=== PATIENT | male | born 1950 | race Caucasian/White ===

== ENCOUNTER 2016-12-07 06:14 | Day surgery (SDC) | payer MEDICARE, BC ==
[2016-12-02 14:52] VITALS: BMI 36.9
[~2016-12-07 06:14] MED LIST: SODIUM CHLORIDE 0.9% 1,000 ML IV SCH; ceFAZolin 1,000 MG in SODIUM CHLORIDE 0.9% IRRIGATIO 250 ML IRRIGATION ONE; ceFAZolin 2 GM in SODIUM CHLORIDE 0.9% 100 ML IVPB ONE
[2016-12-07] MEDS ORDERED: SODIUM CHLORIDE 0.9% 1,000 ML IV ONE (06:39)
[2016-12-07 06:42] VITALS: RESP 16; TEMP 97.9
[2016-12-07 06:53] LABS: Glucose,Whole Blood 132 mg/dL (75-99)
[2016-12-07 06:57] LABS: Anion Gap 11 mmol/L; Blood Urea Nitrogen 22 mg/dL (9-20); Calcium 9.5 mg/dL (8.4-10.2); Carbon Dioxide 25 mmol/L (22-30); Chloride 104 mmol/L (98-107); Glucose 138 mg/dL (74-99); Non-African American GFR(MDRD) >60 (>60 ml/min/1.73 sqM); Potassium 4.6 mmol/L (3.5-5.1); Sodium 140 mmol/L (137-145)
[2016-12-07] MEDS ORDERED: MIDAZOLAM 2 MG/2 ML VIAL ONE (07:46)
[2016-12-07] MEDS ORDERED: fentaNYL (PF) 50 MCG/ML 2 ML AMP ONE (07:46)
[2016-12-07] MEDS ORDERED: MIDAZOLAM 2 MG/2 ML VIAL IV ONE (07:49)
[2016-12-07] MEDS ORDERED: fentaNYL (PF) 50 MCG/ML 2 ML AMP IV ONE (07:49)
[2016-12-07] MEDS ORDERED: LIDOCAINE 1% INJ 10MG/ML (20 ML MDV) SQ ONE (07:56)
[2016-12-07] MEDS ORDERED: HYDROcodone/APAP 5-325MG 1 EACH TAB PO PRN (08:25)
[2016-12-07] MEDS ORDERED: ACETAMINOPHEN TAB 325 MG TAB PO PRN (08:25)
--- NOTE | 2016-12-07 08:36 | P.PCN ---
Date of Procedure: 12/07/16 Preoperative Diagnosis: History of dual-chamber pacemaker implantation. Battery depletion Postoperative Diagnosis: The same Procedure(s) Performed: Generator replacement Description of Procedure: HISTORY: This is a 66-year-old gentleman with history of permanent pacemaker implantation who was found to have evidence of battery depletion on recent evaluation. Patient is brought in for elective generator change. CONSENT: I have discussed the risks and benefits as related to the above mentioned procedure and both sedation/analgesia as well as necessary blood product administration. The patient has indicated understanding and acceptance of the risks of the procedure discussed. CONSCIOUS SEDATION. Patient was given IV Versed 1 mg and 50 g of fentanyl for conscious sedation that lasted for a half hour. PROCEDURE: Patient was brought to the lab in a fasting state. The skin over the existing pulse generator was infiltrated with lidocaine. An incision was made in the skin and was deepened until the pectoral fascia was exposed. Hemostasis was obtained. The existing pulse generator was pulled out of the pocket. The leads were disconnected and were checked for thresholds. THRESHOLDS: ATRIAL: Minimal pacing threshold was 0.4 V at a pulse width of 0.5 ms. Impedance is 437 ohms. The intrinsic P-wave is 3.8 mV VENTRICULAR: The minimal patient threshold was 0.6 V at a pulse width of 0.5 ms. Impedance is 434. The intrinsic R-wave is 9.4 mV . THE DEVICE: This is manufactured by [employer]. Model number is [id number] and the serial number is [id number] THE LEADS: ATRIAL: This is manufactured by [employer]. Model number is [id number]. The serial number is [id number] VENTRICULAR: This is manufactured by [employer]. Model number is 5592. Serial number is [id number] THE EXPLANTED DEVICE. This is manufactured by [employer]. Model number is [id number] and the serial number is [id number] . The leads were then connected to a new pulse generator . Pacemaker seems to function normally. The pocket was irrigated with antibiotics. The pocket was closed in the usual fashion. Pectoral fascia was closed with 2-0 Prolene, the subcutaneous tissue was closed with 3-0 Prolene and the skin was closed with 4-0 Prolene. Patient tolerated the procedure well . Patient will be monitored on the telemetry unit for 2-3 hours. If stable patient be discharged home later today. PLAN: Continue to monitoring for next 3 to 4 hours. If stable patient will be discharged home. Patient will keep the incision dry until seen in the office. He'll continue prophylactic antibiotics. FALLOW UP: With the Dr. Ramirez in one week
[2016-12-07] MEDS ORDERED: CEPHALEXIN 500 MG CAP PO STA (11:01)
[2016-12-07 11:05] VITALS: BP 120/81; PULSE 62
== END 2016-12-07 11:27 | disposition home or self-care (01) ==
LOC: CATHEP 06:14
PROVIDERS: ATTEND Internal Medicine Cardiovascular Disease
DX: Z45.010 Encounter for checking and testing of cardiac pacemaker pulse generator [battery] (principal); I25.10 Atherosclerotic heart disease of native coronary artery without angina pectoris; I10 Essential (primary) hypertension; E78.2 Mixed hyperlipidemia; Z95.5 Presence of coronary angioplasty implant and graft; G47.30 Sleep apnea, unspecified; Z82.49 Family history of ischemic heart disease and other diseases of the circulatory system; Z79.84 Long term (current) use of oral hypoglycemic drugs; Z79.82 Long term (current) use of aspirin; Z79.899 Other long term (current) drug therapy; Z87.891 Personal history of nicotine dependence
CPT/HCPCS: 33228; 80048; 99152; 99153; C1785; J2250; J0690; J2001; J3010

== ENCOUNTER → 2017-05-12 | Outpatient (CLI) | payer MEDICARE, BC ==
--- NOTE | 2017-05-12 10:32 | US ---
EXAMINATION TYPE: US duplex aorta DATE OF EXAM: 05/12/2017 COMPARISON: NONE CLINICAL HISTORY: 67-year-old male Z13.9 Abdominal Aortic Aneurysm screening. TECHNIQUE: Multiple sonographic images of the abdominal aorta are obtained. FINDINGS: COIN BOX COLLECTOR NOTES: Morbidly obese patient, study severely limited. EXAM MEASUREMENTS: Abdominal Aorta: Proximal: 2.1cm Mid: 1.8cm Distal: 1.7cm Bifurcation: not visualized due to obesity and overlying bowel IMPRESSION: Exam limitations due to large patient body habitus. No visualized probably.
== END | disposition home or self-care (01) ==
LOC: RADUSWWP 08:47
PROVIDERS: ATTEND Family Medicine
DX: Z13.9 Encounter for screening, unspecified (principal)
CPT/HCPCS: 93979

== ENCOUNTER 2018-09-01 06:49 | Day surgery (SDC) | payer MEDICARE ==
[2018-08-29 16:44] VITALS: BMI 39.0
[~2018-09-01 06:49] MED LIST changes: +DEXAMETHASONE SOD PHOSPHATE 10 MG/ML 1 ML VIAL IV ONE; +HYDROmorphone 1 MG/ML 1 ML SYRINGE IVP PRN; +LACTATED RINGERS 1,000 ML IV SCH; +LIDOCAINE 1% 20 ML VIAL (10MG/ML) FOR IV START INTRADERMA PRN; +ONDANSETRON 4 MG/2 ML VIAL IVP ONE; +SCOPOLAMINE 1.5MG/72HR PATCH TRANSDERM ONE; -SODIUM CHLORIDE 0.9% 1,000 ML IV SCH; -ceFAZolin 1,000 MG in SODIUM CHLORIDE 0.9% IRRIGATIO 250 ML IRRIGATION ONE; -ceFAZolin 2 GM in SODIUM CHLORIDE 0.9% 100 ML IVPB ONE
[2018-09-01] MEDS ORDERED: LACTATED RINGERS 1,000 ML IV ONE ×2 (07:18)
[2018-09-01 07:33] LABS: Glucose,Whole Blood 225 mg/dL (75-99)
[2018-09-01 07:34] VITALS: TEMP 97.7
[2018-09-01] MEDS ORDERED: PROPOFOL 10 MG/ML 20 ML VIAL IV ONE (08:11)
[2018-09-01] MEDS ORDERED: LIDOCAINE 1% INJ 10MG/ML (20 ML MDV) ONE (08:11)
[2018-09-01 08:41] VITALS: RESP 16
--- NOTE | 2018-09-01 08:48 | P.PCN ---
Date of Procedure: 09/01/18 Procedure(s) Performed: Procedure: Total colonoscopy. Preoperative diagnosis: Screening for neoplasia. Postoperative diagnosis: Exam within normal limits. Preparation: HalfLytely prep. Sedation: Was provided by anesthesia. Brief clinical history: The patient is a 68-year-old male who is scheduled for this evaluation for screening for neoplasia. He had to prior exams, the last was around 2009 years ago. The patient has no abdominal complaints, bleeding or anemia. Procedure: With the patient on his left lateral decubitus position and after informed consent and adequate sedation, the perianal area was inspected and it did not show any fissures or fistulas. There were no masses felt on digital rectal examination. The Olympus CFQ 160L video colonoscope was then inserted in the rectum in the usual fashion and advanced to the cecum. The mucosa appeared healthy. No polyps or tumors were seen or any obvious diverticular disease or other pathology. I retroflexed the endoscope in the rectum before the endoscope was withdrawn. The patient tolerated the procedure well. Plan: The patient was reassured. Will follow up with you as planned and I recommended repeat exam in 10 years.
[2018-09-01 08:59] VITALS: BP 155/84; PULSE 60
== END 2018-09-01 09:26 | disposition home or self-care (01) ==
LOC: ORWHC2ENDO 06:49
DX: Z12.11 Encounter for screening for malignant neoplasm of colon (principal); J44.9 Chronic obstructive pulmonary disease, unspecified; E11.9 Type 2 diabetes mellitus without complications; I10 Essential (primary) hypertension; E78.5 Hyperlipidemia, unspecified; G47.33 Obstructive sleep apnea (adult) (pediatric); Z79.891 Long term (current) use of opiate analgesic; Z95.0 Presence of cardiac pacemaker; Z79.899 Other long term (current) drug therapy; Z79.84 Long term (current) use of oral hypoglycemic drugs
CPT/HCPCS: J2001; J2704; G0121

== ENCOUNTER 2018-09-22 09:04 | Emergency (ER) | payer MEDICARE ==
[2018-09-22 09:15] VITALS: RESP 18
[2018-09-22] MEDS ORDERED: SODIUM CHLORIDE 0.9% 1,000 ML IV STA (09:37)
[2018-09-22] MEDS ORDERED: KETOROLAC 30 MG/ML 1 ML VIAL IVP STA (09:38)
--- NOTE | 2018-09-22 10:36 | ED ---
Abdominal Pain HPI - General Chief Complaint: Extremity Problem,Nontraumatic Stated Complaint: poss ruptured hernia Time Seen by Provider: 09/22/18 09:15 Source: patient, RN notes reviewed, old records reviewed Mode of arrival: ambulatory Limitations: no limitations - History of Present Illness Initial Comments: This is a 68-year-old male the ER for evaluation of severe groin pain. Patient has a couple week long history of groin pain he said for multiple evaluations for this including having orthopedic evaluations of his hip and his knee. Groin pain has persisted, his right lower quadrant worse when he moves worse when he tries to stand up. Bowel movements and urination is normal no nausea vomiting. No modifying factors for pain, no improving factors for pain. Patient has recent diagnosis of COPD. Patient is also with diabetes high blood pressure high cholesterol, surgical history includes appendicectomy MD Complaint: abdominal pain -: week(s) Location: RLQ Radiation: RLQ Migration to: suprapubic Severity: moderate Severity scale (1-10): 6 Quality: stabbing, aching Consistency: constant Improves With: nothing Worsens With: bowel movement, movement Associated Symptoms: denies other symptoms - Related Data Home Medications Medication Instructions Recorded Confirmed Aspirin 325 mg PO DAILY 12/02/16 09/22/18 Atorvastatin [Lipitor] 20 mg PO HS 12/02/16 09/22/18 Metoprolol Tartrate [Lopressor] 25 mg PO BID 12/02/16 09/22/18 Venlafaxine HCl [Effexor XR] 150 mg PO DAILY 12/02/16 09/22/18 metFORMIN HCL [Glucophage] 500 mg PO BID 12/02/16 09/22/18 Budesonide-Formot 160-4.5 Mcg 2 puff INHALATION BID 08/29/18 09/22/18 [Symbicort 160-4.5 Mcg Inhaler] L.acidoph,Paracasei, B.lactis 1 each PO DAILY 08/29/18 09/22/18 [Probiotic] Varenicline [Chantix Continuing 1 mg PO BID 08/29/18 09/22/18 Pack] amLODIPine BESYLATE 5 mg PO DAILY 08/29/18 09/22/18 Albuterol Sulfate [Proair Hfa] 2 puff INHALATION RT-Q4H 09/22/18 09/22/18 Lisinopril [Zestril] 10 mg PO DAILY 09/22/18 09/22/18 Umeclidinium Bradford [Incruse 1 puff INHALATION RT-DAILY 09/22/18 09/22/18 Ellipta] Allergies Allergy/AdvReac Type Severity Reaction Status Date / Time No Known Allergies Allergy Verified 09/22/18 11:22 Review of Systems ROS Statement: Those systems with pertinent positive or pertinent negative responses have been documented in the HPI. ROS Other: All systems not noted in ROS Statement are negative. Past Medical History Past Medical History: COPD, Diabetes Mellitus, Hyperlipidemia, Hypertension, Sleep Apnea/CPAP/BIPAP Additional Past Medical History / Comment(s): PACEMAKER. Uses VPAP. History of Any Multi-Drug Resistant Organisms: None Reported Past Surgical History: Appendectomy, Back Surgery, Pacemaker Additional Past Surgical History / Comment(s): Oral surg. COLONOSCOPY. GENERATOR CHANGE 2016. Past Anesthesia/Blood Transfusion Reactions: No Reported Reaction Type of Cardiac Device: Permanent Pacemaker Device Placement Date:: 2008 Past Psychological History: Depression Smoking Status: Current some day smoker Past Alcohol Use History: Occasional Past Drug Use History: None Reported - Past Family History Mother Family Medical History: Cancer Brother(s) Family Medical History: Cancer General Exam Limitations: no limitations General appearance: alert, in no apparent distress Head exam: Present: atraumatic, normocephalic, normal inspection Eye exam: Present: normal appearance, PERRL, EOMI. Absent: scleral icterus, conjunctival injection, periorbital swelling ENT exam: Present: normal exam, mucous membranes moist Neck exam: Present: normal inspection. Absent: tenderness, meningismus, lymphadenopathy Respiratory exam: Present: normal lung sounds bilaterally. Absent: respiratory distress, wheezes, rales, rhonchi, stridor Cardiovascular Exam: Present: regular rate, normal rhythm, normal heart sounds. Absent: systolic murmur, diastolic murmur, rubs, gallop, clicks GI/Abdominal exam: Present: soft, tenderness (Right lower quadrant), normal bowel sounds. Absent: distended, guarding, rebound, rigid Extremities exam: Present: normal inspection, full ROM, normal capillary refill. Absent: tenderness, pedal edema, joint swelling, calf tenderness Back exam: Present: normal inspection Neurological exam: Present: alert, oriented X3, CN II-XII intact Psychiatric exam: Present: normal affect, normal mood Skin exam: Present: warm, dry, intact, normal color. Absent: rash Course Vital Signs 09/22/18 09:09 Temperature 97.6 F Pulse Rate 60 Respiratory 18 Rate Blood Pressure 123/73 O2 Sat by Pulse 100 Oximetry - Reevaluation(s) Reevaluation #1: 09/22/18 10:36 Medical record is reviewed Reevaluation #2: 09/22/18 10:36 Pain is improved Reevaluation #3: 09/22/18 12:26 pain is controlled Medical Decision Making - Medical Decision Making 68 male to the ED co abdominal pain, worse with movement, CT chest abd pelvis is negative for acute disease, atient to be discharged home. - Lab Data Result diagrams: 09/22/18 10:27 09/22/18 10:27 Lab Results 09/22/18 09/22/18 09/22/18 Range/Units 10:27 10:27 10:27 WBC 10.1 (3.8-10.6) k/uL RBC 3.82 L (4.30-5.90) m/uL Hgb 11.8 L (13.0-17.5) gm/dL Hct 36.8 L (39.0-53.0) % MCV 96.3 (80.0-100.0) fL MCH 30.9 (25.0-35.0) pg MCHC 32.0 (31.0-37.0) g/dL RDW 13.3 (11.5-15.5) % Plt Count 226 (150-450) k/uL Neutrophils % 75 % Lymphocytes % 16 % Monocytes % 4 % Eosinophils % 2 % Basophils % 0 % Neutrophils # 7.5 (1.3-7.7) k/uL Lymphocytes # 1.6 (1.0-4.8) k/uL Monocytes # 0.4 (0-1.0) k/uL Eosinophils # 0.2 (0-0.7) k/uL Basophils # 0.0 (0-0.2) k/uL PT (9.0-12.0) sec INR (<1.2) APTT (22.0-30.0) sec Sodium 137 (137-145) mmol/L Potassium 5.2 H (3.5-5.1) mmol/L Chloride 103 (98-107) mmol/L Carbon Dioxide 24 (22-30) mmol/L Anion Gap 10 mmol/L BUN 24 H (9-20) mg/dL Creatinine 0.97 (0.66-1.25) mg/dL Est GFR (CKD-EPI)AfAm >90 (>60 ml/min/1.73 sqM) Est GFR (CKD-EPI)NonAf 80 (>60 ml/min/1.73 sqM) Glucose 211 H (74-99) mg/dL Calcium 9.6 (8.4-10.2) mg/dL Phosphorus 3.7 (2.5-4.5) mg/dL Magnesium 1.8 (1.6-2.3) mg/dL Total Bilirubin 0.5 (0.2-1.3) mg/dL AST 28 (17-59) U/L ALT 47 (21-72) U/L Alkaline Phosphatase 73 (38-126) U/L Total Creatine Kinase 148 (55-170) U/L CK-MB (CK-2) 1.6 (0.0-2.4) ng/mL CK-MB (CK-2) Rel Index 1.1 Troponin I <0.012 (0.000-0.034) ng/mL NT-Pro-B Natriuret Pep pg/mL Total Protein 7.1 (6.3-8.2) g/dL Albumin 4.0 (3.5-5.0) g/dL 09/22/18 09/22/18 Range/Units 10:27 10:27 WBC (3.8-10.6) k/uL RBC (4.30-5.90) m/uL Hgb (13.0-17.5) gm/dL Hct (39.0-53.0) % MCV (80.0-100.0) fL MCH (25.0-35.0) pg MCHC (31.0-37.0) g/dL RDW (11.5-15.5) % Plt Count (150-450) k/uL Neutrophils % % Lymphocytes % % Monocytes % % Eosinophils % % Basophils % % Neutrophils # (1.3-7.7) k/uL Lymphocytes # (1.0-4.8) k/uL Monocytes # (0-1.0) k/uL Eosinophils # (0-0.7) k/uL Basophils # (0-0.2) k/uL PT 9.7 (9.0-12.0) sec INR 0.9 (<1.2) APTT 22.4 (22.0-30.0) sec Sodium (137-145) mmol/L Potassium (3.5-5.1) mmol/L Chloride (98-107) mmol/L Carbon Dioxide (22-30) mmol/L Anion Gap mmol/L BUN (9-20) mg/dL Creatinine (0.66-1.25) mg/dL Est GFR (CKD-EPI)AfAm (>60 ml/min/1.73 sqM) Est GFR (CKD-EPI)NonAf (>60 ml/min/1.73 sqM) Glucose (74-99) mg/dL Calcium (8.4-10.2) mg/dL Phosphorus (2.5-4.5) mg/dL Magnesium (1.6-2.3) mg/dL Total Bilirubin (0.2-1.3) mg/dL AST (17-59) U/L ALT (21-72) U/L Alkaline Phosphatase (38-126) U/L Total Creatine Kinase (55-170) U/L CK-MB (CK-2) (0.0-2.4) ng/mL CK-MB (CK-2) Rel Index Troponin I (0.000-0.034) ng/mL NT-Pro-B Natriuret Pep 82 pg/mL Total Protein (6.3-8.2) g/dL Albumin (3.5-5.0) g/dL - Radiology Data Radiology results: report reviewed (CT abd pelvis is negate for acute disease), image reviewed Disposition Clinical Impression: Abdominal pain Disposition: HOME SELF-CARE Condition: Good Instructions: Abdominal Pain (ED) Is patient prescribed a controlled substance at d/c from ED?: No Referrals: Nba Nguyen MD [Primary Care Provider] - 1-2 days
[2018-09-22 11:03] LABS: Basophils % (A) 0 %; Eosinophils # (A) 0.2 k/uL (0-0.7); Eosinophils % (A) 2 %; HCT 36.8 % (39.0-53.0); HGB 11.8 gm/dL (13.0-17.5); Lymphocytes # (A) 1.6 k/uL (1.0-4.8); Lymphocytes % (A) 16 %; MCH 30.9 pg (25.0-35.0); MCV 96.3 fL (80.0-100.0); Mean Platelet Volume 6.9; Monocytes # (A) 0.4 k/uL (0-1.0); Monocytes % (A) 4 %; Neutrophils # (A) 7.5 k/uL (1.3-7.7); Neutrophils % (A) 75 %; Platelet Count 226 k/uL (150-450); RBC 3.82 m/uL (4.30-5.90); RDW 13.3 % (11.5-15.5); WBC 10.1 k/uL (3.8-10.6)
[2018-09-22 11:14] LABS: ALT 47 U/L (21-72); AST 28 U/L (17-59); Alkaline Phosphatase 73 U/L (38-126); Anion Gap 10 mmol/L; Blood Urea Nitrogen 24 mg/dL (9-20); Calcium 9.6 mg/dL (8.4-10.2); Carbon Dioxide 24 mmol/L (22-30); Chloride 103 mmol/L (98-107); Glucose 211 mg/dL (74-99); Magnesium 1.8 mg/dL (1.6-2.3); Phosphorus 3.7 mg/dL (2.5-4.5); Potassium 5.2 mmol/L (3.5-5.1); Sodium 137 mmol/L (137-145); Total Bilirubin 0.5 mg/dL (0.2-1.3); Total Protein 7.1 g/dL (6.3-8.2)
[2018-09-22 11:21] LABS: INR 0.9 (<1.2); Partial Thromboplastin Time 22.4 sec (22.0-30.0); Prothrombin Time 9.7 sec (9.0-12.0)
[2018-09-22 11:25] LABS: Creatine Kinase 148 U/L (55-170)
[2018-09-22 11:39] LABS: Creatine Kinase MB 1.6 ng/mL (0.0-2.4); Troponin I <0.012 ng/mL (0.000-0.034)
--- NOTE | 2018-09-22 11:54 | CT ---
EXAMINATION TYPE: CT ChestAbdPelvis w con DATE OF EXAM: 09/22/2018 COMPARISON: None. HISTORY: Rt groin pain. Chest pain presumed per order. CT DLP: 2207.4 mGycm. Automated Exposure Control for Dose Reduction was Utilized. CONTRAST: CT scan of the thorax, abdomen and pelvis is performed without oral but with IV Contrast, patient inj ected with 100 mL of Isovue 300. FINDINGS: LUNGS: Dependent atelectasis is seen in bilateral lower lobes. No suspicious focal consolidation or g roundglass opacity is seen. No pleural effusion or pneumothorax is noted bilaterally. Mild central pe ribronchial wall thickening is seen most prominent in the right middle lobe on coronal images MEDIASTINUM: There are no greater than 1 cm hilar or mediastinal lymph nodes. No pericardial effusi on is seen. Cardiomegaly is identified. There is dual lead pacemaker present. Three-vessel Coronary artery calcification and/or stents is identified, correlate clinically OTHER: Bilateral subareolar flame-shaped gynecomastia is seen. LIVER/GB: Liver is diffusely low dense consistent with fatty infiltration. PANCREAS: No significant abnormality is seen. SPLEEN: No significant abnormality is seen. ADRENALS: No significant abnormality is seen. KIDNEYS: There are circumaortic left renal vein which is normal variant. BOWEL: Evaluation bowel is suboptimal secondary to lack of enteric contrast. There is no suspicious s mall or large bowel dilatation. Appendix is not visualized and presumed surgically absent. There is o ccasional diverticula scattered throughout the colon without convincing CT evidence for acute diverti culitis. GENITAL ORGANS: Prostate gland is upper limits of normal in size. LYMPH NODES: No greater than 1cm abdominal or pelvic lymph nodes are appreciated. There are prominent but subcentimeter bilateral groin lymph nodes OSSEOUS STRUCTURES: There is transitional-type vertebra at lumbosacral junction. There is facet arthr opathy in the lower lumbar spine. There is moderate to advanced disc space narrowing and vacuum disc phenomenon at L5 L6 level. OTHER: There is moderate to severe calcified plaque of the infrarenal abdominal aorta extending into pelvic branch vessels. There are symmetric small to moderate sized fat-containing inguinal hernias. T here is small fat-containing umbilical hernia. IMPRESSION: No suspicious acute findings seen to account for patient's symptoms.
[2018-09-22 12:59] VITALS: BP 140/69; PULSE 89; TEMP 97.9
== END 2018-09-22 12:59 | disposition home or self-care (01) ==
LOC: EC 09:04
DX: R10.31 Right lower quadrant pain (principal); J44.9 Chronic obstructive pulmonary disease, unspecified; E11.9 Type 2 diabetes mellitus without complications; E78.5 Hyperlipidemia, unspecified; I10 Essential (primary) hypertension; G47.30 Sleep apnea, unspecified; Z99.89 Dependence on other enabling machines and devices; F32.9 Major depressive disorder, single episode, unspecified; F17.200 Nicotine dependence, unspecified, uncomplicated; Z79.82 Long term (current) use of aspirin; Z79.84 Long term (current) use of oral hypoglycemic drugs; Z79.51 Long term (current) use of inhaled steroids; Z79.899 Other long term (current) drug therapy; Z95.0 Presence of cardiac pacemaker
CPT/HCPCS: 36415; 83880; 80053; 82550; 82553; 83735; 84100; 84484; 85025; 85610; 85730; 71260; 74177; 99284; 96374; 96361; J1885; Q9967

== ENCOUNTER 2019-06-27 07:01 | Day surgery (SDC) | payer MEDICARE ==
[~2019-06-27 07:01] MED LIST changes: -DEXAMETHASONE SOD PHOSPHATE 10 MG/ML 1 ML VIAL IV ONE; -HYDROmorphone 1 MG/ML 1 ML SYRINGE IVP PRN; -ONDANSETRON 4 MG/2 ML VIAL IVP ONE; -SCOPOLAMINE 1.5MG/72HR PATCH TRANSDERM ONE
[2019-06-27 07:22] VITALS: RESP 18; TEMP 97.5
[2019-06-27 07:27] LABS: Glucose,Whole Blood 170 mg/dL (75-99)
[2019-06-27] MEDS ORDERED: PROPOFOL 10 MG/ML 20 ML VIAL IV ONE (07:34)
[2019-06-27] MEDS ORDERED: LIDOCAINE 1% INJ 10MG/ML (20 ML MDV) ONE (07:34)
[2019-06-27] MEDS ORDERED: IV FLUID CONTINUATION 1,000 ML IV ONE (07:58)
--- NOTE | 2019-06-27 08:07 | P.PCN ---
Date of Procedure: 06/27/19 Description of Procedure: BRIEF HISTORY: 69-year-old male who presents for outpatient EGD. Patient has had symptoms of diarrhea for 6 years with 2-3 bowel movements with extreme redundancy as well as occasional fecal incontinence. Stool studies were negative including parasites, and fecal lactoferrin. He did have lab testing which was positive for celiac disease. He also reports other symptoms of GI upset with regurgitation and distention resulting in associated abdominal pain. PROCEDURE PERFORMED: Esophagogastroduodenoscopy with biopsy. PREOPERATIVE DIAGNOSIS: Diarrhea, positive blood work for celiac disease, GERD, abdominal pain. ESTIMATED BLOOD LOSS: Minimal. IV sedation per anesthesia. PROCEDURE: After informed consent was obtained, the patient was brought into the endoscopy unit. IV sedation was administered by Anesthesia under continuous monitoring. Initially the Olympus GIF-190 video endoscope was inserted into the mouth. Esophagus intubated without any difficulty. It was gradually advanced into the stomach and duodenum and carefully examined. The bulb and the second part of the duodenum were significant for signs of villous blunting suggestive of celiac disease with biopsies taken. The scope at this time was withdrawn to the stomach, adequately insufflated with air, and upon careful examination, mucosa of the antrum, body, cardia and the fundus grossly normal. There were however findings of mild erythema in the antrum and body suggestive of mild gastritis with biopsies taken. A large amount of food debris was also seen throughout the stomach suggestive of gastroparesis. The scope was then withdrawn into the esophagus. The GE junction was located at 40 cm from the incisors. The esophagus appeared normal. There were no erosions or ulcerations seen and the patient tolerated the procedure well. IMPRESSION: 1. Abnormal duodenal mucosa with villous blunting noted suggestive of celiac disease with biopsies taken. 2. Mild gastritis antrum body, biopsied. 3. Retained food debris throughout the stomach suggestive of gastroparesis. RECOMMENDATIONS: The findings of this examination were discussed with the patient and his . Okay to resume medications. Await pathology from biopsies. Follow up with Jimena Woodward in the GI clinic as previously scheduled.
[2019-06-27 08:18] VITALS: BP 128/72; PULSE 60
== END 2019-06-27 09:06 | disposition home or self-care (01) ==
LOC: ORWHC2ENDO 07:01
PROVIDERS: ATTEND Internal Medicine
DX: K29.50 Unspecified chronic gastritis without bleeding (principal); K90.0 Celiac disease; K21.9 Gastro-esophageal reflux disease without esophagitis; I10 Essential (primary) hypertension; E78.5 Hyperlipidemia, unspecified; G47.33 Obstructive sleep apnea (adult) (pediatric); F17.200 Nicotine dependence, unspecified, uncomplicated; Z97.2 Presence of dental prosthetic device (complete) (partial); Z79.51 Long term (current) use of inhaled steroids; Z79.84 Long term (current) use of oral hypoglycemic drugs; Z79.82 Long term (current) use of aspirin; Z79.899 Other long term (current) drug therapy
CPT/HCPCS: 88305; 43239; J2001; J2704

== ENCOUNTER 2019-09-28 14:57 | Emergency (ER) | payer MEDICARE ==
[2019-09-28 16:02] VITALS: TEMP 98.8
[2019-09-28 16:03] LABS: Glucose,Whole Blood 144 mg/dL (75-99)
[2019-09-28] MEDS ORDERED: SODIUM CHLORIDE 0.9% 500 ML 500 ML IV STA (16:23)
[2019-09-28] MEDS ORDERED: ONDANSETRON 4 MG/2 ML VIAL IVP STA (16:23)
--- NOTE | 2019-09-28 16:28 | ED ---
General Adult HPI - General Chief complaint: Dizziness Stated complaint: Cough, Dizziness, shakiness Time Seen by Provider: 09/28/19 16:13 Source: patient Mode of arrival: ambulatory - History of Present Illness Initial comments: Patient is a 69-year-old male, with multiple comorbidities including COPD, diabetes, hypertension, pacemaker, presenting to emergency Department with complaints of cough, lightheadedness 3 days. Patient is having mild shortness of breath along with the cough. He states the shortness of breath is worse when he lays down. He is producing brown colored phlegm. Patient denies chest pain, abdominal pain, diarrhea. He does admit to nausea, with dry heaves. Patient does have history of COPD though he does not require oxygen at this time. Patie nt denies any sick contacts. Patient feels lightheaded for the past 2 days, worse when he stands up and walks. Denies LOC. Patient has no other complaints at this time. Patient's initial vital signs are 85% on room air, rest of vitals normal. Upon recheck during initial exam, patient is stating at 93% on room air. - Related Data Home Medications Medication Instructions Recorded Confirmed Aspirin 325 mg PO DAILY 12/02/16 06/23/19 Atorvastatin [Lipitor] 20 mg PO HS 12/02/16 06/27/19 Metoprolol Tartrate [Lopressor] 25 mg PO BID 12/02/16 06/27/19 Venlafaxine HCl [Effexor XR] 150 mg PO QAM 12/02/16 06/27/19 metFORMIN HCL [Glucophage] 500 mg PO BID 12/02/16 06/27/19 Budesonide-Formot 160-4.5 Mcg 2 puff INHALATION BID 08/29/18 06/27/19 [Symbicort 160-4.5 Mcg Inhaler] Varenicline [Chantix Continuing 1 mg PO BID 08/29/18 06/27/19 Pack] amLODIPine BESYLATE 5 mg PO QAM 08/29/18 06/27/19 Albuterol Sulfate [Proair Hfa] 2 puff INHALATION RT-Q4H 09/22/18 06/27/19 Lisinopril [Zestril] 10 mg PO QAM 09/22/18 06/27/19 Umeclidinium [place] [Incruse 1 puff INHALATION RT-DAILY 09/22/18 06/27/19 Ellipta] Previous Rx's Medication Instructions Recorded Amoxicillin/Potassium Clav 2 tab PO Q12H 5 Days #20 tab 09/28/19 [Amox-Clav ER 1,000-62.5 mg Tab] Azithromycin [Zithromax Z-pack] 0 mg PO DIRECTED #1 pack 09/28/19 Allergies Allergy/AdvReac Type Severity Reaction Status Date / Time No Known Allergies Allergy Verified 09/28/19 16:02 Review of Systems ROS Statement: Those systems with pertinent positive or pertinent negative responses have been documented in the HPI. ROS Other: All systems not noted in ROS Statement are negative. Past Medical History Past Medical History: COPD, Diabetes Mellitus, Hyperlipidemia, Hypertension, Osteoarthritis (OA), Sleep Apnea/CPAP/BIPAP Additional Past Medical History / Comment(s): PACEMAKER. Uses VPAP. History of Any Multi-Drug Resistant Organisms: None Reported Past Surgical History: Appendectomy, Back Surgery, Pacemaker Additional Past Surgical History / Comment(s): Oral surg. COLONOSCOPY. GE NERATOR CHANGE 2017. Past Anesthesia/Blood Transfusion Reactions: No Reported Reaction Type of Cardiac Device: Permanent Pacemaker Device Placement Date:: 2008 Past Psychological History: Depression Smoking Status: Current every day smoker Past Alcohol Use History: Occasional Past Drug Use History: None Reported - Past Family History Mother Family Medical History: Cancer Brother(s) Family Medical History: Cancer General Exam - General Exam Comments Initial Comments: GENERAL: Well-appearing, well-nourished and in no acute distress. HEAD: Atraumatic, normocephalic. EYES: Pupils equal round and reactive to light, extraocular movements intact, sclera anicteric, conjunctiva are normal. ENT: Nares patent, oropharynx clear without exudates. Moist mucous membranes. NECK: Normal range of motion, supple without lymphadenopathy or JVD. LUNGS: Breath sounds clear to auscultation bilaterally and equal. No wheezes rales or rhonchi. HEART: Regular rate and rhythm without murmurs, rubs or gallops. ABDOMEN: Soft, nontender, normoactive bowel sounds. No guarding, no rebound. No masses appreciated. : Deferred EXTREMITIES: Normal range of motion, no pitting or edema. No clubbing or cyanosis. NEUROLOGICAL: Cranial nerves II through XII grossly intact. Normal speech, normal gait. PSYCH: Normal mood, normal affect. SKIN: Warm, Dry, normal turgor, no rashes or lesions noted. Course Vital Signs 09/28/19 09/28/19 09/28/19 15:54 19:05 19:07 Temperature 98.8 F Pulse Rate 83 79 Respiratory 20 18 16 Rate Blood Pressure 125/55 151/79 O2 Sat by Pulse 85 L 99 Oximetry EKG Findings - EKG Comments: EKG Findings:: Ventricular rate 62, OK interval 218, QTC 436. Atrial paced rh ythm with prolonged AV conduction. Right bundle shahnaz block. No acute ST segment changes. Medical Decision Making - Medical Decision Making Patient is a 69-year-old male presenting with coughing, lightheadedness 3 days. Vital signs are stable upon arrival, satting 93% on room air. Lab work shows a leukocytosis 16.0. Troponin is normal. No other acute findings. Chest x-ray shows a new right upper lobe pneumonia. No heart failure seen. Patient is unable to give a urine sample during ER stay. She was given Zofran and fluids and he reports improvement in symptoms. Vital signs have remained stable. I discussed these findings with the patient. Patient is wanting to go out of town is not wanting to stay in hospital. Patient will be started on Augmentin as well as azithromycin for his pneumonia. Patient does see a die welder Dr. Garcia, and he will follow-up with them tomorrow before he leaves for [place]. Patient is in agreement with this plan of care. She is stable for discharge at this time. Return parameters were discussed with the patient he verbalizes understanding. Case discussed with Dr. Collazo. - Lab Data Result diagrams: 09/28/19 16:25 09/28/19 16:25 Lab Results 09/28/19 09/28/19 09/28/19 Range/Units 16:01 16:25 16:25 WBC 16.0 H (3.8-10.6) k/uL RBC 3.97 L (4.30-5.90) m/uL Hgb 12.2 L (13.0-17.5) gm/dL Hct 38.0 L (39.0-53.0) % MCV 95.8 (80.0-100.0) fL MCH 30.6 (25.0-35.0) pg MCHC 32.0 (31.0-37.0) g/dL RDW 12.9 (11.5-15.5) % Plt Count 224 (150-450) k/uL Neutrophils % 84 % Lymphocytes % 8 % Monocytes % 5 % Eosinophils % 1 % Basophils % 0 % Neutrophils # 13.4 H (1.3-7.7) k/uL Lymphocytes # 1.3 (1.0-4.8) k/uL Monocytes # 0.8 (0-1.0) k/uL Eosinophils # 0.2 (0-0.7) k/uL Basophils # 0.1 (0-0.2) k/uL PT (9.0-12.0) sec INR (<1.2) APTT (22.0-30.0) sec Sodium 138 (137-145) mmol/L Potassium 4.7 (3.5-5.1) mmol/L Chloride 102 (98-107) mmol/L Carbon Dioxide 27 (22-30) mmol/L Anion Gap 9 mmol/L BUN 21 H (9-20) mg/dL Creatinine 1.25 (0.66-1.25) mg/dL Est GFR (CKD-EPI)AfAm 68 (>60 ml/min/1.73 sqM) Est GFR (CKD-EPI)NonAf 58 (>60 ml/min/1.73 sqM) Glucose 142 H (74-99) mg/dL POC Glucose (mg/dL) 144 H (75-99) mg/dL POC Glu Production Control Coordinator ID Nikunj Choudhary Calcium 9.5 (8.4-10.2) mg/dL Total Bilirubin 0.6 (0.2-1.3) mg/dL AST 24 (17-59) U/L ALT 20 (4-49) U/L Alkaline Phosphatase 91 (38-126) U/L Troponin I (0.000-0.034) ng/mL Total Protein 7.5 (6.3-8.2) g/dL Albumin 4.1 (3.5-5.0) g/dL 09/28/19 09/28/19 Range/Units 16:25 16:25 WBC (3.8-10.6) k/uL RBC (4.30-5.90) m/uL Hgb (13.0-17.5) gm/dL Hct (39.0-53.0) % MCV (80.0-100.0) fL MCH (25.0-35.0) pg MCHC (31.0-37.0) g/dL RDW (11.5-15.5) % Plt Count (150-450) k/uL Neutrophils % % Lymphocytes % % Monocytes % % Eosinophils % % Basophils % % Neutrophils # (1.3-7.7) k/uL Lymphocytes # (1.0-4.8) k/uL Monocytes # (0-1.0) k/uL Eosinophils # (0-0.7) k/uL Basophils # (0-0.2) k/uL PT 9.9 (9.0-12.0) sec INR 0.9 (<1.2) APTT 22.7 (22.0-30.0) sec Sodium (137-145) mmol/L Potassium (3.5-5.1) mmol/L Chloride (98-107) mmol/L Carbon Dioxide (22-30) mmol/L Anion Gap mmol/L BUN (9-20) mg/dL Creatinine (0.66-1.25) mg/dL Est GFR (CKD-EPI)AfAm (>60 ml/min/1.73 sqM) Est GFR (CKD-EPI)NonAf (>60 ml/min/1.73 sqM) Glucose (74-99) mg/dL POC Glucose (mg/dL) (75-99) mg/dL POC Glu Production Control Coordinator ID Calcium (8.4-10.2) mg/dL Total Bilirubin (0.2-1.3) mg/dL AST (17-59) U/L ALT (4-49) U/L Alkaline Phosphatase (38-126) U/L Troponin I <0.012 (0.000-0.034) ng/mL Total Protein (6.3-8.2) g/dL Albumin (3.5-5.0) g/dL Disposition Clinical Impression: Pneumonia, Shortness of breath Disposition: HOME SELF-CARE Condition: Stable Instructions (If sedation given, give patient instructions): Pneumonia (ED) Additional Instructions: Please return to the Emergency Department if symptoms worsen or any other concerns. Take antibiotic as prescribed. Follow-up with die welder as discussed. Prescriptions: Amoxicillin/Potassium Clav [Amox-Clav ER 1,000-62.5 mg Tab] 2 tab PO Q12H 5 Days #20 tab Azithromycin [Zithromax Z-pack] 0 mg PO DIRECTED #1 pack Is patient prescribed a controlled substance at d/c from ED?: No Referrals: Nba Nguyen MD [Primary Care Provider] - 1-2 days Ratna Valle MD [STAFF PHYSICIAN] - 1-2 days
[2019-09-28 16:39] LABS: Basophils # (A) 0.1 k/uL (0-0.2); Basophils % (A) 0 %; Eosinophils # (A) 0.2 k/uL (0-0.7); Eosinophils % (A) 1 %; HGB 12.2 gm/dL (13.0-17.5); Lymphocytes # (A) 1.3 k/uL (1.0-4.8); Lymphocytes % (A) 8 %; MCH 30.6 pg (25.0-35.0); MCV 95.8 fL (80.0-100.0); Mean Platelet Volume 7.8; Monocytes # (A) 0.8 k/uL (0-1.0); Monocytes % (A) 5 %; Neutrophils # (A) 13.4 k/uL (1.3-7.7); Neutrophils % (A) 84 %; Platelet Count 224 k/uL (150-450); RBC 3.97 m/uL (4.30-5.90); RDW 12.9 % (11.5-15.5)
[2019-09-28 16:50] LABS: INR 0.9 (<1.2); Partial Thromboplastin Time 22.7 sec (22.0-30.0); Prothrombin Time 9.9 sec (9.0-12.0)
[2019-09-28 16:52] LABS: Albumin 4.1 g/dL (3.5-5.0); Calcium 9.5 mg/dL (8.4-10.2); Potassium 4.7 mmol/L (3.5-5.1); Total Bilirubin 0.6 mg/dL (0.2-1.3); Total Protein 7.5 g/dL (6.3-8.2)
--- NOTE | 2019-09-28 18:28 | XR ---
EXAMINATION TYPE: XR chest 2V DATE OF EXAM: 09/28/2019 COMPARISON: 09/14/2018 HISTORY: Short of breath TECHNIQUE: 2 views FINDINGS: There is 6 cm patch of airspace infiltrate in the right upper lobe along the right lateral chest wall. The other lung levine are clear. There is no heart failure. There is a left axillary pace maker. There is no pleural effusion. Heart is enlarged. IMPRESSION: There is a new right upper lobe pneumonia compared to old exam. No heart failure seen.
[2019-09-28 19:08] VITALS: BP 151/79; PULSE 79; RESP 16
== END 2019-09-28 19:07 | disposition home or self-care (01) ==
LOC: EC 14:57
DX: J18.9 Pneumonia, unspecified organism (principal); D72.829 Elevated white blood cell count, unspecified; R42 Dizziness and giddiness; J44.0 Chronic obstructive pulmonary disease with (acute) lower respiratory infection; E11.9 Type 2 diabetes mellitus without complications; E78.5 Hyperlipidemia, unspecified; I10 Essential (primary) hypertension; M19.90 Unspecified osteoarthritis, unspecified site; G47.30 Sleep apnea, unspecified; F32.9 Major depressive disorder, single episode, unspecified; F17.200 Nicotine dependence, unspecified, uncomplicated; Z79.51 Long term (current) use of inhaled steroids; Z79.82 Long term (current) use of aspirin; Z79.84 Long term (current) use of oral hypoglycemic drugs; Z79.899 Other long term (current) drug therapy; Z95.0 Presence of cardiac pacemaker; Z99.89 Dependence on other enabling machines and devices
CPT/HCPCS: 36415; 93005; 80053; 84484; 85025; 85610; 85730; 71046; 99284; 96374; 96361; J2405

== ENCOUNTER → 2020-02-12 | Outpatient (CLI) | payer MEDICARE ==
--- NOTE | 2020-02-12 15:40 | XR ---
EXAMINATION TYPE: XR chest 2V DATE OF EXAM: 02/12/2020 COMPARISON: Prior chest x-ray 09/28/2019 HISTORY: Recurrent pneumonia TECHNIQUE: Frontal and lateral views of the chest are obtained. FINDINGS: There is improvement in the airspace disease in the right upper lobe. Pacemaker is stable. Heart size is unchanged. There is no pneumothorax or pleural effusion. IMPRESSION: Stellate density in the right upper lobe is noted which may reflect atelectasis or scar, additional follow-up is recommended. There is improved aeration as compared to prior exam.
== END | disposition home or self-care (01) ==
LOC: RADXRMAIN 14:50
PROVIDERS: ATTEND Family Medicine
DX: Z87.01 Personal history of pneumonia (recurrent) (principal); R91.8 Other nonspecific abnormal finding of lung field
CPT/HCPCS: 71046

== ENCOUNTER → 2020-02-13 | Outpatient (CLI) | payer MEDICARE ==
[2020-02-13 11:51] LABS: Basophils % (A) 0 %; Eosinophils # (A) 0.3 k/uL (0-0.7); Eosinophils % (A) 3 %; HCT 41.7 % (39.0-53.0); HGB 13.4 gm/dL (13.0-17.5); Lymphocytes # (A) 2.7 k/uL (1.0-4.8); Lymphocytes % (A) 23 %; MCH 31.2 pg (25.0-35.0); MCHC 32.1 g/dL (31.0-37.0); MCV 97.4 fL (80.0-100.0); Mean Platelet Volume 7.9; Monocytes # (A) 0.5 k/uL (0-1.0); Monocytes % (A) 4 %; Neutrophils # (A) 8.1 k/uL (1.3-7.7); Neutrophils % (A) 68 %; Platelet Count 261 k/uL (150-450); RBC 4.28 m/uL (4.30-5.90); RDW 13.1 % (11.5-15.5); WBC 11.8 k/uL (3.8-10.6)
== END | disposition home or self-care (01) ==
LOC: LABWHC1 10:51
PROVIDERS: ATTEND Family Medicine
DX: Z87.01 Personal history of pneumonia (recurrent) (principal)
CPT/HCPCS: 36415; 85025

== ENCOUNTER → 2020-03-15 | Outpatient (CLI) | payer MEDICARE ==
[2020-03-15 12:07] LABS: Basophils % (A) 0 %; Eosinophils # (A) 0.3 k/uL (0-0.7); Eosinophils % (A) 3 %; HCT 39.4 % (39.0-53.0); HGB 12.6 gm/dL (13.0-17.5); Lymphocytes # (A) 2.3 k/uL (1.0-4.8); Lymphocytes % (A) 22 %; MCH 30.8 pg (25.0-35.0); MCHC 31.9 g/dL (31.0-37.0); MCV 96.4 fL (80.0-100.0); Mean Platelet Volume 7.8; Monocytes # (A) 0.6 k/uL (0-1.0); Monocytes % (A) 6 %; Neutrophils # (A) 7.3 k/uL (1.3-7.7); Neutrophils % (A) 67 %; Platelet Count 200 k/uL (150-450); RBC 4.09 m/uL (4.30-5.90); RDW 12.8 % (11.5-15.5); WBC 10.8 k/uL (3.8-10.6)
[2020-03-15 12:19] LABS: Appearance,Urine Clear (Clear); Bilirubin,Urine Negative (Negative); Blood,Urine Negative (Negative); Color,Urine Yellow; Glucose,Urine (UA) Negative (Negative); Ketones,Urine Negative (Negative); Leukocyte Esterase,Urine Negative (Negative); Nitrite,Urine Negative (Negative); Protein,Urine Negative (Negative); Specific Gravity,Urine 1.017 (1.001-1.035); Urobilinogen,Urine <2.0 mg/dL (<2.0)
--- NOTE | 2020-03-15 12:29 | CT ---
EXAMINATION TYPE: CT chest w con DATE OF EXAM: 03/15/2020 COMPARISON: 09/30/2018, x-ray 02/12/2020 HISTORY: abnormal chest xray CT DLP: 701.7 mGycm Automated exposure control for dose reduction was used. CONTRAST: CT scan of the chest is performed with IV Contrast, patient injected with 100 mL of Isovue 300. FINDINGS: LUNGS: There is a 3.3 x 1.6 cm area of consolidation corresponding to the chest x-ray abnormality in the right upper lobe. Additional areas of subsegmental consolidation are seen bilaterally. No pneumothorax. No pleural effu deanne. MEDIASTINUM: There are no greater than 1 cm hilar or mediastinal lymph nodes. Coronary artery calcifi cation is seen and there is cardiac leads. Heart prominent in size. Atherosclerotic change aorta. OTHER: There is prominent in size and low in attenuation correlate for hepatic steatosis. Hypertroph ic and degenerative changes of the spine. Retroaortic left renal vein incidentally noted. IMPRESSION: 1. 3.3 cm area of consolidation the right upper lobe is new from the prior CT scan and corresponds th e recent chest x-ray abnormality. Differential diagnosis includes early pneumonia or neoplasm. Consid er follow-up PET scan. 2. Cardiomegaly with dense coronary artery calcification.
[2020-03-15 12:53] LABS: ALT 32 U/L (4-49); AST 33 U/L (17-59); African American GFR (CKD) 82 (>60 ml/min/1.73 sqM); Albumin 4.3 g/dL (3.5-5.0); Alkaline Phosphatase 88 U/L (38-126); Anion Gap 7 mmol/L; Blood Urea Nitrogen 21 mg/dL (9-20); Calcium 9.7 mg/dL (8.4-10.2); Carbon Dioxide 28 mmol/L (22-30); Chloride 101 mmol/L (98-107); Creatine Kinase 98 U/L (55-170); Glucose 127 mg/dL (74-99); LDH 413 U/L (313-618); Non-African American GFR(CKD) 71 (>60 ml/min/1.73 sqM); Phosphorus 3.5 mg/dL (2.5-4.5); Potassium 5.2 mmol/L (3.5-5.1); Sodium 136 mmol/L (137-145); Total Bilirubin 0.4 mg/dL (0.2-1.3); Total Protein 7.6 g/dL (6.3-8.2); Uric Acid 8.1 mg/dL (3.5-8.5)
[2020-03-15 13:08] LABS: T4, Free (Free Thyroxine) 1.11 ng/dL (0.78-2.19)
[2020-03-15 13:39] LABS: C Reactive Protein 13.2 mg/L (<10.0)
[2020-03-15 13:47] LABS: Erythrocyte Sedimentation Rate 35 mm/hr (0-15)
[2020-03-15 18:44] LABS: Streptolysin O Ab(ASO) 102 IU/mL (0-200)
[2020-03-15 19:00] LABS: Rheumatoid Factor, Qnt <4 IU/mL (0-15)
[2020-03-15 19:26] LABS: Hepatitis C IgG Antibody Non-Reactive (Non-Reactive)
[2020-03-15 19:53] LABS: Hemoglobin A1C 7.3 % (4.0-6.0)
[2020-03-15 20:16] LABS: Cyclic Citrull Pep IgG Unit <0.5 U/mL; Cyclic Citrullinated Pep IgG NEGATIVE (NEGATIVE)
[2020-03-16 15:53] LABS: HLA B27 NEGATIVE
[2020-03-18 11:41] LABS: Angiotensin-1 Converting Enz. 9 U/L (8-52)
[2020-03-18 14:07] LABS: Vitamin D, 1, 25-Dihydroxy 60 pg/mL (20 - 79)
[2020-03-20 08:15] LABS: Vit B1(Thiamine) 107 ug/L (38-122)
[2020-03-21 08:52] LABS: Albumin 3.96 g/dL (3.80-4.90); Gamma Globulin 1.34 g/dL (0.70-1.50)
== END | disposition home or self-care (01) ==
LOC: RADCTMAIN 10:47
PROVIDERS: ATTEND Internal Medicine Critical Care Medicine
DX: R91.8 Other nonspecific abnormal finding of lung field (principal); I25.10 Atherosclerotic heart disease of native coronary artery without angina pectoris; I51.7 Cardiomegaly; J18.9 Pneumonia, unspecified organism; M54.5 Low back pain; R20.2 Paresthesia of skin; Z95.0 Presence of cardiac pacemaker; M47.817 Spondylosis without myelopathy or radiculopathy, lumbosacral region; M51.36 Other intervertebral disc degeneration, lumbar region; E11.42 Type 2 diabetes mellitus with diabetic polyneuropathy; R26.89 Other abnormalities of gait and mobility; E55.9 Vitamin D deficiency, unspecified
CPT/HCPCS: 84207; 86803; 86812; 84439; 82652; 82310; 84425; 87522; 80053; 85652; 82607; 82565; 82550; 82553; 82164; 83615; 84100; 84443; 84520; 84550; 85025; 86140; 86431; 81003; 86618; 84165; 82306; 86060; 86038; 83516; 83970; 86235; 86200; 83036; 71260; Q9967; 36415; 83520

== ENCOUNTER 2020-06-20 08:02 | Day surgery (SDC) | payer MEDICARE ==
[~2020-06-20 08:02] MED LIST changes: -LACTATED RINGERS 1,000 ML IV SCH; -LIDOCAINE 1% 20 ML VIAL (10MG/ML) FOR IV START INTRADERMA PRN; +PREMYELOGRAM MEDICATION REVIEW 1 EACH MISC PO ONE
[2020-06-20 08:30] VITALS: TEMP 98.4
[2020-06-20] MEDS ORDERED: diazePAM 5 MG TAB PO STA (08:57)
[2020-06-20 09:05] LABS: Glucose,Whole Blood 171 mg/dL (75-99)
[2020-06-20] MEDS ORDERED: HYDROcodone/APAP 5-325MG 1 EACH TAB PO PRN (10:24)
[2020-06-20 16:11] VITALS: PULSE 60; RESP 16
[2020-06-20 16:26] VITALS: BP 125/68
--- NOTE | 2020-06-21 08:04 | FL ---
Lumbar puncture and Myelogram. INDICATION: Pain FINDINGS: Fluoroscopy time: 0.49 minutes Images obtained: 6. The procedure was explained to the patient. Risks complications and benefits were discussed. Alternat lakshmi were discussed. All questions were answered. Informed consent was obtained. A timeout was performed. The L3-L4 level was chosen for access. Maximum barrier sterile technique was utilized. The skin was c leansed with Betadine and the patient sterilely prepped and draped in the usual manner. The skin and deeper tissue was anesthetized with 1% Lidocaine. Utilizing a 20-gauge spinal needle the spinal canal was accessed. There was initially some blood return. The stylette was replaced and the needle was ad justed. Good CSF return was then evident. Isovue-M 200 was utilized, 10 milliliters was administered under fluoroscopic observation. The stylette was replaced and the needle withdrawn. Fluoroscopic spot images were obtained. The patient tolerated the procedure very well. Discharge instructions were discussed with the henry leyva. The patient was transferred to CT for additional evaluation. Findings: Limited views of the lumbar spinal canal with contrast were obtained. No spinal canal narr owing with anterior thecal sac compression is present L2-3 L3-4. Additional evaluation will be perfor med with postcontrast CT lumbar spine. IMPRESSIONS: 1. Successful Lumbar Puncture. 2. Spinal canal narrowing from anterior thecal sac compression L2-3 L3-4. Please see CT lumbar spine report same date.
--- NOTE | 2020-06-21 18:17 | CT ---
EXAMINATION TYPE: CT lumbar spine w con DATE OF EXAM: 06/20/2020 COMPARISON: Myelogram same date HISTORY: Low back pain CT DLP: 1025 mGycm CONTRAST: CT scan of the lumbar is performed without IV contrast, patient injected with 10 mL of Isov ue M200 intrathecal. TECHNIQUE: CT of the lumbar spine is performed on a spiral scan at 3 mm thick sections. Reconstructed images are performed in the coronal and sagittal planes. FINDINGS: T12-L1: No focal disc herniation or significant disc bulge is evident. No spinal canal stenosis or neural foraminal stenosis is present. L1-L2: Mild disc bulging is anterior thecal sac contact. Mild facet hypertrophy and ligamentum flavum laxity is present. No spinal canal stenosis present. Neural foramen appear patent. L2-L3: Broad-based disc bulge has moderate anterior thecal sac compression. Facet hypertrophy and lig amentum flavum laxity of posterior lateral thecal sac impression. These are contributing to spinal ca nal stenosis through this level. AP diameter of the spinal thecal sac and 0.5 cm. Moderate bilateral foraminal stenosis is present. L3-L4: Broad-based disc bulge has moderate anterior thecal sac compression. Facet hypertrophy with li gamentum flavum laxity is present contributing to severe AP spinal canal stenosis. Some lateral reces s narrowing may be present. Foraminal stenosis present bilaterally slightly greater on the left. L4-L5: There is loss of disc height through this level. Broad-based residual disc bulge has anterior thecal sac contact. No AP spinal canal stenosis is present. Neural foramen are patent. L5-S1: There appears to be a suggestion of spondylolysis of L5. No significant disc bulge is evident. No spinal canal stenosis present. Facet degenerative changes are present. Vertebral alignment appears normal. IMPRESSION: 1. Spinal canal stenosis due to ligamentum flavum laxity and broad-based disc bulging greatest at L3- 4 and L2-3. 2. Multilevel facet hypertrophy with ligamentum flavum laxity has posterior lateral thecal sac compre ssion at multiple levels greatest L2-3 and L3-4. 3. Disc bulging contributing to foraminal narrowing bilaterally at L2-3 and L3-4 slightly greater on the left.
== END 2020-06-20 14:47 | disposition home or self-care (01) ==
LOC: RADPROMAIN 08:02
PROVIDERS: ATTEND Physical Medicine & Rehabilitation
DX: M47.817 Spondylosis without myelopathy or radiculopathy, lumbosacral region (principal); M51.36 Other intervertebral disc degeneration, lumbar region; M48.061 Spinal stenosis, lumbar region without neurogenic claudication; E11.42 Type 2 diabetes mellitus with diabetic polyneuropathy; I11.9 Hypertensive heart disease without heart failure; J98.4 Other disorders of lung; E78.5 Hyperlipidemia, unspecified; F17.210 Nicotine dependence, cigarettes, uncomplicated; Z95.0 Presence of cardiac pacemaker
CPT/HCPCS: 62284; 62304; 72132; Q9966

== ENCOUNTER → 2020-07-08 | Outpatient (CLI) | payer MEDICARE ==
--- NOTE | 2020-07-08 09:18 | CT ---
EXAMINATION TYPE: CT cervical spine wo con DATE OF EXAM: 07/08/2020 COMPARISON: None HISTORY: Neck pain CT DLP: [address] of the cervical spine was performed with bone and soft tissue window settings submitted . Coronal and sagittal reconstruction is obtained. There is normal alignment and prevertebral soft tissues. I do not see evidence for fracture or sublu xation. C2-3: Moderate degenerative disc space narrowing with posterior disc bulge. Effacement of the ventral thecal sac without evidence for central stenosis. Degenerative change of the bilateral cervical apop hyseal joints resulting in left greater than right foraminal encroachment. C3-4:Moderate degenerative disc space narrowing with posterior disc bulge. Effacement of the ventral thecal sac without evidence for central stenosis. Degenerative change of the bilateral cervical apoph yseal joints resulting in left greater than right foraminal encroachment. C4-5:Moderate degenerative disc space narrowing with posterior disc bulge. Effacement of the ventral thecal sac without evidence for central stenosis. Degenerative change of the bilateral cervical apoph yseal joints resulting in left greater than right foraminal encroachment. C5-6: Severe degenerative disc space narrowing with the posterior hard disc noted resulting in mild c entral stenosis. Bilateral encroachment identified. C6-7: Within normal limits C7-T1: Within normal limits IMPRESSION: 1. Multilevel degenerative disc disease as noted above. 2. Central stenosis identified at C5-6.
== END | disposition home or self-care (01) ==
LOC: RADCTMAIN 08:20
PROVIDERS: ATTEND Orthopaedic Surgery Orthopaedic Surgery of the Spine
DX: M48.02 Spinal stenosis, cervical region (principal); M50.322 Other cervical disc degeneration at C5-C6 level; M54.5 Low back pain; R20.2 Paresthesia of skin; E11.42 Type 2 diabetes mellitus with diabetic polyneuropathy; I10 Essential (primary) hypertension; Z95.0 Presence of cardiac pacemaker; M47.817 Spondylosis without myelopathy or radiculopathy, lumbosacral region; M51.36 Other intervertebral disc degeneration, lumbar region; I51.9 Heart disease, unspecified; J98.4 Other disorders of lung; E78.5 Hyperlipidemia, unspecified; F17.210 Nicotine dependence, cigarettes, uncomplicated
CPT/HCPCS: 72125

== ENCOUNTER 2020-08-19 07:55 | Day surgery (SDC) | payer MEDICARE ==
[2020-08-19] MEDS ORDERED: PREMYELOGRAM MEDICATION REVIEW 1 EACH MISC PO ONE (08:59)
[2020-08-19 09:02] VITALS: TEMP 98.5
[2020-08-19 09:25] LABS: Glucose,Whole Blood 222 mg/dL (75-99)
[2020-08-19] MEDS ORDERED: HYDROcodone/APAP 5-325MG 1 EACH TAB PO PRN (11:01)
--- NOTE | 2020-08-19 11:45 | FL ---
EXAMINATION TYPE: FL myelogram cervical DATE OF EXAM: 08/19/2020 11:16 AM HISTORY: Myeloma Informed consent was obtained and all the patient's questions were answered. The L3-L4 level was loc alized under fluoroscopy. Standard sterile technique was utilized as well as appropriate local anest hesia 1% Lidocaine and sodium bicarbonate. Spinal needle was introduced into the thecal sac under fl uoroscopic guidance and 12 mls of Isovue M 300 was injected. The patient's head was tilted to the fluoroscopy contrast was moving towards the cervic al spine region. The patient tolerated the procedure well and left the department in stable condition . CT myelography is to follow. IMPRESSION: Successful myelography
--- NOTE | 2020-08-19 11:55 | CT ---
EXAMINATION TYPE: CT cervical spine w con DATE OF EXAM: 08/19/2020 COMPARISON: 07/08/2020 HISTORY: Post myelogram CT of the cervical spine. Other spondylosis with myelopathy, cervical CT DLP: 848.90 mGycm CONTRAST: Performed , patient injected with 12 mL of Isovue 300. Post myelogram CT of the cervical spine. Post myelography CT of the cervical spine was performed from C1 through C7-T1. Axial coronal and sag ittal images are submitted. C2-C3: Moderate degenerative disc space narrowing with posterior disc bulge. Effacement of the ventra l thecal sac without evidence for central stenosis. There is left neural foraminal encroachment ident ified secondary to degenerative spur formation. C3-C4: Moderate degenerative disc space narrowing. Posterior disc bulge with encapsulating spur effa rajwinder the ventral thecal sac. There is evidence of mild central stenosis. Left greater than right neura l foraminal encroachment. C4-C5: Moderate to severe degenerative disc space narrowing. Posterior disc bulge with effacement of the ventral thecal sac. Partially encapsulating spur noted. Mild central stenosis identified. Bilater al neural foraminal encroachment mild in degree. C5-C6: Moderate disc desiccation posterior disc bulge with partially encapsulating spur. Effacement of the ventral thecal sac with [id number] central stenosis identified. Bilateral foraminal encr oachment. C6-C7: Within normal limits C7-T1: Within normal limits There is no evidence for fracture. Normal alignment is present. Minimal ventral spondylosis. IMPRESSION: 1. Multilevel degenerative disc disease. 2. Central stenosis as outlined above extending from C3-4 through C5-6.
[2020-08-19 14:24] VITALS: BP 110/62; PULSE 59; RESP 13
== END 2020-08-19 15:03 | disposition home or self-care (01) ==
LOC: RADPROMAIN 07:55
PROVIDERS: ATTEND Orthopaedic Surgery Orthopaedic Surgery of the Spine
DX: M47.12 Other spondylosis with myelopathy, cervical region (principal); M50.021 Cervical disc disorder at C4-C5 level with myelopathy; M48.02 Spinal stenosis, cervical region; M48.061 Spinal stenosis, lumbar region without neurogenic claudication; M47.27 Other spondylosis with radiculopathy, lumbosacral region; M51.16 Intervertebral disc disorders with radiculopathy, lumbar region; E11.42 Type 2 diabetes mellitus with diabetic polyneuropathy; J98.4 Other disorders of lung; C90.00 Multiple myeloma not having achieved remission; I25.10 Atherosclerotic heart disease of native coronary artery without angina pectoris; I10 Essential (primary) hypertension; E78.5 Hyperlipidemia, unspecified; J44.9 Chronic obstructive pulmonary disease, unspecified; K58.9 Irritable bowel syndrome, unspecified; Z95.0 Presence of cardiac pacemaker; Z79.84 Long term (current) use of oral hypoglycemic drugs; Z79.51 Long term (current) use of inhaled steroids; Z79.52 Long term (current) use of systemic steroids; Z79.899 Other long term (current) drug therapy; Z95.5 Presence of coronary angioplasty implant and graft; Z83.3 Family history of diabetes mellitus; Z82.49 Family history of ischemic heart disease and other diseases of the circulatory system; F17.210 Nicotine dependence, cigarettes, uncomplicated
CPT/HCPCS: 62302; 72126; J2001; Q9967

== ENCOUNTER → 2020-09-09 | Outpatient (CLI) | payer MEDICARE ==
--- NOTE | 2020-09-09 11:04 | XR ---
EXAMINATION TYPE: XR chest 2V DATE OF EXAM: 09/09/2020 COMPARISON: 02/12/[address] 03/15/2020 HISTORY: 70-year-old male preop exam for cervical stenosis TECHNIQUE: PA and lateral views FINDINGS: Left anterior chest wall pacemaker generator with right atrial and right ventricular leads. Heart upp er limits of normal in size. Mild interstitial prominence is unchanged. Focal nodule or opacity right midlung unchanged from 02/12/2020 IMPRESSION: Chronic changes but also including a focal nodule at the right midlung. Stability from 02/12/2020 sugg ests a benign etiology but appropriate CT surveillance in the future is recommended to document long- term stability and exclude an indolent neoplasm. Left-sided pacemaker generator. No acute process see n.
[2020-09-09 11:36] LABS: Calcium 9.9 mg/dL (8.4-10.2); Potassium 5.1 mmol/L (3.5-5.1)
[2020-09-09 11:50] LABS: Basophils % (A) 0 %; Eosinophils # (A) 0.5 k/uL (0-0.7); Eosinophils % (A) 5 %; HCT 39.7 % (39.0-53.0); HGB 12.8 gm/dL (13.0-17.5); Lymphocytes # (A) 1.9 k/uL (1.0-4.8); Lymphocytes % (A) 18 %; MCH 31.3 pg (25.0-35.0); MCHC 32.3 g/dL (31.0-37.0); MCV 96.9 fL (80.0-100.0); Mean Platelet Volume 7.6; Monocytes # (A) 0.5 k/uL (0-1.0); Monocytes % (A) 4 %; Neutrophils # (A) 7.8 k/uL (1.3-7.7); Neutrophils % (A) 72 %; Platelet Count 220 k/uL (150-450); RDW 13.3 % (11.5-15.5); WBC 10.9 k/uL (3.8-10.6)
[2020-09-09 12:02] LABS: Appearance,Urine Clear (Clear); Bilirubin,Urine Negative (Negative); Blood,Urine Negative (Negative); Color,Urine Yellow; Glucose,Urine (UA) 4+ (Negative); INR 0.9 (<1.2); Ketones,Urine Negative (Negative); Leukocyte Esterase,Urine Negative (Negative); Nitrite,Urine Negative (Negative); Partial Thromboplastin Time 22.9 sec (22.0-30.0); Protein,Urine Negative (Negative); Prothrombin Time 9.9 sec (9.0-12.0); Specific Gravity,Urine 1.024 (1.001-1.035); Urobilinogen,Urine <2.0 mg/dL (<2.0)
== END | disposition home or self-care (01) ==
LOC: LABPAT 09:54
PROVIDERS: ATTEND Orthopaedic Surgery Orthopaedic Surgery of the Spine
DX: Z01.818 Encounter for other preprocedural examination (principal); R91.1 Solitary pulmonary nodule; M48.02 Spinal stenosis, cervical region; Z95.0 Presence of cardiac pacemaker
CPT/HCPCS: 36415; 71046; 80048; 81003; 85025; 85610; 85730; 86850; 86900; 86901

== ENCOUNTER 2020-09-18 07:32 | Day surgery (SDC) | payer MEDICARE ==
[2020-09-16 14:28] VITALS: BMI 37.3
[~2020-09-18 07:32] MED LIST changes: +DEXAMETHASONE SOD PHOSPHATE 4 MG/ML 1 ML VIAL IV ONE; +HYDROmorphone 0.5 MG/0.5 ML SYRINGE IVP PRN; +ONDANSETRON 4 MG/2 ML VIAL IVP ONE; -PREMYELOGRAM MEDICATION REVIEW 1 EACH MISC PO ONE; +ceFAZolin 1,000 MG in SODIUM CHLORIDE 0.9% IRRIGATIO 1,000 ML IRRIGATION PRN
[2020-09-18] MEDS ORDERED: LIDOCAINE 1% (10MG/ML) FOR IV START INTRADERMA ONE (08:10)
[2020-09-18] MEDS: LACTATED RINGERS 1,000 ML IV SCH (08:10)
[2020-09-18 08:12] LABS: Glucose,Whole Blood 139 mg/dL (75-99)
[2020-09-18] MEDS ORDERED: SCOPOLAMINE 1.5MG/72HR PATCH TRANSDERM ONE (08:18)
[2020-09-18] MEDS ORDERED: ENALAPRILAT 1.25 MG/ML 1 ML VIAL ONE (08:25)
[2020-09-18] MEDS ORDERED: LIDOCAINE 1% INJ 10MG/ML (20 ML MDV) ONE (08:25)
[2020-09-18] MEDS ORDERED: fentaNYL (PF) 50 MCG/ML 2 ML AMP ONE (08:25)
[2020-09-18] MEDS ORDERED: WATER FOR INJECTION, STERILE 10 ML VIAL IV ONE (08:25)
[2020-09-18] MEDS ORDERED: SUCCINYLCHOLINE CHLORIDE 100 MG/5 ML SYR IV ONE (08:25)
[2020-09-18] MEDS ORDERED: ROCURONIUM 10 MG/ML (10 ML VIAL) IV ONE (08:25)
[2020-09-18] MEDS ORDERED: GLYCOPYRROLATE 0.2 MG/ML 2 ML VIAL ONE (08:25)
[2020-09-18] MEDS ORDERED: HYDROmorphone (PF) 1 MG/ML ONE (08:25)
[2020-09-18] MEDS ORDERED: DEXAMETHASONE SOD PHOSPHATE 10 MG/ML 1 ML VIAL ONE (08:25)
[2020-09-18] MEDS ORDERED: PROPOFOL 10 MG/ML 20 ML VIAL IV ONE (08:25)
[2020-09-18] MEDS ORDERED: PHENYLEPHRINE 10 MG/ML VIAL ONE (08:25)
[2020-09-18] MEDS ORDERED: MIDAZOLAM 2 MG/2 ML VIAL ONE (08:25)
[2020-09-18] MEDS ORDERED: NEOSTIGMINE 1 MG/ML 10 ML VIAL ONE (08:25)
[2020-09-18] MEDS ORDERED: ePHEDrine SULFATE/0.9% NACL/PF 50 MG/5 ML SYRINGE IV ONE (08:25)
[2020-09-18] MEDS ORDERED: BUPIVACAINE-EPI 0.5%-1:200,000 10 ML VIAL SQ ONE ×2 (09:04→09:26)
[2020-09-18] MEDS ORDERED: GELATIN SPONGE,ABSORB (LARGE) 1 EACH SPONGE MISCELLANE ONE (09:26)
[2020-09-18] MEDS ORDERED: THROMBIN (BOVINE) 5,000 UNIT VIAL TOPICAL ONE (09:26)
[2020-09-18] MEDS ORDERED: LACTATED RINGERS 1,000 ML IV ONE (09:50)
--- NOTE | 2020-09-18 09:53 | XR ---
EXAMINATION TYPE: XR cervical spine 1V DATE OF EXAM: 09/18/2020 COMPARISON: CT cervical spine August 19, 2020 HISTORY: Neck pain. TECHNIQUE: Portable crosstable lateral cervical spine performed intraoperatively. FINDINGS: Exam is for surgical planning and not for diagnostic purposes. Metallic pointer is noted an teriorly localized to the C5-C6 disc space level. IMPRESSION: As above.
[2020-09-18] MEDS ORDERED: BENZOCAINE/MENTHOL LOZENG 1 EACH LOZENGE MUCOUS MEM PRN (11:04)
[2020-09-18] MEDS ORDERED: HYDROcodone/APAP 5-325MG 1 EACH TAB PO PRN (11:04)
[2020-09-18] MEDS ORDERED: HYDROmorphone 1 MG/ML 1 ML SYRINGE IVP PRN (11:04)
[2020-09-18] MEDS ORDERED: ONDANSETRON 4 MG/2 ML VIAL IVP PRN (11:04)
[2020-09-18] MEDS ORDERED: HYDROmorphone 0.5 MG/0.5 ML SYRINGE IVP PRN (11:04)
[2020-09-18] MEDS ORDERED: ACETAMINOPHEN TAB 325 MG TAB PO PRN (11:04)
--- NOTE | 2020-09-18 11:10 | P.OP ---
Date of Procedure: 09/18/20 Preoperative Diagnosis: Severe cervical stenosis C3 4 C4 5 C5 6, cervical myelopathy, degenerative disc disease C3 4 C4 5 C5 6, upper extremity radiculopathy, upper extremity weakness, degenerative disc disease Postoperative Diagnosis: Severe cervical stenosis C3 4 C4 5 C5 6, cervical myelopathy, degenerative disc disease C3 4 C4 5 C5 6, upper extremity radiculopathy, upper extremity weakness, degenerative disc disease Anesthesia: GETA Pathology: none sent Condition: stable Disposition: PACU Description of Procedure: BRIEF OPERATIVE NOTE Preoperative Diagnosis:Severe cervical stenosis C3 4 C4 5 C5 6, cervical myelopathy, degenerative disc disease C3 4 C4 5 C5 6, upper extremity radiculopathy, upper extremity weakness, degenerative disc disease Postoperative Diagnosis:Severe cervical stenosis C3 4 C4 5 C5 6, cervical myelopathy, degenerative disc disease C3 4 C4 5 C5 6, upper extremity radiculopathy, upper extremity weakness, degenerative disc disease Procedure: Anterior cervical decompression and fusion C3 4 C4 5 C5 6 Placement of interbody graft C3 4 C4 5 C5 6 Application of anterior cervical plate C3 4 5 6 Surgeon: Dr. Esparza Gate Guard: Markus CORTEZ who is present throughout the entire the case persistence during positioning, dissection, exposure, visualization, and all crucial elements of the case as well as closure. Anesthesia: General anesthesia per Dr. Haley Estimated blood loss: Approximate a 75 mL Complications: None apparent Components implanted: K2M Clare anterior cervical plate system with screws and vikos interbody allograft bone graft and 1 mL of DBX bone putty Disposition: To recovery room in good stable condition. OPERATIVE INDICATIONS The patient has had long-standing issues in their neck and upper extremities. He has been having worsening of his symptoms at his neck and his upper extremities as well as been having troubles with his balance and coordination his hands and fingers. He is unable to have an MRI but is CT myelogram showed evidence of severe stenosis C3 4 C4 5 C5 6. This felt the patient was having symptoms consistent with cervical myelopathy due to cervical stenosis. The patient has been through conservative treatment. He is having worsening of his symptoms despite in-service management and we evaluated him and felt that he couldn't have improvement with surgery. We discussed the surgery for decompression and fusion at C3 4 C4 5 and C5 6 with him. We discussed various treatment options including surgery, and the patient wishes to proceed with surgery We discussed the risk, patient's alternatives and benefits of surgery including but not limited to, risk of bleeding risk of infection, risk of need for further surgery, risk of decreased, loss of motion, muscle function, malunion nonunion, hardware failure, nerve damage, paralysis, heart attack, and , as well as the fact that surgery may not alleviate his symptoms was explained. OPERATIVE SUMMARY After discussing all the risks, patient alternatives and benefits at length, the patient elected to proceed with surgical intervention, signed informed consent, and presented for their procedure. The patient was seen and examined in the preoperative holding area and the surgical site was marked. The patient was given antibiotics and brought to the operating room. The patient was positioned on the operating room table in a supine position being careful to pad any bony prominences and pressure points. The patient was sedated and intubated by anesthesia in standard fashion. Once the airway and C- spine were stabilized the patient's arms were padded and tucked at her side, with her shoulders gently taped. The head was placed in a donut pad with the neck in good neutral alignment and position. We were careful to maintain the patient's cervical spine and good neutral alignment and position throughout. The patient was prepped and draped in a normal standard fashion. An appropriate timeout and keystone protocol performed. We were able to proceed with the surgery. The local wound area was infiltrated with local anesthetic. An incision was made transversely approximately 2-1/2 cm over the appropriate levels at C4 5. Dissection was taken down subcutaneously to the level of the platysma which was split in line with its fibers. Dissection was taken with a carotid approach, with the trachea and esophagus medial and the carotid sheath laterally. We dissected down to the anterior surface of the vertebral bodies. Intraoperative x-ray was taken which showed a marker at the appropriate level of C4 5. With the appropriate level positively confirmed, we were able to proceed with discectomy at the appropriate levels from C3 to C6. There were large os teophytes at each level and these were taken down. I started at C56 and then moved up to C4 5 and then to C3 4 All of the operative levels were exposed appropriately. The patient had all their twitches back, and there was no evidence of recurrent laryngeal issue. The wound was copiously irrigated and suctioned dry as had been done periodically throughout the case. At the appropriate level/levels, I established an annulotomy with an 11 blade scalpel. A discectomy was performed with a combination of pituitary rongeurs, curettes, a high-speed bur, and Kerrison rongeurs. The posterior longitudinal ligament was taken down as were any posterior osteophytes. No was made of significant a large posterior osteophytes and disc protrusion which is taken down meticulously. This gave good central and bilateral foraminal decompression. There is no evidence of any dural tear or leak. The endplates were prepared with a high-speed bur. With the endplates in good parallel position, I was able to size for the appropriate size interbody graft. The wound was irrigated and suctioned dry the graft was prepared and malleted into position. It had good alignment and position with the anterior surface flush with the anterior surface of the vertebral bodies. This was done similarly the appropriate levels at C 56 C4 5 and C3 4. With the grafts intact, I was able to measure and contour and appropriate sized plate. The plate was positioned at the midline over the appropriate levels from C3 to C6. Screw holes were established with a hand drill and drill guide. Screws were placed in good alignment and position with excellent bony purchase. They were seated under the locking device. The construct was checked and found to be stable. Intraoperative x-ray was taken which showed good alignment and position of the implants at the appropriate levels. There was no evidence of any dural tear or leak. Good hemostasis was maintained. The wound was copiously irrigated and suctioned dry as had been done periodically throughout the case. The platysma was closed with absorbable suture. The subcutaneous tissue was closed. The subcuticular tissue was closed with absorbable suture. The wound was cleaned and dried and dressed appropriately. A soft cervical collar was placed appropriately. The patient was woken up by anesthesia, extubated, transferred back gently to their hospital bed and brought to the recovery room in good stable condition. The patient will be admitted to the hospital for appropriate postoperative care, medical management and monitoring. We will continue to follow them closely about the postoperative course.
--- NOTE | 2020-09-18 11:19 | XR ---
EXAMINATION TYPE: XR cervical spine limited DATE OF EXAM: 09/18/2020 COMPARISON: Cervical spine x-ray earlier today. HISTORY: Neck pain. TECHNIQUE: Crosstable lateral view cervical spine obtained intraoperatively. FINDINGS: Partial visualization anterior fusion plate beginning at C4 level extending through at leas t C7 level. Satisfactory alignment seen on image obtained. IMPRESSION: As above.
[2020-09-18 11:57] LABS: Glucose,Whole Blood 176 mg/dL (75-99)
[2020-09-18] MEDS: SODIUM CHLORIDE 0.9% 1,000 ML IV SCH (16:12)
[2020-09-18] MEDS ORDERED: ALBUTEROL NEBULIZED 2.5 MG/3 ML INHALATION PRN (17:10)
[2020-09-18] MEDS ORDERED: ALBUTEROL HFA INHALER INHALATION PRN (17:10)
[2020-09-18 17:37] LABS: Glucose,Whole Blood 178 mg/dL (75-99)
[2020-09-18] MEDS: ATORVASTATIN 20 MG TAB PO SCH (18:18)
[2020-09-18] MEDS: metFORMIN 500 MG TAB PO SCH (18:18)
[2020-09-18] MEDS: DICYCLOMINE 20 MG TAB PO SCH ×2 (18:19→21:34)
[2020-09-18] MEDS: amLODIPine 2.5 MG TAB PO SCH (18:19)
[2020-09-18] MEDS: ASPIRIN 81 MG PO SCH (18:19)
[2020-09-18] MEDS: VENLAFAXINE HCL ER 150 MG CAP PO SCH (18:20)
[2020-09-18] MEDS: NON FORMULARY DRUG (Empagliflozin [Jardiance] 10 MG Tablet) PO SCH (18:20)
[2020-09-18] MEDS: lisinopriL 10 MG TAB PO SCH (18:20)
[2020-09-18 19:57] LABS: Glucose,Whole Blood 201 mg/dL (75-99)
[2020-09-18] MEDS: METOPROLOL TARTRATE 25 MG TAB PO SCH (20:01)
[2020-09-18] MEDS: LOPERAMIDE 2 MG CAP PO SCH (20:02)
[2020-09-18] MEDS: SYMBICORT 80-4.5 MCG INHALER INHALATION SCH (20:42)
[2020-09-19] MEDS: SODIUM CHLORIDE 0.9% 1,000 ML IV SCH (00:31)
[2020-09-19] MEDS: LACTATED RINGERS 1,000 ML IV SCH (00:34)
[2020-09-19 07:28] LABS: Glucose,Whole Blood 128 mg/dL (75-99)
[2020-09-19] MEDS ORDERED: PANTOPRAZOLE 40 MG TABLET PO SCH (07:30)
[2020-09-19 07:47] VITALS: BP 119/62; PULSE 68; RESP 20; TEMP 98.6
[2020-09-19] MEDS: ATORVASTATIN 20 MG TAB PO SCH (07:52)
[2020-09-19] MEDS: METOPROLOL TARTRATE 25 MG TAB PO SCH (07:52)
[2020-09-19] MEDS: metFORMIN 500 MG TAB PO SCH (07:53)
[2020-09-19] MEDS: lisinopriL 10 MG TAB PO SCH (07:53)
[2020-09-19] MEDS: DICYCLOMINE 20 MG TAB PO SCH (07:53)
[2020-09-19] MEDS: ASPIRIN 81 MG PO SCH (07:54)
[2020-09-19] MEDS: LOPERAMIDE 2 MG CAP PO SCH (07:54)
[2020-09-19] MEDS: amLODIPine 2.5 MG TAB PO SCH (08:01)
[2020-09-19] MEDS: VENLAFAXINE HCL ER 150 MG CAP PO SCH (08:06)
--- NOTE | 2020-09-19 08:56 | P.DS ---
Providers Date of admission: 09/18/20 Attending physician: Florencio Esparza Primary care physician: [facility] Course: The patient presented on the day of admission as per their operative note. He feels his neck and arms are doing well. He has some soreness and spasm over his left shoulder. He has been ambulatory. He is voiding freely and tolerating soft diet. Physical Exam The incision site is clean dry and intact. There is no erythema no drainage. There is no purulence no evidence of infection. His neck has some subtle diffuse swelling but it appears stable. His neck is still soft and supple. There is no drainage. Abdomen soft and nontender. Chest has good excursion with deep inspiration and expiration. The patient has active and passive range of motion intact at the upper and lower extremities. There is no acute change in neurologic status. He has good motion in his bilateral upper extremities Hospital Course Postoperative day #1 status post anterior cervical decompression with discectomy and fusion and cervical spine for his cervical stenosis with upper extremity radiculopathy. The patient is progressing appropriately. The patient has been making good progress postoperatively. They have completed the prophylactic antibiotics without any signs or symptoms of infection. The patient has been able to advance their diet, and is tolerating diet adequately. He has some spasm over his left shoulder which is not unusual. He is not having any new neurologic deficits or issues. The pain was initially controlled with IV medications and is now controlled appropriately with oral medications. The patient has been able to increase their mobilization. The patient has progressed appropriately. I think they are in good stable condition for discharge today. They will be sent home with appropriate prescriptions. I answered their questions to the best of my ability in a language that they can understand and they are agreeable with the plan. They will follow up as directed in approximately 2 weeks or sooner if he is having problems Patient Condition at Discharge: Good Plan - Discharge Summary Discharge Rx Participant: Yes New Discharge Prescriptions: New HYDROcodone/APAP 5-325MG [Barnhart 5] 1 each PO Q6HR PRN #28 tab PRN Reason: Pain No Action metFORMIN HCL [Glucophage] 1,000 mg PO DAILY Metoprolol Tartrate [Lopressor] 25 mg PO BID Atorvastatin [Lipitor] 20 mg PO DAILY Venlafaxine HCl [Effexor XR] 150 mg PO QAM amLODIPine BESYLATE 2.5 mg PO QAM lisinopriL [Zestril] 10 mg PO QAM Umeclidinium [place] [Incruse Ellipta] 1 puff INHALATION RT-DAILY Fluticasone/Salmeterol [Advair Hfa 45-21 Mcg Inhaler] 2 puff INHALATION BID Albuterol Sulfate [Proair Hfa] 1 - 2 puff INHALATION Q6HR PRN PRN Reason: Shortness Of Breath Or Wheezing Omeprazole 20 mg PO DAILY Loperamide [Imodium] 2 mg PO BID Dicyclomine [Bentyl] 20 mg PO TID Aspirin [Adult Low Dose Aspirin EC] 81 mg PO DAILY Empagliflozin [Jardiance] 10 mg PO DAILY Albuterol Nebulized [Ventolin Nebulized] 2.5 mg INHALATION TID PRN PRN Reason: Shortness Of Breath Discharge Medication List Atorvastatin [Lipitor] 20 mg PO DAILY 12/02/16 [History] Metoprolol Tartrate [Lopressor] 25 mg PO BID 12/02/16 [History] Venlafaxine HCl [Effexor XR] 150 mg PO QAM 12/02/16 [History] metFORMIN HCL [Glucophage] 1,000 mg PO DAILY 12/02/16 [History] amLODIPine BESYLATE 2.5 mg PO QAM 08/29/18 [History] Umeclidinium [place] [Incruse Ellipta] 1 puff INHALATION RT-DAILY 09/22/18 [History] lisinopriL [Zestril] 10 mg PO QAM 09/22/18 [History] Albuterol Sulfate [Proair Hfa] 1 - 2 puff INHALATION Q6HR PRN 06/07/20 [History] Aspirin [Adult Low Dose Aspirin EC] 81 mg PO DAILY 06/07/20 [History] Dicyclomine [Bentyl] 20 mg PO TID 06/07/20 [History] Fluticasone/Salmeterol [Advair Hfa 45-21 Mcg Inhaler] 2 puff INHALATION BID 06/07/20 [History] Loperamide [Imodium] 2 mg PO BID 06/07/20 [History] Omeprazole 20 mg PO DAILY 06/07/20 [History] Empagliflozin [Jardiance] 10 mg PO DAILY 08/13/20 [History] Albuterol Nebulized [Ventolin Nebulized] 2.5 mg INHALATION TID PRN 09/16/20 [History] HYDROcodone/APAP 5-325MG [Barnhart 5] 1 each PO Q6HR PRN #28 tab 09/19/20 [Rx] Follow up Appointment(s)/Referral(s): Florencio Esparza DO [Doctor of Osteopathic Medicine] - 2 Weeks Activity/Diet/Wound Care/Special Instructions: Keep site clean. May shower with waterproof Tegaderm intact. Do not soak in a tub. After 72 hours postoperatively, patient May remove dressing and then may shower with area uncovered. Leave Steri-Strips intact and allow them to fray off on their own. May ambulate as tolerated. Avoid heavy or rigorous activity. No repetitive bending twisting or lifting. No overhead work. Discharge Disposition: HOME SELF-CARE
[2020-09-19] MEDS ORDERED: SENNOSIDES-DOCUSATE SODIUM 1 EACH TAB PO SCH (09:00)
[2020-09-19] MEDS: SYMBICORT 80-4.5 MCG INHALER INHALATION SCH (09:10)
[2020-09-19] MEDS: IPRATROPIUM 0.5 MG/2.5 ML NEBU INHALATION SCH ×2 (09:10→12:16)
[2020-09-19] MEDS: NON FORMULARY DRUG (Empagliflozin [Jardiance] 10 MG Tablet) PO SCH (10:31)
== END 2020-09-19 12:15 | disposition home or self-care (01) ==
LOC: OR 07:32 → 5NMEDONC 11:06 → OR 09-19 12:15
PROVIDERS: ATTEND Orthopaedic Surgery Orthopaedic Surgery of the Spine
DX: M50.01 Cervical disc disorder with myelopathy, high cervical region (principal); M50.11 Cervical disc disorder with radiculopathy, high cervical region; M48.02 Spinal stenosis, cervical region; I10 Essential (primary) hypertension; G47.33 Obstructive sleep apnea (adult) (pediatric); J44.9 Chronic obstructive pulmonary disease, unspecified; F32.9 Major depressive disorder, single episode, unspecified; E11.40 Type 2 diabetes mellitus with diabetic neuropathy, unspecified; K58.9 Irritable bowel syndrome, unspecified; K21.9 Gastro-esophageal reflux disease without esophagitis; I73.9 Peripheral vascular disease, unspecified; E66.9 Obesity, unspecified; Z95.0 Presence of cardiac pacemaker; Z87.891 Personal history of nicotine dependence; Z79.82 Long term (current) use of aspirin; Z79.51 Long term (current) use of inhaled steroids; Z79.84 Long term (current) use of oral hypoglycemic drugs; Z79.899 Other long term (current) drug therapy; Z82.49 Family history of ischemic heart disease and other diseases of the circulatory system; Z68.37 Body mass index [BMI] 37.0-37.9, adult; G25.81 Restless legs syndrome; F41.9 Anxiety disorder, unspecified; I25.10 Atherosclerotic heart disease of native coronary artery without angina pectoris; E29.1 Testicular hypofunction; Z98.890 Other specified postprocedural states; Z83.3 Family history of diabetes mellitus
CPT/HCPCS: 94640 ×2; 72020; 72040; 22551; 22552 ×2; 22853 ×3; 22846; C1713 ×2; C1762 ×2; J2250; J1100; J2370; J2710; J0690 ×3; J2405; J2001; J3010; J1170; J0330; J2704; 86850; 86900; 86901

== ENCOUNTER 2020-10-12 17:51 | Observation (INO) | payer MEDICARE ==
--- NOTE | 2020-10-12 18:25 | ED ---
General Adult HPI - General Chief complaint: Neck Pain/Injury Stated complaint: neck pain Time Seen by Provider: 10/12/20 18:23 Source: patient, family Mode of arrival: ambulatory Limitations: no limitations - History of Present Illness Initial comments: Patient presents to the ED with his for evaluation. Patient states that he had cervical spinal fusion surgery performed by Dr. Esparza (ortho surg) about 3- 1/2 weeks ago, and he states that he has been having worsening neck pain radiating down his left arm for the past few days. Patient states that the pain began radiating to his left upper chest about 3 days ago, so he was advised to see his learning support services director. Patient states that he saw his learning support services director a coupleof days ago, and he was told that his pain is not cardiac in etiology. Patient's states that the patient is taking narcotic pain medication, as well as muscle relaxants, without much relief of his pain. Patient denies trauma or injury, fever or chills, headache, focal numbness or weakness, dysphagia, dyspnea, cough or cold symptoms, palpitations, dizziness, nausea/vomiting/diaphoresis, abdominal pain, urinary symptoms, leg or calf swelling or pain, or any other symptoms or complaints. Patient states that his neck pain is mild currently, and he declines any pain medication at this time. Patient denies having any chest pain at all today. - Related Data Home Medications Medication Instructions Recorded Confirmed Atorvastatin [Lipitor] 20 mg PO DAILY 12/02/16 09/18/20 Metoprolol Tartrate [Lopressor] 25 mg PO BID 12/02/16 09/18/20 Venlafaxine HCl [Effexor XR] 150 mg PO QAM 12/02/16 09/18/20 metFORMIN HCL [Glucophage] 1,000 mg PO DAILY 12/02/16 09/18/20 amLODIPine BESYLATE 2.5 mg PO QAM 08/29/18 09/18/20 Umeclidinium [place] [Incruse 1 puff INHALATION RT-DAILY 09/22/18 09/18/20 Ellipta] lisinopriL [Zestril] 10 mg PO QAM 09/22/18 09/18/20 Albuterol Sulfate [Proair Hfa] 1 - 2 puff INHALATION Q6HR PRN 06/07/20 09/18/20 Aspirin [Adult Low Dose Aspirin EC] 81 mg PO DAILY 06/07/20 09/18/20 Dicyclomine [Bentyl] 20 mg PO TID 06/07/20 09/18/20 Fluticasone/Salmeterol [Advair Hfa 2 puff INHALATION BID 06/07/20 09/18/20 45-21 Mcg Inhaler] Loperamide [Imodium] 2 mg PO BID 06/07/20 09/18/20 Omeprazole 20 mg PO DAILY 06/07/20 09/18/20 Empagliflozin [Jardiance] 10 mg PO DAILY 08/13/20 09/18/20 Albuterol Nebulized [Ventolin 2.5 mg INHALATION TID PRN 09/16/20 09/18/20 Nebulized] Previous Rx's Medication Instructions Recorded HYDROcodone/APAP 5-325MG [[place] 5] 1 each PO Q6HR PRN #28 tab 09/19/20 Allergies Allergy/AdvReac Type Severity Reaction Status Date / Time No Known Allergies Allergy Verified 10/12/20 17:59 Review of Systems ROS Statement: Those systems with pertinent positive or pertinent negative responses have been documented in the HPI. ROS Other: All systems not noted in ROS Statement are negative. Past Medical History Past Medical History: COPD, Diabetes Mellitus, Hyperlipidemia, Hypertension, Osteoarthritis (OA), Sleep Apnea/CPAP/BIPAP Additional Past Medical History / Comment(s): PACEMAKER. Uses VPAP. 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 History of Any Multi-Drug Resistant Organisms: None Reported Past Surgical History: Appendectomy, Back Surgery, Pacemaker Additional Past Surgical History / Comment(s): Oral surg. COLONOSCOPY. GENERATOR CHANGE 2016, lumbar myelogram, neck fusion Past Anesthesia/Blood Transfusion Reactions: No Reported Reaction Type of Cardiac Device: Permanent Pacemaker Device Placement Date:: 2008 Past Psychological History: Depression Smoking Status: Former smoker Past Alcohol Use History: Occasional Past Drug Use History: None Reported - Past Family History Mother Family Medical History: Cancer Brother(s) Family Medical History: Cancer General Exam Limitations: no limitations General appearance: alert, in no apparent distress Head exam: Present: atraumatic, normocephalic Eye exam: Present: normal appearance, EOMI ENT exam: Present: normal oropharynx, mucous membranes moist Neck exam: Present: other (Anterior neck surgical wound is healing well without any evidence of infection). Absent: tenderness Respiratory exam: Present: normal lung sounds bilaterally. Absent: respiratory distress, wheezes, rales, rhonchi, stridor, chest wall tenderness Cardiovascular Exam: Present: regular rate, normal rhythm, normal heart sounds, other (Normal radial pulses bilaterally) GI/Abdominal exam: Present: soft. Absent: distended, tenderness, guarding Extremities exam: Present: other (Negative Homans sign bilaterally). Absent: tenderness, pedal edema, calf tenderness Neurological exam: Present: alert, oriented X3. Absent: motor sensory deficit Psychiatric exam: Present: normal affect, normal mood Skin exam: Present: warm, dry, normal color Course Vital Signs 10/12/20 10/12/20 10/12/20 17:52 19:01 19:36 Temperature 97.7 F Pulse Rate 60 63 Respiratory 18 18 Rate Blood Pressure 159/89 102/74 O2 Sat by Pulse 92 L 88 L 95 Oximetry - Reevaluation(s) Reevaluation #1: 10/12/20 20:15 Case, H&P, test results and ED management thus far were discussed with Dr. Esparza. He recommends giving the patient a dose of Solu-Medrol 80 mg IV at this time. He states that if the patient's pain improves with ED management, he would be fine with the patient being discharged home with a prescription for a course of tapering steroids. He states that if the patient wishes to be admitted to the hospital for pain management, he would accept hospital admission himself. He has no further recommendations at this time. 10/12/20 20:21 Patient and are aware of the patient's test results and my discussion with Dr. Esparza as above, and they both wished for the patient to be admitted to the hospital at this time. Patient denies development of any new pain or symptoms while in the ED. Patient continues to deny having any chest pain while in the ED. Dr. Esparza was apprised of the patient's decision, and he has accepted hospital admission. EKG Findings - EKG Comments: EKG Findings:: Atrial paced rhythm, ventricular rate of 60 bpm, normal QT interval, right bundle branch block, no significant change when compared to 09/28/2019 EKG Medical Decision Making - Medical Decision Making Patient's EKG is unchanged and his troponin is negative. Patient's labs and imaging studies are fairly unremarkable. I suspect that the patient's pain is likely postoperative and radicular in etiology, and I do not that it is likely cardiac in etiology. Will admit the patient to the hospital for orthopedic surgery evaluation and further pain management. - Lab Data Result diagrams: 10/12/20 18:54 10/12/20 18:54 Lab Results 10/12/20 10/12/20 10/12/20 Range/Units 18:54 18:54 18:54 WBC 9.6 (3.8-10.6) k/uL RBC 4.32 (4.30-5.90) m/uL Hgb 13.4 (13.0-17.5) gm/dL Hct 41.7 (39.0-53.0) % MCV 96.6 (80.0-100.0) fL MCH 31.0 (25.0-35.0) pg MCHC 32.0 (31.0-37.0) g/dL RDW 12.8 (11.5-15.5) % Plt Count 261 (150-450) k/uL MPV 7.3 Neutrophils % 65 % Lymphocytes % 23 % Monocytes % 6 % Eosinophils % 3 % Basophils % 0 % Neutrophils # 6.2 (1.3-7.7) k/uL Lymphocytes # 2.2 (1.0-4.8) k/uL Monocytes # 0.6 (0-1.0) k/uL Eosinophils # 0.3 (0-0.7) k/uL Basophils # 0.0 (0-0.2) k/uL PT 10.2 (9.0-12.0) sec INR 0.9 (<1.2) APTT 23.0 (22.0-30.0) sec Sodium 138 (137-145) mmol/L Potassium 5.1 (3.5-5.1) mmol/L Chloride 103 (98-107) mmol/L Carbon Dioxide 27 (22-30) mmol/L Anion Gap 8 mmol/L BUN 19 (9-20) mg/dL Creatinine 0.97 (0.66-1.25) mg/dL Est GFR (CKD-EPI)AfAm >90 (>60 ml/min/1.73 sqM) Est GFR (CKD-EPI)NonAf 79 (>60 ml/min/1.73 sqM) Glucose 137 H (74-99) mg/dL Calcium 9.6 (8.4-10.2) mg/dL Total Bilirubin 0.4 (0.2-1.3) mg/dL AST 25 (17-59) U/L ALT 23 (4-49) U/L Alkaline Phosphatase 106 (38-126) U/L Troponin I (0.000-0.034) ng/mL Total Protein 7.5 (6.3-8.2) g/dL Albumin 4.2 (3.5-5.0) g/dL 10/12/20 Range/Units 18:54 WBC (3.8-10.6) k/uL RBC (4.30-5.90) m/uL Hgb (13.0-17.5) gm/dL Hct (39.0-53.0) % MCV (80.0-100.0) fL MCH (25.0-35.0) pg MCHC (31.0-37.0) g/dL RDW (11.5-15.5) % Plt Count (150-450) k/uL MPV Neutrophils % % Lymphocytes % % Monocytes % % Eosinophils % % Basophils % % Neutrophils # (1.3-7.7) k/uL Lymphocytes # (1.0-4.8) k/uL Monocytes # (0-1.0) k/uL Eosinophils # (0-0.7) k/uL Basophils # (0-0.2) k/uL PT (9.0-12.0) sec INR (<1.2) APTT (22.0-30.0) sec Sodium (137-145) mmol/L Potassium (3.5-5.1) mmol/L Chloride (98-107) mmol/L Carbon Dioxide (22-30) mmol/L Anion Gap mmol/L BUN (9-20) mg/dL Creatinine (0.66-1.25) mg/dL Est GFR (CKD-EPI)AfAm (>60 ml/min/1.73 sqM) Est GFR (CKD-EPI)NonAf (>60 ml/min/1.73 sqM) Glucose (74-99) mg/dL Calcium (8.4-10.2) mg/dL Total Bilirubin (0.2-1.3) mg/dL AST (17-59) U/L ALT (4-49) U/L Alkaline Phosphatase (38-126) U/L Troponin I <0.012 (0.000-0.034) ng/mL Total Protein (6.3-8.2) g/dL Albumin (3.5-5.0) g/dL - Radiology Data Radiology results: report reviewed (Chest x-ray: A small area of subsegmental atelectasis right mid lung, normal heart; cervical spine x-rays: anterior fusion surgery, no change compared to old exam, no fracture) Disposition Clinical Impression: Neck pain, Postoperative pain Narrative: Suspected cervical radicular pain Disposition: ADMITTED IP TO THIS [facility] Condition: Stable Is patient prescribed a controlled substance at d/c from ED?: No Referrals: Nba Nguyen MD [Primary Care Provider] - 1-2 days Time of Disposition: 20:24
[2020-10-12 19:12] LABS: Basophils % (A) 0 %; Eosinophils # (A) 0.3 k/uL (0-0.7); Eosinophils % (A) 3 %; HCT 41.7 % (39.0-53.0); HGB 13.4 gm/dL (13.0-17.5); Lymphocytes # (A) 2.2 k/uL (1.0-4.8); Lymphocytes % (A) 23 %; MCV 96.6 fL (80.0-100.0); Mean Platelet Volume 7.3; Monocytes # (A) 0.6 k/uL (0-1.0); Monocytes % (A) 6 %; Neutrophils # (A) 6.2 k/uL (1.3-7.7); Neutrophils % (A) 65 %; Platelet Count 261 k/uL (150-450); RBC 4.32 m/uL (4.30-5.90); RDW 12.8 % (11.5-15.5); WBC 9.6 k/uL (3.8-10.6)
[2020-10-12 19:20] LABS: ALT 23 U/L (4-49); AST 25 U/L (17-59); African American GFR (CKD) >90 (>60 ml/min/1.73 sqM); Albumin 4.2 g/dL (3.5-5.0); Alkaline Phosphatase 106 U/L (38-126); Anion Gap 8 mmol/L; Blood Urea Nitrogen 19 mg/dL (9-20); Calcium 9.6 mg/dL (8.4-10.2); Carbon Dioxide 27 mmol/L (22-30); Chloride 103 mmol/L (98-107); Glucose 137 mg/dL (74-99); Non-African American GFR(CKD) 79 (>60 ml/min/1.73 sqM); Potassium 5.1 mmol/L (3.5-5.1); Sodium 138 mmol/L (137-145); Total Bilirubin 0.4 mg/dL (0.2-1.3); Total Protein 7.5 g/dL (6.3-8.2)
--- NOTE | 2020-10-12 19:34 | XR ---
EXAMINATION TYPE: XR cervical spine comp DATE OF EXAM: 10/12/2020 COMPARISON: 09/18/2020 HISTORY: Neck pain TECHNIQUE: 6 views FINDINGS: There is plate with screws fusing anteriorly the cervical spine from C3 to C6 vertebra. Exa m is limited by the shoulders. There are no cervical ribs. Atlantoaxial facet joint is normal. IMPRESSION: Anterior fusion surgery. No change compared to old exam. No fracture.
[2020-10-12 19:35] LABS: INR 0.9 (<1.2); Prothrombin Time 10.2 sec (9.0-12.0)
--- NOTE | 2020-10-12 19:37 | XR ---
EXAMINATION TYPE: XR chest 2V DATE OF EXAM: 10/12/2020 COMPARISON: 08/09/2020 HISTORY: Fusion surgery TECHNIQUE: 3 views FINDINGS: There is no heart failure nor confluent pneumonic infiltrate. There is small linear density right midlung. There is left axillary pacemaker. There is no pleural effusion. IMPRESSION: There is small area of subsegmental atelectasis right midlung that appears new compared t o old exam. Normal heart.
[2020-10-12] MEDS ORDERED: HYDROmorphone 0.5 MG/0.5 ML SYRINGE IVP STA (20:00)
[2020-10-12] MEDS ORDERED: SODIUM CHLORIDE 0.9% 1,000 ML IV ONE (20:00)
[2020-10-12] MEDS ORDERED: METHYLPREDNISOLONE SOD SUCC IVPB STA (20:16)
[2020-10-12] MEDS ORDERED: SODIUM CHLORIDE 0.9% IVPB STA (20:16)
[2020-10-12] MEDS ORDERED: methylPREDNISolone SOD SUCCI 125 MG/2 ML VIAL IVP STA (20:22)
[2020-10-12] MEDS ORDERED: HYDROmorphone 0.5 MG/0.5 ML SYRINGE IVP PRN (20:27)
[2020-10-12] MEDS ORDERED: NALOXONE 0.4 MG/ML 1 ML VIAL IV PRN (20:27)
[2020-10-13] MEDS ORDERED: CYCLOBENZAPRINE 10 MG TAB PO PRN (01:08)
[2020-10-13] MEDS ORDERED: diazePAM 5 MG TAB PO PRN (01:08)
[2020-10-13] MEDS ORDERED: HYDROcodone/APAP 7.5-325MG 1 EACH TAB PO PRN (01:08)
[2020-10-13 08:29] VITALS: BP 151/73; PULSE 65; RESP 20; TEMP 98
[2020-10-13] MEDS ORDERED: SYMBICORT 80-4.5 MCG INHALER INHALATION SCH (11:23)
[2020-10-13] MEDS ORDERED: ALBUTEROL NEBULIZED 2.5 MG/3 ML INHALATION PRN (11:23)
--- NOTE | 2020-10-13 11:23 | P.HPOR ---
History of Present Illness H&P Date: 10/13/20 Chief Complaint: Left shoulder pain Patient is seen and examined today at bedside. He is well known to our service as he recently underwent anterior cervical spine surgery on 09/18/2020. He had a history of neck pain with left upper extremity radiculopathy and underwent ant erior cervical decompression and fusion at C3 4 C4 5 and C5 6 for his stenosis with cervical myelopathy and radicular symptoms. His initial postoperative course was essentially uneventful and he was able to be discharged home the day after surgery. He had been making progress and we have been able to follow them up as an outpatient. He was having some complaints of neck pain and upper extremity symptoms nor still bothering him postoperatively. He was able to manage at home appropriately. Over the past couple of days he says that he has been having pain in his left shoulder and into his chest. He denied shortness of breath. He denies any chest tightness. The pain was radiating over to his left side of his chest. He became somewhat worried about this and with his discomfort we discussed the possibility of monitoring versus going to the emergency room. With his chest pain he decided to present to the emergency room yesterday. He had workup in terms of his cardiac possibilities and his chest pain. His troponins were negative. He had evaluation and screening in the emergency room which proved to be negative for any cardiac etiology. He continued significant pain around his left shoulder and was given dose of steroid as well as IV pain medication. He was not comfortable with returning home last night and felt that it would be worthwhile to have him for observation overnight. He says that the treatment last night did help some and gave him some relief he is still having pain for his left shoulder. He denies any chest pain at all. Denies any shortness of breath. Denies any chest tightness. Denies any leg pain. He says the pain is mainly around his left shoulder and left deltoid. It is essentially constant for him and is not positional. He denies any weakness in his upper extremities. Review of Systems As stated in HPI. Denies any shortness of breath or difficulty breathing. Denies any chest pain today. Denies any abdominal pain denies any leg pain. Denies any wheezing denies any new weakness in his upper extremity. His shoulder gives him pain in all positions. Past Medical History Past Medical History: COPD, Diabetes Mellitus, Hyperlipidemia, Hypertension, Osteoarthritis (OA), Sleep Apnea/CPAP/BIPAP Additional Past Medical History / Comment(s): PACEMAKER. Uses VPAP. 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 History of Any Multi-Drug Resistant Organisms: None Reported Past Surgical History: Appendectomy, Back Surgery, Pacemaker Additional Past Surgical History / Comment(s): Oral surg. COLONOSCOPY. GENERATOR CHANGE 2016, lumbar myelogram, neck fusion Past Anesthesia/Blood Transfusion Reactions: No Reported Reaction Type of Cardiac Device: Permanent Pacemaker Device Placement Date:: 2008 Past Psychological History: Depression Smoking Status: Former smoker Past Alcohol Use History: Occasional Additional Past Alcohol Use History / Comment(s): Smoked since teens, 1 / PPD, NOW DOWN TO 2-3 CIGARETTES PER DAY. Past Drug Use History: None Reported - Past Family History Mother Family Medical History: Cancer Brother(s) Family Medical History: Cancer Medications and Allergies Home Medications Medication Instructions Recorded Confirmed Type Metoprolol Tartrate [Lopressor] 25 mg PO BID 12/02/16 10/12/20 History Venlafaxine HCl [Effexor XR] 150 mg PO QAM 12/02/16 10/12/20 History amLODIPine BESYLATE 2.5 mg PO QAM 08/29/18 10/12/20 History Umeclidinium [place] [Incruse 1 puff INHALATION RT-DAILY 09/22/18 10/12/20 History Ellipta] lisinopriL [Zestril] 10 mg PO HS 09/22/18 10/12/20 History Albuterol Sulfate [Proair Hfa] 1 - 2 puff INHALATION RT-Q6H PRN 06/07/20 10/12/20 History Aspirin [Adult Low Dose Aspirin EC] 81 mg PO HS 06/07/20 10/12/20 History Dicyclomine [Bentyl] 20 mg PO TID 06/07/20 10/12/20 History Fluticasone/Salmeterol [Advair Hfa 2 puff INHALATION RT-BID 06/07/20 10/12/20 History 45-21 Mcg Inhaler] Loperamide [Imodium] 2 mg PO BID 06/07/20 10/12/20 History Omeprazole 20 mg PO DAILY 06/07/20 10/12/20 History Empagliflozin [Jardiance] 10 mg PO DAILY 08/13/20 10/12/20 History Albuterol Nebulized [Ventolin 2.5 mg INHALATION RT-TID PRN 09/16/20 10/12/20 History Nebulized] Atorvastatin Calcium [Lipitor] 20 mg PO HS 10/12/20 10/12/20 History HYDROcodone/APAP 5-325MG [[place] 5] 1 tab PO BID PRN 10/12/20 10/12/20 History Varenicline [Chantix Continuing 1 mg PO BID 10/12/20 10/12/20 History Pack] metFORMIN HCL ER [Glucophage Xr] 1,000 mg PO HS 10/12/20 10/12/20 History Famotidine [Pepcid] 20 mg PO DAILY #12 tablet 10/13/20 Rx Gabapentin [Neurontin] 200 mg PO BID #60 cap 10/13/20 Rx HYDROcodone/APAP 10-325MG [[place] 1 tab PO Q4HR PRN 7 Days #42 tab 10/13/20 Rx 10-325] predniSONE [Deltasone] 20 mg PO DIRECTED #24 tab 10/13/20 Rx Allergies Allergy/AdvReac Type Severity Reaction Status Date / Time No Known Allergies Allergy Verified 10/12/20 20:49 Physical Examination Osteopathic Statement: *. No significant issues noted on an osteopathic structural exam other than those noted in the History and Physical/Consult. - C Spine: dermatomal strength & reflexes left Shoulder strength: flexion: 5/5 (His neck incision site is healing very well. There is no significant swelling there is no erythema his neck is soft and supple. Upper extremities have maintain strength. He has some global weakness at LUE which was present prior to his surgery but he is not having acute n neurologic decline) Shoulder strength: adduction: 5/5 (Negative impingement signs. Negative Rashaad's. No hyperreflexia.) Results His lab reports show no elevated troponins her cardiac enzymes. White count is normal. He is not having any significant the lateral ligament balance - Labs Labs: Abnormal Lab Results - Last 24 Hours (Table) 10/12/20 Range/Units 18:54 Glucose 137 H (74-99) mg/dL H & H 10/12/20 Range/Units 18:54 Hgb 13.4 (13.0-17.5) gm/dL Hct 41.7 (39.0-53.0) % Coagulation 10/12/20 Range/Units 18:54 INR 0.9 (<1.2) Result Diagrams: 10/12/20 18:54 10/12/20 18:54 - Diagnostic results Cervical AP/lateral x-ray: image reviewed (X-rays of cervical spine show postoperative spinal fusion from C3 C6 with hardware in good alignment good position and interbody devices in good alignment and position. There is no change in the position or devices. There is no new fracture.) Assessment and Plan Assessment: Cervical myelopathy Approximately 3 weeks status post anterior cervical decompression with discectomy and fusion C3 4 C4 5 C5 6 Left upper extremity pain and radiculopathy Resolved chest pain with negative cardiac workup No new neurologic change Plan: Cervical myelopathy Approximately 3 weeks status post anterior cervical decompression with discectomy and fusion C3 4 C4 5 C5 6 Left upper extremity pain and radiculopathy Resolved chest pain with negative cardiac workup No new neurologic change The patient's surgical site appears to be stable. He is not having neurologic decline but he continues to have significant pain in his left upper extremity. Cardiac etiology has been ruled out. I think that he is neurologically pain in his left upper extremity without functional loss. He had some improvement yesterday evening with medication and steroid. I would like to see if he has continued benefit with continued medical management. We will increase his oral pain medication and continue his steroid with oral me dication as well. I'll put him on a tapering prednisone dose and add Pepcid to protect his GI system while is on steroid. We will also increase his [place] to 10 mg rather than 5. He has significant neurologic pain and may do well with Neurontin. We'll start him on a small dose of Neurontin to see if it helps with some of the neurologic symptoms. I discussed this with him at length and he says that he feels control with being discharged home today given that his cardiac issues seem to be ruled out. We can follow them closely and I'll plan to see him back in 1 week's time in the office. I answered his questions best my ability and leg which he can understand he is agreeable to plan. Time with Patient: Greater than 30
[2020-10-13] MEDS ORDERED: ENOXAPARIN 40 MG/0.4 ML SYRINGE SQ SCH (11:30)
[2020-10-13] MEDS ORDERED: METOPROLOL TARTRATE 25 MG TAB PO SCH (11:30)
[2020-10-13] MEDS ORDERED: PANTOPRAZOLE 40 MG TABLET PO SCH (11:30)
[2020-10-13] MEDS ORDERED: amLODIPine 2.5 MG TAB PO SCH (11:30)
[2020-10-13] MEDS ORDERED: DICYCLOMINE 20 MG TAB PO SCH (11:30)
[2020-10-13] MEDS ORDERED: VENLAFAXINE HCL ER 150 MG CAP PO SCH (11:30)
[2020-10-13] MEDS ORDERED: Empagliflozin [Jardiance] PO SCH (11:30)
[2020-10-13] MEDS ORDERED: VARENICLINE 1 MG TAB PO SCH (11:30)
[2020-10-13] MEDS ORDERED: IPRATROPIUM 0.5 MG/2.5 ML NEBU INHALATION SCH (12:00)
[2020-10-13] MEDS ORDERED: INSULIN ASPART (NovoLOG) 100 UNIT/ML VIAL SQ SCH (12:30)
[2020-10-13] MEDS ORDERED: metFORMIN 500 MG TAB PO SCH (17:30)
[2020-10-13] MEDS ORDERED: ATORVASTATIN 20 MG TAB PO SCH (21:00)
[2020-10-13] MEDS ORDERED: LOPERAMIDE 2 MG CAP PO SCH (21:00)
[2020-10-13] MEDS ORDERED: lisinopriL 10 MG TAB PO SCH (21:00)
[2020-10-13] MEDS ORDERED: ASPIRIN 81 MG PO SCH (21:00)
== END 2020-10-13 12:07 | disposition home or self-care (01) ==
LOC: EC 17:51 → 4SSUR 20:29
PROVIDERS: ADMIT Orthopaedic Surgery Orthopaedic Surgery of the Spine; ATTEND Orthopaedic Surgery Orthopaedic Surgery of the Spine
DX: M54.2 Cervicalgia (principal); Z98.1 Arthrodesis status; G89.18 Other acute postprocedural pain; M25.512 Pain in left shoulder; M79.602 Pain in left arm; G95.9 Disease of spinal cord, unspecified; M54.10 Radiculopathy, site unspecified; E78.5 Hyperlipidemia, unspecified; I10 Essential (primary) hypertension; E11.40 Type 2 diabetes mellitus with diabetic neuropathy, unspecified; J44.9 Chronic obstructive pulmonary disease, unspecified; G47.30 Sleep apnea, unspecified; M19.90 Unspecified osteoarthritis, unspecified site; F17.210 Nicotine dependence, cigarettes, uncomplicated; F32.9 Major depressive disorder, single episode, unspecified; Z90.49 Acquired absence of other specified parts of digestive tract; Z99.89 Dependence on other enabling machines and devices; Z95.0 Presence of cardiac pacemaker; Z79.899 Other long term (current) drug therapy; Z79.84 Long term (current) use of oral hypoglycemic drugs; Z79.82 Long term (current) use of aspirin; Z79.51 Long term (current) use of inhaled steroids; Z80.9 Family history of malignant neoplasm, unspecified
CPT/HCPCS: 96376; 96361; 96374; 96375; 99284; 36415; 93005; 80053; 84484; 85025; 85610; 85730; 72050; 71046; G0378 ×2; J2930; J1170

== ENCOUNTER 2020-12-18 23:22 | Observation (INO) | payer MEDICARE ==
[2020-12-19] MEDS ORDERED: MORPHINE SULFATE 4 MG/ML SYRINGE IV STA (02:46)
[2020-12-19] MEDS ORDERED: KETOROLAC 15 MG/ML 1 ML VIAL IVP STA (02:47)
--- NOTE | 2020-12-19 02:55 | ED ---
Lower Extremity Injury HPI - General Chief Complaint: Extremity Injury, Lower Stated Complaint: lt leg pain Time Seen by Provider: 12/19/20 01:44 Source: patient, family Mode of arrival: wheelchair Limitations: physical limitation - Related Data Home Medications Medication Instructions Recorded Confirmed Metoprolol Tartrate [Lopressor] 25 mg PO BID 12/02/16 10/12/20 Venlafaxine HCl [Effexor XR] 150 mg PO QAM 12/02/16 10/12/20 amLODIPine BESYLATE 2.5 mg PO QAM 08/29/18 10/12/20 Umeclidinium [place] [Incruse 1 puff INHALATION RT-DAILY 09/22/18 10/12/20 Ellipta] lisinopriL [Zestril] 10 mg PO HS 09/22/18 10/12/20 Albuterol Sulfate [Proair Hfa] 1 - 2 puff INHALATION RT-Q6H PRN 06/07/20 10/12/20 Aspirin [Adult Low Dose Aspirin EC] 81 mg PO HS 06/07/20 10/12/20 Dicyclomine [Bentyl] 20 mg PO TID 06/07/20 10/12/20 Fluticasone/Salmeterol [Advair Hfa 2 puff INHALATION RT-BID 06/07/20 10/12/20 45-21 Mcg Inhaler] Loperamide [Imodium] 2 mg PO BID 06/07/20 10/12/20 Omeprazole 20 mg PO DAILY 06/07/20 10/12/20 Empagliflozin [Jardiance] 10 mg PO DAILY 08/13/20 10/12/20 Albuterol Nebulized [Ventolin 2.5 mg INHALATION RT-TID PRN 09/16/20 10/12/20 Nebulized] Atorvastatin Calcium [Lipitor] 20 mg PO HS 10/12/20 10/12/20 HYDROcodone/APAP 5-325MG [[place] 5] 1 tab PO BID PRN 10/12/20 10/12/20 Varenicline [Chantix Continuing 1 mg PO BID 10/12/20 10/12/20 Pack] metFORMIN HCL ER [Glucophage Xr] 1,000 mg PO HS 10/12/20 10/12/20 Previous Rx's Medication Instructions Recorded Famotidine [Pepcid] 20 mg PO DAILY #12 tablet 10/13/20 Gabapentin [Neurontin] 200 mg PO BID #60 cap 10/13/20 HYDROcodone/APAP 10-325MG [[place] 1 tab PO Q4HR PRN 7 Days #42 tab 10/13/20 10-325] predniSONE [Deltasone] 20 mg PO DIRECTED #24 tab 10/13/20 Allergies Allergy/AdvReac Type Severity Reaction Status Date / Time No Known Allergies Allergy Verified 12/18/20 23:32 Review of Systems ROS Statement: Those systems with pertinent positive or pertinent negative responses have been documented in the HPI. ROS Other: All systems not noted in ROS Statement are negative. Past Medical History Past Medical History: COPD, Diabetes Mellitus, Hyperlipidemia, Hypertension, Osteoarthritis (OA), Sleep Apnea/CPAP/BIPAP Additional Past Medical History / Comment(s): PACEMAKER. Uses VPAP. 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 History of Any Multi-Drug Resistant Organisms: None Reported Past Surgical History: Appendectomy, Back Surgery, Pacemaker Additional Past Surgical History / Comment(s): Oral surg. COLONOSCOPY. GENERATOR CHANGE 2016, lumbar myelogram, neck fusion Past Anesthesia/Blood Transfusion Reactions: No Reported Reaction Type of Cardiac Device: Permanent Pacemaker Device Placement Date:: 2008 Past Psychological History: Depression Smoking Status: Former smoker Past Alcohol Use History: Occasional Past Drug Use History: None Reported - Past Family History Mother Family Medical History: Cancer Brother(s) Family Medical History: Cancer General Exam Limitations: physical limitation Course Vital Signs 12/18/20 12/18/20 12/19/20 23:27 23:32 04:47 Temperature 97.7 F 98.1 F Pulse Rate 89 60 60 Respiratory 18 18 16 Rate Blood Pressure 171/92 134/68 139/71 O2 Sat by Pulse 94 L 94 L 100 Oximetry Medical Decision Making - Lab Data Result diagrams: 12/19/20 03:06 12/19/20 03:06 Lab Results 12/19/20 12/19/20 12/19/20 Range/Units 03:06 03:06 03:06 WBC 12.9 H (3.8-10.6) k/uL RBC 4.68 (4.30-5.90) m/uL Hgb 14.1 (13.0-17.5) gm/dL Hct 44.3 (39.0-53.0) % MCV 94.8 (80.0-100.0) fL MCH 30.2 (25.0-35.0) pg MCHC 31.9 (31.0-37.0) g/dL RDW 13.5 (11.5-15.5) % Plt Count 230 (150-450) k/uL MPV 7.3 Neutrophils % 71 % Lymphocytes % 18 % Monocytes % 5 % Eosinophils % 5 % Basophils % 0 % Neutrophils # 9.2 H (1.3-7.7) k/uL Lymphocytes # 2.3 (1.0-4.8) k/uL Monocytes # 0.6 (0-1.0) k/uL Eosinophils # 0.7 (0-0.7) k/uL Basophils # 0.1 (0-0.2) k/uL D-Dimer 0.85 H (<0.60) mg/L FEU Sodium (137-145) mmol/L Potassium (3.5-5.1) mmol/L Chloride (98-107) mmol/L Carbon Dioxide (22-30) mmol/L Anion Gap mmol/L BUN (9-20) mg/dL Creatinine (0.66-1.25) mg/dL Est GFR (CKD-EPI)AfAm (>60 ml/min/1.73 sqM) Est GFR (CKD-EPI)NonAf (>60 ml/min/1.73 sqM) Glucose (74-99) mg/dL Calcium (8.4-10.2) mg/dL Phosphorus (2.5-4.5) mg/dL Magnesium (1.6-2.3) mg/dL Total Bilirubin (0.2-1.3) mg/dL AST (17-59) U/L ALT (4-49) U/L Alkaline Phosphatase (38-126) U/L Creatine Kinase (55-170) U/L Total Protein (6.3-8.2) g/dL Albumin (3.5-5.0) g/dL Urine Color Light Yellow Urine Appearance Clear (Clear) Urine pH 5.5 (5.0-8.0) Ur Specific [place] 1.022 (1.001-1.035) Urine Protein Negative (Negative) Urine Glucose (UA) 4+ H (Negative) Urine Ketones Negative (Negative) Urine Blood Negative (Negative) Urine Nitrite Negative (Negative) Urine Bilirubin Negative (Negative) Urine Urobilinogen <2.0 (<2.0) mg/dL Ur Leukocyte Esterase Negative (Negative) 12/19/20 Range/Units 03:06 WBC (3.8-10.6) k/uL RBC (4.30-5.90) m/uL Hgb (13.0-17.5) gm/dL Hct (39.0-53.0) % MCV (80.0-100.0) fL MCH (25.0-35.0) pg MCHC (31.0-37.0) g/dL RDW (11.5-15.5) % Plt Count (150-450) k/uL MPV Neutrophils % % Lymphocytes % % Monocytes % % Eosinophils % % Basophils % % Neutrophils # (1.3-7.7) k/uL Lymphocytes # (1.0-4.8) k/uL Monocytes # (0-1.0) k/uL Eosinophils # (0-0.7) k/uL Basophils # (0-0.2) k/uL D-Dimer (<0.60) mg/L FEU Sodium 139 (137-145) mmol/L Potassium 4.6 (3.5-5.1) mmol/L Chloride 100 (98-107) mmol/L Carbon Dioxide 29 (22-30) mmol/L Anion Gap 10 mmol/L BUN 22 H (9-20) mg/dL Creatinine 0.96 (0.66-1.25) mg/dL Est GFR (CKD-EPI)AfAm >90 (>60 ml/min/1.73 sqM) Est GFR (CKD-EPI)NonAf 80 (>60 ml/min/1.73 sqM) Glucose 133 H (74-99) mg/dL Calcium 10.0 (8.4-10.2) mg/dL Phosphorus 4.1 (2.5-4.5) mg/dL Magnesium 1.9 (1.6-2.3) mg/dL Total Bilirubin 0.5 (0.2-1.3) mg/dL AST 33 (17-59) U/L ALT 25 (4-49) U/L Alkaline Phosphatase 112 (38-126) U/L Creatine Kinase 84 (55-170) U/L Total Protein 8.2 (6.3-8.2) g/dL Albumin 4.9 (3.5-5.0) g/dL Urine Color Urine Appearance (Clear) Urine pH (5.0-8.0) Ur Specific [place] (1.001-1.035) Urine Protein (Negative) Urine Glucose (UA) (Negative) Urine Ketones (Negative) Urine Blood (Negative) Urine Nitrite (Negative) Urine Bilirubin (Negative) Urine Urobilinogen (<2.0) mg/dL Ur Leukocyte Esterase (Negative) Disposition Clinical Impression: Left thigh pain, Severe pain, Intractable pain Disposition: ADMITTED IP TO THIS [facility] Condition: Good Is patient prescribed a controlled substance at d/c from ED?: No Referrals: Nba Nguyen MD [Primary Care Provider] - 1-2 days
[2020-12-19 03:25] LABS: Basophils # (A) 0.1 k/uL (0-0.2); Basophils % (A) 0 %; Eosinophils # (A) 0.7 k/uL (0-0.7); Eosinophils % (A) 5 %; HCT 44.3 % (39.0-53.0); HGB 14.1 gm/dL (13.0-17.5); Lymphocytes # (A) 2.3 k/uL (1.0-4.8); Lymphocytes % (A) 18 %; MCH 30.2 pg (25.0-35.0); MCHC 31.9 g/dL (31.0-37.0); MCV 94.8 fL (80.0-100.0); Mean Platelet Volume 7.3; Monocytes # (A) 0.6 k/uL (0-1.0); Monocytes % (A) 5 %; Neutrophils # (A) 9.2 k/uL (1.3-7.7); Neutrophils % (A) 71 %; Platelet Count 230 k/uL (150-450); RBC 4.68 m/uL (4.30-5.90); RDW 13.5 % (11.5-15.5); WBC 12.9 k/uL (3.8-10.6)
[2020-12-19 03:31] LABS: Appearance,Urine Clear (Clear); Bilirubin,Urine Negative (Negative); Blood,Urine Negative (Negative); Color,Urine Light Yellow; Glucose,Urine (UA) 4+ (Negative); Ketones,Urine Negative (Negative); Leukocyte Esterase,Urine Negative (Negative); Nitrite,Urine Negative (Negative); PH, Urine 5.5 (5.0-8.0); Protein,Urine Negative (Negative); Specific Gravity,Urine 1.022 (1.001-1.035); Urobilinogen,Urine <2.0 mg/dL (<2.0)
[2020-12-19 03:42] LABS: Potassium 4.6 mmol/L (3.5-5.1)
[2020-12-19 03:43] LABS: ALT 25 U/L (4-49); AST 33 U/L (17-59); African American GFR (CKD) >90 (>60 ml/min/1.73 sqM); Albumin 4.9 g/dL (3.5-5.0); Alkaline Phosphatase 112 U/L (38-126); Anion Gap 10 mmol/L; Blood Urea Nitrogen 22 mg/dL (9-20); Carbon Dioxide 29 mmol/L (22-30); Chloride 100 mmol/L (98-107); Creatine Kinase 84 U/L (55-170); Glucose 133 mg/dL (74-99); Magnesium 1.9 mg/dL (1.6-2.3); Non-African American GFR(CKD) 80 (>60 ml/min/1.73 sqM); Phosphorus 4.1 mg/dL (2.5-4.5); Sodium 139 mmol/L (137-145); Total Bilirubin 0.5 mg/dL (0.2-1.3); Total Protein 8.2 g/dL (6.3-8.2)
--- NOTE | 2020-12-19 03:45 | XR ---
EXAM: XR Left Femur, 2 Views CLINICAL HISTORY: [email or web address].[email or web address] XR Reason: pain TECHNIQUE: Frontal and lateral views of the left femur. COMPARISON: No relevant prior studies available. FINDINGS: Bones/joints: Unremarkable. No acute fracture. No dislocation. Soft tissues: Unremarkable. Extensive vascular calcifications. IMPRESSION: Normal left femur x-rays.
--- NOTE | 2020-12-19 03:47 | XR ---
EXAM: XR Left Hip With Pelvis When Performed, 1 View CLINICAL HISTORY: [email or web address] XR Reason: pain TECHNIQUE: Frontal view of the left hip with pelvis when performed. COMPARISON: No relevant prior studies available. FINDINGS: Bones/joints: Unremarkable. No acute fracture. No dislocation. Soft tissues: Unremarkable. IMPRESSION: Normal left hip x-ray.
--- NOTE | 2020-12-19 03:47 | XR ---
EXAM: XR Pelvis, 1 or 2 Views CLINICAL HISTORY: [email or web address].[email or web address] XR Reason: pain TECHNIQUE: Frontal view of the pelvis. COMPARISON: No relevant prior studies available. FINDINGS: Bones/joints: Unremarkable. No acute fracture. No dislocation. Soft tissues: Unremarkable. IMPRESSION: Normal pelvis x-ray.
[2020-12-19] MEDS ORDERED: HYDROmorphone 1 MG/ML 1 ML SYRINGE IVP STA (05:52)
[2020-12-19] MEDS ORDERED: SODIUM CHLORIDE 0.9% 1,000 ML IV ONE (05:54)
--- NOTE | 2020-12-19 06:50 | CT ---
EXAMINATION TYPE: CT pelvis wo con, CT hip LT wo con DATE OF EXAM: 12/19/2020 COMPARISON: CT pelvis September 22, 2018 HISTORY: Left hip pain without injury CT DLP: 752.9 (accession [id number]), inc. in Pelvis (accession [id number]) mGycm Automated exposure control for dose reduction was used. CT scan of pelvis and left hip performed without contrast. FINDINGS: There is moderate disc space narrowing and vacuum disc phenomenon at L4-L5 level. Sacroiliac joints a re preserved. Pubic symphysis is intact. Hip joints show symmetric mild axial joint space loss and ac etabular spurring. There is no acute fracture or dislocation in the pelvis identified. No suspicious bowel dilatation. No pelvic ascites. Mildly enlarged prostate bulging on bladder base r edemonstrated. No suspicious groin adenopathy. Stable small to moderate-sized bilateral fat containin g inguinal hernias. The left hip show evidence asymmetric moderate generalized atrophy of the lateral aspect gluteus medius muscle with some interval atrophic progression from 2018 study. Images of the left hip show maintenance of femoral head rounded contour. No suspicious joint effusion . No concerning solid or cystic mass identified. IMPRESSION: No acute fracture or dislocation. Asymmetric atrophy of the lateral aspect left gluteus m edius muscle. Interval progression from 2018 CT. Stable small to moderate-sized fat-containing left i nguinal hernia.
--- NOTE | 2020-12-19 07:29 | US ---
EXAMINATION TYPE: US venous doppler duplex LE LT DATE OF EXAM: 12/19/2020 7:09 AM COMPARISON: NONE CLINICAL HISTORY: pain. Left Leg pain SIDE PERFORMED: Left TECHNIQUE: The lower extremity deep venous system is examined utilizing real time linear array sonog anel with graded compression, doppler sonography and color-flow sonography. VESSELS IMAGED: Common Femoral Vein Deep Femoral Vein Greater Saphenous Vein * Femoral Vein Popliteal Vein Small Saphenous Vein * Proximal Calf Veins (* superficial vessels) Left Leg: Negative for DVT IMPRESSION: 1. Left lower extremity ultrasound negative for deep venous thrombosis
[2020-12-19] MEDS: HYDROmorphone 1 MG/ML 1 ML SYRINGE IVP PRN ×3 (08:45→20:02)
[2020-12-19] MEDS ORDERED: ALBUTEROL NEBULIZED 2.5 MG/3 ML INHALATION PRN (10:36)
[2020-12-19] MEDS: ATORVASTATIN 20 MG TAB PO SCH ×2 (11:28→14:20)
[2020-12-19] MEDS: DICYCLOMINE 20 MG TAB PO SCH ×3 (11:29→20:05)
[2020-12-19] MEDS: METOPROLOL TARTRATE 25 MG TAB PO SCH ×2 (11:30→20:03)
[2020-12-19] MEDS: lisinopriL 10 MG TAB PO SCH (11:30)
[2020-12-19] MEDS: LOPERAMIDE 2 MG CAP PO SCH ×2 (11:30→20:03)
[2020-12-19] MEDS: VENLAFAXINE HCL ER 150 MG CAP PO SCH (11:31)
[2020-12-19] MEDS: VARENICLINE 1 MG TAB PO SCH ×2 (11:31→21:31)
[2020-12-19] MEDS: SYMBICORT 80-4.5 MCG INHALER INHALATION SCH ×2 (11:33→20:53)
--- NOTE | 2020-12-19 11:45 | P.CNPUL ---
History of Present Illness Consult date: 12/19/20 Requesting physician: Hugh Zhang Reason for consult: COPD Chief complaint: Left lower extremity pain History of present illness: This is a pleasant 70-year-old male patient with a history of previous tobacco dependence, COPD who follows with Dr. Valle in our office for the same. He is maintained on Advair, Incruse and albuterol in the outpatient setting. He also has history of diabetes mellitus, gastroesophageal reflux disease, hypertension, hyperlipidemia, obstructive sleep apnea and utilizes CPAP, permanent pacemaker implantation, osteoarthritis, previous back surgery. He presented to the emergency room early this morning due to significant left lower extremity pain and weakness. He was having trouble standing. X-rays of the femur, pelvis, hip all revealed no acute abnormalities. Computed tomography scan of the hip revealed no acute fracture or dislocation. There is asymmetric atrophy of the lateral aspect of the left gluteus medius muscle. Stable small to moderate-sized fat-containing left inguinal hernia. Doppler of the left leg was negative for DVT. Orthopedics have been consulted. White count 12.9. Hemoglobin 14.1. D-dimer 0.85. Sodium 139. Potassium 4.6. Creatinine 0.96. Baird virus not detected. He is seen today in consultation in the emergency room. He is currently quite uncomfortable regarding the left lower extremity pain. He doesn't raise any shortness of breath, cough or congestion. Maintaining O2 saturations in the 90s on room air. Review of Systems REVIEW OF SYSTEMS: CONSTITUTIONAL: Denies any recent significant weight loss or weight gain. EYES: Denies change in vision. EARS, NOSE, MOUTH, THROAT: Denies headaches, denies sore throat. CARDIOVASCULAR: Denies chest pain, palpitations or syncopal episodes. RESPIRATORY: Denies shortness of breath, cough, congestion or hemoptysis. GASTROINTESTINAL: Denies change in appetite, denies abdominal pain GENITOURINARY: Denies hematuria, denies infections. MUSKULOSKELETAL: Positive for left hip and lower extremity pain INTEGUMENTARY: Denies rash, denies eczema. NEUROLOGICAL: Denies recent memory loss, no recent seizure activity. PSYCHIATRIC: Denies anxiety, denies depression. HEMATOLOGIC/LYMPHATIC: Denies anemia, denies enlarged lymph nodes. Past Medical History Past Medical History: COPD, Diabetes Mellitus, Hyperlipidemia, Hypertension, Osteoarthritis (OA), Sleep Apnea/CPAP/BIPAP Additional Past Medical History / Comment(s): PACEMAKER. Uses VPAP. 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 History of Any Multi-Drug Resistant Organisms: None Reported Past Surgical History: Appendectomy, Back Surgery, Pacemaker Additional Past Surgical History / Comment(s): Oral surg. COLONOSCOPY. GENERATOR CHANGE 2016, lumbar myelogram, neck fusion Past Anesthesia/Blood Transfusion Reactions: No Reported Reaction Type of Cardiac Device: Permanent Pacemaker Device Placement Date:: 2008 Past Psychological History: Depression Smoking Status: Former smoker Past Alcohol Use History: Occasional Past Drug Use History: None Reported - Past Family History Mother Family Medical History: Cancer Brother(s) Family Medical History: Cancer Medications and Allergies Home Medications Medication Instructions Recorded Confirmed Type Metoprolol Tartrate [Lopressor] 25 mg PO BID 12/02/16 12/19/20 History Venlafaxine HCl [Effexor XR] 150 mg PO QAM 12/02/16 12/19/20 History amLODIPine BESYLATE 2.5 mg PO QAM 08/29/18 12/19/20 History Umeclidinium [place] [Incruse 1 puff INHALATION RT-DAILY 09/22/18 12/19/20 History Ellipta] lisinopriL [Zestril] 10 mg PO DAILY 09/22/18 12/19/20 History Albuterol Sulfate [Proair Hfa] 1 - 2 puff INHALATION RT-Q6H PRN 06/07/20 12/19/20 History Aspirin [Adult Low Dose Aspirin EC] 81 mg PO DAILY 06/07/20 12/19/20 History Dicyclomine [Bentyl] 20 mg PO TID 06/07/20 12/19/20 History Fluticasone/Salmeterol [Advair Hfa 2 puff INHALATION RT-BID 06/07/20 12/19/20 History 45-21 Mcg Inhaler] Loperamide [Imodium] 2 mg PO BID 06/07/20 12/19/20 History Omeprazole 20 mg PO DAILY 06/07/20 12/19/20 History Empagliflozin [Jardiance] 10 mg PO DAILY 08/13/20 12/19/20 History Albuterol Nebulized [Ventolin 2.5 mg INHALATION RT-TID PRN 09/16/20 12/19/20 History Nebulized] Atorvastatin Calcium [Lipitor] 20 mg PO DAILY 10/12/20 12/19/20 History HYDROcodone/APAP 5-325MG [[place] 5] 1 tab PO Q8H PRN 10/12/20 12/19/20 History Varenicline [Chantix Continuing 1 mg PO BID 10/12/20 12/19/20 History Pack] metFORMIN HCL ER [Glucophage Xr] 1,000 mg PO HS 10/12/20 12/19/20 History Cyclobenzaprine [Flexeril] 10 mg PO TID PRN 12/19/20 12/19/20 History Donepezil HCl [Aricept] 5 mg PO DAILY 12/19/20 12/19/20 History Meclizine [Antivert] 12.5 - 25 mg PO QID PRN 12/19/20 12/19/20 History Allergies Allergy/AdvReac Type Severity Reaction Status Date / Time No Known Allergies Allergy Verified 12/18/20 23:32 Physical Exam Vitals: Vital Signs Temp Pulse Resp BP Pulse Ox 12/19/20 08:48 96.7 F L 62 18 142/63 93 L 12/19/20 06:11 60 18 142/85 95 12/19/20 04:47 60 16 139/71 100 12/18/20 23:32 98.1 F 60 18 134/68 94 L 12/18/20 23:27 97.7 F 89 18 171/92 94 L Intake and Output 12/18/20 12/19/20 12/19/20 22:59 06:59 14:59 Other: Weight 113.398 kg GENERAL EXAM: Alert, pleasant 70-year-old gentleman, on room air, significant pain of the left lower extremity. HEAD: Normocephalic. EYES: Normal reaction of pupils, equal size. NOSE: Clear with pink turbinates. THROAT: No erythema or exudates. NECK: No masses, no JVD. CHEST: No chest wall deformity. LUNGS: Equal air entry with no crackles, wheeze, rhonchi or dullness. CVS: S1 and S2 normal with no audible murmur, regular rhythm. ABDOMEN: No hepatosplenomegaly, normal bowel sounds, no guarding or rigidity. SPINE: No scoliosis or deformity SKIN: No rashes CENTRAL NERVOUS SYSTEM: No focal deficits, tone is normal in all 4 extremities. EXTREMITIES: There is no peripheral edema. No clubbing, no cyanosis. Peripheral pulses are intact. Results - Laboratory Findings CBC and BMP: 12/19/20 03:06 12/19/20 03:06 PT/INR, D-dimer D-Dimer 0.85 mg/L FEU (<0.60) H 12/19/20 03:06 Abnormal lab findings: Abnormal Labs 12/19/20 12/19/20 12/19/20 03:06 03:06 03:06 WBC 12.9 H Neutrophils # 9.2 H D-Dimer 0.85 H BUN Glucose Urine Glucose (UA) 4+ H 12/19/20 03:06 WBC Neutrophils # D-Dimer BUN 22 H Glucose 133 H Urine Glucose (UA) Assessment and Plan Assessment: 1 Significant pain and discomfort of the left lower extremity of unclear etiology. No acute fracture. No trauma 2 History of chronic obstructive pulmonary disease, currently inactive in stable 3 History of chronic tobacco dependence 4 Diabetes mellitus 5 Hypertension 6 Hyperlipidemia 7 History of obstructive sleep apnea utilizing CPAP 8 Permanent pacemaker implantation 9 Previous back surgery 10 Osteoarthritis Plan: The patient was seen and evaluated by Dr. Hernandez Currently stable from the pulmonary standpoint Continue pulmonary medications Orthopedics consulted for the significant left lower extremity pain I, the cosigning physician, performed a history & physical examination of the patient. Lungs sounds are clear Maintaining good O2 saturations in the 90s on room air. I discussed the assessment and plan of care with my nurse practitioner, Lia Guevara. I attest to the above consultation as dictated by her. Time with Patient: Greater than 30
[2020-12-19] MEDS: DONEPEZIL 5 MG TAB PO SCH (11:58)
[2020-12-19] MEDS: PANTOPRAZOLE 40 MG TABLET PO SCH (11:58)
[2020-12-19] MEDS ORDERED: IPRATROPIUM 0.5 MG/2.5 ML NEBU INHALATION SCH (12:00)
[2020-12-19] MEDS ORDERED: NAPROXEN 250 MG TAB PO STA (14:01)
[2020-12-19] MEDS: ASPIRIN 81 MG PO SCH (14:20)
[2020-12-19] MEDS: CYCLOBENZAPRINE 10 MG TAB PO PRN (15:52)
[2020-12-19] MEDS: amLODIPine 2.5 MG TAB PO SCH (15:52)
[2020-12-19] MEDS: HYDROcodone/APAP 5-325MG 1 EACH TAB PO PRN (15:52)
[2020-12-19] MEDS: methylPREDNISolone SOD SUCCI 40 MG/ML 1 ML VIAL IV SCH ×2 (15:53→20:04)
[2020-12-19] MEDS: IPRATROPIUM-ALBUTEROL 3 ML NEB INHALATION SCH ×3 (15:55→20:53)
[2020-12-19] MEDS: NAPROXEN 250 MG TAB PO SCH (20:03)
[2020-12-19] MEDS ORDERED: metFORMIN 500 MG TAB PO SCH (21:00)
--- NOTE | 2020-12-19 21:05 | P.HPIM ---
History of Present Illness H&P Date: 12/19/20 Chief Complaint: Left thigh pain History of presenting complaint: This is a pleasant 70-year-old patient of Dr. Nguyen. Chronic stable medical conditions include diabetes, hypertension, hyperlipidemia, osteoarthritis, pacemaker, peripheral neuropathy, chronic back and neck pain. Obstructive sleep apnea. Patient does smoke a few cigarettes a day. Patient presents with increasing pain starting around the left thigh the back of the leg primarily in the thigh area. Patient is laying down on the right side reclining on a petechial position to ease of the pain. Is rather significant. Patient also been short of breath and wheezing cough. No fever no chills. Presented to the ER for the same. Review of systems: GEN.: Tired EYES: None HEENT: None NECK: None RESPIRATORY: [As above CARDIOVASCULAR: None GASTROINTESTINAL: None GENITOURINARY: None MUSCULOSKELETAL: Joint pains and as above LYMPHATICS: None HEMATOLOGICAL: None PSYCHIATRY: Anxious NEUROLOGICAL: None Past medical history to include: COPD, diabetes, hypertension, hyperlipidemia, osteoarthritis, obstructive sleep apnea, pacemaker, peripheral neuropathy, back and neck pain, Social history: Lives with his . Smoking since a teenager pack and half a day now down to a few cigarettes a day. Alcohol occasionally. Retired Physical examination: VITAL SIGNS: 97.7, 89, 18, 134/68, 94% on room air GENERAL: BMI 34.9, reclining on the bed on the right side. EYES: Pupils equal. Conjunctiva normal. HEENT: External appearance of nose and ears normal, oral cavity grossly normal. NECK: JVD not raised; masses not palpable. HEART: First and second heart sounds are normal; no edema. LUNGS:[ Respiratory rate increased, decreased breath sounds prolonged expiration and wheezing. ABDOMEN: Soft, nontender, liver spleen not palpable, no masses palpable. PSYCH: Alert and oriented x3; mood and affect anxiousl. MUSCULAR skeletal: Evidence of OA especially in the hands. Some limited range of motion of the left hip NEUROLOGICAL: Cranial nerves grossly intact; no facial asymmetry, power and sensation grossly intact. LYMPHATICS: No lymph nodes palpable in the axilla and neck INVESTIGATIONS, reviewed in the clinical context: WBC 12.9 hemoglobin 14.1 platelets 2:30 potassium 4.6 creatinine 0.96 Coronavirus [PCR]-not detected Venous Doppler: Negative for DVT in the left leg. Computed tomography scan of the pelvis without contrast.: Left hip shows evidence of asymmetric moderate generalized atrophy of the lateral aspect of the gluteus medius muscle with some interval atrophy progression from 2018 study. Assessment and plan: -Acute COPD exacerbation in a current smoker. Start the patient on IV steroids and nebulized bronchodilators. Continue Advair -Chronic nicotine dependence, patient is a cigarette smoker -Left thigh pain with some radicular feature showing, moderate generalized atrophy of the lateral aspect of gluteus medius muscle. Patient has been put on steroids. Consult orthopedics. -Diabetes mellitus type 2. Follow Accu-Cheks. Continue oral hypoglycemic. -Hyperlipidemia, continue Lipitor -Essential hypertension, continue Zestril, Lopressor -Depression not otherwise specified. Continue Effexor -Primary osteoarthritis Permanent pacemaker -Mild cognitive impairment. On Aricept Consultation made to pulmonary and orthopedics. Smoke cessation counseling: This was done with the patient. Nicotine patch is being given. More than 3 minutes was spent for this Past Medical History Past Medical History: COPD, Diabetes Mellitus, Hyperlipidemia, Hypertension, Osteoarthritis (OA), Sleep Apnea/CPAP/BIPAP Additional Past Medical History / Comment(s): PACEMAKER. Uses VPAP. 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 History of Any Multi-Drug Resistant Organisms: None Reported Past Surgical History: Appendectomy, Back Surgery, Pacemaker Additional Past Surgical History / Comment(s): Oral surg. COLONOSCOPY. GENERATOR CHANGE 2016, lumbar myelogram, neck fusion Past Anesthesia/Blood Transfusion Reactions: No Reported Reaction Type of Cardiac Device: Permanent Pacemaker Device Placement Date:: 2008 Past Psychological History: Depression Smoking Status: Former smoker Past Alcohol Use History: Occasional Past Drug Use History: None Reported - Past Family History Mother Family Medical History: Cancer Brother(s) Family Medical History: Cancer Medications and Allergies Home Medications Medication Instructions Recorded Confirmed Type Metoprolol Tartrate [Lopressor] 25 mg PO BID 12/02/16 12/19/20 History Venlafaxine HCl [Effexor XR] 150 mg PO QAM 12/02/16 12/19/20 History amLODIPine BESYLATE 2.5 mg PO QAM 08/29/18 12/19/20 History Umeclidinium [place] [Incruse 1 puff INHALATION RT-DAILY 09/22/18 12/19/20 History Ellipta] lisinopriL [Zestril] 10 mg PO DAILY 09/22/18 12/19/20 History Albuterol Sulfate [Proair Hfa] 1 - 2 puff INHALATION RT-Q6H PRN 06/07/20 12/19/20 History Aspirin [Adult Low Dose Aspirin EC] 81 mg PO DAILY 06/07/20 12/19/20 History Dicyclomine [Bentyl] 20 mg PO TID 06/07/20 12/19/20 History Fluticasone/Salmeterol [Advair Hfa 2 puff INHALATION RT-BID 06/07/20 12/19/20 History 45-21 Mcg Inhaler] Loperamide [Imodium] 2 mg PO BID 06/07/20 12/19/20 History Omeprazole 20 mg PO DAILY 06/07/20 12/19/20 History Empagliflozin [Jardiance] 10 mg PO DAILY 08/13/20 12/19/20 History Albuterol Nebulized [Ventolin 2.5 mg INHALATION RT-TID PRN 09/16/20 12/19/20 History Nebulized] Atorvastatin Calcium [Lipitor] 20 mg PO DAILY 10/12/20 12/19/20 History HYDROcodone/APAP 5-325MG [[place] 5] 1 tab PO Q8H PRN 10/12/20 12/19/20 History Varenicline [Chantix Continuing 1 mg PO BID 10/12/20 12/19/20 History Pack] metFORMIN HCL ER [Glucophage Xr] 1,000 mg PO HS 10/12/20 12/19/20 History Cyclobenzaprine [Flexeril] 10 mg PO TID PRN 12/19/20 12/19/20 History Donepezil HCl [Aricept] 5 mg PO DAILY 12/19/20 12/19/20 History Meclizine [Antivert] 12.5 - 25 mg PO QID PRN 12/19/20 12/19/20 History Allergies Allergy/AdvReac Type Severity Reaction Status Date / Time No Known Allergies Allergy Verified 12/18/20 23:32 Physical Exam Vitals: Vital Signs Temp Pulse Resp BP Pulse Ox 12/19/20 08:48 96.7 F L 62 18 142/63 93 L 12/19/20 06:11 60 18 142/85 95 12/19/20 04:47 60 16 139/71 100 12/18/20 23:32 98.1 F 60 18 134/68 94 L 12/18/20 23:27 97.7 F 89 18 171/92 94 L Intake and Output 12/18/20 12/19/20 12/19/20 22:59 06:59 14:59 Other: Weight 113.398 kg Results CBC & Chem 7: 12/19/20 03:06 12/19/20 03:06 Labs: Abnormal Lab Results - Last 24 Hours (Table) 12/19/20 12/19/20 12/19/20 Range/Units 03:06 03:06 03:06 WBC 12.9 H (3.8-10.6) k/uL Neutrophils # 9.2 H (1.3-7.7) k/uL D-Dimer 0.85 H (<0.60) mg/L FEU BUN (9-20) mg/dL Glucose (74-99) mg/dL Urine Glucose (UA) 4+ H (Negative) 12/19/20 Range/Units 03:06 WBC (3.8-10.6) k/uL Neutrophils # (1.3-7.7) k/uL D-Dimer (<0.60) mg/L FEU BUN 22 H (9-20) mg/dL Glucose 133 H (74-99) mg/dL Urine Glucose (UA) (Negative)
[2020-12-20] MEDS: HYDROcodone/APAP 5-325MG 1 EACH TAB PO PRN (00:36)
[2020-12-20] MEDS: CYCLOBENZAPRINE 10 MG TAB PO PRN ×2 (00:36→09:31)
[2020-12-20] MEDS: HYDROmorphone 1 MG/ML 1 ML SYRINGE IVP PRN ×2 (05:34→11:16)
[2020-12-20] MEDS: IPRATROPIUM-ALBUTEROL 3 ML NEB INHALATION SCH ×2 (08:39→11:41)
[2020-12-20] MEDS: SYMBICORT 80-4.5 MCG INHALER INHALATION SCH (08:40)
[2020-12-20] MEDS: VARENICLINE 1 MG TAB PO SCH (09:31)
[2020-12-20] MEDS: DICYCLOMINE 20 MG TAB PO SCH (09:31)
[2020-12-20] MEDS: VENLAFAXINE HCL ER 150 MG CAP PO SCH (09:31)
[2020-12-20] MEDS: DONEPEZIL 5 MG TAB PO SCH (09:32)
[2020-12-20] MEDS: PANTOPRAZOLE 40 MG TABLET PO SCH (09:40)
[2020-12-20] MEDS: METOPROLOL TARTRATE 25 MG TAB PO SCH (09:41)
[2020-12-20] MEDS: lisinopriL 10 MG TAB PO SCH (09:41)
[2020-12-20] MEDS: ASPIRIN 81 MG PO SCH (09:41)
[2020-12-20] MEDS: NAPROXEN 250 MG TAB PO SCH (09:41)
[2020-12-20] MEDS: LOPERAMIDE 2 MG CAP PO SCH (09:41)
[2020-12-20] MEDS: methylPREDNISolone SOD SUCCI 40 MG/ML 1 ML VIAL IV SCH ×2 (09:42→15:26)
[2020-12-20] MEDS: amLODIPine 2.5 MG TAB PO SCH (09:48)
--- NOTE | 2020-12-20 10:18 | P.PN ---
Subjective Progress Note Date: 12/20/20 Principal diagnosis: Intractable left hip pain This is a pleasant 70-year-old male patient with a history of previous tobacco dependence, COPD who follows with Dr. Valle in our office for the same. He is maintained on Advair, Incruse and albuterol in the outpatient setting. He also has history of diabetes mellitus, gastroesophageal reflux disease, hypertension, hyperlipidemia, obstructive sleep apnea and utilizes CPAP, permanent pacemaker implantation, osteoarthritis, previous back surgery. He presented to the emergency room early this morning due to significant left lower extremity pain and weakness. He was having trouble standing. X-rays of the femur, pelvis, hip all revealed no acute abnormalities. Computed tomography scan of the hip revealed no acute fracture or dislocation. There is asymmetric atrophy of the lateral aspect of the left gluteus medius muscle. Stable small to moderate-sized fat-containing left inguinal hernia. Doppler of the left leg was negative for DVT. Orthopedics have been consulted. White count 12.9. Hemoglobin 14.1. D-dimer 0.85. Sodium 139. Potassium 4.6. Creatinine 0.96. Baird virus not detected. He is seen today in consultation in the emergency room. He is currently quite uncomfortable regarding the left lower extremity pain. He doesn't raise any shortness of breath, cough or congestion. Maintaining O2 saturations in the 90s on room air. The patient is seen today 12/20/2020 in follow-up on the observation unit. He is currently sitting up in bed. He denies any worsening shortness of breath, cough or congestion. He is on 3 L/m per nasal cannula to maintain O2 saturations in the 90s. He remains on Symbicort, DuoNeb's IV Solu-Medrol. Still favoring the left hip. Pain slightly better controlled today compared to yesterday. Receiving Dilaudid, [place], Flexeril. Objective - Vital Signs Vital signs: Vital Signs Temp 98.7 F 12/19/20 20:00 Pulse 70 12/20/20 08:50 Resp 20 12/20/20 07:02 BP 117/76 12/20/20 07:02 Pulse Ox 95 12/20/20 07:02 Intake & Output 12/19/20 12/20/20 12/20/20 18:59 06:59 18:59 Intake Total 960 Balance 960 Weight 113.398 kg Intake: Oral 960 Other: Voiding Method Toilet Urinal # Voids 3 - Exam GENERAL EXAM: Alert, pleasant 70-year-old gentleman, on 3 L nasal cannula, significant pain of the left lower extremity. HEAD: Normocephalic. EYES: Normal reaction of pupils, equal size. NOSE: Clear with pink turbinates. THROAT: No erythema or exudates. NECK: No masses, no JVD. CHEST: No chest wall deformity. LUNGS: Equal air entry with faint end expiratory wheeze, diminished. CVS: S1 and S2 normal with no audible murmur, regular rhythm. ABDOMEN: No hepatosplenomegaly, normal bowel sounds, no guarding or rigidity. SPINE: No scoliosis or deformity SKIN: No rashes CENTRAL NERVOUS SYSTEM: No focal deficits, tone is normal in all 4 extremities. EXTREMITIES: There is no peripheral edema. No clubbing, no cyanosis. Peripheral pulses are intact. - Labs CBC & Chem 7: 12/19/20 03:06 12/19/20 03:06 Assessment and Plan Assessment: 1 Significant pain and discomfort of the left lower extremity of unclear etiology. No acute fracture. No trauma 2 History of chronic obstructive pulmonary disease 3 History of chronic tobacco dependence 4 Diabetes mellitus 5 Hypertension 6 Hyperlipidemia 7 History of obstructive sleep apnea utilizing CPAP 8 Permanent pacemaker implantation 9 Previous back surgery 10 Osteoarthritis Plan: The patient was seen and evaluated by Dr. Hernandez Continue pulmonary medications Titrate down the FiO2 as tolerated Optimize pain control Follow-up with Dr. Valle as scheduled I, the cosigning physician, performed a history & physical examination of the patient. Lungs sounds with faint end expiratory wheeze, diminished Maintaining good O2 saturations in the 90s on 3 L/m per nasal. I discussed the assessment and plan of care with my nurse practitioner, Lia Guevara. I attest to the above note as dictated by her.
--- NOTE | 2020-12-20 10:20 | XR ---
EXAMINATION TYPE: XR lumbar spine 2 or 3V DATE OF EXAM: 12/20/2020 COMPARISON: None HISTORY: Low back pain TECHNIQUE: 3 view lumbar spine FINDINGS: There appear to be 6 lumbar type vertebral bodies. The T12 level appears to be transitional . For purposes of this examination the lowest level will be labeled L5. Plain film correlation be rec ommended prior to surgical intervention. There is disc space narrowing present at L4-5. Remaining disc heights are preserved. Vertebral body h eights are preserved. Some spondylosis is present. Vascular calcification is within the aorta. IMPRESSION: 1. Degenerative disc changes L4-5. 2. Transitional T12 vertebral level
[2020-12-20 12:04] VITALS: BP 140/70; PULSE 60; RESP 16; TEMP 98.2
--- NOTE | 2020-12-20 12:07 | P.PAINCN ---
History of Present Illness - Reason for Consult Consult date: 12/20/20 - History of Present Illness This is 70 years old male with a chronic history of neck pain and low back pain, patient reported that he had on and off low back pain, intensity of the pain increased over the last several days, is currently severe constant localized in the low back area with radiation to the left lower extremity, and he is complaining of some numbness and tingling sensation in the left lower extremity, patient had computed tomography scan of the lumbar spine done in 2019 showed multilevel lumbar degenerative disc disease and lumbar spinal stenosis, and lumbar spondylosis with lumbar facet arthropathy, patient was admitted to [facility] secondary to severe low back pain, patient currently on Flexeril 10 mg 3 times a day and naproxen [place] 5/325 when necessary and Dilaudid, and he continued to have severe low back pain, denies any fever or night sweats but he reported that he feels some weakness in his left lower extremity Past Medical History Past Medical History: COPD, Diabetes Mellitus, Hyperlipidemia, Hypertension, Osteoarthritis (OA), Sleep Apnea/CPAP/BIPAP Additional Past Medical History / Comment(s): PACEMAKER. Uses VPAP. 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 History of Any Multi-Drug Resistant Organisms: None Reported Past Surgical History: Appendectomy, Back Surgery, Pacemaker Additional Past Surgical History / Comment(s): Oral surg. COLONOSCOPY. GENERATOR CHANGE 2016, lumbar myelogram, neck fusion Past Anesthesia/Blood Transfusion Reactions: No Reported Reaction Type of Cardiac Device: Permanent Pacemaker Device Placement Date:: 2008 Past Psychological History: Depression Smoking Status: Former smoker Past Alcohol Use History: Occasional Past Drug Use History: None Reported - Past Family History Mother Family Medical History: Cancer Brother(s) Family Medical History: Cancer Medications and Allergies Home Medications Medication Instructions Recorded Confirmed Type Metoprolol Tartrate [Lopressor] 25 mg PO BID 12/02/16 12/19/20 History Venlafaxine HCl [Effexor XR] 150 mg PO QAM 12/02/16 12/19/20 History amLODIPine BESYLATE 2.5 mg PO QAM 08/29/18 12/19/20 History Umeclidinium [place] [Incruse 1 puff INHALATION RT-DAILY 09/22/18 12/19/20 History Ellipta] lisinopriL [Zestril] 10 mg PO DAILY 09/22/18 12/19/20 History Albuterol Sulfate [Proair Hfa] 1 - 2 puff INHALATION RT-Q6H PRN 06/07/20 12/19/20 History Aspirin [Adult Low Dose Aspirin EC] 81 mg PO DAILY 06/07/20 12/19/20 History Dicyclomine [Bentyl] 20 mg PO TID 06/07/20 12/19/20 History Fluticasone/Salmeterol [Advair Hfa 2 puff INHALATION RT-BID 06/07/20 12/19/20 History 45-21 Mcg Inhaler] Loperamide [Imodium] 2 mg PO BID 06/07/20 12/19/20 History Omeprazole 20 mg PO DAILY 06/07/20 12/19/20 History Empagliflozin [Jardiance] 10 mg PO DAILY 08/13/20 12/19/20 History Albuterol Nebulized [Ventolin 2.5 mg INHALATION RT-TID PRN 09/16/20 12/19/20 History Nebulized] Atorvastatin Calcium [Lipitor] 20 mg PO DAILY 10/12/20 12/19/20 History HYDROcodone/APAP 5-325MG [[place] 5] 1 tab PO Q8H PRN 10/12/20 12/19/20 History Varenicline [Chantix Continuing 1 mg PO BID 10/12/20 12/19/20 History Pack] metFORMIN HCL ER [Glucophage Xr] 1,000 mg PO HS 10/12/20 12/19/20 History Cyclobenzaprine [Flexeril] 10 mg PO TID PRN 12/19/20 12/19/20 History Donepezil HCl [Aricept] 5 mg PO DAILY 12/19/20 12/19/20 History Meclizine [Antivert] 12.5 - 25 mg PO QID PRN 12/19/20 12/19/20 History Allergies Allergy/AdvReac Type Severity Reaction Status Date / Time No Known Allergies Allergy Verified 12/18/20 23:32 Physical Exam Vitals: Vital Signs Temp Pulse Pulse Resp BP BP Pulse Ox 12/20/20 11:52 72 12/20/20 11:44 72 12/20/20 10:27 63 20 12/20/20 08:50 70 12/20/20 08:40 72 12/20/20 07:02 75 20 117/76 95 12/20/20 02:00 63 18 126/71 94 L 12/19/20 21:07 68 12/19/20 20:53 66 89 L 12/19/20 20:00 98.7 F 60 16 132/86 96 12/19/20 15:57 88 12/19/20 15:27 98 F 60 16 118/56 100 12/19/20 13:32 62 13 142/80 95 Intake and Output 12/19/20 12/20/20 12/20/20 22:59 06:59 14:59 Intake Total 960 300 Balance 960 300 Intake: Oral 960 300 Other: Voiding Method Toilet Toilet Toilet Urinal Urinal Urinal # Voids 3 1 Physical Examinations : -Constitutiona : Cooperative , not in acute distress . -HEENT : nech : supple , no Lymphadenopathy , normal thyroid size . : eyes : no ptosis , no icterus, no photophobia . - neurologic : Cranial nerve II to XII intact , no focal neurological deffecit . -psychatric : alert , oriented X 3 , appropriate affect , intact judgment and insight . -Lymphatic : no Lymphadenopathy . - musculoskeltal : Lumber spine moter stegnth lower extremities ,thigh and legs 5/5 Right side , 5/5 Left side deep tendon reflexes : normal Knee Jerk , normal ankle Jerk lumber facet Loading Test =positive Right , posiutive Left Range of motion of the lumbar spine Flexion 30 degrees, extension 10 degrees strait leg raising test = positive at 30 degree on the left side ,and is negative on the right side Fabere test= negative Right , and positive LT . mild tenderness over the Sacroiliac joint on the Right , and Left sides . Results CBC & Chem 7: 12/19/20 03:06 12/19/20 03:06 Comments: Computed tomography scan of the lumbar= done in 2019 spine multilevel lumbar degenerative disc disease and multilevel lumbar facet arthropathy and lumbar spinal stenosis. X-ray of the lumbar spine done in 12/19/2020= Lumbar degenerative disc disease. Assessment and Plan Plan: Assessment and plan=1-lumbar radiculopathy. 2-lumbar spondylosis with lumbar facet arth ropathy. 3-lumbar degenerative disc disease. 4-lumbar spinal stenosis. Patient could benefit from lumbar epidural steroid injection under fluoroscopy guidance at L4-L5 or L5-S1 (left paramedian approach ). Time with Patient: Greater than 30 PQRS Measure Charge Sheet Measure #130: Documentation of Current Meds in Medical Chart: Patient's medica tions documented in chart PQRS Narrative: Smoking Status Current every day smoker Do You Want the Pneumonia Vaccine Up to Date Vaccine AT THIS TIME? Blood Pressure [Left Arm] 126/71 Blood Pressure 117/76 Pain Intensity [None] 8 Pain Intensity 9 Pain Scale Used Numeric (1 - 10) Scale Used Numeric (1 - 10) Home Medications: Ambulatory Orders Metoprolol Tartrate [Lopressor] 25 mg PO BID 12/02/16 Venlafaxine HCl [Effexor XR] 150 mg PO QAM 12/02/16 amLODIPine BESYLATE 2.5 mg PO QAM 08/29/18 Umeclidinium [place] [Incruse Ellipta] 1 puff INHALATION RT-DAILY 09/22/18 lisinopriL [Zestril] 10 mg PO DAILY 09/22/18 Albuterol Sulfate [Proair Hfa] 1 - 2 puff INHALATION RT-Q6H PRN 06/07/20 Aspirin [Adult Low Dose Aspirin EC] 81 mg PO DAILY 06/07/20 Dicyclomine [Bentyl] 20 mg PO TID 06/07/20 Fluticasone/Salmeterol [Advair Hfa 45-21 Mcg Inhaler] 2 puff INHALATION RT-BID 06/07/20 Loperamide [Imodium] 2 mg PO BID 06/07/20 Omeprazole 20 mg PO DAILY 06/07/20 Empagliflozin [Jardiance] 10 mg PO DAILY 08/13/20 Albuterol Nebulized [Ventolin Nebulized] 2.5 mg INHALATION RT-TID PRN 09/16/20 Atorvastatin Calcium [Lipitor] 20 mg PO DAILY 10/12/20 HYDROcodone/APAP 5-325MG [[place] 5] 1 tab PO Q8H PRN 10/12/20 Varenicline [Chantix Continuing Pack] 1 mg PO BID 10/12/20 metFORMIN HCL ER [Glucophage Xr] 1,000 mg PO HS 10/12/20 Cyclobenzaprine [Flexeril] 10 mg PO TID PRN 12/19/20 Donepezil HCl [Aricept] 5 mg PO DAILY 12/19/20 Meclizine [Antivert] 12.5 - 25 mg PO QID PRN 12/19/20
[2020-12-20 12:12] LABS: Glucose,Whole Blood 122 mg/dL (75-99)
[2020-12-20] MEDS ORDERED: IOPAMIDOL M200 10 ML VIAL ONE (12:16)
[2020-12-20] MEDS ORDERED: methylPREDNISolone ACETATE 40 MG/ML 1 ML VIAL ONE (12:16)
--- NOTE | 2020-12-20 12:35 | P.PCN ---
Date of Procedure: 12/20/20 Procedure(s) Performed: PREOPERATIVE DIAGNOSIS: 1- Lumbar Degenerative Disc Diseases 2-Lumbar spondylosis with Facet arthropathy without myelopathy. 3-lumbar spinal stenosis. 4-lumbar radiculopathy POSTOPERATIVE DIAGNOSIS: Same as preop diagnosis. PROCEDURE 1. Lumbar epidural steroid injection under fluoroscopic guidance at the L4-5 level. (Fluoroscopy imaging was available in radiology department) 2. Lumbar epidurogram. ANESTHESIA: Local with 1% lidocaine 3 ml only EBL: Minimal PROCEDURE INDICATION: The patient with low back pain and radiculitis symptoms unresponsive to conservative treatment. Fluoroscopy was used to optimize visualization of the needle placement and to maximize safety. PROCEDURE DESCRIPTION / TECHNIQUE: The patient was seen and identified in the preoperative area. Risks, benefits, complications including but not limited to infections ,bleeding ,allergic reaction to the medications ,nerve damage and not complete pain releife , and alternatives were discussed with the patient. The patient agreed to proceed with the procedure and signed the consent. IV was started, and vital signs were stable. Patient was taken to the OR and time out was completed. The patient was placed in the prone position on procedure table and a pillow was placed under the abdomen to reduce lumbar lordosis. The lumbosacral area was prepped and draped in the usual sterile fashion.ere closely monitored during the procedure. Conscious sedation was used during the procedure to decrease patients anxiety. Vital signs was monitered during the entire procedure. Using anterior-posterior fluoroscopy, the L4-5 interlaminar space was identified and the skin over this site was marked and then infiltrated with 1% lidocaine subcutaneously. Subsequently, a 20-gauge Tuohy epidural needle was inserted and advanced toward the epidural space using the ``Loss of resistance technique and guided by AP and lateral fluoroscopy. The correct needle position in the epidural space was verified with the injection of 2 mL of the water soluble contrast dye Isovue 200 contrast and observing an excellent epidurogram with the epidural spread of the dye, after negative aspiration for blood and CSF and in the absence of paresthesias. Again after negative aspiration, a 6 ml mixture containing 40 mg of Depo-medrol , and 2 ml of preservative free Normal Saline, and 2 ml of preservative free lidocaine 1% solution was injected and a washout of epidurogram was seen. Needle was withdrawn intact, skin was cleansed, and bandages were applied. COMPLICATIONS: None DISPOSITION / PLANS: The patient was placed in a supine position and transferred to the recovery area in a stable condition for observation. There was no evidence of lower extremity motor or sensory deficit after the procedure. Patient was discharged from the recovery room after meeting discharge criteria. Home discharge instructions were given to the patient by the staff. The patient was reexamined prior to discharge. The patient will schedule a follow up in the clinic in 2-4 weeks. note = patient had previous back surgery several years ago , discectomy versus laminectomy, for this reason I recommended next time if he could do a caudal epidural with lysis of epidural adhesions, will be more beneficial to him
--- NOTE | 2020-12-20 13:09 | P.CNOR ---
History of Present Illness - [facility] Consult date: 12/20/20 Consult reason: low back pain History of present illness: This is a 70-year-old male with history of chronic low back pain. He has had epidural steroid injections in the past. He recently had a cervical fusion with Dr. Esparza approximately 5 weeks ago. He states that he began having severe left-sided low back and buttock pain which radiates into the thigh. He is also currently being treated for a foot fracture. He states that the boot he was wearing has been causing him to fall. He is admitted for pain control and orthopedic consultation. He admits to some numbness and tingling down the leg. Past Medical History Past Medical History: COPD, Diabetes Mellitus, Hyperlipidemia, Hypertension, Osteoarthritis (OA), Sleep Apnea/CPAP/BIPAP Additional Past Medical History / Comment(s): PACEMAKER. Uses VPAP. 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 History of Any Multi-Drug Resistant Organisms: None Reported Past Surgical History: Appendectomy, Back Surgery, Pacemaker Additional Past Surgical History / Comment(s): Oral surg. COLONOSCOPY. GENERATOR CHANGE 2016, lumbar myelogram, neck fusion Past Anesthesia/Blood Transfusion Reactions: No Reported Reaction Type of Cardiac Device: Permanent Pacemaker Device Placement Date:: 2008 Past Psychological History: Depression Smoking Status: Former smoker Past Alcohol Use History: Occasional Past Drug Use History: None Reported - Past Family History Mother Family Medical History: Cancer Brother(s) Family Medical History: Cancer Medications and Allergies Home Medications Medication Instructions Recorded Confirmed Type Metoprolol Tartrate [Lopressor] 25 mg PO BID 12/02/16 12/19/20 History Venlafaxine HCl [Effexor XR] 150 mg PO QAM 12/02/16 12/19/20 History amLODIPine BESYLATE 2.5 mg PO QAM 08/29/18 12/19/20 History Umeclidinium [place] [Incruse 1 puff INHALATION RT-DAILY 09/22/18 12/19/20 History Ellipta] lisinopriL [Zestril] 10 mg PO DAILY 09/22/18 12/19/20 History Albuterol Sulfate [Proair Hfa] 1 - 2 puff INHALATION RT-Q6H PRN 06/07/20 12/19/20 History Aspirin [Adult Low Dose Aspirin EC] 81 mg PO DAILY 06/07/20 12/19/20 History Dicyclomine [Bentyl] 20 mg PO TID 06/07/20 12/19/20 History Fluticasone/Salmeterol [Advair Hfa 2 puff INHALATION RT-BID 06/07/20 12/19/20 History 45-21 Mcg Inhaler] Loperamide [Imodium] 2 mg PO BID 06/07/20 12/19/20 History Omeprazole 20 mg PO DAILY 06/07/20 12/19/20 History Empagliflozin [Jardiance] 10 mg PO DAILY 08/13/20 12/19/20 History Albuterol Nebulized [Ventolin 2.5 mg INHALATION RT-TID PRN 09/16/20 12/19/20 History Nebulized] Atorvastatin Calcium [Lipitor] 20 mg PO DAILY 10/12/20 12/19/20 History HYDROcodone/APAP 5-325MG [[place] 5] 1 tab PO Q8H PRN 10/12/20 12/19/20 History Varenicline [Chantix Continuing 1 mg PO BID 10/12/20 12/19/20 History Pack] metFORMIN HCL ER [Glucophage Xr] 1,000 mg PO HS 10/12/20 12/19/20 History Cyclobenzaprine [Flexeril] 10 mg PO TID PRN 12/19/20 12/19/20 History Donepezil HCl [Aricept] 5 mg PO DAILY 12/19/20 12/19/20 History Meclizine [Antivert] 12.5 - 25 mg PO QID PRN 12/19/20 12/19/20 History Allergies Allergy/AdvReac Type Severity Reaction Status Date / Time No Known Allergies Allergy Verified 12/18/20 23:32 Physical Examination This is a pleasant 70-year-old male in no acute distress. He is alert and oriented 3. Exam of the head and neck reveal no obvious deformity. His anterior cervical scar is healed well with no sign of infection. Exam of the thoracic and lumbar spine reveal no obvious deformity. There is tenderness with palpation about the lower lumbar spine and left paraspinal musculature. Exam the lower extremities reveals full hip motion without difficulty or pain. There is no hip irritability noted. There is minimal pain with palpation about the posterior and lateral thigh. There is no anterior t high pain. He has full foot and ankle motion bilaterally. He has dorsiflexion of the great toe against resistance with 5/5 strength bilaterally. Neurovascular status to the lower extremities grossly intact. He is not currently wearing his immobilizer boot. He has minimal foot pain with palpatio n. Results X-rays and CT scans are reviewed. No obvious fracture or bony abnormality to the hip pelvis or femur. Mild degenerative changes noted. X-rays of the lumbar spine revealed multilevel degenerative disc disease and degenerative arthritis. Most significant degenerative disc disease at L4-5 with significant narrowing of the disc space. No acute fractures identified. - Labs Labs: Abnormal Lab Results - Last 24 Hours (Table) 12/20/20 Range/Units 12:11 POC Glucose (mg/dL) 122 H (75-99) mg/dL H & H 12/19/20 Range/Units 03:06 Hgb 14.1 (13.0-17.5) gm/dL Hct 44.3 (39.0-53.0) % Result Diagrams: 12/19/20 03:06 12/19/20 03:06 Assessment and Plan (1) Lumbar radiculopathy Current Visit: Yes Status: Acute Code(s): M54.16 - RADICULOPATHY, LUMBAR REGION SNOMED Code(s): 471264309 (2) Intractable pain Current Visit: Yes Status: Acute Code(s): R52 - PAIN, UNSPECIFIED SNOMED Code(s): 25756929 Plan: The clinical and x-ray findings are discussed with the patient. It is discussed that his symptoms are most consistent with a lumbar radiculopathy. It is recommended he continue on the Solu Medrol and have evaluation with pain management for possible epidural steroid injection. He is to follow up with Dr. Esparza after discharge.
--- NOTE | 2020-12-20 13:17 | FL ---
Fluoroscopy INDICATION: Pain FINDINGS: Fluoroscopy time: 5 seconds. Images obtained: 1. IMPRESSIONS: 1. Documentation of fluoroscopy.
--- NOTE | 2020-12-20 20:21 | P.DS ---
Providers Date of admission: 12/19/20 05:55 Expected date of discharge: 12/20/20 Attending physician: Hugh Zhang Consults: 12/19/20 08:05 Consult Physician Routine Consulting Provider: Carlos Hernandez Consult Reason/Comments: copd Do you want consulting provider notified?: Already Contacted 12/19/20 12:43 Consult Physician Routine Consulting Provider: Skyler Tripp Consult Reason/Comments: Left hip pain Do you want consulting provider notified?: Yes Primary care [facility] Course: Chief Complaint: Left thigh pain History of presenting complaint: This is a pleasant 70-year-old patient of Dr. Nguyen. Chronic stable medical conditions include diabetes, hypertension, hyperlipidemia, osteoarthritis, pacemaker, peripheral neuropathy, chronic back and neck pain. Obstructive sleep apnea. Patient does smoke a few cigarettes a day. Patient presents with increasing pain starting around the left thigh the back of the leg primarily in the thigh area. Patient is laying down on the right side reclining on a petechial position to ease of the pain. Is rather significant. Patient also been short of breath and wheezing cough. No fever no chills. Presented to the ER for the same. Also lumbar radiculopathy with severe DJD. Put on steroids and NSAIDs. Today-patient underwent lumbar epidural steroid injection under fluoroscopy at L4-L5 [address] Lieberman. Breathing is better. Pain is also somewhat better. Patient is being discharged and NSAIDs tapering the steroids [place]. He is to follow-up with orthopedics. Care was discussed at length with the patient and . Strongly recommended to discontinue smoking. He'll be sent home with DuoNeb Discussion and discharge planning more than 35 minutes Consultation: Dr. Tripp from orthopedics Dr. Lieberman from pain management Dr. hernandez from pulmonary Past medical history to include: COPD, diabetes, hypertension, hyperlipidemia, osteoarthritis, obstructive sleep apnea, pacemaker, peripheral neuropathy, back and neck pain, Social history: Lives with his . Smoking since a teenager pack and half a day now down to a few cigarettes a day. Alcohol occasionally. Retired Physical examination: VITAL SIGNS: 98.2, 60, 16, 140/70, 90% on room air GENERAL: Sitting of age of the bed, looking better EYES: Pupils equal. Conjunctiva normal. HEENT: External appearance of nose and ears normal, oral cavity grossly normal. NECK: JVD not raised; masses not palpable. HEART: First and second heart sounds are normal; no edema. LUNGS:[ Respiratory rate increased, improved air entry ABDOMEN: Soft, nontender, liver spleen not palpable, no masses palpable. PSYCH: Alert and oriented x3; mood and affect normal MUSCULAR skeletal: Evidence of OA especially in the hands. INVESTIGATIONS, reviewed in the clinical context: WBC 12.9 hemoglobin 14.1 platelets 2:30 potassium 4.6 creatinine 0.96 Coronavirus [PCR]-not detected Venous Doppler: Negative for DVT in the left leg. Computed tomography scan of the pelvis without contrast.: Left hip shows evidence of asymmetric moderate generalized atrophy of the lateral aspect of the gluteus medius muscle with some interval atrophy progression from 2018 study. Assessment and plan: -Acute COPD exacerbation in a current smoker. IV steroids and nebulized bronchodilators. Continue Advair. Better -Chronic nicotine dependence, patient is a cigarette smoker -Left thigh pain with some radicular feature showing, moderate generalized atrophy of the lateral aspect of gluteus medius muscle. Patient has been put on steroids. Consult orthopedics. [place] to be lumbar DJD with radiculopathy. Placed on steroids NSAIDs and epidural steroid. -Diabetes mellitus type 2. Follow Accu-Cheks. Continue oral hypoglycemic. -Hyperlipidemia, continue Lipitor -Essential hypertension, continue Zestril, Lopressor -Depression not otherwise specified. Continue Effexor -Primary osteoarthritis -Permanent pacemaker -Mild cognitive impairment. On Aricept Disposition: Home Plan - Discharge Summary New Discharge Prescriptions: New Ipratropium-Albuterol Nebulize [Duoneb 0.5 mg-3 mg/3 ml Soln] 3 ml INHALATION TID #90 neb Naproxen [Naprosyn] 250 mg PO TID #30 tab predniSONE 10 mg PO DAILY #30 tab Continue Metoprolol Tartrate [Lopressor] 25 mg PO BID Venlafaxine HCl [Effexor XR] 150 mg PO QAM amLODIPine BESYLATE 2.5 mg PO QAM lisinopriL [Zestril] 10 mg PO DAILY Umeclidinium [place] [Incruse Ellipta] 1 puff INHALATION RT-DAILY Fluticasone/Salmeterol [Advair Hfa 45-21 Mcg Inhaler] 2 puff INHALATION RT- BID Albuterol Sulfate [Proair Hfa] 1 - 2 puff INHALATION RT-Q6H PRN PRN Reason: Shortness Of Breath Or Wheezing Omeprazole 20 mg PO DAILY Loperamide [Imodium] 2 mg PO BID Dicyclomine [Bentyl] 20 mg PO TID Aspirin [Adult Low Dose Aspirin EC] 81 mg PO DAILY Empagliflozin [Jardiance] 10 mg PO DAILY Albuterol Nebulized [Ventolin Nebulized] 2.5 mg INHALATION RT-TID PRN PRN Reason: Shortness Of Breath Atorvastatin Calcium [Lipitor] 20 mg PO DAILY HYDROcodone/APAP 5-325MG [[place] 5-325] 1 tab PO Q8H PRN PRN Reason: Pain metFORMIN HCL ER [Glucophage Xr] 1,000 mg PO HS Varenicline [Chantix Continuing Pack] 1 mg PO BID Cyclobenzaprine [Flexeril] 10 mg PO TID PRN PRN Reason: Muscle Spasm Donepezil HCl [Aricept] 5 mg PO DAILY Discontinued Meclizine [Antivert] 12.5 - 25 mg PO QID PRN PRN Reason: Vertigo Discharge Medication List Metoprolol Tartrate [Lopressor] 25 mg PO BID 12/02/16 [History] Venlafaxine HCl [Effexor XR] 150 mg PO QAM 12/02/16 [History] amLODIPine BESYLATE 2.5 mg PO QAM 08/29/18 [History] Umeclidinium [place] [Incruse Ellipta] 1 puff INHALATION RT-DAILY 09/22/18 [History] lisinopriL [Zestril] 10 mg PO DAILY 09/22/18 [History] Albuterol Sulfate [Proair Hfa] 1 - 2 puff INHALATION RT-Q6H PRN 06/07/20 [History] Aspirin [Adult Low Dose Aspirin EC] 81 mg PO DAILY 06/07/20 [History] Dicyclomine [Bentyl] 20 mg PO TID 06/07/20 [History] Fluticasone/Salmeterol [Advair Hfa 45-21 Mcg Inhaler] 2 puff INHALATION RT-BID 06/07/20 [History] Loperamide [Imodium] 2 mg PO BID 06/07/20 [History] Omeprazole 20 mg PO DAILY 06/07/20 [History] Empagliflozin [Jardiance] 10 mg PO DAILY 08/13/20 [History] Albuterol Nebulized [Ventolin Nebulized] 2.5 mg INHALATION RT-TID PRN 09/16/20 [History] Atorvastatin Calcium [Lipitor] 20 mg PO DAILY 10/12/20 [History] HYDROcodone/APAP 5-325MG [[place] 5-325] 1 tab PO Q8H PRN 10/12/20 [History] Varenicline [Chantix Continuing Pack] 1 mg PO BID 10/12/20 [History] metFORMIN HCL ER [Glucophage Xr] 1,000 mg PO HS 10/12/20 [History] Cyclobenzaprine [Flexeril] 10 mg PO TID PRN 12/19/20 [History] Donepezil HCl [Aricept] 5 mg PO DAILY 12/19/20 [History] Ipratropium-Albuterol Nebulize [Duoneb 0.5 mg-3 mg/3 ml Soln] 3 ml INHALATION TID #90 neb 12/20/20 [Rx] Naproxen [Naprosyn] 250 mg PO TID #30 tab 12/20/20 [Rx] predniSONE 10 mg PO DAILY #30 tab 12/20/20 [Rx] Follow up Appointment(s)/Referral(s): Nba Nguyen MD [Primary Care Provider] - 1-2 days Florencio Esparza DO [Doctor of Osteopathic Medicine] - 1 Week [facility] [NON-STAFF] - 1 Week Skyler Tripp MD [STAFF PHYSICIAN] - 1 Week Patient Instructions/Handouts: Lumbar Radiculopathy (ED) Discharge/Stand Alone Forms: [facility]/[place] Instructions Discharge Disposition: HOME SELF-CARE
== END 2020-12-20 15:14 | disposition home or self-care (01) ==
LOC: EC 23:22 → 6NMEDSUR 12-19 05:55 → 1SOBS 12-19 14:29
PROVIDERS: ADMIT Hospitalist; ATTEND Hospitalist
DX: M79.652 Pain in left thigh (principal); M25.552 Pain in left hip; F17.210 Nicotine dependence, cigarettes, uncomplicated; J44.1 Chronic obstructive pulmonary disease with (acute) exacerbation; E11.42 Type 2 diabetes mellitus with diabetic polyneuropathy; E78.5 Hyperlipidemia, unspecified; I10 Essential (primary) hypertension; F32.9 Major depressive disorder, single episode, unspecified; M19.91 Primary osteoarthritis, unspecified site; G31.84 Mild cognitive impairment of uncertain or unknown etiology; G89.29 Other chronic pain; G47.33 Obstructive sleep apnea (adult) (pediatric); K40.90 Unilateral inguinal hernia, without obstruction or gangrene, not specified as recurrent; M51.16 Intervertebral disc disorders with radiculopathy, lumbar region; M48.061 Spinal stenosis, lumbar region without neurogenic claudication; M47.26 Other spondylosis with radiculopathy, lumbar region; Z98.1 Arthrodesis status; Z79.899 Other long term (current) drug therapy; Z79.84 Long term (current) use of oral hypoglycemic drugs; Z79.82 Long term (current) use of aspirin; Z79.51 Long term (current) use of inhaled steroids; Z95.0 Presence of cardiac pacemaker; Z20.822 Contact with and (suspected) exposure to COVID-19
CPT/HCPCS: 96374 ×2; 96375 ×3; 99285 ×2; 96376 ×2; 36415; 94640 ×4; 94760; 85379; 80053; 82550; 83735; 84100; 85025; 81003; 87635; 72100; 72170; 73502; 73552; 93971; 72192; 73700; 62323; G0378 ×3; J2270; J1030; J2920 ×2; J1170 ×2; J1885; Q9966

== ENCOUNTER 2021-01-28 09:13 | Day surgery (SDC) | payer MEDICARE ==
[2021-01-23 15:25] VITALS: BMI 34.8
[~2021-01-28 09:13] MED LIST changes: -DEXAMETHASONE SOD PHOSPHATE 4 MG/ML 1 ML VIAL IV ONE; -HYDROmorphone 0.5 MG/0.5 ML SYRINGE IVP PRN; +LACTATED RINGERS 1,000 ML IV SCH; +LIDOCAINE 1% (10MG/ML) FOR IV START INTRADERMA PRN; -ONDANSETRON 4 MG/2 ML VIAL IVP ONE; -ceFAZolin 1,000 MG in SODIUM CHLORIDE 0.9% IRRIGATIO 1,000 ML IRRIGATION PRN
[2021-01-28 09:27] VITALS: TEMP 96.7
[2021-01-28] MEDS ORDERED: IOPAMIDOL M200 10 ML VIAL ONE (09:31)
[2021-01-28] MEDS ORDERED: ROPIVACAINE 5MG/ML 20ML VIAL ONE (09:31)
[2021-01-28] MEDS ORDERED: methylPREDNISolone ACETATE 40 MG/ML 1 ML VIAL ONE (09:31)
[2021-01-28] MEDS ORDERED: MIDAZOLAM 2 MG/2 ML VIAL ONE (09:31)
[2021-01-28] MEDS ORDERED: fentaNYL (PF) 50 MCG/ML 2 ML AMP ONE (09:31)
[2021-01-28 09:32] LABS: Glucose,Whole Blood 111 mg/dL (75-99)
[2021-01-28 10:06] VITALS: RESP 20
[2021-01-28] MEDS ORDERED: IV FLUID CONTINUATION 775 ML IV ONE (10:07)
--- NOTE | 2021-01-28 10:10 | FL ---
Fluoroscopy History: Caudal Inj 17sec fluoro time, 2 images scanned
[2021-01-28 10:16] VITALS: BP 116/71; PULSE 60
--- NOTE | 2021-01-28 10:37 | P.PCN ---
Date of Procedure: 01/28/21 Description of Procedure: PREOP DIAGNOSIS: Lumbar postlaminectomy syndrome POSTOP DIAGNOSIS: Lumbar postlaminectomy syndrome PROCEDURE: Caudal epidural steroid injection with epidurolysis and epidurogram under fluoroscopic guidance Imaging: Fluoroscopy was used, images where saved to the medical record ANESTHESIA: Local with 1% lidocaine 5 ml ; IV sedation with versed and fentanyl PROCEDURE INDICATION: The patient with post-laminectomy syndrome with low back pain and radiculopathy radiating down in both legs, here for a caudal epidural steroid injection with epidurolysis. PROCEDURE DESCRIPTION: The patient was seen and identified in the preoperative area. Risks, benefits, complications, and alternatives were discussed with the patient. The patient agreed to proceed with the procedure and signed the consent. IV was started, and vital signs were stable. Patient was taken to the OR and time out was completed. The patient was placed in the prone position on procedure table and a pillow was placed under the abdomen to reduce lumbar lordosis. The lumbosacral area was prepped and draped in the usual sterile fashion. Vital signs were closely monitored during the procedure. Lateral view and the anterior-posterior plates of the sacrum were identified with infiltration of the area overlying the sacral hiatus with 1% lidocaine. A 17 gauge epidural needle was used to advance through the sacral hiatus into the caudal epidural space. Omnipaque 180 dye 2cc was injected and the position of the needle was verified to be in the midline. A Racz catheter was introduced into the epidural space and was advanced towards the L5-S1 interspace under direct fluoroscopic guidance. Multiple passes were made with the catheter for lysis of epidural adhesions avoiding parasthesia and significant resistance. After epidurolysis was complete, 2cc of contrast dye was again used to evaluate spread of contrast. Contrast was spreading beyond the original level prior to epidurolysis to the level of lower border of L5. There was not a significant improvement and contrast spread due to significant epidural adhesions. After negative aspiration, I injected a solution consisting of 40mg of Depo- Medrol, 2ml of Preservative free normal saline and 2ml of ropivacaine 0.5% for a total of 5ml. Additional spread was seen to mid to superior portion of L5 under fluoroscopy. The needle and the catheter were withdrawn intact. Epidurogram findings: Omnipaque 180 mg dye 2 ml was injected with spread of the dye into the caudal epidural space and with spread cutoff at L5 prior to epidurolysis. Post epidurolysis dye 2 ml was injected and spread was seen to the mid superior portion of L5. COMPLICATIONS: None. DISPOSITION / PLANS: The patient was placed in a supine position and transferred to the recovery area in a stable condition for observation and was discharged from the recovery room after meeting discharge criteria. Home discharge instructions given to the patient by the staff. The patient was reexamined prior to discharge. The patient will schedule a follow up as directed
== END 2021-01-28 10:40 | disposition home or self-care (01) ==
LOC: ORPAIN 09:13
PROVIDERS: ATTEND Hospitalist
DX: M96.1 Postlaminectomy syndrome, not elsewhere classified (principal)
CPT/HCPCS: 62264; J2250; J1030; J3010; Q9966; J2795; C1894; 99152

== ENCOUNTER → 2021-02-25 | Outpatient (CLI) | payer MEDICARE ==
--- NOTE | 2021-02-25 16:07 | CT ---
EXAMINATION TYPE: CT iac wo con DATE OF EXAM: 02/25/2021 COMPARISON: None HISTORY: hearing loss, tinnitus CT DLP: 142.70mGycm Automated exposure control for dose reduction was used. FINDINGS: The external auditory canals are patent bilaterally. Mastoid air cells show no evidence of abnormal opacification bilaterally. The middle ear ossicles are symmetric and unremarkable. There is no evidence of suspicious surrounding soft tissue density to suggest cholesteatoma. The scutum is preserved bilaterally. The cochlea and the semicircular canals are symmetric and unremarkable. Ves tibular aqueduct and internal carotid canal appear unremarkable. Temporomandibular joints are mainta ined bilaterally. There is evidence of pansinusitis. IMPRESSION: No significant abnormality seen to account for patient's symptoms.
== END | disposition home or self-care (01) ==
LOC: RADCTMAIN 15:18
PROVIDERS: ATTEND Otolaryngology
DX: H91.90 Unspecified hearing loss, unspecified ear (principal); H93.19 Tinnitus, unspecified ear
CPT/HCPCS: 70480

== ENCOUNTER → 2021-02-26 | Outpatient (CLI) | payer MEDICARE ==
[2021-02-26 13:57] VITALS: BP 109/71; PULSE 62; RESP 16; TEMP 97.7
--- NOTE | 2021-02-26 15:15 | P.PN ---
Subjective Progress Note Date: 02/26/21 This is a follow-up visit for this 71 years old male with a chronic history of severe low back pain, patient had lumbar discectomy surgery done 30 years ago, and he is currently complaining of severe low back pain, the pain is constant, interfere with the quality of life, he denies any motor or sensory deficit , previously we have done lumbar epidural steroid injection at L4 5, patient get significant improvement of his low back pain for 4-6 weeks, and later on we did caudal epidural steroid injection with lysis of epidural adhesions, he had minimal benefit from it, patient denies any fever or night sweats he denies any change in the bowel movement or urination Objective - Vital Signs Vital signs: Vital Signs Temp 97.7 F 02/26/21 13:55 Pulse 62 02/26/21 13:55 Resp 16 02/26/21 13:55 BP 109/71 02/26/21 13:55 Pulse Ox 94 L 02/26/21 13:55 - Exam Physical Examinations : -Constitutiona : Cooperative , not in acute distress . -HEENT : nech : supple , no Lymphadenopathy , normal thyroid size . : eyes : no ptosis , no icterus, no photophobia . - neurologic : Cranial nerve II to XII intact , no focal neurological deffecit . -psychatric : alert , oriented X 3 , appropriate affect , intact judgment and insight . -Lymphatic : no Lymphadenopathy . - musculoskeltal : Lumber spine moter stegnth lower extremities ,thigh and legs 5/5 Right side , 5/5 Left side deep tendon reflexes : normal Knee Jerk , normal ankle Jerk lumber facet Loading Test =positive Right , positive Left Range of motion of the lumbar spine Flexion 30 degrees, extension 10 degrees strait leg raising test = positive at degree Fabere test= positive Right , and positive LT . tenderness over the Sacroiliac joint on the Right , and Left sides At scan of the lumbar spine multilevel lumbar degenerative disc disease multilevel lumbar spondylosis with lumbar facet arthropathy Assessment and Plan Plan: Assessment and plan=1-lumbar degenerative disc disease. 2-lumbar spondylosis with lumbar facet arthropathy. 3-back surgery syndrome and lumbar area. Patient had no benefit from caudal epidural steroid injection. The patient had excellent pain relief after lumbar epidural steroid injection at L4 5. He could benefit from repeat lumbar epidural steroid injection at L4 5. The future if patient continues to have pain after the epidural steroid injection today and we'll consider doing diagnostic m edial branch block and possible RFA. - PQRS measures = - Patient's medications are documented in the chart. -Tobacco use is negative and counseling.Given. -Patient's has not received pneumococcal vaccine. -Advanced care planning discussed, patient not eligible. -Opiate contract not signed. -Pain positive and follow-up visit/procedure is scheduled. -Patient's blood pressure measured [109/71 ] , and documented in the record ,and patient will follow up with the primary care. -Patient's weight was measured and body mass index [35.9 ] above the normal limits and counseling was done. and patient instructed to follow-up with the primary care physician. -Patient was not identified as an unhealthy alcohol user Time with Patient: Less than 30
== END ==
LOC: PNWHC3 13:29
PROVIDERS: ATTEND Specialist
DX: M51.36 Other intervertebral disc degeneration, lumbar region (principal); M47.816 Spondylosis without myelopathy or radiculopathy, lumbar region; M96.1 Postlaminectomy syndrome, not elsewhere classified; F17.200 Nicotine dependence, unspecified, uncomplicated
CPT/HCPCS: 99211

== ENCOUNTER 2021-03-18 09:32 | Day surgery (SDC) | payer MEDICARE ==
[2021-03-17 09:28] VITALS: BMI 35.9
[~2021-03-18 09:32] MED LIST changes: -LIDOCAINE 1% (10MG/ML) FOR IV START INTRADERMA PRN
[2021-03-18 10:22] VITALS: TEMP 98
[2021-03-18] MEDS ORDERED: LIDOCAINE 1% (10MG/ML) FOR IV START INTRADERMA ONE (10:23)
[2021-03-18] MEDS ORDERED: methylPREDNISolone ACETATE 40 MG/ML 1 ML VIAL ONE (10:23)
[2021-03-18] MEDS ORDERED: LACTATED RINGERS 1,000 ML IV ONE (10:23)
[2021-03-18] MEDS ORDERED: fentaNYL (PF) 50 MCG/ML 2 ML AMP ONE (10:23)
[2021-03-18] MEDS ORDERED: MIDAZOLAM 2 MG/2 ML VIAL ONE (10:23)
[2021-03-18] MEDS ORDERED: IOPAMIDOL M200 10 ML VIAL ONE (10:23)
[2021-03-18 10:24] LABS: Glucose,Whole Blood 136 mg/dL (75-99)
[2021-03-18] MEDS ORDERED: IV FLUID CONTINUATION 800 ML IV ONE (10:36)
--- NOTE | 2021-03-18 10:37 | P.PCN ---
Date of Procedure: 03/18/21 Procedure(s) Performed: PREOPERATIVE DIAGNOSIS: 1- Lumbar Degenerative Disc Diseases 2-Lumbar spondylosis with Facet arthropathy without myelopathy. 3-lumbar spinal stenosis. 4-lumbar radiculopathy 5-postlaminectomy pain syndrome lumbar area POSTOPERATIVE DIAGNOSIS: Same as preop diagnosis. PROCEDURE 1. Lumbar epidural steroid injection under fluoroscopic guidance at the L4-5 level. (Fluoroscopy imaging was available in radiology department) 2. Lumbar epidurogram. ANESTHESIA: moderate sedation with Versed 2 mg and fentanyl 50 g EBL: Minimal PROCEDURE INDICATION: The patient with low back pain and radiculitis symptoms unresponsive to conservative treatment. Fluoroscopy was used to optimize visualization of the needle placement and to maximize safety. PROCEDURE DESCRIPTION / TECHNIQUE: The patient was seen and identified in the preoperative area. Risks, benefits, complications including but not limited to infections ,bleeding ,allergic reaction to the medications ,nerve damage and not complete pain releife , and alternatives were discussed with the patient. The patient agreed to proceed with the procedure and signed the consent. IV was started, and vital signs were stable. Patient was taken to the OR and time out was completed. The patient was placed in the prone position on procedure table and a pillow was placed under the abdomen to reduce lumbar lordosis. The lumbosacral area was prepped and draped in the usual sterile fashion.ere closely monitored during the procedure. Conscious sedation was used during the procedure to decrease patients anxiety. Vital signs was monitered during the entire procedure. Using anterior-posterior fluoroscopy, the L4-5 interlaminar space was identified and the skin over this site was marked and then infiltrated with 1% lidocaine subcutaneously. Subsequently, a 20-gauge Tuohy epidural needle was inserted and advanced toward the epidural space using the ``Loss of resistance technique and guided by AP and lateral fluoroscopy. The correct needle position in the epidural space was verified with the injection of 2 mL of the water soluble contrast dye Isovue 200 contrast and observing an excellent epidurogram with the epidural spread of the dye, after negative aspiration for blood and CSF and in the absence of paresthesias. Again after negative aspiration, a 6 ml mixture containing 40 mg of Depo-medrol , and 2 ml of preservative free Normal Saline, and 2 ml of preservative free lidocaine 1% solution was injected and a washout of epidurogram was seen. Needle was withdrawn intact, skin was cleansed, and bandages were applied. COMPLICATIONS: None DISPOSITION / PLANS: The patient was placed in a supine position and transferred to the recovery area in a stable condition for observation. There was no evidence of lower extremity motor or sensory deficit after the procedure. Patient was discharged from the recovery room after meeting discharge criteria. Home discharge instructions were given to the patient by the staff. The patient was reexamined prior to discharge. The patient will schedule a follow up in the clinic in 2-4 weeks.
--- NOTE | 2021-03-18 10:47 | FL ---
Fluoroscopy HISTORY: Pain 3 seconds fluoroscopy time supplied to the referring clinician. 1 intraoperative C-arm images docume nt the procedure. See dictated report from anesthesia.
[2021-03-18 10:57] VITALS: BP 137/70; PULSE 97; RESP 20
[2021-03-18] MEDS ORDERED: HYDROcodone/APAP 7.5-325MG 1 EACH TAB PO ONE (11:16)
== END 2021-03-18 11:29 | disposition home or self-care (01) ==
LOC: ORPAIN 09:32
PROVIDERS: ATTEND Specialist
DX: M51.16 Intervertebral disc disorders with radiculopathy, lumbar region (principal); M47.26 Other spondylosis with radiculopathy, lumbar region; M48.061 Spinal stenosis, lumbar region without neurogenic claudication; M96.1 Postlaminectomy syndrome, not elsewhere classified; Y83.8 Other surgical procedures as the cause of abnormal reaction of the patient, or of later complication, without mention of misadventure at the time of the procedure
CPT/HCPCS: 62323; J2250; J1030; J3010; Q9966; 99152

== ENCOUNTER → 2021-05-01 | Outpatient (CLI) | payer MEDICARE ==
[2021-05-01 08:32] LABS: Appearance,Urine Clear (Clear); Bilirubin,Urine Negative (Negative); Blood,Urine Negative (Negative); Color,Urine Yellow; Glucose,Urine (UA) Negative (Negative); Ketones,Urine Negative (Negative); Leukocyte Esterase,Urine Negative (Negative); Nitrite,Urine Negative (Negative); PH, Urine 5.5 (5.0-8.0); Protein,Urine Negative (Negative); Urobilinogen,Urine <2.0 mg/dL (<2.0)
[2021-05-01 08:40] LABS: Partial Thromboplastin Time 24.2 sec (22.0-30.0); Prothrombin Time 10.7 sec (9.0-12.0)
[2021-05-01 12:05] LABS: Basophils # (A) 0.03 X 10*3/uL (0.00-0.10); Basophils % (A) 0.3 %; Eosinophils # (A) 0.38 X 10*3/uL (0.04-0.35); Eosinophils % (A) 3.5 %; HCT 36.7 % (39.6-50.0); HGB 11.9 g/dL (13.0-17.0); Lymphocytes # (A) 2.06 X 10*3/uL (0.90-5.00); MCH 31.9 pg (27.0-32.0); MCHC 32.4 g/dL (32.0-37.0); MCV 98.4 fL (80.0-97.0); Mean Platelet Volume 10.6 fL (9.5-12.2); Monocytes # (A) 0.79 X 10*3/uL (0.20-1.00); Monocytes % (A) 7.3 %; Neutrophils # (A) 7.54 X 10*3/uL (1.80-7.70); Neutrophils % (A) 69.5 %; Platelet Count 215 X 10*3/uL (140-440); RBC 3.73 X 10*6/uL (4.40-5.60); RDW 13.2 % (11.5-14.5); WBC 10.84 X 10*3/uL (4.50-10.00)
--- NOTE | 2021-05-01 13:34 | XR ---
EXAMINATION TYPE: XR chest 2V DATE OF EXAM: 05/01/2021 COMPARISON: 10/12/2020 INDICATION: Short of breath nicotine dependence TECHNIQUE: Frontal and lateral views of the chest are obtained. FINDINGS: The heart size is normal. The pulmonary vasculature is normal. There is an irregular density through thee right mid lung which is changing configuration from the co mparison. Additional workup with CT chest is recommended. Pacemaker overlies the left chest. IMPRESSION: 1. 2.1 cm irregular changing density right midlung. Additional workup with CT is recommended.
[2021-05-01 16:30] LABS: Hemoglobin A1C 6.3 % (4.0-6.0)
[2021-05-01 21:14] LABS: African American GFR (CKD) 77.3 (60.0-200.0); Albumin 4.3 g/dL (3.80-4.90); Albumin/Globulin Ratio 1.54 (1.60-3.17); Anion Gap 12.4 mmol/L (4.00-12.00); BUN/Creat Ratio 21.82 Ratio (12.00-20.00); Calcium 9.5 mg/dL (8.7-10.3); Carbon Dioxide 25.6 mmol/L (21.6-31.8); Chol/HDL Ratio 3.06; Globulin 2.8 g/dL (1.6-3.3); Non-African American GFR(CKD) 66.7 (60.0-200.0); Potassium 4.8 mmol/L (3.5-5.5); Total Bilirubin 0.4 mg/dL (0.2-1.2); Total Protein 7.1 g/dL (6.2-8.2)
[2021-05-02 01:01] LABS: Urine Creatinine 112.5 mg/dL
== END | disposition home or self-care (01) ==
LOC: LABWHC1 07:25
PROVIDERS: ATTEND Family Medicine
DX: Z01.818 Encounter for other preprocedural examination (principal); F17.210 Nicotine dependence, cigarettes, uncomplicated; M48.00 Spinal stenosis, site unspecified; E11.65 Type 2 diabetes mellitus with hyperglycemia; R06.02 Shortness of breath; R93.89 Abnormal findings on diagnostic imaging of other specified body structures
CPT/HCPCS: 36415; 71046; 80053; 80061; 81003; 82043; 82570; 83036; 84443; 85025; 85610; 85730; 87070; 87086

== ENCOUNTER 2021-06-29 14:25 | Inpatient (IN) | payer MEDICARE ==
[2021-06-29 15:47] LABS: Basophils % (A) 0 %; Eosinophils # (A) 0.6 k/uL (0-0.7); Eosinophils % (A) 6 %; HCT 30.6 % (39.0-53.0); HGB 9.5 gm/dL (13.0-17.5); Hypochromasia Slight; Lymphocytes # (A) 2.1 k/uL (1.0-4.8); Lymphocytes % (A) 19 %; MCH 30.3 pg (25.0-35.0); MCHC 31.1 g/dL (31.0-37.0); MCV 97.6 fL (80.0-100.0); Mean Platelet Volume 7.8; Monocytes # (A) 0.6 k/uL (0-1.0); Monocytes % (A) 5 %; Neutrophils # (A) 7.4 k/uL (1.3-7.7); Neutrophils % (A) 68 %; Platelet Count 302 k/uL (150-450); RBC 3.14 m/uL (4.30-5.90); RDW 13.6 % (11.5-15.5); WBC 10.9 k/uL (3.8-10.6)
--- NOTE | 2021-06-29 15:52 | ED ---
Altered Mental Status HPI - General Chief Complaint: Altered Mental Status Stated Complaint: altered mental status Time Seen by Provider: 06/29/21 15:10 Source: patient, family, RN notes reviewed, old records reviewed Mode of arrival: ambulatory Limitations: no limitations - History of Present Illness Initial Comments: 71-year-old male with a history of dementia and multiple other medical issues who presents with frequent falls history increasing confusion intractable low back pain. Patient did have recent laminectomy of L1 through 4 and has been c leared recently by a surgeon however he still plans of pain. He's not been able ambulate more than one or 2 steps he has fallen recently 3 or 4 times last couple days. He denies any head or neck pain loss of function is upper or lower extremities no fevers chills nausea vomiting sweats. MD Complaint: altered mental status, confusion, weakness, other - Related Data Home Medications Medication Instructions Recorded Confirmed Metoprolol Tartrate [Lopressor] 25 mg PO BID 12/02/16 06/29/21 Venlafaxine HCl [Effexor XR] 150 mg PO QAM 12/02/16 06/29/21 Umeclidinium [place] [Incruse 1 puff INHALATION RT-DAILY 09/22/18 06/29/21 Ellipta] lisinopriL [Zestril] 10 mg PO DAILY 09/22/18 06/29/21 Albuterol Sulfate [Proair Hfa] 1 - 2 puff INHALATION RT-Q6H PRN 06/07/20 06/29/21 Aspirin [Adult Low Dose Aspirin EC] 81 mg PO DAILY 06/07/20 06/29/21 Dicyclomine [Bentyl] 20 mg PO TID PRN 06/07/20 06/29/21 Fluticasone/Salmeterol [Advair Hfa 1 puff INHALATION RT-BID 06/07/20 06/29/21 45-21 Mcg Inhaler] Loperamide [Imodium] 2 mg PO BID 06/07/20 06/29/21 Omeprazole 20 mg PO DAILY 06/07/20 06/29/21 Albuterol Nebulized [Ventolin 2.5 mg INHALATION RT-TID PRN 09/16/20 06/29/21 Nebulized] Atorvastatin Calcium [Lipitor] 20 mg PO HS 10/12/20 06/29/21 metFORMIN HCL ER [Glucophage XR] 1,000 mg PO HS 10/12/20 06/29/21 Cyclobenzaprine [Flexeril] 10 mg PO TID PRN 12/19/20 06/29/21 Donepezil HCl [Aricept] 5 mg PO HS 12/19/20 06/29/21 HYDROcodone/APAP 7.5-325MG [[place] 1 tab PO Q1H PRN 06/29/21 06/29/21 7.5-325] amLODIPine [Norvasc] 2.5 mg PO DAILY 06/29/21 06/29/21 glipiZIDE XL [Glucotrol XL] 5 mg PO HS 06/29/21 06/29/21 traZODone HCL [TraZODone HCl] 50 mg PO HS PRN 06/29/21 06/29/21 Allergies Allergy/AdvReac Type Severity Reaction Status Date / Time No Known Allergies Allergy Verified 06/29/21 19:26 Review of Systems ROS Statement: Those systems with pertinent positive or pertinent negative responses have been documented in the HPI. ROS Other: All systems not noted in ROS Statement are negative. Past Medical History Past Medical History: COPD, Diabetes Mellitus, Hyperlipidemia, Hypertension, Osteoarthritis (OA), Sleep Apnea/CPAP/BIPAP Additional Past Medical History / Comment(s): PACEMAKER. Uses CPAP. 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 Taking Aricept on a trial basis for slight memory loss. History of Any Multi-Drug Resistant Organisms: None Reported Past Surgical History: Appendectomy, Back Surgery, Pacemaker Additional Past Surgical History / Comment(s): Oral surg. COLONOSCOPY. GENERATOR CHANGE 2016, lumbar myelogram, neck fusion Past Anesthesia/Blood Transfusion Reactions: No Reported Reaction Type of Cardiac Device: Permanent Pacemaker Device Placement Date:: 2008 Past Psychological History: No Psychological Hx Reported Smoking Status: Former smoker Past Alcohol Use History: Occasional Past Drug Use History: None Reported - Past Family History Mother Family Medical History: Cancer Brother(s) Family Medical History: Cancer General Exam - General Exam Comments Initial Comments: Is a well-developed well-nourished awake alert male Limitations: no limitations General appearance: alert, in no apparent distress Head exam: Present: atraumatic, normocephalic, normal inspection Eye exam: Present: normal appearance, PERRL, EOMI. Absent: scleral icterus, conjunctival injection, periorbital swelling ENT exam: Present: mucous membranes dry Neck exam: Present: normal inspection. Absent: tenderness, meningismus, lymphadenopathy Respiratory exam: Present: normal lung sounds bilaterally. Absent: respiratory distress, wheezes, rales, rhonchi, stridor Cardiovascular Exam: Present: regular rate, normal rhythm, normal heart sounds. Absent: systolic murmur, diastolic murmur, rubs, gallop, clicks GI/Abdominal exam: Present: soft, normal bowel sounds. Absent: distended, tenderness, guarding, rebound, rigid Rectal exam: Present: deferred Extremities exam: Present: normal inspection, full ROM, normal capillary refill. Absent: tenderness, pedal edema, joint swelling, calf tenderness Back exam: Present: normal inspection Neurological exam: Present: alert, oriented X3, CN II-XII intact Psychiatric exam: Present: normal affect, normal mood Skin exam: Present: warm, dry, intact, normal color. Absent: rash Course Vital Signs 06/29/21 06/29/21 06/29/21 14:35 17:13 18:15 Temperature 97.8 F Pulse Rate 61 60 60 Respiratory 18 18 18 Rate Blood Pressure 93/36 116/94 126/80 O2 Sat by Pulse 98 93 L 97 Oximetry 06/29/21 06/29/21 18:41 19:24 Temperature 98.4 F Pulse Rate 51 L 65 Respiratory 18 18 Rate Blood Pressure 123/72 95/63 O2 Sat by Pulse 98 96 Oximetry Medical Decision Making - Medical Decision Making I did discuss findings with patient family also with Dr. Maldonado. Patient be admitted for IV fluids and inpatient treatment and management pain control - Lab Data Result diagrams: 06/29/21 15:40 06/29/21 15:40 Lab Results 06/29/21 06/29/21 06/29/21 Range/Units 15:40 15:40 15:40 WBC 10.9 H (3.8-10.6) k/uL RBC 3.14 L (4.30-5.90) m/uL Hgb 9.5 L (13.0-17.5) gm/dL Hct 30.6 L (39.0-53.0) % MCV 97.6 (80.0-100.0) fL MCH 30.3 (25.0-35.0) pg MCHC 31.1 (31.0-37.0) g/dL RDW 13.6 (11.5-15.5) % Plt Count 302 (150-450) k/uL MPV 7.8 Neutrophils % 68 % Lymphocytes % 19 % Monocytes % 5 % Eosinophils % 6 % Basophils % 0 % Neutrophils # 7.4 (1.3-7.7) k/uL Lymphocytes # 2.1 (1.0-4.8) k/uL Monocytes # 0.6 (0-1.0) k/uL Eosinophils # 0.6 (0-0.7) k/uL Basophils # 0.0 (0-0.2) k/uL Hypochromasia Slight Sodium 139 (137-145) mmol/L Potassium 4.7 (3.5-5.1) mmol/L Chloride 107 (98-107) mmol/L Carbon Dioxide 21 L (22-30) mmol/L Anion Gap 11 mmol/L BUN 41 H (9-20) mg/dL Creatinine 1.55 H (0.66-1.25) mg/dL Est GFR (CKD-EPI)AfAm 51 (>60 ml/min/1.73 sqM) Est GFR (CKD-EPI)NonAf 44 (>60 ml/min/1.73 sqM) Glucose 97 (74-99) mg/dL Calcium 9.1 (8.4-10.2) mg/dL Magnesium 1.7 (1.6-2.3) mg/dL Total Bilirubin 0.3 (0.2-1.3) mg/dL AST 21 (17-59) U/L ALT 12 (4-49) U/L Alkaline Phosphatase 132 H (38-126) U/L Creatine Kinase 160 (55-170) U/L Troponin I <0.012 (0.000-0.034) ng/mL NT-Pro-B Natriuret Pep pg/mL Total Protein 7.0 (6.3-8.2) g/dL Albumin 3.7 (3.5-5.0) g/dL Lipase 35 (23-300) U/L Urine Color Urine Appearance (Clear) Urine pH (5.0-8.0) Ur Specific [place] (1.001-1.035) Urine Protein (Negative) Urine Glucose (UA) (Negative) Urine Ketones (Negative) Urine Blood (Negative) Urine Nitrite (Negative) Urine Bilirubin (Negative) Urine Urobilinogen (<2.0) mg/dL Ur Leukocyte Esterase (Negative) 06/29/21 06/29/21 Range/Units 15:40 18:08 WBC (3.8-10.6) k/uL RBC (4.30-5.90) m/uL Hgb (13.0-17.5) gm/dL Hct (39.0-53.0) % MCV (80.0-100.0) fL MCH (25.0-35.0) pg MCHC (31.0-37.0) g/dL RDW (11.5-15.5) % Plt Count (150-450) k/uL MPV Neutrophils % % Lymphocytes % % Monocytes % % Eosinophils % % Basophils % % Neutrophils # (1.3-7.7) k/uL Lymphocytes # (1.0-4.8) k/uL Monocytes # (0-1.0) k/uL Eosinophils # (0-0.7) k/uL Basophils # (0-0.2) k/uL Hypochromasia Sodium (137-145) mmol/L Potassium (3.5-5.1) mmol/L Chloride (98-107) mmol/L Carbon Dioxide (22-30) mmol/L Anion Gap mmol/L BUN (9-20) mg/dL Creatinine (0.66-1.25) mg/dL Est GFR (CKD-EPI)AfAm (>60 ml/min/1.73 sqM) Est GFR (CKD-EPI)NonAf (>60 ml/min/1.73 sqM) Glucose (74-99) mg/dL Calcium (8.4-10.2) mg/dL Magnesium (1.6-2.3) mg/dL Total Bilirubin (0.2-1.3) mg/dL AST (17-59) U/L ALT (4-49) U/L Alkaline Phosphatase (38-126) U/L Creatine Kinase (55-170) U/L Troponin I (0.000-0.034) ng/mL NT-Pro-B Natriuret Pep 1560 pg/mL Total Protein (6.3-8.2) g/dL Albumin (3.5-5.0) g/dL Lipase (23-300) U/L Urine Color Yellow Urine Appearance Clear (Clear) Urine pH 5.0 (5.0-8.0) Ur Specific [place] 1.021 (1.001-1.035) Urine Protein Trace H (Negative) Urine Glucose (UA) Negative (Negative) Urine Ketones Negative (Negative) Urine Blood Negative (Negative) Urine Nitrite Negative (Negative) Urine Bilirubin Negative (Negative) Urine Urobilinogen <2.0 (<2.0) mg/dL Ur Leukocyte Esterase Negative (Negative) - EKG Data -: EKG Interpreted by Me EKG shows normal: sinus rhythm EKG Comments: Neutrophils rhythm rate 80 QRS 152 daily since QTC 442/442 red bundle-branch block pattern - Radiology Data Radiology results: report reviewed ((Reviewed no acute findings), image reviewed Disposition Clinical Impression: Delirium due to general medical condition, Dehydration, Dementia, Acute kidney injury, Intractable pain, Failure to thrive in adult Disposition: ADMITTED IP TO THIS HOSP Condition: Fair Referrals: Nba Nguyen MD [Primary Care Provider] - 1-2 days
[2021-06-29 16:05] LABS: Albumin 3.7 g/dL (3.5-5.0); Calcium 9.1 mg/dL (8.4-10.2); Magnesium 1.7 mg/dL (1.6-2.3); Potassium 4.7 mmol/L (3.5-5.1); Total Bilirubin 0.3 mg/dL (0.2-1.3)
--- NOTE | 2021-06-29 16:40 | CT ---
EXAMINATION TYPE: CT brain wo con DATE OF EXAM: 06/29/2021 COMPARISON: November 04, 2012 HISTORY: weakness, ams CT DLP: 1202.4 mGycm Automated exposure control for dose reduction was used. There is cerebral cortical atrophy. There is some enlargement of the ventricles. There is no mass eff ect nor midline shift. There is no sign of intracranial hemorrhage. There is some patchy hypodensity in the periventricular white matter. Calvarium is intact. There is mucosal thickening in the ethmoid and maxillary sinuses. There is frontal sinus mucosal thickening. The skull base is intact. There is normal aeration of the mastoid sinuses. IMPRESSION: Cerebral atrophy. Sinusitis. No acute intracranial abnormality. Mild hydrocephalus. White matter rogers ges consistent with chronic small vessel ischemia. There is progression of disease compared to old ex am.
--- NOTE | 2021-06-29 16:43 | XR ---
EXAMINATION TYPE: XR chest 2V DATE OF EXAM: 06/29/2021 COMPARISON: 05/01/2021 HISTORY: Altered mental status TECHNIQUE: 3 views FINDINGS: There is elevated left diaphragm. There is left axillary pacemaker. There is no heart failu re. There is no evidence of pleural effusion. Bony thorax is intact. IMPRESSION: There is some atelectasis left lung base with progression compared to old exam. This coul d relate to some diaphragm paralysis. No heart failure. Mild subsegmental atelectasis right midlung w ithout change.
[2021-06-29] MEDS ORDERED: HYDROmorphone 1 MG/ML 1 ML SYRINGE IVP STA (18:07)
[2021-06-29] MEDS ORDERED: SODIUM CHLORIDE 0.9% 1,000 ML IV STA (18:07)
[2021-06-29 18:17] LABS: Appearance,Urine Clear (Clear); Bilirubin,Urine Negative (Negative); Blood,Urine Negative (Negative); Color,Urine Yellow; Glucose,Urine (UA) Negative (Negative); Ketones,Urine Negative (Negative); Leukocyte Esterase,Urine Negative (Negative); Nitrite,Urine Negative (Negative); Protein,Urine Trace (Negative); Specific Gravity,Urine 1.021 (1.001-1.035); Urobilinogen,Urine <2.0 mg/dL (<2.0)
[2021-06-29] MEDS ORDERED: ACETAMINOPHEN TAB 325 MG TAB PO PRN (19:42)
[2021-06-29] MEDS ORDERED: NALOXONE 0.4 MG/ML 1 ML VIAL IV PRN (19:42)
[2021-06-29] MEDS ORDERED: CYCLOBENZAPRINE 10 MG TAB PO PRN (19:47)
[2021-06-29] MEDS ORDERED: DICYCLOMINE 20 MG TAB PO PRN (19:47)
[2021-06-29] MEDS ORDERED: SYMBICORT 80-4.5 MCG INHALER INHALATION SCH (20:00)
[2021-06-29 20:33] LABS: Glucose,Whole Blood 88 mg/dL (75-99)
[2021-06-29] MEDS: ATORVASTATIN 20 MG TAB PO SCH (20:51)
[2021-06-29] MEDS: INSULIN ASPART (NovoLOG) 100 UNIT/ML VIAL SQ SCH (20:52)
[2021-06-29] MEDS: METOPROLOL TARTRATE 25 MG TAB PO SCH (20:52)
[2021-06-29] MEDS ORDERED: metFORMIN 500 MG TAB PO SCH (21:00)
[2021-06-29] MEDS: ALBUTEROL NEBULIZED 2.5 MG/3 ML INHALATION PRN (21:32)
[2021-06-29] MEDS: LOPERAMIDE 2 MG CAP PO SCH (22:36)
[2021-06-29] MEDS: DONEPEZIL 5 MG TAB PO SCH (22:36)
[2021-06-29] MEDS: HYDROcodone/APAP 7.5-325MG 1 EACH TAB PO PRN (23:20)
[2021-06-29] MEDS: traZODone HCL 50 MG TAB PO PRN (23:26)
--- NOTE | 2021-06-30 01:03 | P.HPIM ---
History of Present Illness H&P Date: 06/29/21 The patient is a 71 yo M with a PMH of Type 2 DM, HTN, HLD, COPD, chronic lower back pain status post laminectomy on 05/12/2021 presented to the emergency room accompanied by his due to frequent falls and confusion. History supplemented by the at the bedside. She reports that the patient was discharged from [facility] earlier upon his request following his procedure. She notes that he has been home for the past 3 weeks and has been getting progressively weaker to the point where she is unable to care for him. She reports that he has been suffering light falls almost daily where he would be unable to hold up his weight and slides down to the ground often to his knees. She denied him experiencing any head traumas or loss of consciousness. She notes that he has been getting more confused and particularly at night where he tries to leave the house even though he is having difficulty walking. The patient reports ongoing 2-3 out of 10 lower back pain and admits to his multiple falls. He reports that his appetite has also been poor and he has not been eating and drinking as per usual. He denied any additional complaints. Denied weakness, numbness, tingling, headaches. The reports that the patient has been taking the Flexeril since the surgery and although it was stopped for a week and restarted a few days ago, she did not notice any improvement in his mental status. She has also been giving him [id number] pain medications which were recently increased upon advice of his surgeons. Of note, the patient was recently seen by his surgeons a week prior they were informed that his recovery is on track. The patient further denied dysuria, fevers, chills, chest pain, nausea, vomiting, abdominal pain, or shortness of breath. In the emergency room, a CT brain revealed chronic small vessel disease with cerebral atrophy. EKG revealed a paced rhythm with a right bundle branch block. Laboratory evaluation was remarkable for a BUN of 41, creatinine 1.55, and an unremarkable UA. Review of systems: Pertinent positives and negatives as discussed in HPI, a complete review of systems was performed and all other systems are negative. Physical examination: General: non toxic, no distress, appears at stated age, obese Derm: no unusual rashes/lesions no unusual ecchymoses, warm, dry Head: atraumatic, normocephalic, symmetric Eyes: EOMI, no lid lag, anicteric sclera, pupils equal round reactive to light ENT: Nose and ears atraumatic, no thrush, no pharyngeal erythema Neck: No thyromegaly, no cervical lymphadenopathy, trachea midline, supple Mouth: no lip lesion, mucus membranes moist Cardiovascular: S1S2 reg, no murmur, positive posterior tibial pulse bilateral, no edema, capillary refill less than 2 seconds Lungs: CTA bilateral, no rhonchi, no rales , no accessory muscle use Abdominal: soft, nontender to palpation, no guarding, no appreciable organomegaly, normal bowel sounds Ext: no gross muscle atrophy, muscle strength 4 out of 5 in all 4 extremities grossly, no contractures, lumbar midline incision healing well Neuro: CN II-XI grossly intact, light touch intact all 4 extremities, finger to nose within normal limits, Psych: Alert, oriented to person and place, not furry oriented to time Assessment/plan Failure to thrive postoperatively -The patient's is unable to care for him at home -Physical therapy consult for possible readmission to subacute rehab -Pain management consult -Hold off on Flexeril for now CLARY, likely due to poor oral intake -Continue with IV fluids and monitor for now Normocytic anemia, chronic, at baseline Chronic conditions: Type II DM, hypertension, diabetes, COPD -Continue with home meds -Check A1c -Old hold oral hypoglycemics DVT prophylaxis -Heparin subq The patient is admitted with an anticipated greater than 2 midnight stay for evaluation of failure to thrive CODE STATUS:Full Code Discussed with: Patient Anticipated discharge date: 2-[address]: [facility] Past Medical History Past Medical History: COPD, Diabetes Mellitus, Hyperlipidemia, Hypertension, Osteoarthritis (OA), Sleep Apnea/CPAP/BIPAP Additional Past Medical History / Comment(s): PACEMAKER. Uses CPAP. 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 Taking Aricept on a trial basis for slight memory loss. History of Any Multi-Drug Resistant Organisms: None Reported Past Surgical History: Appendectomy, Back Surgery, Pacemaker Additional Past Surgical History / Comment(s): Oral surg. COLONOSCOPY. GENERATOR CHANGE 2017, lumbar myelogram, neck fusion Past Anesthesia/Blood Transfusion Reactions: No Reported Reaction Type of Cardiac Device: Permanent Pacemaker Device Placement Date:: 2008 Past Psychological History: No Psychological Hx Reported Smoking Status: Former smoker Past Alcohol Use History: Occasional Past Drug Use History: None Reported - Past Family History Mother Family Medical History: Cancer Brother(s) Family Medical History: Cancer Medications and Allergies Home Medications Medication Instructions Recorded Confirmed Type Metoprolol Tartrate [Lopressor] 25 mg PO BID 12/02/16 06/29/21 History Venlafaxine HCl [Effexor XR] 150 mg PO QAM 12/02/16 06/29/21 History Umeclidinium [place] [Incruse 1 puff INHALATION RT-DAILY 09/22/18 06/29/21 History Ellipta] lisinopriL [Zestril] 10 mg PO DAILY 09/22/18 06/29/21 History Albuterol Sulfate [Proair Hfa] 1 - 2 puff INHALATION RT-Q6H PRN 06/07/20 06/29/21 History Aspirin [Adult Low Dose Aspirin EC] 81 mg PO DAILY 06/07/20 06/29/21 History Dicyclomine [Bentyl] 20 mg PO TID PRN 06/07/20 06/29/21 History Fluticasone/Salmeterol [Advair Hfa 1 puff INHALATION RT-BID 06/07/20 06/29/21 History 45-21 Mcg Inhaler] Loperamide [Imodium] 2 mg PO BID 06/07/20 06/29/21 History Omeprazole 20 mg PO DAILY 06/07/20 06/29/21 History Albuterol Nebulized [Ventolin 2.5 mg INHALATION RT-TID PRN 09/16/20 06/29/21 History Nebulized] Atorvastatin Calcium [Lipitor] 20 mg PO HS 10/12/20 06/29/21 History metFORMIN HCL ER [Glucophage XR] 1,000 mg PO HS 10/12/20 06/29/21 History Cyclobenzaprine [Flexeril] 10 mg PO TID PRN 12/19/20 06/29/21 History Donepezil HCl [Aricept] 5 mg PO HS 12/19/20 06/29/21 History HYDROcodone/APAP 7.5-325MG [[place] 1 tab PO Q1H PRN 06/29/21 06/29/21 History 7.5-325] amLODIPine [Norvasc] 2.5 mg PO DAILY 06/29/21 06/29/21 History glipiZIDE XL [Glucotrol XL] 5 mg PO HS 06/29/21 06/29/21 History traZODone HCL [TraZODone HCl] 50 mg PO HS PRN 06/29/21 06/29/21 History Allergies Allergy/AdvReac Type Severity Reaction Status Date / Time No Known Allergies Allergy Verified 06/29/21 19:26 Physical Exam Vitals: Vital Signs Temp Pulse Resp BP Pulse Ox 06/29/21 21:42 61 06/29/21 21:32 61 06/29/21 20:48 60 18 103/74 94 L 06/29/21 20:14 97 18 101/69 98 06/29/21 19:24 98.4 F 65 18 95/63 96 06/29/21 18:41 51 L 18 123/72 98 06/29/21 18:15 60 18 126/80 97 06/29/21 17:13 60 18 116/94 93 L 06/29/21 14:35 97.8 F 61 18 93/36 98 Intake and Output 06/29/21 06/29/21 06/29/21 06:59 14:59 22:59 Other: Weight 100.698 kg Results CBC & Chem 7: 06/29/21 15:40 06/29/21 15:40 Labs: Abnormal Lab Results - Last 24 Hours (Table) 06/29/21 06/29/21 06/29/21 Range/Units 15:40 15:40 18:08 WBC 10.9 H (3.8-10.6) k/uL RBC 3.14 L (4.30-5.90) m/uL Hgb 9.5 L (13.0-17.5) gm/dL Hct 30.6 L (39.0-53.0) % Carbon Dioxide 21 L (22-30) mmol/L BUN 41 H (9-20) mg/dL Creatinine 1.55 H (0.66-1.25) mg/dL Alkaline Phosphatase 132 H (38-126) U/L Urine Protein Trace H (Negative)
[2021-06-30 07:13] LABS: Glucose,Whole Blood 142 mg/dL (75-99)
[2021-06-30] MEDS: INSULIN ASPART (NovoLOG) 100 UNIT/ML VIAL SQ SCH ×4 (08:21→21:41)
[2021-06-30] MEDS: HEPARIN SODIUM,PORCINE/PF 5,000 UNIT/0.5 ML SYRINGE SQ SCH ×3 (08:22→23:15)
[2021-06-30] MEDS: PANTOPRAZOLE 40 MG TABLET PO SCH (08:22)
[2021-06-30] MEDS: lisinopriL 10 MG TAB PO SCH (08:22)
[2021-06-30] MEDS: ASPIRIN 81 MG PO SCH (08:22)
[2021-06-30] MEDS: amLODIPine 2.5 MG TAB PO SCH (08:23)
[2021-06-30] MEDS: VENLAFAXINE HCL ER 150 MG CAP PO SCH (08:23)
[2021-06-30] MEDS: LOPERAMIDE 2 MG CAP PO SCH ×2 (08:23→21:43)
[2021-06-30] MEDS: METOPROLOL TARTRATE 25 MG TAB PO SCH ×2 (08:23→21:39)
[2021-06-30] MEDS: IPRATROPIUM 0.5 MG/2.5 ML NEBU INHALATION SCH ×4 (08:39→20:15)
[2021-06-30 09:20] LABS: HCT 28.2 % (39.6-50.0); HGB 8.3 g/dL (13.0-17.0); MCH 28.8 pg (27.0-32.0); MCHC 29.4 g/dL (32.0-37.0); MCV 97.9 fL (80.0-97.0); Mean Platelet Volume 10.1 fL (9.5-12.2); Platelet Count 282 X 10*3/uL (140-440); RBC 2.88 X 10*6/uL (4.40-5.60); RDW 14.1 % (11.5-14.5); WBC 11.96 X 10*3/uL (4.50-10.00)
[2021-06-30] MEDS: HYDROcodone/APAP 7.5-325MG 1 EACH TAB PO PRN ×3 (10:25→22:59)
[2021-06-30 10:46] LABS: African American GFR (CKD) 57.8 (60.0-200.0); Anion Gap 16.8 mmol/L (4.00-12.00); BUN/Creat Ratio 31.43 Ratio (12.00-20.00); Calcium 8.8 mg/dL (8.7-10.3); Carbon Dioxide 16.2 mmol/L (21.6-31.8); Non-African American GFR(CKD) 49.8 (60.0-200.0); Potassium 4.9 mmol/L (3.5-5.5)
[2021-06-30] MEDS: SYMBICORT 80-4.5 MCG INHALER INHALATION SCH ×2 (11:46→20:15)
[2021-06-30 11:58] LABS: Glucose,Whole Blood 118 mg/dL (75-99)
[2021-06-30] MEDS ORDERED: CYCLOBENZAPRINE 5 MG TAB PO PRN (13:28)
--- NOTE | 2021-06-30 13:28 | P.PN ---
Subjective Progress Note Date: 06/30/21 Pt seems to be doing okay today, but having muscle cramping. Objective - Vital Signs Vital signs: Vital Signs Temp 97.9 F 06/30/21 08:00 Pulse 64 06/30/21 11:58 Resp 18 06/30/21 10:00 BP 125/73 06/30/21 10:00 Pulse Ox 95 06/30/21 10:00 Intake & Output 06/29/21 06/30/21 06/30/21 18:59 06:59 18:59 Weight 100.698 kg - Exam Gen: awake, alert HEENT: normocephalic, atraumatic, good hearing acuity, moist mucous membranes Resp: good air exchange, breathing comfortably with no accessory muscle use CVS: good distal perfusion x 4, GI: soft, NTTP, ND : no SPT, no CVAT, boone catheter not present MSK: no pitting edema, no clubbing Neuro: non-focal, moving all extremities Psych: cooperative, euthymic mood - Labs CBC & Chem 7: 06/30/21 00:38 06/30/21 04:42 Labs: Abnormal Lab Results - Last 24 Hours (Table) 06/29/21 06/29/21 06/29/21 Range/Units 15:40 15:40 18:08 WBC 10.9 H (3.8-10.6) k/uL RBC 3.14 L (4.30-5.90) m/uL Hgb 9.5 L (13.0-17.5) gm/dL Hct 30.6 L (39.0-53.0) % MCV (80.0-97.0) fL MCHC (32.0-37.0) g/dL Carbon Dioxide 21 L (22-30) mmol/L Anion Gap (4.00-12.00) mmol/L BUN 41 H (9-20) mg/dL Creatinine 1.55 H (0.66-1.25) mg/dL Est GFR (CKD-EPI)AfAm (60.0-200.0) Est GFR (CKD-EPI)NonAf (60.0-200.0) BUN/Creatinine Ratio (12.00-20.00) Ratio Glucose (70-110) mg/dL POC Glucose (mg/dL) (75-99) mg/dL Alkaline Phosphatase 132 H (38-126) U/L Urine Protein Trace H (Negative) 06/30/21 06/30/21 06/30/21 Range/Units 00:38 04:42 07:12 WBC 11.96 H (3.8-10.6) k/uL RBC 2.88 L (4.30-5.90) m/uL Hgb 8.3 L (13.0-17.5) gm/dL Hct 28.2 L (39.0-53.0) % MCV 97.9 H (80.0-97.0) fL MCHC 29.4 L (32.0-37.0) g/dL Carbon Dioxide 16.2 L (22-30) mmol/L Anion Gap 16.80 H (4.00-12.00) mmol/L BUN 44.0 H (9-20) mg/dL Creatinine (0.66-1.25) mg/dL Est GFR (CKD-EPI)AfAm 57.8 L (60.0-200.0) Est GFR (CKD-EPI)NonAf 49.8 L (60.0-200.0) BUN/Creatinine Ratio 31.43 H (12.00-20.00) Ratio Glucose 122 H (70-110) mg/dL POC Glucose (mg/dL) 142 H (75-99) mg/dL Alkaline Phosphatase (38-126) U/L Urine Protein (Negative) 06/30/21 Range/Units 11:55 WBC (3.8-10.6) k/uL RBC (4.30-5.90) m/uL Hgb (13.0-17.5) gm/dL Hct (39.0-53.0) % MCV (80.0-97.0) fL MCHC (32.0-37.0) g/dL Carbon Dioxide (22-30) mmol/L Anion Gap (4.00-12.00) mmol/L BUN (9-20) mg/dL Creatinine (0.66-1.25) mg/dL Est GFR (CKD-EPI)AfAm (60.0-200.0) Est GFR (CKD-EPI)NonAf (60.0-200.0) BUN/Creatinine Ratio (12.00-20.00) Ratio Glucose (70-110) mg/dL POC Glucose (mg/dL) 118 H (75-99) mg/dL Alkaline Phosphatase (38-126) U/L Urine Protein (Negative) Assessment and Plan Assessment: Failure to thrive postoperatively -The patient's is unable to care for him at home -Physical therapy consult for possible readmission to subacute rehab -Pain management consult -Resume flexeril for muscle cramping CLARY, likely due to poor oral intake -Continue with IV fluids and monitor for now Normocytic anemia, chronic, at baseline Chronic conditions: Type II DM, hypertension, diabetes, COPD -Continue with home meds -Check A1c -Old hold oral hypoglycemics DVT prophylaxis -Heparin subq The patient is admitted with an anticipated greater than 2 midnight stay for evaluation of failure to thrive CODE STATUS:Full Code Discussed with: Patient Anticipated discharge date: 2-[address]: [facility]
[2021-06-30 15:34] LABS: Hemoglobin A1C 5.9 % (4.0-6.0)
[2021-06-30 17:02] LABS: Glucose,Whole Blood 129 mg/dL (75-99)
[2021-06-30 21:37] LABS: Glucose,Whole Blood 113 mg/dL (75-99)
[2021-06-30] MEDS: DONEPEZIL 5 MG TAB PO SCH (21:39)
[2021-06-30] MEDS: ATORVASTATIN 20 MG TAB PO SCH (21:40)
[2021-06-30] MEDS: traZODone HCL 50 MG TAB PO PRN (22:59)
[2021-07-01] MEDS: ALBUTEROL NEBULIZED 2.5 MG/3 ML INHALATION PRN (03:01)
[2021-07-01] MEDS: HYDROcodone/APAP 7.5-325MG 1 EACH TAB PO PRN ×2 (05:12→09:13)
[2021-07-01] MEDS: IPRATROPIUM 0.5 MG/2.5 ML NEBU INHALATION SCH ×4 (07:19→20:26)
[2021-07-01] MEDS: SYMBICORT 80-4.5 MCG INHALER INHALATION SCH ×2 (07:19→20:26)
[2021-07-01 07:50] LABS: Glucose,Whole Blood 146 mg/dL (75-99)
[2021-07-01] MEDS: ASPIRIN 81 MG PO SCH (09:14)
[2021-07-01] MEDS: METOPROLOL TARTRATE 25 MG TAB PO SCH (09:14)
[2021-07-01] MEDS: lisinopriL 10 MG TAB PO SCH (09:14)
[2021-07-01] MEDS: LOPERAMIDE 2 MG CAP PO SCH (09:14)
[2021-07-01] MEDS: HEPARIN SODIUM,PORCINE/PF 5,000 UNIT/0.5 ML SYRINGE SQ SCH ×2 (09:14→18:02)
[2021-07-01] MEDS: VENLAFAXINE HCL ER 150 MG CAP PO SCH (09:15)
[2021-07-01] MEDS: PANTOPRAZOLE 40 MG TABLET PO SCH (09:15)
[2021-07-01] MEDS: INSULIN ASPART (NovoLOG) 100 UNIT/ML VIAL SQ SCH ×3 (09:15→18:03)
[2021-07-01] MEDS ORDERED: diazePAM 5 MG TAB PO PRN (11:56)
[2021-07-01 12:01] VITALS: PULSE 60; RESP 18
[2021-07-01 12:18] LABS: Glucose,Whole Blood 154 mg/dL (75-99)
[2021-07-01] MEDS: amLODIPine 2.5 MG TAB PO SCH (12:20)
--- NOTE | 2021-07-01 15:36 | P.DS ---
Providers Date of admission: 06/29/21 19:42 Expected date of discharge: 07/01/21 Attending physician: Leonel Maldonado MD Consults: 06/29/21 19:42 Consult Physician Routine Consulting Provider: Bi Lieberman Consult Reason/Comments: Chronic pain Do you want consulting provider notified?: Yes Primary care physician: [facility] Course: Multiple Falls CLARY, Chronic Back Pain The patient was admitted after multiple falls. He was noted to have mild CLARY on labwork which improved with IVF. Pt was evaluated by PT, who recommended SNF p lacement for ongoing rehab to which patient was agreeable. Flexeril was downtitrated as this was felt to be contributing to falls. However, patient's back pain was still significant, so valium PRN was added as well. Chronic conditions: Type II DM, hypertension, diabetes, COPD -Discharged home with no changes except as noted above. Assessment: Gen: awake, alert HEENT: normocephalic, atraumatic, good hearing acuity, moist mucous membranes Resp: good air exchange, breathing comfortably with no accessory muscle use CVS: good distal perfusion x 4, GI: soft, NTTP, ND : no SPT, no CVAT, boone catheter not present MSK: no pitting edema, no clubbing Neuro: non-focal, moving all extremities Psych: cooperative, euthymic mood Patient Condition at Discharge: Good Plan - Discharge Summary New Discharge Prescriptions: New Cyclobenzaprine [Flexeril] 5 mg PO TID PRN tab PRN Reason: Muscle Spasm diazePAM [Valium] 5 mg PO TID PRN #15 tab PRN Reason: Anxiety Acetaminophen Tab [Tylenol] 650 mg PO Q6HR PRN tab PRN Reason: Mild Pain Or Fever > 100.5 Continue Metoprolol Tartrate [Lopressor] 25 mg PO BID Venlafaxine HCl [Effexor XR] 150 mg PO QAM lisinopriL [Zestril] 10 mg PO DAILY Umeclidinium [place] [Incruse Ellipta] 1 puff INHALATION RT-DAILY Fluticasone/Salmeterol [Advair Hfa 45-21 Mcg Inhaler] 1 puff INHALATION RT- BID Albuterol Sulfate [Proair Hfa] 1 - 2 puff INHALATION RT-Q6H PRN PRN Reason: Shortness Of Breath Or Wheezing Omeprazole 20 mg PO DAILY Loperamide [Imodium] 2 mg PO BID Dicyclomine [Bentyl] 20 mg PO TID PRN PRN Reason: IBS Aspirin [Adult Low Dose Aspirin EC] 81 mg PO DAILY Albuterol Nebulized [Ventolin Nebulized] 2.5 mg INHALATION RT-TID PRN PRN Reason: Shortness Of Breath Atorvastatin Calcium [Lipitor] 20 mg PO HS metFORMIN HCL ER [Glucophage XR] 1,000 mg PO HS Donepezil HCl [Aricept] 5 mg PO HS amLODIPine [Norvasc] 2.5 mg PO DAILY HYDROcodone/APAP 7.5-325MG [[place] 7.5-325] 1 tab PO Q1H PRN PRN Reason: BACK PAIN glipiZIDE XL [Glucotrol XL] 5 mg PO HS traZODone HCL 50 mg PO HS PRN PRN Reason: Insomnia Discontinued Cyclobenzaprine [Flexeril] 10 mg PO TID PRN PRN Reason: Muscle Spasm Discharge Medication List Metoprolol Tartrate [Lopressor] 25 mg PO BID 12/02/16 [History] Venlafaxine HCl [Effexor XR] 150 mg PO QAM 12/02/16 [History] Umeclidinium [place] [Incruse Ellipta] 1 puff INHALATION RT-DAILY 09/22/18 [History] lisinopriL [Zestril] 10 mg PO DAILY 09/22/18 [History] Albuterol Sulfate [Proair Hfa] 1 - 2 puff INHALATION RT-Q6H PRN 06/07/20 [Hi story] Aspirin [Adult Low Dose Aspirin EC] 81 mg PO DAILY 06/07/20 [History] Dicyclomine [Bentyl] 20 mg PO TID PRN 06/07/20 [History] Fluticasone/Salmeterol [Advair Hfa 45-21 Mcg Inhaler] 1 puff INHALATION RT-BID 06/07/20 [History] Loperamide [Imodium] 2 mg PO BID 06/07/20 [History] Omeprazole 20 mg PO DAILY 06/07/20 [History] Albuterol Nebulized [Ventolin Nebulized] 2.5 mg INHALATION RT-TID PRN 09/16/20 [History] Atorvastatin Calcium [Lipitor] 20 mg PO HS 10/12/20 [History] metFORMIN HCL ER [Glucophage XR] 1,000 mg PO HS 10/12/20 [History] Donepezil HCl [Aricept] 5 mg PO HS 12/19/20 [History] HYDROcodone/APAP 7.5-325MG [[place] 7.5-325] 1 tab PO Q1H PRN 06/29/21 [History] amLODIPine [Norvasc] 2.5 mg PO DAILY 06/29/21 [History] glipiZIDE XL [Glucotrol XL] 5 mg PO HS 06/29/21 [History] traZODone HCL 50 mg PO HS PRN 06/29/21 [History] Acetaminophen Tab [Tylenol] 650 mg PO Q6HR PRN tab 07/01/21 [Rx] Cyclobenzaprine [Flexeril] 5 mg PO TID PRN tab 07/01/21 [Rx] diazePAM [Valium] 5 mg PO TID PRN #15 tab 07/01/21 [Rx] Follow up Appointment(s)/Referral(s): Nba Nguyen MD [Primary Care Provider] - 1-2 days Activity/Diet/Wound Care/Special Instructions: Arjun
[2021-07-01 17:08] LABS: Glucose,Whole Blood 170 mg/dL (75-99)
[2021-07-01 20:28] VITALS: BP 143/79; TEMP 97.6
== END 2021-07-01 19:55 | DRG 641 ==
LOC: EC 14:25 → 4SSUR 19:42 → 5NMEDONC 06-30 21:07
PROVIDERS: ADMIT Internal Medicine; ATTEND Internal Medicine
DX: R62.7 Adult failure to thrive (principal); F05 Delirium due to known physiological condition; N17.9 Acute kidney failure, unspecified; T48.1X5A Adverse effect of skeletal muscle relaxants [neuromuscular blocking agents], initial encounter; F03.90 Unspecified dementia, unspecified severity, without behavioral disturbance, psychotic disturbance, mood disturbance, and anxiety; D64.9 Anemia, unspecified; E11.51 Type 2 diabetes mellitus with diabetic peripheral angiopathy without gangrene; E78.5 Hyperlipidemia, unspecified; E86.0 Dehydration; G89.29 Other chronic pain; I10 Essential (primary) hypertension; J44.9 Chronic obstructive pulmonary disease, unspecified; M54.5 Low back pain; M19.90 Unspecified osteoarthritis, unspecified site; Z79.51 Long term (current) use of inhaled steroids; Z98.1 Arthrodesis status; Z87.891 Personal history of nicotine dependence; Z79.899 Other long term (current) drug therapy; Z79.84 Long term (current) use of oral hypoglycemic drugs; Z79.82 Long term (current) use of aspirin; Z95.0 Presence of cardiac pacemaker; R29.6 Repeated falls; R25.2 Cramp and spasm
CPT/HCPCS: 36415; 70450; 71046; 80048; 80053; 81003; 82550; 83036; 83690; 83735; 83880; 84484; 85025; 85027; 87635; 93005; 94640; 94760; 96361; 96374; 99285

== ENCOUNTER 2021-07-02 15:53 | Inpatient (IN) | payer MEDICARE ==
--- NOTE | 2021-07-02 16:55 | ED ---
Altered Mental Status HPI - General Stated Complaint: Altered Mental Status - History of Present Illness Initial Comments: 21-year-old male with recent back surgery at [facility] in May who presents to the emergency department [facility]. reports that after his back surgery he went into [facility] for 3 weeks. He was then discharged home early as he was doing well. At home he began having intense back pain with multiple falls. brought him into the emergency department on the 26 for failure to thrive, dehydration frequent falls. He was discharged back to [facility] for rehab. He was evaluated by the staff there. They report that he was significantly worsen from what they remember him earlier this month. Because of his confusion they called an ambulance and had abrupt back immediately to the emergency room. He was discharged less than 24 hours ago. He was taken off of his Flexeril and started on Valium. There is no report of any fevers or chills. Patient continues to complain of low back pain with pain in his hips. He denies any chest pain or shortness of breath. No headaches or visual changes. Patient does have some slurred speech. No unilateral weakness. No known head trauma. No other alleviating, precipitating or modifying - Related Data Home Medications Medication Instructions Recorded Confirmed Metoprolol Tartrate [Lopressor] 25 mg PO BID@0800,1700 12/02/16 07/02/21 Venlafaxine HCl [Effexor XR] 150 mg PO DAILY@0800 12/02/16 07/02/21 Umeclidinium [place] [Incruse 1 puff INHALATION RT-DAILY@0800 09/22/18 07/02/21 Ellipta] lisinopriL [Zestril] 10 mg PO DAILY@0800 09/22/18 07/02/21 Albuterol Sulfate [Proair Hfa] 1 - 2 puff INHALATION RT-Q6H PRN 06/07/20 07/02/21 Aspirin [Adult Low Dose Aspirin EC] 81 mg PO DAILY@0800 06/07/20 07/02/21 Dicyclomine [Bentyl] 20 mg PO TID PRN 06/07/20 07/02/21 Fluticasone/Salmeterol [Advair Hfa 1 puff INHALATION RT-BID@0800,1700 06/07/20 07/02/21 45-21 Mcg Inhaler] Loperamide [Imodium] 2 mg PO BID@0800,1700 06/07/20 07/02/21 Omeprazole 20 mg PO DAILY@0800 06/07/20 07/02/21 Albuterol Nebulized [Ventolin 2.5 mg INHALATION RT-TID PRN 09/16/20 07/02/21 Nebulized] Atorvastatin Calcium [Lipitor] 20 mg PO HS@209910/12/20 07/02/21 metFORMIN HCL ER [Glucophage XR] 1,000 mg PO HS@209910/12/20 07/02/21 Donepezil HCl [Aricept] 5 mg PO HS@209912/19/20 07/02/21 amLODIPine [Norvasc] 2.5 mg PO DAILY@0800 06/29/21 07/02/21 glipiZIDE XL [Glucotrol XL] 5 mg PO HS@209906/29/21 07/02/21 traZODone HCL 50 mg PO HS PRN 06/29/21 07/02/21 Magnesium Hydroxide [Milk of 7,200 mg PO DAILY PRN 07/02/21 07/02/21 Magnesia Concentrate] Na Phos,M-B/Na Phos,Di-Ba [Fleet 133 ml RECTAL DAILY PRN 07/02/21 07/02/21 Adult] bisacodyL [Dulcolax] 10 mg RECTAL DAILY PRN 07/02/21 07/02/21 Previous Rx's Medication Instructions Recorded Acetaminophen Tab [Tylenol] 650 mg PO Q6HR PRN tab 07/01/21 Cyclobenzaprine [Flexeril] 5 mg PO TID PRN tab 07/01/21 HYDROcodone/APAP 7.5-325MG [[place] 1 tab PO Q4H PRN #18 tab 07/01/21 7.5-325] diazePAM [Valium] 5 mg PO TID PRN #15 tab 07/01/21 Allergies Allergy/AdvReac Type Severity Reaction Status Date / Time No Known Allergies Allergy Verified 07/02/21 17:07 Review of Systems ROS Statement: Those systems with pertinent positive or pertinent negative responses have been documented in the HPI. ROS Other: All systems not noted in ROS Statement are negative. Past Medical History Past Medical History: COPD, Diabetes Mellitus, Hyperlipidemia, Hypertension, Osteoarthritis (OA), Sleep Apnea/CPAP/BIPAP Additional Past Medical History / Comment(s): PACEMAKER. Uses CPAP. 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 Taking Aricept on a trial basis for slight memory loss. History of Any Multi-Drug Resistant Organisms: None Reported Past Surgical History: Appendectomy, Back Surgery, Heart Catheterization With Stent, Pacemaker Additional Past Surgical History / Comment(s): Oral surg. COLONOSCOPY. GENERATOR CHANGE 2016, lumbar myelogram, neck fusion; heart caths with stents x 2 (at least) Past Anesthesia/Blood Transfusion Reactions: No Reported Reaction Date of Last Stent Placement:: 2006 Type of Cardiac Device: Permanent Pacemaker Device Placement Date:: 2008 Past Psychological History: No Psychological Hx Reported Smoking Status: Former smoker Past Alcohol Use History: Occasional Additional Past Alcohol Use History / Comment(s): Smoked since teens, 1 10/05, has not smoked since May Past Drug Use History: None Reported - Past Family History Mother Family Medical History: Cancer Brother(s) Family Medical History: Cancer Course Vital Signs 07/02/21 07/02/21 16:00 22:23 Temperature 98.3 F 98.1 F Pulse Rate 60 62 Respiratory 16 20 Rate Blood Pressure 109/60 127/96 O2 Sat by Pulse 88 L 96 Oximetry Medical Decision Making - Medical Decision Making Upon arrival patient was placed in room 17. A thorough history and physical exam is performed. Patient is oriented to self and month. Patient cannot tell me the date. He is unaware of the facility that he is at. IV is established. Laboratory studies are conducted. Patient went for a pelvis x-ray as well as a CT of his lumbar spine. Review of the patient's laboratory studies demonstrates a troponin of 0.039. Lumbar spine x-ray demonstrates disc herniation at L2-L3. Pelvic x-ray demonstrates no acute fractures. 2 his encephalopathy I re commended readmission for which the family did agree to. Did offer transfer to the facility were patient had back surgery however family refused. I did call to Dr. Maldonado who agreed to admit the patient. Patient currently awaiting a bed on the floor. - Lab Data Result diagrams: 07/02/21 16:55 07/02/21 16:55 Lab Results 07/02/21 07/02/21 07/02/21 Range/Units 16:55 16:55 16:55 WBC 11.3 H (3.8-10.6) k/uL RBC 3.15 L (4.30-5.90) m/uL Hgb 9.6 L (13.0-17.5) gm/dL Hct 30.4 L (39.0-53.0) % MCV 96.5 (80.0-100.0) fL MCH 30.5 (25.0-35.0) pg MCHC 31.6 (31.0-37.0) g/dL RDW 13.5 (11.5-15.5) % Plt Count 265 (150-450) k/uL MPV 7.5 Neutrophils % 80 % Lymphocytes % 12 % Monocytes % 5 % Eosinophils % 1 % Basophils % 0 % Neutrophils # 9.0 H (1.3-7.7) k/uL Lymphocytes # 1.4 (1.0-4.8) k/uL Monocytes # 0.6 (0-1.0) k/uL Eosinophils # 0.1 (0-0.7) k/uL Basophils # 0.0 (0-0.2) k/uL Hypochromasia Slight PT 10.5 (9.0-12.0) sec INR 1.0 (<1.2) APTT 20.2 L (22.0-30.0) sec Sodium (137-145) mmol/L Potassium (3.5-5.1) mmol/L Chloride (98-107) mmol/L Carbon Dioxide (22-30) mmol/L Anion Gap mmol/L BUN (9-20) mg/dL Creatinine (0.66-1.25) mg/dL Est GFR (CKD-EPI)AfAm (>60 ml/min/1.73 sqM) Est GFR (CKD-EPI)NonAf (>60 ml/min/1.73 sqM) Glucose (74-99) mg/dL Calcium (8.4-10.2) mg/dL Total Bilirubin (0.2-1.3) mg/dL AST (17-59) U/L ALT (4-49) U/L Alkaline Phosphatase (38-126) U/L Ammonia (<30) umol/L Creatine Kinase (55-170) U/L Troponin I (0.000-0.034) ng/mL Total Protein (6.3-8.2) g/dL Albumin (3.5-5.0) g/dL Urine Color Yellow Urine Appearance Clear (Clear) Urine pH 5.0 (5.0-8.0) Ur Specific [place] 1.040 H (1.001-1.035) Urine Protein Trace H (Negative) Urine Glucose (UA) Negative (Negative) Urine Ketones Negative (Negative) Urine Blood Negative (Negative) Urine Nitrite Negative (Negative) Urine Bilirubin Negative (Negative) Urine Urobilinogen <2.0 (<2.0) mg/dL Ur Leukocyte Esterase Negative (Negative) Salicylates mg/dL Urine Opiates Screen Detected H (NotDetected) Ur Oxycodone Screen Not Detected (NotDetected) Urine Methadone Screen Not Detected (NotDetected) Ur Propoxyphene Screen Not Detected (NotDetected) Acetaminophen ug/mL Ur Barbiturates Screen Not Detected (NotDetected) U Tricyclic Antidepress Detected H (NotDetected) Ur Phencyclidine Scrn Not Detected (NotDetected) Ur Amphetamines Screen Not Detected (NotDetected) U Methamphetamines Scrn Not Detected (NotDetected) U Benzodiazepines Scrn Detected H (NotDetected) Urine Cocaine Screen Not Detected (NotDetected) U Marijuana (THC) Screen Not Detected (NotDetected) 07/02/21 07/02/21 07/02/21 Range/Units 16:55 16:55 16:55 WBC (3.8-10.6) k/uL RBC (4.30-5.90) m/uL Hgb (13.0-17.5) gm/dL Hct (39.0-53.0) % MCV (80.0-100.0) fL MCH (25.0-35.0) pg MCHC (31.0-37.0) g/dL RDW (11.5-15.5) % Plt Count (150-450) k/uL MPV Neutrophils % % Lymphocytes % % Monocytes % % Eosinophils % % Basophils % % Neutrophils # (1.3-7.7) k/uL Lymphocytes # (1.0-4.8) k/uL Monocytes # (0-1.0) k/uL Eosinophils # (0-0.7) k/uL Basophils # (0-0.2) k/uL Hypochromasia PT (9.0-12.0) sec INR (<1.2) APTT (22.0-30.0) sec Sodium 138 (137-145) mmol/L Potassium 4.6 (3.5-5.1) mmol/L Chloride 106 (98-107) mmol/L Carbon Dioxide 21 L (22-30) mmol/L Anion Gap 11 mmol/L BUN 31 H (9-20) mg/dL Creatinine 0.87 (0.66-1.25) mg/dL Est GFR (CKD-EPI)AfAm >90 (>60 ml/min/1.73 sqM) Est GFR (CKD-EPI)NonAf 86 (>60 ml/min/1.73 sqM) Glucose 111 H (74-99) mg/dL Calcium 9.3 (8.4-10.2) mg/dL Total Bilirubin 0.5 (0.2-1.3) mg/dL AST 34 (17-59) U/L ALT 27 (4-49) U/L Alkaline Phosphatase 144 H (38-126) U/L Ammonia <9 (<30) umol/L Creatine Kinase 106 (55-170) U/L Troponin I 0.039 H* (0.000-0.034) ng/mL Total Protein 6.9 (6.3-8.2) g/dL Albumin 3.5 (3.5-5.0) g/dL Urine Color Urine Appearance (Clear) Urine pH (5.0-8.0) Ur Specific [place] (1.001-1.035) Urine Protein (Negative) Urine Glucose (UA) (Negative) Urine Ketones (Negative) Urine Blood (Negative) Urine Nitrite (Negative) Urine Bilirubin (Negative) Urine Urobilinogen (<2.0) mg/dL Ur Leukocyte Esterase (Negative) Salicylates <1.0 mg/dL Urine Opiates Screen (NotDetected) Ur Oxycodone Screen (NotDetected) Urine Methadone Screen (NotDetected) Ur Propoxyphene Screen (NotDetected) Acetaminophen <10.0 ug/mL Ur Barbiturates Screen (NotDetected) U Tricyclic Antidepress (NotDetected) Ur Phencyclidine Scrn (NotDetected) Ur Amphetamines Screen (NotDetected) U Methamphetamines Scrn (NotDetected) U Benzodiazepines Scrn (NotDetected) Urine Cocaine Screen (NotDetected) U Marijuana (THC) Screen (NotDetected) - EKG Data EKG Comments: EKG demonstrates atrial paced rhythm with a ventricular rate of 60. SD interval 204. QRS 156. QTC of 490. Right bundle branch block. No acute ST segment elevations or depressions Disposition Clinical Impression: Failure to thrive in adult, Intractable pain, Encephalopathy acute, Elevated troponin Disposition: ADMITTED IP TO THIS [facility] Condition: Stable Is patient prescribed a controlled substance at d/c from ED?: No Decision to Admit Reason: Admit from EC Decision Date: 07/02/21 Decision Time: 20:43
[2021-07-02 17:04] LABS: Basophils % (A) 0 %; Eosinophils # (A) 0.1 k/uL (0-0.7); Eosinophils % (A) 1 %; HCT 30.4 % (39.0-53.0); HGB 9.6 gm/dL (13.0-17.5); Hypochromasia Slight; Lymphocytes # (A) 1.4 k/uL (1.0-4.8); Lymphocytes % (A) 12 %; MCH 30.5 pg (25.0-35.0); MCHC 31.6 g/dL (31.0-37.0); MCV 96.5 fL (80.0-100.0); Mean Platelet Volume 7.5; Monocytes # (A) 0.6 k/uL (0-1.0); Monocytes % (A) 5 %; Neutrophils % (A) 80 %; Platelet Count 265 k/uL (150-450); RBC 3.15 m/uL (4.30-5.90); RDW 13.5 % (11.5-15.5); WBC 11.3 k/uL (3.8-10.6)
[2021-07-02 17:14] LABS: Prothrombin Time 10.5 sec (9.0-12.0)
[2021-07-02 17:19] LABS: Partial Thromboplastin Time 20.2 sec (22.0-30.0)
--- NOTE | 2021-07-02 17:48 | XR ---
EXAMINATION TYPE: XR pelvis AP view DATE OF EXAM: 07/02/2021 COMPARISON: 12/19/2020 HISTORY: Pain TECHNIQUE: 2 views FINDINGS: Bowel gas pattern is normal. There is no sign of intestinal obstruction or pneumoperitoneum . Pelvic ring is intact. Proximal femurs and hip joints are intact. There is no evidence of a fractur e. Sacroiliac joints are intact. There is some vascular calcification. IMPRESSION: No acute abnormality the pelvis. Normal hip joint spaces. No change.
[2021-07-02 17:52] LABS: ALT 27 U/L (4-49); AST 34 U/L (17-59); Acetaminophen <10.0 ug/mL; African American GFR (CKD) >90 (>60 ml/min/1.73 sqM); Albumin 3.5 g/dL (3.5-5.0); Alkaline Phosphatase 144 U/L (38-126); Anion Gap 11 mmol/L; Blood Urea Nitrogen 31 mg/dL (9-20); Calcium 9.3 mg/dL (8.4-10.2); Carbon Dioxide 21 mmol/L (22-30); Chloride 106 mmol/L (98-107); Creatine Kinase 106 U/L (55-170); Glucose 111 mg/dL (74-99); Non-African American GFR(CKD) 86 (>60 ml/min/1.73 sqM); Potassium 4.6 mmol/L (3.5-5.1); Salicylate <1.0 mg/dL; Sodium 138 mmol/L (137-145); Total Bilirubin 0.5 mg/dL (0.2-1.3); Total Protein 6.9 g/dL (6.3-8.2)
--- NOTE | 2021-07-02 18:44 | CT ---
EXAMINATION TYPE: CT lumbar spine w con DATE OF EXAM: 07/02/2021 COMPARISON: None HISTORY: Back pain. Laminectomy 05-12-21. CT DLP: 1150.6 mGycm Automated exposure control for dose reduction was used. CONTRAST: Performed with IV Contrast, patient injected with 100 mL of Isovue 300. Images obtained from T12 to S2 to vertebra without contrast. Lumbar vertebra have normal alignment. There is degenerative disc space narrowing at L4-5 with vacuum disc. There is laminectomy defect at L3 and L4 levels. Exam limited by lack of intrathecal contrast. There is no lumbar paraspinal mass. There is no compression fracture. There is posterior disc hernia tion at L2-3 in the midline. Size is difficult to evaluate because of lack of intrathecal contrast. T here is some epidural enhancement in the spinal canal at the L3-4 levels consistent with epidural sca rring. IMPRESSION: Postsurgical changes. L2-3 posterior disc herniation could be increased in size compared to old CT sc an. There is evidence of epidural scarring at L3-4 level.
[2021-07-02] MEDS ORDERED: HYDROcodone/APAP 7.5-325MG 1 EACH TAB PO ONE (19:33)
[2021-07-02 20:13] LABS: Appearance,Urine Clear (Clear); Bilirubin,Urine Negative (Negative); Blood,Urine Negative (Negative); Color,Urine Yellow; Glucose,Urine (UA) Negative (Negative); Ketones,Urine Negative (Negative); Leukocyte Esterase,Urine Negative (Negative); Nitrite,Urine Negative (Negative); Protein,Urine Trace (Negative); Urobilinogen,Urine <2.0 mg/dL (<2.0)
[2021-07-02 20:34] LABS: Amphetamine Screen,Urine Not Detected (NotDetected); Barbiturate Screen,Urine Not Detected (NotDetected); Benzodiazepines Screen,Urine Detected (NotDetected); Cocaine Screen,Urine Not Detected (NotDetected); Methadone Screen, Urine Not Detected (NotDetected); Opiate Screen,Urine Detected (NotDetected); Oxycodone Screen, Urine Not Detected (NotDetected); Phencyclidine Screen,Urine Not Detected (NotDetected); Tricyclic Antidepressant,Urine Detected (NotDetected); Urn Cannabinoid Scrn Not Detected (NotDetected)
[2021-07-02] MEDS ORDERED: NALOXONE 0.4 MG/ML 1 ML VIAL IV PRN (20:43)
[2021-07-02] MEDS ORDERED: ACETAMINOPHEN TAB 325 MG TAB PO PRN (23:13)
--- NOTE | 2021-07-03 01:22 | P.HPIM ---
History of Present Illness H&P Date: 07/02/21 the patient is a 71-year-old male with a PMH of hypertension, hyperkalemia, type II DM, COPD, chronic lower back pain status post laminectomy on 05/12/2021 who was discharged earlier today to [facility] after an admission for altered mentation and falls, now presents back to the emergency room due to worsening mental status. The patient was reportedly seen by his physician at [facility] who found him to be very different from his baseline and advised that he needed to go back to the hospital. History obtained from the at the bedside. She reports that the patient was started on [place] roughly 1 month prior to his surgery, and that during that time, she noticed he slept majority of the time and did not seem quite like himself. The [place] was briefly restarted after his laminectomy but was not tolerated well as the patient became combative and confused. He was subsequently discharged to [facility] without narcotics. The patient however was restarted on [place] with subsequent decrease in his mental status. The patient then signed himself out of [facility] and went home where his tried to take care of him. The patient continued taking the [place] and she noticed that he was having multiple falls on a daily basis and appeared to be far more confused from his baseline. She did state that he has a diagnosis of mild dementia and does take Aricept but that he is normally oriented to place and time which he has not been over the past month. of note, the patient was discharged to [facility] earlier today without Flexeril due to concerns regarding multiple falls. the patient at time of interview reports that he has continued lower back pain, 2 out of 10 at rest, and worsens to a 5 or 6 out of 10 with movement. He denied any additional complaints. He reported no weakness or numbness of the legs. Denies chest discomfort, shortness of breath, fever, chills, cough, nausea, vomiting, abdominal pain, diarrhea. The patient underwent an extensive evaluation in the emergency room with a CT lumbar spine with contrast showing disc herniation compared to an older computed tomography scan. EKG revealed a paced rhythm at 60 bpm with a right bundle branch block.laboratory evaluation was remarkable for troponin of 0.039, BUN 31, WBC count 11.3, and a hemoglobin of 9.6. Review of systems: Pertinent positives and negatives as discussed in HPI, a complete review of systems was performed and all other systems are negative. Physical examination: General: non toxic, no distress, appears at stated age, obese Derm: no unusual rashes/lesions no unusual ecchymoses, warm, dry Head: atraumatic, normocephalic, symmetric Eyes: EOMI, no lid lag, anicteric sclera, pupils equal round reactive to light ENT: Nose and ears atraumatic, no thrush, no pharyngeal erythema Neck: No thyromegaly, no cervical lymphadenopathy, trachea midline, supple Mouth: no lip lesion, mucus membranes moist Cardiovascular: S1S2 reg, no murmur, positive posterior tibial pulse bilateral, no edema, capillary refill less than 2 seconds Lungs: CTA bilateral, no rhonchi, no rales , no accessory muscle use Abdominal: soft, nontender to palpation, no guarding, no appreciable organomegaly, normal bowel sounds Ext: no gross muscle atrophy, muscle strength 3+ out of 5 in all 4 extremities grossly, no contractures, lumbar postsurgical incision approximated and healing well Neuro: CN II-XI grossly intact, light touch intact all 4 extremities, finger to nose within normal limits, Psych: Alert, oriented to self, believes he is in [place], oriented to month and year Assessment/plan Delirium and increased falls with failure to thrive -Suspected secondary to opiates. -Hold [place] at this time. Will also hold the Benzos at this time (Valium) -Start patient on Tylenol and Motrin at when necessary -Pain management consult Troponin elevation -Patient is denying chest discomfort or shortness of breath -Trend for now -Cardiac monitoring Leukocytosis -At baseline -Monitor for now Normocytic anemia -At baseline -Monitor for now DVT prophylaxis -Heparin subq The patient is admitted with an anticipated greater than 2 midnight stay for evaluation of delirium CODE STATUS: Full Code Discussed with: Patient Anticipated discharge date: 2-[address]: Home Past Medical History Past Medical History: COPD, Diabetes Mellitus, Hyperlipidemia, Hypertension, Osteoarthritis (OA), Sleep Apnea/CPAP/BIPAP Additional Past Medical History / Comment(s): PACEMAKER. Uses CPAP. 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 Taking Aricept on a trial basis for slight memory loss. History of Any Multi-Drug Resistant Organisms: None Reported Past Surgical History: Appendectomy, Back Surgery, Heart Catheterization With Stent, Pacemaker Additional Past Surgical History / Comment(s): Oral surg. COLONOSCOPY. GENERATOR CHANGE 2017, lumbar myelogram, neck fusion; heart caths with stents x 2 (at least) Past Anesthesia/Blood Transfusion Reactions: No Reported Reaction Date of Last Stent Placement:: 2006 Type of Cardiac Device: Permanent Pacemaker Device Placement Date:: 2008 Past Psychological History: No Psychological Hx Reported Smoking Status: Former smoker Past Alcohol Use History: Occasional Additional Past Alcohol Use History / Comment(s): Smoked since teens, 1 10/05, has not smoked since May Past Drug Use History: None Reported - Past Family History Mother Family Medical History: Cancer Brother(s) Family Medical History: Cancer Medications and Allergies Home Medications Medication Instructions Recorded Confirmed Type Metoprolol Tartrate [Lopressor] 25 mg PO BID@0800,1700 12/02/16 07/02/21 History Venlafaxine HCl [Effexor XR] 150 mg PO DAILY@0800 12/02/16 07/02/21 History Umeclidinium [place] [Incruse 1 puff INHALATION RT-DAILY@0800 09/22/18 07/02/21 History Ellipta] lisinopriL [Zestril] 10 mg PO DAILY@0800 09/22/18 07/02/21 History Albuterol Sulfate [Proair Hfa] 1 - 2 puff INHALATION RT-Q6H PRN 06/07/20 07/02/21 History Aspirin [Adult Low Dose Aspirin EC] 81 mg PO DAILY@0800 06/07/20 07/02/21 History Dicyclomine [Bentyl] 20 mg PO TID PRN 06/07/20 07/02/21 History Fluticasone/Salmeterol [Advair Hfa 1 puff INHALATION RT-BID@0800,1700 06/07/20 07/02/21 History 45-21 Mcg Inhaler] Loperamide [Imodium] 2 mg PO BID@0800,1700 06/07/20 07/02/21 History Omeprazole 20 mg PO DAILY@0800 06/07/20 07/02/21 History Albuterol Nebulized [Ventolin 2.5 mg INHALATION RT-TID PRN 09/16/20 07/02/21 History Nebulized] Atorvastatin Calcium [Lipitor] 20 mg PO HS@209910/12/20 07/02/21 History metFORMIN HCL ER [Glucophage XR] 1,000 mg PO HS@209910/12/20 07/02/21 History Donepezil HCl [Aricept] 5 mg PO HS@209912/19/20 07/02/21 History amLODIPine [Norvasc] 2.5 mg PO DAILY@0800 06/29/21 07/02/21 History glipiZIDE XL [Glucotrol XL] 5 mg PO HS@209906/29/21 07/02/21 History traZODone HCL 50 mg PO HS PRN 06/29/21 07/02/21 History Acetaminophen Tab [Tylenol] 650 mg PO Q6HR PRN tab 07/01/21 07/02/21 Rx Cyclobenzaprine [Flexeril] 5 mg PO TID PRN tab 07/01/21 07/02/21 Rx HYDROcodone/APAP 7.5-325MG [[place] 1 tab PO Q4H PRN #18 tab 07/01/21 07/02/21 Rx 7.5-325] diazePAM [Valium] 5 mg PO TID PRN #15 tab 07/01/21 07/02/21 Rx Magnesium Hydroxide [Milk of 7,200 mg PO DAILY PRN 07/02/21 07/02/21 History Magnesia Concentrate] Na Phos,M-B/Na Phos,Di-Ba [Fleet 133 ml RECTAL DAILY PRN 07/02/21 07/02/21 History Adult] bisacodyL [Dulcolax] 10 mg RECTAL DAILY PRN 07/02/21 07/02/21 History Allergies Allergy/AdvReac Type Severity Reaction Status Date / Time No Known Allergies Allergy Verified 07/02/21 17:07 Physical Exam Vitals: Vital Signs Temp Pulse Resp BP Pulse Ox 07/02/21 22:23 98.1 F 62 20 127/96 96 07/02/21 16:00 98.3 F 60 16 109/60 88 L Intake and Output 07/02/21 07/02/21 07/03/21 14:59 22:59 06:59 Other: Weight 99.79 kg Results CBC & Chem 7: 07/02/21 16:55 07/02/21 16:55 Labs: Abnormal Lab Results - Last 24 Hours (Table) 07/02/21 07/02/21 07/02/21 Range/Units 16:55 16:55 16:55 WBC 11.3 H (3.8-10.6) k/uL RBC 3.15 L (4.30-5.90) m/uL Hgb 9.6 L (13.0-17.5) gm/dL Hct 30.4 L (39.0-53.0) % Neutrophils # 9.0 H (1.3-7.7) k/uL APTT 20.2 L (22.0-30.0) sec Carbon Dioxide (22-30) mmol/L BUN (9-20) mg/dL Glucose (74-99) mg/dL Alkaline Phosphatase (38-126) U/L Troponin I (0.000-0.034) ng/mL Ur Specific [place] 1.040 H (1.001-1.035) Urine Protein Trace H (Negative) Urine Opiates Screen Detected H (NotDetected) U Tricyclic Antidepress Detected H (NotDetected) U Benzodiazepines Scrn Detected H (NotDetected) 07/02/21 07/02/21 Range/Units 16:55 16:55 WBC (3.8-10.6) k/uL RBC (4.30-5.90) m/uL Hgb (13.0-17.5) gm/dL Hct (39.0-53.0) % Neutrophils # (1.3-7.7) k/uL APTT (22.0-30.0) sec Carbon Dioxide 21 L (22-30) mmol/L BUN 31 H (9-20) mg/dL Glucose 111 H (74-99) mg/dL Alkaline Phosphatase 144 H (38-126) U/L Troponin I 0.039 H* (0.000-0.034) ng/mL Ur Specific [place] (1.001-1.035) Urine Protein (Negative) Urine Opiates Screen (NotDetected) U Tricyclic Antidepress (NotDetected) U Benzodiazepines Scrn (NotDetected)
[2021-07-03 06:51] LABS: Glucose,Whole Blood 170 mg/dL (75-99)
[2021-07-03] MEDS: METOPROLOL TARTRATE 25 MG TAB PO SCH ×2 (07:52→16:30)
[2021-07-03] MEDS: ASPIRIN 81 MG PO SCH (07:52)
[2021-07-03] MEDS: VENLAFAXINE HCL ER 150 MG CAP PO SCH (07:52)
[2021-07-03] MEDS: lisinopriL 10 MG TAB PO SCH (07:52)
[2021-07-03] MEDS: amLODIPine 2.5 MG TAB PO SCH (07:52)
[2021-07-03] MEDS: INSULIN ASPART (NovoLOG) 100 UNIT/ML VIAL SQ SCH ×4 (07:53→21:00)
[2021-07-03] MEDS: SYMBICORT 80-4.5 MCG INHALER INHALATION SCH ×2 (07:53→17:13)
[2021-07-03] MEDS ORDERED: ALBUTEROL NEBULIZED 2.5 MG/3 ML INHALATION PRN (08:00)
[2021-07-03] MEDS: HEPARIN SODIUM,PORCINE/PF 5,000 UNIT/0.5 ML SYRINGE SQ SCH ×2 (08:07→15:04)
[2021-07-03 08:49] LABS: African American GFR (CKD) >90 (>60 ml/min/1.73 sqM); Anion Gap 12 mmol/L; Blood Urea Nitrogen 23 mg/dL (9-20); Calcium 9.8 mg/dL (8.4-10.2); Carbon Dioxide 23 mmol/L (22-30); Chloride 102 mmol/L (98-107); Glucose 177 mg/dL (74-99); Non-African American GFR(CKD) >90 (>60 ml/min/1.73 sqM); Potassium 4.6 mmol/L (3.5-5.1); Sodium 137 mmol/L (137-145)
[2021-07-03 10:56] LABS: Basophils # (A) 0.04 X 10*3/uL (0.00-0.10); Basophils % (A) 0.3 %; Eosinophils # (A) 0.11 X 10*3/uL (0.04-0.35); Eosinophils % (A) 0.9 %; HCT 28.6 % (39.6-50.0); HGB 8.8 g/dL (13.0-17.0); Lymphocytes # (A) 1.39 X 10*3/uL (0.90-5.00); MCH 29.1 pg (27.0-32.0); MCHC 30.8 g/dL (32.0-37.0); MCV 94.7 fL (80.0-97.0); Mean Platelet Volume 10.2 fL (9.5-12.2); Monocytes # (A) 0.95 X 10*3/uL (0.20-1.00); Monocytes % (A) 7.5 %; Neutrophils % (A) 79.7 %; Platelet Count 306 X 10*3/uL (140-440); RBC 3.02 X 10*6/uL (4.40-5.60); WBC 12.66 X 10*3/uL (4.50-10.00)
--- NOTE | 2021-07-03 11:23 | P.PN ---
<Mazin Cerna - Last Filed: 07/03/21 15:00> Subjective Progress Note Date: 07/03/21 Hospital course: Patient is a 71-year-old male with a past medical history of hypertension, hyp erlipidemia, COPD, diabetes mellitus type 2, and chronic lower back pain status post laminectomy on 05/12/21. Patient sent to ER on 07/02/21 from [facility] secondary to alteration in mental status and fall. Patient was seen and fully evaluated in the emergency department. X-ray pelvis negative for acute fracture or abnormalities. CT lumbar spine reporting epidural scarring at L3 through L4 with L2 through 3 posterior disc herniation and possibly increased in size when compared to prior CT. He was found to have slightly elevated troponin, these were trended and remained flat at 0.039, 0.031, and 0.031. EKG revealing an atrial paced rhythm at 60 bpm with a right bundle branch block. Patient was admitted to our services for delirium, increased falls, and failure to thrive. Pain management has been consulted. Physical examination: Patient was seen and fully evaluated at bedside this morning. He is back to baseline mentation being alert to person, place, time, and situation. However, he was very anxious and agitated this morning, patient able to answer all mentation questions appropriately however states that he is back [place] "[place] you got a bunch of whores working." We will resume patient's daily medication regimen with Valium in which he takes for anxiety while continuing to hold Flexeril and opioid medications and treat pain with Tylenol and/or Motrin as needed. Appreciate further recommendations from pain management. Patient reports pain in left hip, currently denies having any back pain, headache, lightheadedness, dizziness, chest pain, palpitations, shortness of breath, or experiencing any numbness/tingling/weakness in his extremities. Patient moving all 4 extremities equally and with moderate strength. Vital signs reviewed and stable. General: Nontoxic, no distress and appears stated age. Derm: Skin warm and dry, normal coloration for ethnicity. Head: Atraumatic, normocephalic and symmetric. Eyes: EOMs intact, no lid lag, and anicteric sclera Mouth: no lip lesions, mucus membranes moist Cardiovascular: regular rate and rhythm with normal S1S2, no murmur, positive posterior tibial pulses bilaterally, and cap refill < 2 seconds. Lungs: Respirations even, regular, and unlabored on room air. Lungs CTA bilaterally, no rhonchi, no rales, no wheezing, and no accessory muscle usage. GI/: soft, nontender to palpation, no guarding, no appreciable organomegaly. Brief in place. Ext: ROM intact. No gross muscle atrophy, no edema, no contractures Neuro: Speech clear,GCS 15. face symmetrical and CN II-XII grossly intact with no noted focal neuro deficits Psych: Alert and oriented to person, place, time, and situation. Anxious and agitated. Assessment/Plan Delirium, resolved Increased falls with failure to thrive Chronic lower back pain status post laminectomy on 05/22/21 -Delirium Suspected secondary to opiate use/polypharmacy vs worsening dementia. -X-ray pelvis negative for acute fracture or abnormalities. -CT lumbar spine reporting epidural scarring at L3 through L4 with L2 through 3 posterior disc herniation and possibly increased in size when compared to prior CT -Continue to hold Flexeril and [place] at this time. -Continue with Tylenol for pain management -K pad and supportive measures -Pain management consulted Anxiety and agitation -Patient very anxious and agitated this morning, we will resume his home medication of Valium in which he takes for anxiety while continuing to hold Flexeril and opioid medications. Elevated troponin, acute coronary event ruled out -Patient is denying chest discomfort or shortness of breath -Slightly elevated troponin, these were trended and remained flat at 0.039, 0.031, and 0.031. -EKG revealing an atrial paced rhythm at 60 bpm with a right bundle branch block -Continue telemetry monitoring Leukocytosis -At baseline -We will continue to monitor with repeat a.m. labs. Normocytic anemia -At baseline -We will continue to monitor with repeat a.m. labs. Hypertension Monitor vital signs and continue daily medication regimen with amlodipine, lisinopril and metoprolol. Hyperlipidemia Continue daily medication regimen with atorvastatin 20 mg nightly. COPD -Continue daily medication regimen with Symbicort twice daily and when necessary Ventolin inhaler Dementia Continue daily medication regimen with Aricept CODE STATUS: Full Code DVT prophylaxis: Heparin Discussed with: Patient and RN Anticipated discharge date: Clinical course to determine, possibly tomorrow Anticipated discharge place: [facility] A total of 40 minutes was spent on the care of this complex patient more than 50% of the time was spent in counseling and care coordination. Objective - Vital Signs Vital signs: Vital Signs Temp 97.8 F 07/03/21 07:53 Pulse 67 07/03/21 08:14 Resp 18 07/03/21 07:53 BP 143/89 07/03/21 07:53 Pulse Ox 93 L 07/03/21 07:54 Intake & Output 07/02/21 07/03/21 07/03/21 18:59 06:59 18:59 Intake Total 220 Balance 220 Weight 99.79 kg 99.79 kg Intake: Oral 220 Other: # Voids 1 - Labs CBC & Chem 7: 07/03/21 07:05 07/03/21 07:05 Labs: Abnormal Lab Results - Last 24 Hours (Table) 07/02/21 07/02/21 07/02/21 Range/Units 16:55 16:55 16:55 WBC 11.3 H (3.8-10.6) k/uL RBC 3.15 L (4.30-5.90) m/uL Hgb 9.6 L (13.0-17.5) gm/dL Hct 30.4 L (39.0-53.0) % Neutrophils # 9.0 H (1.3-7.7) k/uL APTT 20.2 L (22.0-30.0) sec Carbon Dioxide (22-30) mmol/L BUN (9-20) mg/dL Glucose (74-99) mg/dL POC Glucose (mg/dL) (75-99) mg/dL Alkaline Phosphatase (38-126) U/L Troponin I (0.000-0.034) ng/mL Ur Specific [place] 1.040 H (1.001-1.035) Urine Protein Trace H (Negative) Urine Opiates Screen Detected H (NotDetected) U Tricyclic Antidepress Detected H (NotDetected) U Benzodiazepines Scrn Detected H (NotDetected) 07/02/21 07/02/21 07/03/21 Range/Units 16:55 16:55 06:49 WBC (3.8-10.6) k/uL RBC (4.30-5.90) m/uL Hgb (13.0-17.5) gm/dL Hct (39.0-53.0) % Neutrophils # (1.3-7.7) k/uL APTT (22.0-30.0) sec Carbon Dioxide 21 L (22-30) mmol/L BUN 31 H (9-20) mg/dL Glucose 111 H (74-99) mg/dL POC Glucose (mg/dL) 170 H (75-99) mg/dL Alkaline Phosphatase 144 H (38-126) U/L Troponin I 0.039 H* (0.000-0.034) ng/mL Ur Specific [place] (1.001-1.035) Urine Protein (Negative) Urine Opiates Screen (NotDetected) U Tricyclic Antidepress (NotDetected) U Benzodiazepines Scrn (NotDetected) <KiranDeliogeminiwillard - Last Filed: 07/03/21 17:54> Objective - Vital Signs Vital signs: Vital Signs Temp 98.4 F 07/03/21 13:41 Pulse 64 07/03/21 13:41 Resp 18 07/03/21 13:41 BP 137/77 07/03/21 13:41 Pulse Ox 94 L 07/03/21 13:41 Intake & Output 07/02/21 07/03/21 07/03/21 18:59 06:59 18:59 Intake Total 220 Balance 220 Weight 99.79 kg 99.79 kg Intake: Oral 220 Other: # Voids 1 2 - Labs CBC & Chem 7: 07/03/21 07:05 07/03/21 07:05 Labs: Abnormal Lab Results - Last 24 Hours (Table) 07/02/21 07/02/21 07/02/21 Range/Units 16:55 16:55 16:55 WBC (4.50-10.00) X 10*3/uL RBC (4.40-5.60) X 10*6/uL Hgb (13.0-17.0) g/dL Hct (39.6-50.0) % MCHC (32.0-37.0) g/dL Immature Gran # (0.00-0.04) X 10*3/uL Neutrophils # (1.80-7.70) X 10*3/uL Carbon Dioxide 21 L (22-30) mmol/L BUN 31 H (9-20) mg/dL Glucose 111 H (74-99) mg/dL POC Glucose (mg/dL) (75-99) mg/dL Alkaline Phosphatase 144 H (38-126) U/L Troponin I 0.039 H* (0.000-0.034) ng/mL Ur Specific [place] 1.040 H (1.001-1.035) Urine Protein Trace H (Negative) Urine Opiates Screen Detected H (NotDetected) U Tricyclic Antidepress Detected H (NotDetected) U Benzodiazepines Scrn Detected H (NotDetected) 07/03/21 07/03/21 07/03/21 Range/Units 06:49 07:05 07:05 WBC 12.66 H (4.50-10.00) X 10*3/uL RBC 3.02 L (4.40-5.60) X 10*6/uL Hgb 8.8 L (13.0-17.0) g/dL Hct 28.6 L (39.6-50.0) % MCHC 30.8 L (32.0-37.0) g/dL Immature Gran # 0.07 H (0.00-0.04) X 10*3/uL Neutrophils # 10.10 H (1.80-7.70) X 10*3/uL Carbon Dioxide (22-30) mmol/L BUN 23 H (9-20) mg/dL Glucose 177 H (74-99) mg/dL POC Glucose (mg/dL) 170 H (75-99) mg/dL Alkaline Phosphatase (38-126) U/L Troponin I (0.000-0.034) ng/mL Ur Specific [place] (1.001-1.035) Urine Protein (Negative) Urine Opiates Screen (NotDetected) U Tricyclic Antidepress (NotDetected) U Benzodiazepines Scrn (NotDetected) 07/03/21 07/03/21 Range/Units 11:38 16:28 WBC (4.50-10.00) X 10*3/uL RBC (4.40-5.60) X 10*6/uL Hgb (13.0-17.0) g/dL Hct (39.6-50.0) % MCHC (32.0-37.0) g/dL Immature Gran # (0.00-0.04) X 10*3/uL Neutrophils # (1.80-7.70) X 10*3/uL Carbon Dioxide (22-30) mmol/L BUN (9-20) mg/dL Glucose (74-99) mg/dL POC Glucose (mg/dL) 183 H 125 H (75-99) mg/dL Alkaline Phosphatase (38-126) U/L Troponin I (0.000-0.034) ng/mL Ur Specific [place] (1.001-1.035) Urine Protein (Negative) Urine Opiates Screen (NotDetected) U Tricyclic Antidepress (NotDetected) U Benzodiazepines Scrn (NotDetected) Assessment and Plan Assessment: I reviewed the documentation as provided by the PADMA above, who is the original author of this note. I agree with the documented assessment and plan, with the following changes: 71-year-old man with a history of lumbar spinal fusion surgery, hypertension/diabetes/hyperlipidemia, COPD as a repeat admission due to delirium with agitation, as well as increased chronic back pain and multiple falls at home. Patient's altered mental status is thought secondary to polypharmacy, specifically [place] and Flexeril. During his last admission patient was started on Valium for back spasms which seemed to help significantly; however at that time I did discuss with his that Valium can also lead to confusion issues as well as falls and that his medications for his chronic back pain need to be balanced with his altered mental status and his gait instability. Patient returns with hyperactive delirium and agitation, as well as mild leukocytosis; however, his kidney function has significantly improved. Patient did have a CT lumbar spine which demonstrated possibly worsening L2-3 disc herniation as well as clear epidural scar tissue at L3-4. Plan: Regarding his pain control: we will treat conservatively with Tylenol, Motrin, lidocaine patch; we will resume his Valium 5 mg 3 times a day when necessary. However, we'll permanently discontinue [place]/Flexeril unless absolutely needed. If patient continues to have mentation issues, will discontinue Valium as well. Orthopedic surgery consultation to review imaging and discuss whether outpatient surgical intervention is warranted. Pain management consultation placed. Regarding his mentation: frequent reorientation, maintained day/night cycles, minimal interruptions at night. Rule out pneumonia or UTI with chest x-ray/UA. Ambulate 3 times a day.
[2021-07-03 11:44] LABS: Glucose,Whole Blood 183 mg/dL (75-99)
[2021-07-03] MEDS ORDERED: diazePAM 5 MG TAB PO PRN (12:51)
[2021-07-03] MEDS ORDERED: ONDANSETRON 4 MG/2 ML VIAL IVP PRN (12:52)
[2021-07-03 16:31] LABS: Glucose,Whole Blood 125 mg/dL (75-99)
[2021-07-03] MEDS ORDERED: IBUPROFEN 400 MG TAB PO PRN (17:53)
[2021-07-03] MEDS: LIDOCAINE 5% PATCH TOPICAL SCH (20:15)
[2021-07-03 20:45] LABS: Glucose,Whole Blood 154 mg/dL (75-99)
[2021-07-03] MEDS ORDERED: traZODone HCL 50 MG TAB PO PRN (21:00)
[2021-07-03] MEDS: ACETAMINOPHEN TAB 325 MG TAB PO PRN (21:01)
[2021-07-03] MEDS: ATORVASTATIN 20 MG TAB PO SCH (21:01)
[2021-07-03] MEDS: DONEPEZIL 5 MG TAB PO SCH (21:01)
--- NOTE | 2021-07-03 21:58 | XR ---
EXAMINATION: XR chest 1V DATE AND TIME: 07/03/2021 7:28 PM CLINICAL INDICATION: PHH; r/o PNA TECHNIQUE: AP portable upright COMPARISON: 06/29/2021 at 4:18 PM FINDINGS: Cardiac pacemaker and EKG leads noted. Moderately enlarged cardiac silhouette redemonstrated. There is a fine reticular pattern of increased attenuation throughout the lung parenchyma mildly silh ouetting the pulmonary vasculature symmetrically and bilaterally. This pattern is more conspicuous on the present study, and can correlate with a clinical diagnosis of mild interstitial phase pulmonary edema. No focal lung findings. The pleural spaces are negative. The skeletal structures and soft tissues are negative for acute findings. IMPRESSION: Mild interstitial phase pulmonary edema radiographic pattern.
[2021-07-04] MEDS: HEPARIN SODIUM,PORCINE/PF 5,000 UNIT/0.5 ML SYRINGE SQ SCH ×4 (00:16→23:57)
[2021-07-04] MEDS: INSULIN ASPART (NovoLOG) 100 UNIT/ML VIAL SQ SCH ×4 (07:03→20:15)
[2021-07-04 07:08] LABS: Glucose,Whole Blood 116 mg/dL (75-99)
[2021-07-04 07:08] LABS: African American GFR (CKD) >90 (>60 ml/min/1.73 sqM); Anion Gap 9 mmol/L; Blood Urea Nitrogen 19 mg/dL (9-20); Calcium 10.4 mg/dL (8.4-10.2); Carbon Dioxide 29 mmol/L (22-30); Chloride 101 mmol/L (98-107); Glucose 141 mg/dL (74-99); Magnesium 1.7 mg/dL (1.6-2.3); Non-African American GFR(CKD) >90 (>60 ml/min/1.73 sqM); Potassium 4.4 mmol/L (3.5-5.1); Sodium 139 mmol/L (137-145)
[2021-07-04] MEDS: SYMBICORT 80-4.5 MCG INHALER INHALATION SCH ×2 (07:41→17:21)
[2021-07-04] MEDS: LIDOCAINE 5% PATCH TOPICAL SCH (08:11)
[2021-07-04] MEDS: METOPROLOL TARTRATE 25 MG TAB PO SCH ×2 (08:12→16:05)
[2021-07-04] MEDS: VENLAFAXINE HCL ER 150 MG CAP PO SCH (08:12)
[2021-07-04] MEDS: amLODIPine 2.5 MG TAB PO SCH (08:12)
[2021-07-04] MEDS: lisinopriL 10 MG TAB PO SCH (08:12)
[2021-07-04] MEDS: ASPIRIN 81 MG PO SCH (08:12)
--- NOTE | 2021-07-04 08:19 | P.CNOR ---
History of Present Illness - [facility] Consult date: 07/04/21 Consult reason: other History of present illness: Patient is a is a 71-year-old male who is somewhat confused at bedside he is seen and examined today. He is known to our service as he had prior anterior cervical spine surgery in September 2020. He had had a history of cervical myelopathy and underwent surgical intervention as per his note anterior cervical fusion in September 2020. In the past he has also had lumbar surgery done at an outside institution, he does not remember where that procedure was performed. Apparently patient has been having some increased confusion and repetitive falling. He is confused and is very poor historian. Per his notes he has been at [facility] but site himself out of [place] and then restarted some narcotics at home and has had repetitive falls. He denies new neck pain. He says his legs give him some problems when he tries to move around. Currently denies pain. De nies new changes in his lower extremities. He says his back hurts when he tries to mobilize. Review of Systems As stated per HPI. Denies any chest pain short spiral. Denies any fevers chills. Denies changes bowel bladder function. Past Medical History Past Medical History: COPD, Diabetes Mellitus, Hyperlipidemia, Hypertension, Osteoarthritis (OA), Sleep Apnea/CPAP/BIPAP Additional Past Medical History / Comment(s): PACEMAKER. Uses CPAP. 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 Taking Aricept on a trial basis for slight memory loss. History of anterior cervical decompression and fusion in September 2020 with our service. History of lumbar decompression at outside institution History of Any Multi-Drug Resistant Organisms: None Reported Past Surgical History: Appendectomy, Back Surgery, Heart Catheterization With Stent, Pacemaker Additional Past Surgical History / Comment(s): Oral surg. COLONOSCOPY. GENERATOR CHANGE 2017, lumbar myelogram, neck fusion; heart caths with stents x 2 (at least) Past Anesthesia/Blood Transfusion Reactions: No Reported Reaction Date of Last Stent Placement:: 2006 Type of Cardiac Device: Permanent Pacemaker Device Placement Date:: 2008 Past Psychological History: No Psychological Hx Reported Smoking Status: Former smoker Past Alcohol Use History: Occasional Additional Past Alcohol Use History / Comment(s): Smoked since teens, 1 /2 PPD, has not smoked since May Past Drug Use History: None Reported - Past Family History Mother Family Medical History: Cancer Brother(s) Family Medical History: Cancer Medications and Allergies Home Medications Medication Instructions Recorded Confirmed Type Metoprolol Tartrate [Lopressor] 25 mg PO BID@0800,1700 12/02/16 07/02/21 History Venlafaxine HCl [Effexor XR] 150 mg PO DAILY@0800 12/02/16 07/02/21 History Umeclidinium [place] [Incruse 1 puff INHALATION RT-DAILY@0800 09/22/18 07/02/21 History Ellipta] lisinopriL [Zestril] 10 mg PO DAILY@0800 09/22/18 07/02/21 History Albuterol Sulfate [Proair Hfa] 1 - 2 puff INHALATION RT-Q6H PRN 06/07/20 07/02/21 History Aspirin [Adult Low Dose Aspirin EC] 81 mg PO DAILY@0800 06/07/20 07/02/21 History Dicyclomine [Bentyl] 20 mg PO TID PRN 06/07/20 07/02/21 History Fluticasone/Salmeterol [Advair Hfa 1 puff INHALATION RT-BID@0800,1700 06/07/20 07/02/21 History 45-21 Mcg Inhaler] Loperamide [Imodium] 2 mg PO BID@0800,1700 06/07/20 07/02/21 History Omeprazole 20 mg PO DAILY@0800 06/07/20 07/02/21 History Albuterol Nebulized [Ventolin 2.5 mg INHALATION RT-TID PRN 09/16/20 07/02/21 History Nebulized] Atorvastatin Calcium [Lipitor] 20 mg PO HS@209910/12/20 07/02/21 History metFORMIN HCL ER [Glucophage XR] 1,000 mg PO HS@209910/12/20 07/02/21 History Donepezil HCl [Aricept] 5 mg PO HS@209912/19/20 07/02/21 History amLODIPine [Norvasc] 2.5 mg PO DAILY@0800 06/29/21 07/02/21 History glipiZIDE XL [Glucotrol XL] 5 mg PO HS@209906/29/21 07/02/21 History traZODone HCL 50 mg PO HS PRN 06/29/21 07/02/21 History Acetaminophen Tab [Tylenol] 650 mg PO Q6HR PRN tab 07/01/21 07/02/21 Rx Cyclobenzaprine [Flexeril] 5 mg PO TID PRN tab 07/01/21 07/02/21 Rx HYDROcodone/APAP 7.5-325MG [[place] 1 tab PO Q4H PRN #18 tab 07/01/21 07/02/21 Rx 7.5-325] diazePAM [Valium] 5 mg PO TID PRN #15 tab 07/01/21 07/02/21 Rx Magnesium Hydroxide [Milk of 7,200 mg PO DAILY PRN 07/02/21 07/02/21 History Magnesia Concentrate] Na Phos,M-B/Na Phos,Di-Ba [Fleet 133 ml RECTAL DAILY PRN 07/02/21 07/02/21 History Adult] bisacodyL [Dulcolax] 10 mg RECTAL DAILY PRN 07/02/21 07/02/21 History Allergies Allergy/AdvReac Type Severity Reaction Status Date / Time No Known Allergies Allergy Verified 07/02/21 17:07 Physical Examination Osteopathic Statement: *. No significant issues noted on an osteopathic structural exam other than those noted in the History and Physical/Consult. Results - Labs Labs: Abnormal Lab Results - Last 24 Hours (Table) 07/03/21 07/03/21 07/03/21 Range/Units 07:05 07:05 11:38 WBC 12.66 H (4.50-10.00) X 10*3/uL RBC 3.02 L (4.40-5.60) X 10*6/uL Hgb 8.8 L (13.0-17.0) g/dL Hct 28.6 L (39.6-50.0) % MCHC 30.8 L (32.0-37.0) g/dL Immature Gran # 0.07 H (0.00-0.04) X 10*3/uL Neutrophils # 10.10 H (1.80-7.70) X 10*3/uL BUN 23 H (9-20) mg/dL Creatinine (0.66-1.25) mg/dL Glucose 177 H (74-99) mg/dL POC Glucose (mg/dL) 183 H (75-99) mg/dL Calcium (8.4-10.2) mg/dL 07/03/21 07/03/21 07/04/21 Range/Units 16:28 20:43 06:38 WBC (4.50-10.00) X 10*3/uL RBC (4.40-5.60) X 10*6/uL Hgb (13.0-17.0) g/dL Hct (39.6-50.0) % MCHC (32.0-37.0) g/dL Immature Gran # (0.00-0.04) X 10*3/uL Neutrophils # (1.80-7.70) X 10*3/uL BUN (9-20) mg/dL Creatinine 0.65 L (0.66-1.25) mg/dL Glucose 141 H (74-99) mg/dL POC Glucose (mg/dL) 125 H 154 H (75-99) mg/dL Calcium 10.4 H (8.4-10.2) mg/dL 07/04/21 Range/Units 07:00 WBC (4.50-10.00) X 10*3/uL RBC (4.40-5.60) X 10*6/uL Hgb (13.0-17.0) g/dL Hct (39.6-50.0) % MCHC (32.0-37.0) g/dL Immature Gran # (0.00-0.04) X 10*3/uL Neutrophils # (1.80-7.70) X 10*3/uL BUN (9-20) mg/dL Creatinine (0.66-1.25) mg/dL Glucose (74-99) mg/dL POC Glucose (mg/dL) 116 H (75-99) mg/dL Calcium (8.4-10.2) mg/dL H & H 07/02/21 07/03/21 Range/Units 16:55 07:05 Hgb 9.6 L 8.8 L (13.0-17.5) gm/dL Hct 30.4 L 28.6 L (39.0-53.0) % Coagulation 07/02/21 Range/Units 16:55 INR 1.0 (<1.2) Result Diagrams: 07/03/21 07:05 07/04/21 06:38 - Diagnostic results CT Scan - lumbar: report reviewed, image reviewed (Prior laminectomy decompression appears to be L1 to L2-3 and L3 4, severe disc degeneration at multiple levels) Assessment and Plan Assessment: Repetitive falls and confusion History of cervical myelopathy status post anterior cervical decompression and fusion in September 2020 which appears stable History of lumbar decompression at outside institution No acute new neurologic deficit at the lower extremities or upper extremities Confusion possibly due to narcotic use Plan: Repetitive falls and confusion History of cervical myelopathy status post anterior cervical decompression and fusion in September 2020 which appears stable History of lumbar decompression at outside institution No acute new neurologic deficit at the lower extremities or upper extremities Confusion possibly due to narcotic use I do not see an acute new instability patient's spine currently. He has si gnificant confusion and may have some dementia and she is exacerbated with his narcotic use. I agree with continued management as per medicine and holding narcotics. I do not have any acute plans for further surgical intervention at this point. He may have some benefit with physical therapy. He may have some benefit with using a brace for his lumbar spine and we will order an LSO for him when he is out of bed.
[2021-07-04] MEDS ORDERED: tiZANidine 4 MG TAB PO PRN (09:36)
[2021-07-04 09:41] LABS: HGB 9.3 g/dL (13.0-17.0); MCH 29.2 pg (27.0-32.0); Mean Platelet Volume 10.2 fL (9.5-12.2); Platelet Count 334 X 10*3/uL (140-440); RBC 3.19 X 10*6/uL (4.40-5.60); RDW 13.9 % (11.5-14.5); WBC 12.17 X 10*3/uL (4.50-10.00)
[2021-07-04] MEDS ORDERED: MELOXICAM 7.5 MG TAB PO ONE (09:42)
--- NOTE | 2021-07-04 10:40 | P.PAINCN ---
History of Present Illness - Reason for Consult Consult date: 07/04/21 - Chief Complaint lumbar back pain - History of Present Illness Mr. Simms is a 71-year-old mildly confused male lying down on the bed consulted for pain medication adjustment. Patient had a history of lower lumbar back surgery on 05/12/2021, also patient had a history of anterior cervical fusion De 2009. patient had history of multiple falls recently and confusion after lumbar back surgery. As per RN his was unable to take care of him at home. today patient is described his pain is aching, throbbing type mostly in lower lumbar area over the surgical incision area. Patient denied any pain radiating to lower extremities. Per patient is using a walker for support to walk. He denied any red flex symptoms including bowel/bladder problems. Denied any weakness in his lower extremities. Patient denied any side effects of the medication. Patient denied any suicidal tendency/homicidal tendency at this time. Review of Systems Constitutional: Denies chills, Denies fever Ears, nose, mouth and throat: Denies headache, Denies sore throat Cardiovascular: Denies chest pain, Denies shortness of breath Respiratory: Denies cough Gastrointestinal: Denies abdominal pain, Denies diarrhea, Denies nausea, Denies vomiting Musculoskeletal: Reports frequent falls, Reports gait dysfunction, Reports low back pain, Reports muscle weakness, Reports myalgias Neurological: Reports confusion, Reports weakness, Denies numbness Endocrine: Denies fatigue, Denies weight change Allergic/Immunologic: Denies as per HPI, Denies allergic rhinitis, Denies anaphylaxis, Denies angioedema, Denies gluten intolerance, Denies persistent infections, Denies seasonal allergies, Denies urticaria, Denies wheezing Past Medical History Past Medical History: COPD, Diabetes Mellitus, Hyperlipidemia, Hypertension, Osteoarthritis (OA), Sleep Apnea/CPAP/BIPAP Additional Past Medical History / Comment(s): PACEMAKER. Uses CPAP. 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 Taking Aricept on a trial basis for slight memory loss. History of anterior cervical decompression and fusion in September 2020 with our service. History of lumbar decompression at outside institution History of Any Multi-Drug Resistant Organisms: None Reported Past Surgical History: Appendectomy, Back Surgery, Heart Catheterization With Stent, Pacemaker Additional Past Surgical History / Comment(s): Oral surg. COLONOSCOPY. GENERATOR CHANGE 2016, lumbar myelogram, neck fusion; heart caths with stents x 2 (at least) Past Anesthesia/Blood Transfusion Reactions: No Reported Reaction Date of Last Stent Placement:: 2006 Type of Cardiac Device: Permanent Pacemaker Device Placement Date:: 2008 Past Psychological History: No Psychological Hx Reported Smoking Status: Former smoker Past Alcohol Use History: Occasional Additional Past Alcohol Use History / Comment(s): Smoked since teens, 1 10/05 PPD, has not smoked since May Past Drug Use History: None Reported - Past Family History Mother Family Medical History: Cancer Brother(s) Family Medical History: Cancer Medications and Allergies Home Medications Medication Instructions Recorded Confirmed Type Metoprolol Tartrate [Lopressor] 25 mg PO BID@0800,1700 12/02/16 07/02/21 History Venlafaxine HCl [Effexor XR] 150 mg PO DAILY@0800 12/02/16 07/02/21 History Umeclidinium [place] [Incruse 1 puff INHALATION RT-DAILY@0800 09/22/18 07/02/21 History Ellipta] lisinopriL [Zestril] 10 mg PO DAILY@0800 09/22/18 07/02/21 History Albuterol Sulfate [Proair Hfa] 1 - 2 puff INHALATION RT-Q6H PRN 06/07/20 07/02/21 History Aspirin [Adult Low Dose Aspirin EC] 81 mg PO DAILY@0800 06/07/20 07/02/21 History Dicyclomine [Bentyl] 20 mg PO TID PRN 06/07/20 07/02/21 History Fluticasone/Salmeterol [Advair Hfa 1 puff INHALATION RT-BID@0800,1700 06/07/20 07/02/21 History 45-21 Mcg Inhaler] Loperamide [Imodium] 2 mg PO BID@0800,1700 06/07/20 07/02/21 History Omeprazole 20 mg PO DAILY@0800 06/07/20 07/02/21 History Albuterol Nebulized [Ventolin 2.5 mg INHALATION RT-TID PRN 09/16/20 07/02/21 History Nebulized] Atorvastatin Calcium [Lipitor] 20 mg PO HS@209910/12/20 07/02/21 History metFORMIN HCL ER [Glucophage XR] 1,000 mg PO HS@209910/12/20 07/02/21 History Donepezil HCl [Aricept] 5 mg PO HS@209912/19/20 07/02/21 History amLODIPine [Norvasc] 2.5 mg PO DAILY@0800 06/29/21 07/02/21 History glipiZIDE XL [Glucotrol XL] 5 mg PO HS@209906/29/21 07/02/21 History traZODone HCL 50 mg PO HS PRN 06/29/21 07/02/21 History Acetaminophen Tab [Tylenol] 650 mg PO Q6HR PRN tab 07/01/21 07/02/21 Rx Cyclobenzaprine [Flexeril] 5 mg PO TID PRN tab 07/01/21 07/02/21 Rx HYDROcodone/APAP 7.5-325MG [[place] 1 tab PO Q4H PRN #18 tab 07/01/21 07/02/21 Rx 7.5-325] diazePAM [Valium] 5 mg PO TID PRN #15 tab 07/01/21 07/02/21 Rx Magnesium Hydroxide [Milk of 7,200 mg PO DAILY PRN 07/02/21 07/02/21 History Magnesia Concentrate] Na Phos,M-B/Na Phos,Di-Ba [Fleet 133 ml RECTAL DAILY PRN 07/02/21 07/02/21 History Adult] bisacodyL [Dulcolax] 10 mg RECTAL DAILY PRN 07/02/21 07/02/21 History Allergies Allergy/AdvReac Type Severity Reaction Status Date / Time No Known Allergies Allergy Verified 07/02/21 17:07 Physical Exam Vitals: Vital Signs Temp Pulse Resp BP Pulse Ox 07/04/21 08:12 60 17 07/04/21 07:30 97.9 F 60 17 165/95 97 07/04/21 00:21 97.5 F L 61 17 112/73 93 L 07/03/21 19:25 60 16 07/03/21 19:01 98.2 F 60 16 150/75 95 07/03/21 13:41 98.4 F 64 18 137/77 94 L 07/03/21 11:44 97.5 F L 67 148/81 94 L Intake and Output 07/03/21 07/04/21 07/04/21 22:59 06:59 14:59 Output Total 400 Balance -400 Output: Urine 400 Other: Voiding Method Bedpan Bedpan Urinal Urinal # Voids 2 1 # Bowel Movements 1 1-Constitutional : Cooperative , not in acute distress . . 2- Respiratory : Chest clear to auscultations Bilaterally , wheezing , no Rhonchi . 3 - Cardiovascular : regular rate and rhythem 4- Gastrointestinal: abdomen soft no tenderness , bowel sounds positive all four quadrents 5-Integumentary : No cellulitis , no ulcers , normal skin turgor , no cyanotic . 6- neurologic : no focal neurological deffecit . 7 -psychatric : oriented X 2, confused exams of the Lumber spine = Unable to perform complete examination secondary to patient cooperation.And difficulty Moving. healed lumbar scar. positive lumber facet Loading Test ( tenderness over the facet joint lumber area ) . no tenderness over the SI joint. Results CBC & Chem 7: 07/04/21 06:38 07/04/21 06:38 Labs: Abnormal Lab Results - Last 24 Hours (Table) 07/03/21 07/03/21 07/03/21 Range/Units 07:05 11:38 16:28 WBC 12.66 H (4.50-10.00) X 10*3/uL RBC 3.02 L (4.40-5.60) X 10*6/uL Hgb 8.8 L (13.0-17.0) g/dL Hct 28.6 L (39.6-50.0) % MCHC 30.8 L (32.0-37.0) g/dL Immature Gran # 0.07 H (0.00-0.04) X 10*3/uL Neutrophils # 10.10 H (1.80-7.70) X 10*3/uL Creatinine (0.66-1.25) mg/dL Glucose (74-99) mg/dL POC Glucose (mg/dL) 183 H 125 H (75-99) mg/dL Calcium (8.4-10.2) mg/dL 07/03/21 07/04/21 07/04/21 Range/Units 20:43 06:38 06:38 WBC 12.17 H (4.50-10.00) X 10*3/uL RBC 3.19 L (4.40-5.60) X 10*6/uL Hgb 9.3 L (13.0-17.0) g/dL Hct 30.0 L (39.6-50.0) % MCHC 31.0 L (32.0-37.0) g/dL Immature Gran # (0.00-0.04) X 10*3/uL Neutrophils # (1.80-7.70) X 10*3/uL Creatinine 0.65 L (0.66-1.25) mg/dL Glucose 141 H (74-99) mg/dL POC Glucose (mg/dL) 154 H (75-99) mg/dL Calcium 10.4 H (8.4-10.2) mg/dL 07/04/21 Range/Units 07:00 WBC (4.50-10.00) X 10*3/uL RBC (4.40-5.60) X 10*6/uL Hgb (13.0-17.0) g/dL Hct (39.6-50.0) % MCHC (32.0-37.0) g/dL Immature Gran # (0.00-0.04) X 10*3/uL Neutrophils # (1.80-7.70) X 10*3/uL Creatinine (0.66-1.25) mg/dL Glucose (74-99) mg/dL POC Glucose (mg/dL) 116 H (75-99) mg/dL Calcium (8.4-10.2) mg/dL Assessment and Plan Assessment: acute on chronic low lumbar back pain myofascial pain syndrome Status post lumbar back surgery Anterior cervical fusion history of frequent falls, and confusion Plan: Treatment plan, and long-term consequences discussed with patient, and RN taking care of the patient. Given history of confusion and frequent falls recommended to consult physical therapy, neurology. Given history of confusion at this time recommended to discontinue narcotic medications until his mental clarity improved/rule out the underlying cause for the confusion. Medications: #1 Tylenol extended 650 mg by mouth every 6 hours total dose not more than 3 g per day #2 mobic 15 mg by mouth daily recommended to drink plenty of water to minimize kidney insult, and recommended to take after food intake to minimize gastric irritation. #3 Zanaflex 2 mg by mouth every 8 hours as needed for muscle spasms #4 lidocaine 5% patch applied over the affected lumbar area every 12 hours on, and every 12 hours off Interventional procedures: No intervention procedure at this time as patient has recent surgery for his lo wer lumbar area. Thank you for consulting anesthesia pain services. Please feel free to contact if you have any questions regarding patient care management. Patient can follow up with outpatient pain clinic as needed in future . Time with Patient: Greater than 30 PQRS Measure Charge Sheet - Pain Location Back Pharmacological Interventions: PRN Medication, Scheduled Medication Pain Comment: SEE MAR PQRS Narrative: Smoking Status Current every day smoker Do You Want the Pneumonia Vaccine Up to Date Vaccine AT THIS TIME? Blood Pressure [Right Arm] 165/95 Blood Pressure 127/96 Pain Intensity [Back] 5 Pain Intensity 5 Pain Scale Used Numeric (1 - 10) Scale Used Numeric (1 - 10) Home Medications: Ambulatory Orders Metoprolol Tartrate [Lopressor] 25 mg PO BID@0800,169912/02/16 Venlafaxine HCl [Effexor XR] 150 mg PO DAILY@79912/02/16 Umeclidinium [place] [Incruse Ellipta] 1 puff INHALATION RT-DAILY@79909/22/18 lisinopriL [Zestril] 10 mg PO DAILY@79909/22/18 Albuterol Sulfate [Proair Hfa] 1 - 2 puff INHALATION RT-Q6H PRN 06/07/20 Aspirin [Adult Low Dose Aspirin EC] 81 mg PO DAILY@79906/07/20 Dicyclomine [Bentyl] 20 mg PO TID PRN 06/07/20 Fluticasone/Salmeterol [Advair Hfa 45-21 Mcg Inhaler] 1 puff INHALATION RT- BID@0800,169906/07/20 Loperamide [Imodium] 2 mg PO BID@0800,169906/07/20 Omeprazole 20 mg PO DAILY@79906/07/20 Albuterol Nebulized [Ventolin Nebulized] 2.5 mg INHALATION RT-TID PRN 09/16/20 Atorvastatin Calcium [Lipitor] 20 mg PO HS@209910/12/20 metFORMIN HCL ER [Glucophage XR] 1,000 mg PO HS@209910/12/20 Donepezil HCl [Aricept] 5 mg PO HS@209912/19/20 amLODIPine [Norvasc] 2.5 mg PO DAILY@0800 06/29/21 glipiZIDE XL [Glucotrol XL] 5 mg PO HS@209906/29/21 traZODone HCL 50 mg PO HS PRN 06/29/21 Acetaminophen Tab [Tylenol] 650 mg PO Q6HR PRN tab 07/01/21 Cyclobenzaprine [Flexeril] 5 mg PO TID PRN tab 07/01/21 HYDROcodone/APAP 7.5-325MG [[place] 7.5-325] 1 tab PO Q4H PRN #18 tab 07/01/21 diazePAM [Valium] 5 mg PO TID PRN #15 tab 07/01/21 Magnesium Hydroxide [Milk of Magnesia Concentrate] 7,200 mg PO DAILY PRN 07/02/21 Na Phos,M-B/Na Phos,Di-Ba [Fleet Adult] 133 ml RECTAL DAILY PRN 07/02/21 bisacodyL [Dulcolax] 10 mg RECTAL DAILY PRN 07/02/21
[2021-07-04] MEDS: ACETAMINOPHEN TAB 325 MG TAB PO PRN ×2 (10:50→16:05)
[2021-07-04 11:52] LABS: Glucose,Whole Blood 137 mg/dL (75-99)
--- NOTE | 2021-07-04 14:27 | P.PN ---
<Mazin Cerna - Last Filed: 07/04/21 14:21> Subjective Progress Note Date: 07/04/21 Hospital course: Patient is a 71-year-old male with a past medical history of hypertension, hyp erlipidemia, COPD, diabetes mellitus type 2, and chronic lower back pain status post laminectomy on 05/12/21. Patient sent to ER on 07/02/21 from [facility] secondary to alteration in mental status and fall. Patient was seen and fully evaluated in the emergency department. X-ray pelvis negative for acute fracture or abnormalities. CT lumbar spine reporting epidural scarring at L3 through L4 with L2 through 3 posterior disc herniation and possibly increased in size when compared to prior CT. He was found to have slightly elevated troponin, these were trended and remained flat at 0.039, 0.031, and 0.031. EKG revealing an atrial paced rhythm at 60 bpm with a right bundle branch block. Patient was admitted to our services for delirium, increased falls, and failure to thrive. Pain management and orthopedic surgery following. Physical examination: Patient was seen and fully evaluated at bedside this morning. He is back to baseline mentation being alert to person, place, time, and situation. He denies having any complaints or concerns this morning including headache, lightheadedness, dizziness, chest pain, palpitations, shortness of breath, or experiencing numbness/tingling/weakness in his extremities. Patient reports improvement in left hip pain and states lower back pain controlled at this time. Vital signs reviewed and stable. General: Nontoxic, no distress and appears stated age. Derm: Skin warm and dry, normal coloration for ethnicity. Head: Atraumatic, normocephalic and symmetric. Eyes: EOMs intact, no lid lag, and anicteric sclera Mouth: no lip lesions, mucus membranes moist Cardiovascular: regular rate and rhythm with normal S1S2, no murmur, positive posterior tibial pulses bilaterally, and cap refill < 2 seconds. Lungs: Respirations even, regular, and unlabored on room air. Lungs CTA bilaterally, no rhonchi, no rales, no wheezing, and no accessory muscle usage. GI/: soft, nontender to palpation, no guarding, no appreciable organomegaly. Brief in place. Ext: ROM intact. No gross muscle atrophy, no edema, no contractures Neuro: Speech clear,GCS 15. face symmetrical and CN II-XII grossly intact with no noted focal neuro deficits Psych: Alert and oriented to person, place, time, and situation. Assessment/Plan Delirium, resolved Increased falls with failure to thrive Chronic lower back pain status post laminectomy on 05/22/21 -Delirium Suspected secondary to opiate use/polypharmacy vs worsening dementia. -X-ray pelvis negative for acute fracture or abnormalities. -CT lumbar spine reporting epidural scarring at L3 through L4 with L2 through 3 posterior disc herniation and possibly increased in size when compared to prior CT -Continue to hold Flexeril and [place] at this time. -Continue with Tylenol for pain management -K pad and supportive measures -Pain management consulted, started patient on Mobic Orthopedic surgery consulted recommending LSO brace. Elevated troponin, acute coronary event ruled out -Patient is denying chest discomfort or shortness of breath -Slightly elevated troponin, these were trended and remained flat at 0.039, 0.031, and 0.031. -EKG revealing an atrial paced rhythm at 60 bpm with a right bundle branch block -Continue telemetry monitoring Leukocytosis -At baseline -We will continue to monitor with repeat a.m. labs. Normocytic anemia -At baseline -We will continue to monitor with repeat a.m. labs. Hypertension Monitor vital signs and continue daily medication regimen with amlodipine, lisinopril and metoprolol. Hyperlipidemia Continue daily medication regimen with atorvastatin 20 mg nightly. COPD -Continue daily medication regimen with Symbicort twice daily and when necessary Ventolin inhaler Dementia Continue daily medication regimen with Aricept CODE STATUS: Full Code DVT prophylaxis: Heparin Discussed with: Patient and RN Anticipated discharge date: Plans for discharge back to [facility] tomorrow Anticipated discharge place: [facility] A total of 40 minutes was spent on the care of this complex patient more than 50% of the time was spent in counseling and care coordination. Objective - Vital Signs Vital signs: Vital Signs Temp 97.9 F 07/04/21 07:30 Pulse 60 07/04/21 07:30 Resp 17 07/04/21 07:30 BP 165/95 07/04/21 07:30 Pulse Ox 97 07/04/21 07:30 Intake & Output 07/03/21 07/04/21 07/04/21 18:59 06:59 18:59 Output Total 400 Balance -400 Output: Urine 400 Other: Voiding Method Bedpan Urinal # Voids 2 1 # Bowel Movements 1 - Labs CBC & Chem 7: 07/04/21 06:38 07/04/21 06:38 Labs: Abnormal Lab Results - Last 24 Hours (Table) 07/03/21 07/03/21 07/03/21 Range/Units 07:05 07:05 11:38 WBC 12.66 H (4.50-10.00) X 10*3/uL RBC 3.02 L (4.40-5.60) X 10*6/uL Hgb 8.8 L (13.0-17.0) g/dL Hct 28.6 L (39.6-50.0) % MCHC 30.8 L (32.0-37.0) g/dL Immature Gran # 0.07 H (0.00-0.04) X 10*3/uL Neutrophils # 10.10 H (1.80-7.70) X 10*3/uL BUN 23 H (9-20) mg/dL Creatinine (0.66-1.25) mg/dL Glucose 177 H (74-99) mg/dL POC Glucose (mg/dL) 183 H (75-99) mg/dL Calcium (8.4-10.2) mg/dL 07/03/21 07/03/21 07/04/21 Range/Units 16:28 20:43 06:38 WBC (4.50-10.00) X 10*3/uL RBC (4.40-5.60) X 10*6/uL Hgb (13.0-17.0) g/dL Hct (39.6-50.0) % MCHC (32.0-37.0) g/dL Immature Gran # (0.00-0.04) X 10*3/uL Neutrophils # (1.80-7.70) X 10*3/uL BUN (9-20) mg/dL Creatinine 0.65 L (0.66-1.25) mg/dL Glucose 141 H (74-99) mg/dL POC Glucose (mg/dL) 125 H 154 H (75-99) mg/dL Calcium 10.4 H (8.4-10.2) mg/dL 07/04/21 Range/Units 07:00 WBC (4.50-10.00) X 10*3/uL RBC (4.40-5.60) X 10*6/uL Hgb (13.0-17.0) g/dL Hct (39.6-50.0) % MCHC (32.0-37.0) g/dL Immature Gran # (0.00-0.04) X 10*3/uL Neutrophils # (1.80-7.70) X 10*3/uL BUN (9-20) mg/dL Creatinine (0.66-1.25) mg/dL Glucose (74-99) mg/dL POC Glucose (mg/dL) 116 H (75-99) mg/dL Calcium (8.4-10.2) mg/dL <Gisela Boone - Last Filed: 07/04/21 15:12> Subjective Mazin Cerna NP rendered care for this patient independently, reviewed the findings and plan as documented in the note above. I did not physically speak with or examine the patient on this date. Objective - Vital Signs Vital signs: Vital Signs Temp 98.5 F 07/04/21 14:00 Pulse 59 L 07/04/21 14:00 Resp 18 07/04/21 14:00 BP 90/54 07/04/21 14:00 Pulse Ox 99 07/04/21 14:00 Intake & Output 07/03/21 07/04/21 07/04/21 18:59 06:59 18:59 Output Total 400 Balance -400 Output: Urine 400 Other: Voiding Method Bedpan Bedpan Urinal Urinal # Voids 2 1 1 # Bowel Movements 1 1 - Labs CBC & Chem 7: 07/04/21 06:38 07/04/21 06:38 Labs: Abnormal Lab Results - Last 24 Hours (Table) 07/03/21 07/03/21 07/04/21 Range/Units 16:28 20:43 06:38 WBC 12.17 H (4.50-10.00) X 10*3/uL RBC 3.19 L (4.40-5.60) X 10*6/uL Hgb 9.3 L (13.0-17.0) g/dL Hct 30.0 L (39.6-50.0) % MCHC 31.0 L (32.0-37.0) g/dL Creatinine (0.66-1.25) mg/dL Glucose (74-99) mg/dL POC Glucose (mg/dL) 125 H 154 H (75-99) mg/dL Calcium (8.4-10.2) mg/dL 07/04/21 07/04/21 07/04/21 Range/Units 06:38 07:00 11:50 WBC (4.50-10.00) X 10*3/uL RBC (4.40-5.60) X 10*6/uL Hgb (13.0-17.0) g/dL Hct (39.6-50.0) % MCHC (32.0-37.0) g/dL Creatinine 0.65 L (0.66-1.25) mg/dL Glucose 141 H (74-99) mg/dL POC Glucose (mg/dL) 116 H 137 H (75-99) mg/dL Calcium 10.4 H (8.4-10.2) mg/dL
[2021-07-04 16:32] LABS: Glucose,Whole Blood 107 mg/dL (75-99)
[2021-07-04 20:12] LABS: Glucose,Whole Blood 119 mg/dL (75-99)
[2021-07-04] MEDS: DONEPEZIL 5 MG TAB PO SCH (20:17)
[2021-07-04] MEDS: ATORVASTATIN 20 MG TAB PO SCH (20:17)
[2021-07-05] MEDS: ACETAMINOPHEN TAB 325 MG TAB PO PRN ×2 (04:11→10:51)
[2021-07-05 05:51] VITALS: PULSE 73
[2021-07-05 07:08] LABS: Glucose,Whole Blood 113 mg/dL (75-99)
[2021-07-05] MEDS: INSULIN ASPART (NovoLOG) 100 UNIT/ML VIAL SQ SCH ×2 (07:34→11:30)
[2021-07-05] MEDS: SYMBICORT 80-4.5 MCG INHALER INHALATION SCH (07:41)
[2021-07-05] MEDS: amLODIPine 2.5 MG TAB PO SCH (07:53)
[2021-07-05] MEDS: ASPIRIN 81 MG PO SCH (07:53)
[2021-07-05] MEDS: METOPROLOL TARTRATE 25 MG TAB PO SCH (07:53)
[2021-07-05] MEDS: lisinopriL 10 MG TAB PO SCH (07:53)
[2021-07-05] MEDS: VENLAFAXINE HCL ER 150 MG CAP PO SCH (07:53)
[2021-07-05] MEDS: LIDOCAINE 5% PATCH TOPICAL SCH (07:54)
[2021-07-05] MEDS: HEPARIN SODIUM,PORCINE/PF 5,000 UNIT/0.5 ML SYRINGE SQ SCH (07:54)
[2021-07-05 08:43] VITALS: BP 145/88; RESP 19; TEMP 97.8
[2021-07-05] MEDS ORDERED: MELOXICAM 7.5 MG TAB PO SCH (09:00)
[2021-07-05 11:26] LABS: Glucose,Whole Blood 209 mg/dL (75-99)
--- NOTE | 2021-07-05 12:37 | P.PN ---
Progress Note - Text Progress Note Date: 07/05/21 The patient is seen and examined at bedside. His is present with him. He feels he is getting slightly more clear in his thinking but is still significantly confused. He continues to be a poor historian. He is making some small progress with his mobility but he is still very shaky on his legs. Assessment and plan 8 weeks status post laminectomy decompression performed by Dr. Archer at [facility] Gait instability Dementia Altered mental status due to narcotics The patient couldn't continue his physical therapy weightbearing as tolerated. He says significant issues in his lower extremities. He is a week status post laminectomy and decompression performed by Dr Archer at [facility]. He is actually following up with him and is still in his immediate postoperative period. He should continue with his follow-up with him after he leaves the hospital. He should manage his lumbar issues as per Dr Archer. I do not have any acute surgical and dementia plan at this point as he is not having further neurologic decline. He is quite shaky on his legs and should continue with his therapy. He should continue with his medical management and pain control trying to avoid narcotics as this does make him further confused.
--- NOTE | 2021-07-05 13:21 | P.DS ---
Providers Date of admission: 07/02/21 20:44 Expected date of discharge: 07/05/21 Attending physician: Leonel Maldonado MD Consults: 07/03/21 01:21 Consult Physician Urgent Consulting Provider: Addison Tate Consult Reason/Comments: Chronic LBP Do you want consulting provider notified?: Yes 07/03/21 15:34 Consult Physician Routine Consulting Provider: Florencio Esparza Consult Reason/Comments: recent laminectomy CT revealing postsurgical changes w/ increased herniatio Do you want consulting provider notified?: Yes Primary care physician: Derick Ivyesha Hospital Course: Discharge Diagnosis: Delirium, resolved. Secondary to polypharmacy. Increased falls with failure to thrive Chronic lower back pain status post laminectomy on 05/22/21 Elevated troponin, acute coronary event ruled out Leukocytosis Normocytic anemia Hypertension Hyperlipidemia COPD Dementia Hospital Course: Patient is a 71-year-old male with a past medical history of hypertension, hyperlipidemia, COPD, diabetes mellitus type 2, and chronic lower back pain status post laminectomy on 05/12/21. Patient sent to ER on 07/02/21 from [facility] secondary to alteration in mental status and fall. Patient was seen and fully evaluated in the emergency department. X-ray pelvis negative for acute fracture or abnormalities. CT lumbar spine reporting epidural scarring at L3 through L4 with L2 through 3 posterior disc herniation and possibly increased in size when compared to prior CT. He was found to have slightly elevated troponin, these were trended and remained flat at 0.039, 0.031, and 0.031. EKG revealing an atrial paced rhythm at 60 bpm with a right bundle branch block. Patient was admitted to our services for delirium, increased falls, and failure to thrive. Pain management and orthopedic surgery following. Orthopedic surgery prescribed LSO brace for patient to wear when upright. Pain management place patient on daily Mobic and Zanaflex. Patient being discharged back to [facility] for continued rehabilitation. Medication changes consist of discontinuation of opioids and benzos in treating pain with Tylenol along with daily Mobic, lidocaine patch, and Zanaflex. Patient's mentation remains back at baseline. Patient is stable for discharge back to rehabilitation facility at this time. Physical examination: Patient was seen and fully evaluated at bedside this morning. He remains at baseline mentation and has been pleasantly alert to person, place, time, and situation. He denies having any complaints or concerns this morning including headache, lightheadedness, dizziness, chest pain, palpitations, shortness of breath, or experiencing numbness/tingling/weakness in his extremities. Patient reports improvement in left hip pain and states lower back pain controlled at this time. Vital signs reviewed and stable. General: Nontoxic, no distress and appears stated age. Derm: Skin warm and dry, normal coloration for ethnicity. Head: Atraumatic, normocephalic and symmetric. Eyes: EOMs intact, no lid lag, and anicteric sclera Mouth: no lip lesions, mucus membranes moist Cardiovascular: regular rate and rhythm with normal S1S2, no murmur, positive posterior tibial pulses bilaterally, and cap refill < 2 seconds. Lungs: Respirations even, regular, and unlabored on room air. Lungs CTA bilaterally, no rhonchi, no rales, no wheezing, and no accessory muscle usage. GI/: soft, nontender to palpation, no guarding, no appreciable organomegaly. Brief in place. Ext: ROM intact. No gross muscle atrophy, no edema, no contractures Neuro: Speech clear,GCS 15. Face symmetrical and CN II-XII grossly intact with no noted focal neuro deficits Psych: Alert and pleasantly oriented to person, place, time, and situation. A total of 45 minutes of time were spent preparing this complex discharge summary. Patient Condition at Discharge: Stable Plan - Discharge Summary Discharge Rx Participant: No New Discharge Prescriptions: New Lidocaine 5% Patch [Lidoderm 5% Patch] 1 patch TOPICAL DAILY 30 Days #30 patch Meloxicam [Mobic] 15 mg PO DAILY 30 Days #30 tab tiZANidine [Zanaflex] 2 mg PO TID PRN 30 Days #90 tab PRN Reason: Muscle Spasm Continue Metoprolol Tartrate [Lopressor] 25 mg PO BID@0800,1700 Venlafaxine HCl [Effexor XR] 150 mg PO DAILY@0800 lisinopriL [Zestril] 10 mg PO DAILY@0800 Umeclidinium [place] [Incruse Ellipta] 1 puff INHALATION RT-DAILY@0800 Fluticasone/Salmeterol [Advair Hfa 45-21 Mcg Inhaler] 1 puff INHALATION RT- BID@0800,1700 Albuterol Sulfate [Proair Hfa] 1 - 2 puff INHALATION RT-Q6H PRN PRN Reason: Shortness Of Breath Or Wheezing Omeprazole 20 mg PO DAILY@0800 Aspirin [Adult Low Dose Aspirin EC] 81 mg PO DAILY@0800 Albuterol Nebulized [Ventolin Nebulized] 2.5 mg INHALATION RT-TID PRN PRN Reason: Shortness Of Breath Atorvastatin Calcium [Lipitor] 20 mg PO HS@2100 metFORMIN HCL ER [Glucophage XR] 1,000 mg PO HS@2100 Donepezil HCl [Aricept] 5 mg PO HS@2100 amLODIPine [Norvasc] 2.5 mg PO DAILY@0800 glipiZIDE XL [Glucotrol XL] 5 mg PO HS@2100 Acetaminophen Tab [Tylenol] 650 mg PO Q6HR PRN tab PRN Reason: Mild Pain Or Fever > 100.5 bisacodyL [Dulcolax] 10 mg RECTAL DAILY PRN PRN Reason: Constipation Discontinued Loperamide [Imodium] 2 mg PO BID@0800,1700 Dicyclomine [Bentyl] 20 mg PO TID PRN PRN Reason: IBS Cyclobenzaprine [Flexeril] 5 mg PO TID PRN tab PRN Reason: Muscle Spasm diazePAM [Valium] 5 mg PO TID PRN #15 tab PRN Reason: Anxiety HYDROcodone/APAP 7.5-325MG [[place] 7.5-325] 1 tab PO Q4H PRN #18 tab PRN Reason: BACK PAIN traZODone HCL 50 mg PO HS PRN PRN Reason: Insomnia Na Phos,M-B/Na Phos,Di-Ba [Fleet Adult] 133 ml RECTAL DAILY PRN PRN Reason: Constipation Magnesium Hydroxide [Milk of Magnesia Concentrate] 7,200 mg PO DAILY PRN PRN Reason: CONSTIPATION X2 DAYS Discharge Medication List Metoprolol Tartrate [Lopressor] 25 mg PO BID@0800,1700 12/02/16 [History] Venlafaxine HCl [Effexor XR] 150 mg PO DAILY@0800 12/02/16 [History] Umeclidinium [place] [Incruse Ellipta] 1 puff INHALATION RT-DAILY@0800 09/22/18 [History] lisinopriL [Zestril] 10 mg PO DAILY@0800 09/22/18 [History] Albuterol Sulfate [Proair Hfa] 1 - 2 puff INHALATION RT-Q6H PRN 06/07/20 [History] Aspirin [Adult Low Dose Aspirin EC] 81 mg PO DAILY@79906/07/20 [History] Fluticasone/Salmeterol [Advair Hfa 45-21 Mcg Inhaler] 1 puff INHALATION RT- BID@0800,1700 06/07/20 [History] Omeprazole 20 mg PO DAILY@79906/07/20 [History] Albuterol Nebulized [Ventolin Nebulized] 2.5 mg INHALATION RT-TID PRN 09/16/20 [History] Atorvastatin Calcium [Lipitor] 20 mg PO HS@209910/12/20 [History] metFORMIN HCL ER [Glucophage XR] 1,000 mg PO HS@209910/12/20 [History] Donepezil HCl [Aricept] 5 mg PO HS@209912/19/20 [History] amLODIPine [Norvasc] 2.5 mg PO DAILY@79906/29/21 [History] glipiZIDE XL [Glucotrol XL] 5 mg PO HS@209906/29/21 [History] Acetaminophen Tab [Tylenol] 650 mg PO Q6HR PRN tab 07/01/21 [Rx] bisacodyL [Dulcolax] 10 mg RECTAL DAILY PRN 07/02/21 [History] Lidocaine 5% Patch [Lidoderm 5% Patch] 1 patch TOPICAL DAILY 30 Days #30 patch 07/05/21 [Rx] Meloxicam [Mobic] 15 mg PO DAILY 30 Days #30 tab 07/05/21 [Rx] tiZANidine [Zanaflex] 2 mg PO TID PRN 30 Days #90 tab 07/05/21 [Rx] Follow up Appointment(s)/Referral(s): Nba Nguyen MD [Primary Care Provider] - 1-2 days Janay Cabello [NON-STAFF] - As Needed (Supplier of LSO brace) Activity/Diet/Wound Care/Special Instructions: Continue lumbar follow-up with at [facility] Wear LSO brace when upright. Thank you for allowing us to participate in your care, it was a pleasure having you for our patient. Discharge Disposition: TRANSFER TO SNF/ECF
== END 2021-07-05 15:02 | DRG 897 ==
LOC: EC 15:53 → 4SSUR 20:44
PROVIDERS: ADMIT Internal Medicine; ATTEND Internal Medicine
DX: F11.921 Opioid use, unspecified with intoxication delirium (principal); D64.9 Anemia, unspecified; D72.829 Elevated white blood cell count, unspecified; E11.9 Type 2 diabetes mellitus without complications; E78.5 Hyperlipidemia, unspecified; F03.90 Unspecified dementia, unspecified severity, without behavioral disturbance, psychotic disturbance, mood disturbance, and anxiety; F41.9 Anxiety disorder, unspecified; G89.29 Other chronic pain; I10 Essential (primary) hypertension; I45.10 Unspecified right bundle-branch block; J44.9 Chronic obstructive pulmonary disease, unspecified; Z20.822 Contact with and (suspected) exposure to COVID-19; T50.915A Adverse effect of multiple unspecified drugs, medicaments and biological substances, initial encounter; M51.26 Other intervertebral disc displacement, lumbar region; R29.6 Repeated falls; R62.7 Adult failure to thrive; E11.42 Type 2 diabetes mellitus with diabetic polyneuropathy; Z79.82 Long term (current) use of aspirin; Z79.84 Long term (current) use of oral hypoglycemic drugs; Z79.899 Other long term (current) drug therapy; Z98.1 Arthrodesis status; Z87.891 Personal history of nicotine dependence; Z98.890 Other specified postprocedural states; R77.8 Other specified abnormalities of plasma proteins
CPT/HCPCS: 36415; 71045; 72132; 72170; 80048; 80053; 80143; 80179; 80306; 81003; 82140; 82550; 83036; 83735; 84484; 85025; 85027; 85610; 85730; 87635; 93005; 94640; 94760; 99285

== ENCOUNTER 2021-09-18 11:19 | Inpatient (IN) | payer MEDICARE ==
--- NOTE | 2021-09-18 12:17 | ED ---
General Adult HPI - General Chief complaint: Shortness of Breath Stated complaint: AMS Time Seen by Provider: 09/18/21 11:36 Source: patient, EMS, RN notes reviewed Mode of arrival: EMS Limitations: altered mental status - History of Present Illness Initial comments: 71-year-old male presents to the emergency department for evaluation of shortness of breath. Note from [facility] states that patient has had confusion and is now requiring oxygen as of yesterday. They state chest x-ray showed mild CHF therefore IV Lasix was given this morning with no improvement. Patient is status post lumbar laminectomy last month and has been receiving IV vancomycin due to infection. Patient denies feeling out of breath or having difficulty breathing, however, staff at [facility] notes that patient has had increased shortness of breath. States his legs do ache, but reports he has been doing his physical therapy and increasing his activity level reports ambulating with a walker. There was also some concern of a fever prior to arrival. However, patient denies chills, headache, dizziness, chest pain, difficulty breathing, abdominal pain, constipation, diarrhea, dysuria, or hematuria. - Related Data Home Medications Medication Instructions Recorded Confirmed Metoprolol Tartrate [Lopressor] 25 mg PO BID@0800,1700 12/02/16 09/18/21 Umeclidinium [place] [Incruse 1 puff INHALATION RT-DAILY@0800 09/22/18 09/18/21 Ellipta] Albuterol Sulfate [Proair Hfa] 1 - 2 puff INHALATION RT-Q4H PRN 06/07/20 09/18/21 Aspirin [Adult Low Dose Aspirin EC] 81 mg PO DAILY@0800 06/07/20 09/18/21 Fluticasone/Salmeterol [Advair Hfa 1 puff INHALATION RT-BID@0800,1700 06/07/20 09/18/21 45-21 Mcg Inhaler] Omeprazole 20 mg PO DAILY@0600 06/07/20 09/18/21 Albuterol Nebulized [Ventolin 2.5 mg INHALATION RT-Q2H PRN 09/16/20 09/18/21 Nebulized] Atorvastatin Calcium [Lipitor] 20 mg PO HS@2100 10/12/20 09/18/21 Donepezil HCl [Aricept] 5 mg PO DAILY@0800 12/19/20 09/18/21 bisacodyL [Dulcolax] 10 mg RECTAL DAILY PRN 07/02/21 09/18/21 Acetaminophen-Codeine 300-30mg 1 tab PO Q6H PRN 09/18/21 09/18/21 [Tylenol w/codeine #3] Dicyclomine [Bentyl] 20 mg PO TID@0800,1200,1700 09/18/21 09/18/21 Docusate Sodium [Dok] 100 mg PO DAILY PRN 09/18/21 09/18/21 Ferrous Sulfate [Feosol] 325 mg PO DAILY@0800 09/18/21 09/18/21 Furosemide [Lasix] 40 mg PO ONCE 09/18/21 09/18/21 Gabapentin [Neurontin] 100 mg PO TID@0600,1400,2200 09/18/21 09/18/21 Glucerna Shake 1 can PO TID@0800,1200,1700 09/18/21 09/18/21 Insulin NPH/Reg Insulin 70/30 15 unit SQ BID@0700,2100 09/18/21 09/18/21 [humuLIN 70/30 VIAL] Ipratropium-Albuterol Nebulize 3 ml INHALATION RT-Q6H 09/18/21 09/18/21 [Duoneb 0.5 mg-3 mg/3 ml Soln] Magnesium Hydroxide [Milk of 2,400 mg PO DAILY PRN 09/18/21 09/18/21 Magnesia] Melatonin 5 mg PO HS@209909/18/21 09/18/21 Meloxicam [Mobic] 7.5 mg PO DAILY@0800 09/18/21 09/18/21 Na Phos,M-B/Na Phos,Di-Ba [Fleet 133 ml RECTAL DAILY PRN 09/18/21 09/18/21 Adult] Polyethylene Glycol 3350 [Clearlax] 1 packet PO DAILY PRN 09/18/21 09/18/21 Sennosides [Senna] 8.6 mg PO HS@209909/18/21 09/18/21 Vancomycin HCl 2 gm IV DAILY@0800 09/18/21 09/18/21 Venlafaxine HCl [Effexor XR] 225 mg PO DAILY@0800 09/18/21 09/18/21 amLODIPine BESYLATE/BENAZEPRIL 1 cap PO DAILY@0800 09/18/21 09/18/21 [Lotrel 2.5-10 MG] bisacodyL [Dulcolax] 10 mg RECTAL DAILY PRN 09/18/21 09/18/21 glipiZIDE [Glucotrol] 5 mg PO AC-BRKFST 09/18/21 09/18/21 metFORMIN HCL 500 mg PO BID@0800,1700 09/18/21 09/18/21 methocarbamoL [Robaxin] 500 mg PO TID@0600,1400,2200 09/18/21 09/18/21 Previous Rx's Medication Instructions Recorded Acetaminophen Tab [Tylenol] 650 mg PO Q6HR PRN tab 07/01/21 Allergies Allergy/AdvReac Type Severity Reaction Status Date / Time No Known Allergies Allergy Verified 09/18/21 12:53 Review of Systems ROS Statement: Those systems with pertinent positive or pertinent negative responses have been documented in the HPI. ROS Other: All systems not noted in ROS Statement are negative. Past Medical History Past Medical History: COPD, Diabetes Mellitus, Hyperlipidemia, Hypertension, Ost eoarthritis (OA), Sleep Apnea/CPAP/BIPAP Additional Past Medical History / Comment(s): PACEMAKER. Uses CPAP. 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 Taking Aricept on a trial basis for slight memory loss. History of anterior cervical de compression and fusion in September 2020 with our service. History of lumbar decompression at outside institution History of Any Multi-Drug Resistant Organisms: None Reported Past Surgical History: Appendectomy, Back Surgery, Heart Catheterization With Stent, Pacemaker Additional Past Surgical History / Comment(s): Oral surg. COLONOSCOPY. GENERATOR CHANGE 2016, lumbar myelogram, neck fusion; heart caths with stents x 2 (at least). Laminectomy August 2021 Past Anesthesia/Blood Transfusion Reactions: No Reported Reaction Date of Last Stent Placement:: 2006 Type of Cardiac Device: Permanent Pacemaker Device Placement Date:: 2008 Past Psychological History: No Psychological Hx Reported Smoking Status: Former smoker Past Alcohol Use History: Occasional Past Drug Use History: None Reported - Past Family History Mother Family Medical History: Cancer Brother(s) Family Medical History: Cancer General Exam Limitations: altered mental status (ECF reports altered mental status but upon exam, patient is alert and oriented x3; answers questions appropriately.) General appearance: alert, in no apparent distress (Well-developed, well- nourished male in no acute distress. Initial temperature 97.1, pulse 68, respirations 20, blood pressure 103/69, pulse ox 89% on room air.) Eye exam: Present: normal appearance, PERRL, EOMI. Absent: scleral icterus, conjunctival injection, periorbital swelling, periorbital tenderness ENT exam: Present: normal exam, normal oropharynx, mucous membranes moist Respiratory exam: Present: normal lung sounds bilaterally, other (room air saturation 89%, oxygen via NC at 3L resumed- SpO2 97% with no increased work of breathing; lung sounds diminished in bases; no cough or congestion). Absent: respiratory distress, wheezes, rales, rhonchi, stridor, chest wall tenderness, accessory muscle use Cardiovascular Exam: Present: regular rate, other (100% paced) GI/Abdominal exam: Present: soft, normal bowel sounds. Absent: distended, tenderness, guarding, rebound, rigid Extremities exam: Present: normal inspection, full ROM, normal capillary refill, other (no lower extremity edema). Absent: pedal edema Back exam: Present: normal inspection, other (Surgical scar appears well- healed). Absent: paraspinal tenderness, vertebral tenderness Neurological exam: Present: alert, oriented X3 (answering questions appropriately) Psychiatric exam: Present: normal affect, normal mood Skin exam: Present: warm, dry, intact, pallor Course Vital Signs 09/18/21 09/18/21 09/18/21 11:21 11:30 11:49 Temperature 97.1 F L Pulse Rate 68 62 Respiratory 20 20 Rate Blood Pressure 103/69 103/69 O2 Sat by Pulse 89 L 94 L Oximetry 09/18/21 09/18/21 09/18/21 12:00 12:24 13:00 Temperature Pulse Rate 68 62 70 Respiratory 18 18 20 Rate Blood Pressure 113/60 110/70 106/69 O2 Sat by Pulse 95 95 95 Oximetry 09/18/21 09/18/21 09/18/21 14:00 15:00 16:00 Temperature Pulse Rate 61 64 Respiratory 15 24 Rate Blood Pressure 113/62 113/85 O2 Sat by Pulse Oximetry 09/18/21 09/18/21 09/18/21 17:00 18:00 19:00 Temperature Pulse Rate 71 72 76 Respiratory 19 20 18 Rate Blood Pressure 132/75 132/75 132/75 O2 Sat by Pulse 93 L Oximetry 09/18/21 09/18/21 09/18/21 19:54 20:00 20:04 Temperature Pulse Rate 76 72 80 Respiratory 24 Rate Blood Pressure 132/75 O2 Sat by Pulse Oximetry 09/18/21 21:00 Temperature Pulse Rate 79 Respiratory 10 L Rate Blood Pressure 132/75 O2 Sat by Pulse 93 L Oximetry Medical Decision Making - Medical Decision Making 71-year-old male with a history of recent back surgery and discitis presents to the emergency department from [facility] for evaluation of increasing shortness of breath, low SpO2, and altered mental status. Upon arrival, patient is resting comfortably on 3 L nasal cannula. He denies feeling short of breath; lung sounds are clear to auscultation. Able to answer questions appropriately and follows commands without difficulty. Patient has been receiving IV vancomycin for discitis/osteomyelitis status post lumbar laminectomy in August. Patient is scheduled to have a lumbar CT later today therefore it was done while patient was present in the emergency department and a copy was made on disc and given to family who is present at bedside. They articulate concern of possible PE. Laboratory studies were obtained showing a mildly elevated white blood cell count, though he is currently receiving IV antibiotic therapy. Patient is also noted to be chronically anemic with hemoglobin of 7.8 and hematocrit of 23.9 which is stable for him. D-dimer is elevated at 3.38. CT angio of the chest was obtained showing no evidence of pulmonary embolism. BNP is elevated and megan st x-ray shows evidence of CHF which is new for him. Therefore patient will be admitted to the hospital for further evaluation and treatment. Spoke with Dr. Wong who agrees to accept this admission; cardiology will be consulted. Vancomycin trough also elevated therefore dosing will be deferred to pharmacy. This plan was discussed with patient and family, they are agreeable. This patient's care was discussed with my attending Dr. Collazo. - Lab Data Result diagrams: 09/18/21 12:09/18/21 12:27 Lab Results 09/18/21 09/18/21 09/18/21 Range/Units 12:27 12: 12:27 WBC 12.9 H (3.8-10.6) k/uL RBC 2.59 L (4.30-5.90) m/uL Hgb 7.8 L (13.0-17.5) gm/dL Hct 23.9 L (39.0-53.0) % MCV 92.4 (80.0-100.0) fL MCH 30.1 (25.0-35.0) pg MCHC 32.5 (31.0-37.0) g/dL RDW 16.2 H (11.5-15.5) % Plt Count 476 H (150-450) k/uL MPV 7.2 Neutrophils % 73 % Lymphocytes % 13 % Monocytes % 7 % Eosinophils % 4 % Basophils % 1 % Neutrophils # 9.4 H (1.3-7.7) k/uL Lymphocytes # 1.7 (1.0-4.8) k/uL Monocytes # 0.9 (0-1.0) k/uL Eosinophils # 0.5 (0-0.7) k/uL Basophils # 0.1 (0-0.2) k/uL Hypochromasia Slight Anisocytosis Slight PT 10.8 (9.0-12.0) sec INR 1.0 (<1.2) APTT 27.8 (22.0-30.0) sec D-Dimer 3.38 H (<0.60) mg/L FEU Sodium (137-145) mmol/L Potassium (3.5-5.1) mmol/L Chloride (98-107) mmol/L Carbon Dioxide (22-30) mmol/L Anion Gap mmol/L BUN (9-20) mg/dL Creatinine (0.66-1.25) mg/dL Est GFR (CKD-EPI)AfAm (>60 ml/min/1.73 sqM) Est GFR (CKD-EPI)NonAf (>60 ml/min/1.73 sqM) Glucose (74-99) mg/dL Calcium (8.4-10.2) mg/dL Total Bilirubin (0.2-1.3) mg/dL AST (17-59) U/L ALT (4-49) U/L Alkaline Phosphatase (38-126) U/L Troponin I (0.000-0.034) ng/mL NT-Pro-B Natriuret Pep pg/mL Total Protein (6.3-8.2) g/dL Albumin (3.5-5.0) g/dL Urine Color Yellow Urine Appearance Clear (Clear) Urine pH 6.0 (5.0-8.0) Ur Specific [place] >1.050 H (1.001-1.035) Urine Protein Negative (Negative) Urine Glucose (UA) Negative (Negative) Urine Ketones Negative (Negative) Urine Blood Negative (Negative) Urine Nitrite Negative (Negative) Urine Bilirubin Negative (Negative) Urine Urobilinogen <2.0 (<2.0) mg/dL Ur Leukocyte Esterase Negative (Negative) Vancomycin Trough ug/mL 09/18/21 09/18/21 09/18/21 Range/Units 12:27 12:27 12:27 WBC (3.8-10.6) k/uL RBC (4.30-5.90) m/uL Hgb (13.0-17.5) gm/dL Hct (39.0-53.0) % MCV (80.0-100.0) fL MCH (25.0-35.0) pg MCHC (31.0-37.0) g/dL RDW (11.5-15.5) % Plt Count (150-450) k/uL MPV Neutrophils % % Lymphocytes % % Monocytes % % Eosinophils % % Basophils % % Neutrophils # (1.3-7.7) k/uL Lymphocytes # (1.0-4.8) k/uL Monocytes # (0-1.0) k/uL Eosinophils # (0-0.7) k/uL Basophils # (0-0.2) k/uL Hypochromasia Anisocytosis PT (9.0-12.0) sec INR (<1.2) APTT (22.0-30.0) sec D-Dimer (<0.60) mg/L FEU Sodium 137 (137-145) mmol/L Potassium 4.1 (3.5-5.1) mmol/L Chloride 98 (98-107) mmol/L Carbon Dioxide 30 (22-30) mmol/L Anion Gap 9 mmol/L BUN 16 (9-20) mg/dL Creatinine 0.80 (0.66-1.25) mg/dL Est GFR (CKD-EPI)AfAm >90 (>60 ml/min/1.73 sqM) Est GFR (CKD-EPI)NonAf 90 (>60 ml/min/1.73 sqM) Glucose 82 (74-99) mg/dL Calcium 8.8 (8.4-10.2) mg/dL Total Bilirubin 0.2 (0.2-1.3) mg/dL AST 20 (17-59) U/L ALT 14 (4-49) U/L Alkaline Phosphatase 145 H (38-126) U/L Troponin I 0.014 (0.000-0.034) ng/mL NT-Pro-B Natriuret Pep 2820 pg/mL Total Protein 6.7 (6.3-8.2) g/dL Albumin 3.1 L (3.5-5.0) g/dL Urine Color Urine Appearance (Clear) Urine pH (5.0-8.0) Ur Specific [place] (1.001-1.035) Urine Protein (Negative) Urine Glucose (UA) (Negative) Urine Ketones (Negative) Urine Blood (Negative) Urine Nitrite (Negative) Urine Bilirubin (Negative) Urine Urobilinogen (<2.0) mg/dL Ur Leukocyte Esterase (Negative) Vancomycin Trough ug/mL 09/18/21 Range/Units 12:27 WBC (3.8-10.6) k/uL RBC (4.30-5.90) m/uL Hgb (13.0-17.5) gm/dL Hct (39.0-53.0) % MCV (80.0-100.0) fL MCH (25.0-35.0) pg MCHC (31.0-37.0) g/dL RDW (11.5-15.5) % Plt Count (150-450) k/uL MPV Neutrophils % % Lymphocytes % % Monocytes % % Eosinophils % % Basophils % % Neutrophils # (1.3-7.7) k/uL Lymphocytes # (1.0-4.8) k/uL Monocytes # (0-1.0) k/uL Eosinophils # (0-0.7) k/uL Basophils # (0-0.2) k/uL Hypochromasia Anisocytosis PT (9.0-12.0) sec INR (<1.2) APTT (22.0-30.0) sec D-Dimer (<0.60) mg/L FEU Sodium (137-145) mmol/L Potassium (3.5-5.1) mmol/L Chloride (98-107) mmol/L Carbon Dioxide (22-30) mmol/L Anion Gap mmol/L BUN (9-20) mg/dL Creatinine (0.66-1.25) mg/dL Est GFR (CKD-EPI)AfAm (>60 ml/min/1.73 sqM) Est GFR (CKD-EPI)NonAf (>60 ml/min/1.73 sqM) Glucose (74-99) mg/dL Calcium (8.4-10.2) mg/dL Total Bilirubin (0.2-1.3) mg/dL AST (17-59) U/L ALT (4-49) U/L Alkaline Phosphatase (38-126) U/L Troponin I (0.000-0.034) ng/mL NT-Pro-B Natriuret Pep pg/mL Total Protein (6.3-8.2) g/dL Albumin (3.5-5.0) g/dL Urine Color Urine Appearance (Clear) Urine pH (5.0-8.0) Ur Specific [place] (1.001-1.035) Urine Protein (Negative) Urine Glucose (UA) (Negative) Urine Ketones (Negative) Urine Blood (Negative) Urine Nitrite (Negative) Urine Bilirubin (Negative) Urine Urobilinogen (<2.0) mg/dL Ur Leukocyte Esterase (Negative) Vancomycin Trough 30.9 H* ug/mL - EKG Data Rate: normal EKG Comments: EKG was obtained that 1214 and shows an atrial paced rhythm with a right bundle branch block. Ventricular rate 60, CT interval 192, QRS duration 146, QT/QTc 422/422. - Radiology Data Radiology results: report reviewed, image reviewed Two-view chest x-ray was obtained. Report was reviewed in its entirety. Impre ssion per Dr. Cazares is correlate for CHF exacerbation. Persistent cardiomegaly with mild central vascular congestion and tiny bilateral pleural effusions are now present. CT chest ENG O for PE was obtained. Report was reviewed in its entirety. Impression per Dr. Cazares is suboptimal study, but no CT evidence for acute pulmonary embolism. CT of the lumbar spine without contrast was obtained. Report was reviewed in its entirety. Impression per Dr. Marie is as follows: 1. Interval placement of L2 through L5 posterior fusion hardware. 2. Endplate erosion/deformity at L3-L4 (suggesting a slight interval discitisosteomyelitis) with what appears to be segmented interposed here now. There is anterior bulging bone and soft tissue here at L3-L4, new from 07/02/2021. Unlikely to be active discitis if the interposed material represents antibiotic impregnated cement. Clinically correlate. Unable to exclude active discitis osteomyelitis if this does not represent antibiotic impregnated cement. 3. Redemonstrated laminectomy changes at L3 and L4. 4. Extensive metal hardware artifact limits assessment of the laminectomy bed. We are unable to accurately assess for any residual abnormal fluid here due to the extent artifact. Disposition Clinical Impression: Congestive heart failure, Hypoxia, Chronic anemia, On antibiotic therapy Disposition: ADMITTED IP TO THIS HOSP Condition: Serious
--- NOTE | 2021-09-18 12:56 | XR ---
EXAMINATION TYPE: XR chest 2V DATE OF EXAM: 09/18/2021 COMPARISON: Chest x-ray July 03, 2021 HISTORY: Altered mental status and weakness. TECHNIQUE: Frontal and lateral views of the chest are obtained. FINDINGS: Redemonstration of cardiomegaly with dual lead pacemaker. Redemonstration of elevated left hemidiaphragm. Mild central vascular congestion now present. Focal right midlung linear scarring agai n seen. New Right-sided PICC line terminates in SVC. Unchanged cervical spine is partially imaged. T iny bilateral pleural effusions noted on lateral view. Surgical changes lumbar spine is partially rebecca ged. IMPRESSION: Correlate for CHF exacerbation. Persistent cardiomegaly with new mild central vascular c ongestion and tiny bilateral pleural effusions are now present.
[2021-09-18 12:59] LABS: Anisocytosis Slight; Basophils # (A) 0.1 k/uL (0-0.2); Basophils % (A) 1 %; Eosinophils # (A) 0.5 k/uL (0-0.7); Eosinophils % (A) 4 %; HCT 23.9 % (39.0-53.0); HGB 7.8 gm/dL (13.0-17.5); Hypochromasia Slight; Lymphocytes # (A) 1.7 k/uL (1.0-4.8); Lymphocytes % (A) 13 %; MCH 30.1 pg (25.0-35.0); MCHC 32.5 g/dL (31.0-37.0); MCV 92.4 fL (80.0-100.0); Mean Platelet Volume 7.2; Monocytes # (A) 0.9 k/uL (0-1.0); Monocytes % (A) 7 %; Neutrophils # (A) 9.4 k/uL (1.3-7.7); Neutrophils % (A) 73 %; Platelet Count 476 k/uL (150-450); RBC 2.59 m/uL (4.30-5.90); RDW 16.2 % (11.5-15.5); WBC 12.9 k/uL (3.8-10.6)
[2021-09-18 13:11] LABS: ALT 14 U/L (4-49); AST 20 U/L (17-59); African American GFR (CKD) >90 (>60 ml/min/1.73 sqM); Albumin 3.1 g/dL (3.5-5.0); Alkaline Phosphatase 145 U/L (38-126); Anion Gap 9 mmol/L; Blood Urea Nitrogen 16 mg/dL (9-20); Calcium 8.8 mg/dL (8.4-10.2); Carbon Dioxide 30 mmol/L (22-30); Chloride 98 mmol/L (98-107); Glucose 82 mg/dL (74-99); Non-African American GFR(CKD) 90 (>60 ml/min/1.73 sqM); Potassium 4.1 mmol/L (3.5-5.1); Sodium 137 mmol/L (137-145); Total Bilirubin 0.2 mg/dL (0.2-1.3); Total Protein 6.7 g/dL (6.3-8.2)
[2021-09-18 13:16] LABS: Partial Thromboplastin Time 27.8 sec (22.0-30.0); Prothrombin Time 10.8 sec (9.0-12.0)
--- NOTE | 2021-09-18 15:36 | CT ---
EXAMINATION TYPE: CT chest angio for PE DATE OF EXAM: 09/18/2021 COMPARISON: Chest x-ray earlier today HISTORY: Shortness of breath, elevated d-dimer. CT DLP: 494.6 mGycm. Automated Exposure Control for Dose Reduction was Utilized. CONTRAST: CTA scan of the thorax is performed with IV Contrast, patient injected with 100 mL of Isovue 370, pul monary embolism protocol. MIP Images are created on CT scanner and reviewed. FINDINGS: LUNGS: Exam suboptimal as patient unable to hold breath. This makes evaluation particularly for subce ntimeter nodules suboptimal. Tiny left pleural effusion is confirmed. There is associated mild to mod erate left basilar linear scarring and/or atelectasis. Right lung predominantly clear with trace flui d into the right lung fissure. No concerning masses. No suspicious focal consolidation. Elevated left hemidiaphragm redemonstrated. MEDIASTINUM: There is suboptimal study with heterogeneity in the contrast in the aorta but there is n o convincing CT evidence for acute pulmonary embolism. There are no greater than 1 cm hilar or media stinal lymph nodes. Heart size upper limits of normal. Dual-lead pacemaker is present. No Pericardial effusion is seen. Dual-lead pacemaker. Coronary artery calcification is noted. OTHER: Bilateral flame-shaped gynecomastia. Surgical change lumbar spine on localizer. IMPRESSION: 1. Suboptimal study but no CT evidence for acute pulmonary embolism.
--- NOTE | 2021-09-18 15:38 | CT ---
EXAMINATION TYPE: CT lumbar spine wo con DATE OF EXAM: 09/18/2021 COMPARISON: 07/02/2021 HISTORY: 71-year-old male Lumbar laminectomy with post surgical infection. TECHNIQUE: Contiguous axial scanning of the lumbar spine without IV contrast. Coronal and sagittal re constructions performed. CT DLP: 1747 mGycm Automated exposure control for dose reduction was used. FINDINGS: DISH within the lower thoracic spine. Interval discectomy and placement of interbody device or cement material at the L3-L4 level. Interval placement of L2-L5 posterior and interbody fusion hardware. On the left, radicular screws ar e present at L2, L3, and L5. On the right, pedicular screws are present at L2 and L5. Laminectomy change at L3 and L4. Extensive metal hardware artifacts limits evaluation in largely of years the laminectomy bed. Small air foci within the dorsal epidural space opposite L4-L5 remains unchanged and probably relates to degenerative disc disease or extruded disc material. On the left, changes result in severe neuroforaminal stenosis at L3-L4. On the right, changes result in moderate to severe neuroforaminal stenosis at L3-L4 and mild at L2-L3 and L4-L5. IMPRESSION: 1. INTERVAL PLACEMENT OF L2-L5 POSTERIOR FUSION HARDWARE. 2. ENDPLATE EROSION/DEFORMITY AT L3-L4 (SUGGESTING A SITE OF INTERVAL DISCITIS/OSTEOMYELITIS) WITH WH AT APPEARS TO BE CEMENT INTERPOSED HERE NOW. THERE IS ANTERIOR BULGING BONE AND SOFT TISSUE HERE AT L 3-L4, NEW FROM 07/02/2021. UNLIKELY TO BE ACTIVE DISCITIS IF THE INTERPOSED MATERIAL REPRESENTS ANTIBI OTIC IMPREGNATED CEMENT. CLINICALLY CORRELATE. UNABLE TO EXCLUDE ACTIVE DISCITIS OSTEOMYELITIS IF THI S DOES NOT REPRESENT ANTIBIOTIC IMPREGNATED CEMENT. 3. REDEMONSTRATED LAMINECTOMY CHANGE AT L3 AND L4. 4. EXTENSIVE METAL HARDWARE ARTIFACTS LIMIT ASSESSMENT OF THE LAMINECTOMY BED. WE ARE UNABLE TO ACCUR ATELY ASSESS FOR ANY RESIDUAL ABNORMAL FLUID HERE DUE TO THE EXTENT OF ARTIFACTS.
[2021-09-18] MEDS ORDERED: NALOXONE 0.4 MG/ML 1 ML VIAL IV PRN (17:00)
[2021-09-18] MEDS ORDERED: VANCOMYCIN IV PER PHARMACY 1 EACH MISC MISCELLANE PRN (17:15)
[2021-09-18] MEDS ORDERED: ALBUTEROL NEBULIZED 2.5 MG/3 ML INHALATION PRN (17:17)
[2021-09-18] MEDS ORDERED: ACETAMINOPHEN TAB 325 MG TAB PO PRN (17:17)
[2021-09-18] MEDS ORDERED: DOCUSATE 100 MG CAP PO PRN (17:17)
[2021-09-18] MEDS ORDERED: Acetaminophen-Codeine 300-30mg TAB PO PRN (17:17)
[2021-09-18] MEDS ORDERED: VANCOMYCIN 1,500 MG in SODIUM CHLORIDE 0.9% 250 ML IVPB STA (17:23)
[2021-09-18 18:01] LABS: Appearance,Urine Clear (Clear); Bilirubin,Urine Negative (Negative); Blood,Urine Negative (Negative); Color,Urine Yellow; Glucose,Urine (UA) Negative (Negative); Ketones,Urine Negative (Negative); Leukocyte Esterase,Urine Negative (Negative); Nitrite,Urine Negative (Negative); Protein,Urine Negative (Negative); Urobilinogen,Urine <2.0 mg/dL (<2.0)
[2021-09-18 18:03] LABS: Specific Gravity,Urine >1.050 (1.001-1.035)
[2021-09-18 22:07] LABS: Glucose,Whole Blood 110 mg/dL (75-99)
[2021-09-18] MEDS ORDERED: NA PHOS,M-B/NA PHOS,DI-BA 133 ML ENEMA RECTAL PRN (22:12)
[2021-09-18] MEDS ORDERED: bisacodyL 10 MG SUPP RECTAL PRN ×2 (22:12)
[2021-09-18] MEDS ORDERED: polyethylene glycoL 3350 17 GM POWD.PACK PO PRN (22:12)
[2021-09-18] MEDS ORDERED: ALBUTEROL HFA INHALER INHALATION PRN (22:12)
[2021-09-18] MEDS ORDERED: MAGNESIUM HYDROXIDE 2,400 MG/10 ML CUP PO PRN (22:12)
[2021-09-18] MEDS: INSULN ASP PRT/INSULIN ASPART 100 UNIT/ML 10 ML VIAL SQ SCH (23:18)
[2021-09-18] MEDS: GABAPENTIN 100 MG CAP PO SCH (23:18)
[2021-09-18] MEDS: ATORVASTATIN 20 MG TAB PO SCH (23:18)
[2021-09-19] MEDS: IPRATROPIUM-ALBUTEROL 3 ML NEB INHALATION SCH ×5 (05:33→20:06)
[2021-09-19 06:23] LABS: Anisocytosis Slight; Basophils % (A) 0 %; Eosinophils # (A) 0.4 k/uL (0-0.7); Eosinophils % (A) 4 %; HCT 29.6 % (39.0-53.0); Hypochromasia Moderate; Lymphocytes # (A) 1.3 k/uL (1.0-4.8); Lymphocytes % (A) 12 %; MCH 29.2 pg (25.0-35.0); MCHC 31.3 g/dL (31.0-37.0); MCV 93.3 fL (80.0-100.0); Mean Platelet Volume 7.3; Monocytes # (A) 0.7 k/uL (0-1.0); Monocytes % (A) 7 %; Neutrophils % (A) 75 %; Platelet Count 440 k/uL (150-450); RBC 3.18 m/uL (4.30-5.90); RDW 16.1 % (11.5-15.5); WBC 10.7 k/uL (3.8-10.6)
[2021-09-19 06:26] LABS: HGB 9.3 gm/dL (13.0-17.5)
[2021-09-19] MEDS: VANCOMYCIN 1,500 MG in SODIUM CHLORIDE 0.9% 250 ML IVPB SCH ×2 (06:28→15:38)
[2021-09-19] MEDS: methocarbamoL 500 MG TAB PO SCH ×3 (06:28→20:18)
[2021-09-19] MEDS: GABAPENTIN 100 MG CAP PO SCH ×3 (06:28→20:18)
[2021-09-19 06:33] LABS: African American GFR (CKD) >90 (>60 ml/min/1.73 sqM); Anion Gap 7 mmol/L; Blood Urea Nitrogen 13 mg/dL (9-20); Carbon Dioxide 31 mmol/L (22-30); Chloride 98 mmol/L (98-107); Glucose 106 mg/dL (74-99); Non-African American GFR(CKD) >90 (>60 ml/min/1.73 sqM); Potassium 4.1 mmol/L (3.5-5.1); Sodium 136 mmol/L (137-145)
[2021-09-19 07:12] LABS: Glucose,Whole Blood 130 mg/dL (75-99)
[2021-09-19] MEDS: INSULN ASP PRT/INSULIN ASPART 100 UNIT/ML 10 ML VIAL SQ SCH ×2 (07:34→20:39)
[2021-09-19] MEDS ORDERED: NON FORMULARY DRUG (Umeclidinium Bromide [Incruse Ellipta] 62.5 MCG Blst.W.Dev) INHALATION SCH (08:00)
[2021-09-19] MEDS ORDERED: AMLODIPINE BESYLATE PO SCH (08:00)
[2021-09-19] MEDS ORDERED: NON FORMULARY DRUG (Glucerna Shake 1 CAN Ml) PO SCH (08:00)
[2021-09-19] MEDS ORDERED: BENAZEPRIL PO SCH (08:00)
[2021-09-19] MEDS: METOPROLOL TARTRATE 25 MG TAB PO SCH ×2 (08:29→15:38)
[2021-09-19] MEDS: glipiZIDE 5 MG TAB PO SCH (08:29)
[2021-09-19] MEDS: MELOXICAM 7.5 MG TAB PO SCH (08:29)
[2021-09-19] MEDS: lisinopriL 10 MG TAB PO SCH (08:29)
[2021-09-19] MEDS: FERROUS SULFATE 325 MG TAB PO SCH (08:29)
[2021-09-19] MEDS: metFORMIN 500 MG TAB PO SCH ×2 (08:29→15:38)
[2021-09-19] MEDS: DICYCLOMINE 20 MG TAB PO SCH ×3 (08:29→15:38)
[2021-09-19] MEDS: amLODIPine 2.5 MG TAB PO SCH (08:29)
[2021-09-19] MEDS: PANTOPRAZOLE 40 MG TABLET PO SCH (08:29)
[2021-09-19] MEDS: ASPIRIN 81 MG PO SCH (08:29)
[2021-09-19] MEDS: DONEPEZIL 5 MG TAB PO SCH (08:30)
[2021-09-19] MEDS: FUROSEMIDE 10 MG/ML 2 ML VIAL IV SCH ×2 (08:30→20:17)
[2021-09-19] MEDS: VENLAFAXINE HCL ER 75 MG CAP PO SCH (08:30)
[2021-09-19] MEDS: SYMBICORT 80-4.5 MCG INHALER INHALATION SCH ×2 (09:04→19:50)
--- NOTE | 2021-09-19 09:28 | CONS ---
CONSULTATION HISTORY OF PRESENT ILLNESS: Mr. Cotton is a 71-year-old male who was transferred from [facility] with dyspnea and confusion. The patient denies that he was dyspneic. He appears to be confused. The patient has a prior history of coronary artery disease. He has underwent percutaneous revascularization of the right coronary artery and left circumflex in 2011. He has a history of hypertension, hyperlipidemia, peripheral vascular disease. He has a prior history of smoking, which he stopped. He has a permanent pacemaker implantation and in the past his left ventricular systolic function has been preserved. He has underwent a myocardial perfusion imaging in September of last year that showed a predominantly fixed inferior inferolateral wall defect with possible area of stress-induced ischemia. The patient has underwent laminectomy and apparently had infection and diskitis and has been receiving IV antibiotics. He feels that he is not able to remember things, but he denies any chest pain. He denies any breathing problems. He denies any dizziness or palpitations. He denies any PND, orthopnea. No peripheral edema. In the emergency room, he was noted to have an elevated NT proBNP. His coronary risk factors are positive for history of diabetes, hypertension and hyperlipidemia. He has stopped smoking as noted. His medication included Lipitor 20 mg daily, aspirin, ProAir, Ventolin, Aricept, gabapentin, insulin, Melatonin, metoprolol tartrate 25 mg twice a day, amlodipine, benazepril 2 and half 10 mg daily, glipizide, and metformin. He was also on Robaxin. REVIEW OF SYSTEMS: RESPIRATORY system: He has no recent wheezing or cough. He had a prior history of dyspnea on exertion related to smoking, history of obstructive lung disease. GI system: He denies any nausea or vomiting. No GI bleeding. system: No dysuria or hematuria. NERVOUS SYSTEM: No history of documented stroke or seizure in the past. PHYSICAL EXAMINATION: He is a 71-year-old male, could remember my name, but unable to remember the name of the physician that did his surgery or the phone number of his . Has lost quite a bit of weight compared to last time I have seen in the office. Blood pressure 141/70 with a heart rate in the 80s. HEAD: Normocephalic. Eyes sclerae anicteric. NECK: Good upstroke with bruit noted on the right side. LUNGS: Clear to auscultation. HEART: Regular rhythm S1, S2. No S3, with systolic murmur 2/6 heard at the base. No diastolic murmur. No rub. ABDOMEN: Soft, nontender. Positive bowel sounds. No organomegaly. EXTREMITIES: No edema. LAB DATA: Lab data revealed a hemoglobin of 9.3 on admission was 7.8, white blood cell of 10.7, BUN and creatinine 13 and 0.64. His troponin 0.014. NT proBNP of 2820. His padilla virus PCR was negative. His EKG revealed a sinus mechanism with pacemaker activity and right bundle branch block. His chest CT angiogram revealed no evidence of pulmonary embolism. His chest x-ray raised the possibility of mild CHF. IMPRESSION: 1. Symptoms of dyspnea. At the time of evaluation, the patient denies any dyspnea on exertion. 2. Change in mental status, could be related to the narcotics. 3. History of coronary artery disease with no evidence of acute ischemic event. 4. History of pacemaker implantation. 5. History of hypertension. 6. Hyperlipidemia. 7. Diabetes mellitus. 8. Post back surgery with history of diskitis. RECOMMENDATIONS: From the cardiac standpoint, I will obtain echocardiogram with Doppler. Patient had no significant fluid overload on physical examination. I will continue his antihypertensive regimen. The patient will be given IV diuretics for 24 hours, then switch to oral. We will follow his renal function closely. Depending on his progress, further recommendations will be made. Thank you for this consult. We will follow with you. MMBILLL / FAUSTINON: [id number] /
--- NOTE | 2021-09-19 11:46 | ECHOF ---
Referral Reason:cad MEASUREMENTS -------- HEIGHT: 180.3 cm WEIGHT: 90.7 kg BP: 129/68 RVIDd: 3.8 cm (< 3.3) IVSd: 1.4 cm (0.6 - 1.1) LVIDd: 4.2 cm (3.9 - 5.3) LVPWd: 1.6 cm (0.6 - 1.1) IVSs: 1.9 cm LVIDs: 3.0 cm LVPWs: 1.8 cm LAESV Index (A-L): 30.51 ml/m Ao Diam: 3.7 cm (2.0 - 3.7) AV Cusp: 2.3 cm (1.5 - 2.6) LA Diam: 4.6 cm (2.7 - 3.8) MV EXCURSION: 17.802 mm (> 18.000) MV EF SLOPE: 95 mm/s (70 - 150) EPSS: 0.6 cm MV E Reed: 0.57 m/s MV DecT: 313 ms MV A Reed: 0.97 m/s MV E/A Ratio: 0.58 RAP: 5.00 mmHg RVSP: 38.71 mmHg FINDINGS -------- Sinus rhythm. This was a technically difficult study with suboptimal views. The left ventricular size is normal. There is moderate concentric left ventricular hypertrophy. O verall left ventricular systolic function is low-normal with, an EF between 50 - 55 %. The right ventricle is mild to moderately enlarged. LA is midly dilated 29-33ml/m2. The right atrium was not well visualized. 3.0mg of Lumason was utilized for enhancement of images Interatrial and interventricular septum intact. There is no evidence of aortic regurgitation. There is no evidence of aortic stenosis. Mild mitral regurgitation is present. Mild tricuspid regurgitation present. There is mild pulmonary hypertension. The right ventricular systolic pressure, as measured by Doppler, is 38.71mmHg. The pulmonic valve was not well visualized. The aortic root size is normal. IVC Not well visulized. There is no pericardial effusion. CONCLUSIONS -------- 1. The left ventricular size is normal. 2. There is moderate concentric left ventricular hypertrophy. 3. Overall left ventricular systolic function is low-normal with, an EF between 50 - 55 %. 4. The right ventricle is mild to moderately enlarged. 5. LA is midly dilated 29-33ml/m2. 6. Mild mitral regurgitation is present. 7. Mild tricuspid regurgitation present. 8. There is mild pulmonary hypertension. 9. The right ventricular systolic pressure, as measured by Doppler, is 38.71mmHg. BRASS BOBBIN WINDER: Pauline Velásquez RDCS
[2021-09-19 12:07] LABS: Glucose,Whole Blood 131 mg/dL (75-99)
--- NOTE | 2021-09-19 12:22 | P.HPIM ---
History of Present Illness H&P Date: 09/18/21 Chief Complaint: Dyspnea and shortness of breath, congestive heart failure, COPD, elevated d HISTORY OF PRESENT ILLNESS 71-year-old male who seen in [facility] for the last few weeks with past medical history of chronic back pain, post back surgery with discitis had recently surgery at [facility] for discitis of the lumbar spine and still on IV antibiotic with vancomycin. Patient also has known to have history of COPD, diabetes, hypertension, hyperlipidemia, sleep apnea and arrhythmia post pacemaker. He also had atherosclerotic heart disease post heart catheter and stent placement in the past. Patient had a chronic lower back pain with back surgery a few times between [facility] and [facility] and in [facility] where he had his last back surgery for discitis management and still on IV antibiotic through a PICC line on the right side. Patient was sent back to [facility] 3 weeks ago and has been doing slightly better with physical therapy, his mobility and overall condition had declined quite bed lately he is not able to ambulate without at least one person assistance, has been having more problem with encephalopathy with worsening mental status lately. Has been having more confusion, his pain is under control his leg weakness still a major problem at this point patient is not able to walk independently. Patient started having worsening dyspnea and shortness of breath last few days with mild low oxygen level high suspicion for pulmonary embolism his d-dimer was elevated patient made it to the emergency department at [facility] on 09/18/2021 where was seen and evaluated his CTA was negative for PE but showed significant sign and symptom of congestive heart failure and venous congestion consistent with it. Patient other testing showed normal kidney function tests, d-dimer was elevated. Doesn't mention, BNP was 2820, UA was negative COVID-19 was negative as well. Hemoglobin was down to 7.8 from at least 9 earlier. He was started on IV furosemide at 20 mg twice a day and admitted to the hospital for the above problem he will have an echocardiogram will be seen cardiology continue current management apparently patient has [facility]. REVIEW OF SYSTEMS Constitutional: No fever, no chills, no night sweats. No weight change. Generalized weakness, fatigue, lethargy, daytime sleepiness. HEENT: No headache. No blurred vision or double vision, no loss of vision. No loss of Hearing, no ringing in the ears, no dizziness. No nasal drainage or congestion. No epistaxis. No sore throat. Lungs: Slight shortness of breath, no cough, no sputum production but mild wheezes. Cardiovascular: Positive PND orthopnea palpitation, positive fluid retention, no lightheadedness or dizziness, no syncopal episode at this point. Abdominal: No abdominal pain. No nausea, vomiting. No diarrhea. No constipation. No bloody or tarry stools.. No loss of appetite. Genitourinary: No dysuria, increased frequency, urgency. No urinary retention. Musculoskeletal: No myalgias. No muscle weakness, no gait dysfunction, no frequent falls. No back pain. No neck pain. Integumentary: No wounds, no lesions. No rash or pruritus. No unusual bruising. No change in hair or nails. Neurologic: Slight change mental status with mild confusion, no headache still have significant back pain with mild paresthesia lower extremity weakness of the lower extremity as well. o headache. No paralysis. No paresthesia. Psychiatric: No depression. No anxiety. No mood swings. Endocrine: No abnormal blood sugars. No weight change. No excessive sweating or thirst. No cold intolerance. SOCIAL HISTORY He smoked pack a day for 25 years he quit several months ago, injuring psychosocially has not had any in over 7 months, is and lives with his up till had complication with his back surgery has been in [facility] and the hospital for the last few months. FAMILY HISTORY His mother dying in her 80s from CHF, mother dying is 91 from [place], patient had 3 children with no major medical problem and 3 siblings are all living and well. PHYSICAL EXAMINATION Gen: This is elderly overweight laying in bed does not look in any respiratory distress. HEENT: Head is atraumatic, normocephalic. Pupils equal, round. Sclerae is anicteric. NECK: Supple. No JVD. No lymphadenopathy. No thyromegaly. LUNGS: Decreased breath some RHONCHI HAS MILD EXPIRATORY WHEEZES AND SLIGHT DECREASED BREATH SOUND RIGHT SIDE MORE THAN LEFT SIDE. There is a pacemaker on the left side. HEART: Regular rate S1-S2 positive S3 positive PVCs with mild irregularity. 2/6 ejection systolic murmur. ABDOMEN: Soft. Bowel sounds are present. No masses. No tenderness. EXTREMITIES: 1+ edema especially in the left leg compared to the right side with slight bruising lower extremity. NEUROLOGICAL: Patient is awake, alert slightly confused. Cranial nerves 2 through 12 are grossly intact. Back: There is scar tissue from his back surgery and 80 looks fine with no sign of infection induration or redness. ASSESSMENT AND PLAN 1. Severe dyspnea and shortness of breath: Mostly secondary to congestive heart failure exacerbation which most likely diastolic dysfunction, patient be on IV Lasix 20 mg twice a day along with lisinopril 10 mg a day and metoprolol 25 g twice a day, continue to watch fluid for fluid overload and weight. Cardiology consultation and echocardiogram will be done. 2 congestive heart failure exacerbation: Mostly diastolic dysfunction, continue current management for now waiting to see patient ejection fraction. 3 mild COPD: We'll continue O2, continue DuoNeb and Symbicort at this point. 4 encephalopathy: Significant change compared to before, patient is currently on Donepazil is still have mild effect of medication including gabapentin and his pain management. 5 chronic discitis: Patient had surgery and still on IV vancomycin CT of the lumbar spine was done does not show any sign of dissection in the bone or discitis at this point. 6 type 2 diabetes: Add Accu-Chek with sliding scales coverage remain on glipizide 5 mg along with metformin 500 mg twice a day and insulin 70/30 15 units twice a day short acting insulin can be done 4 times a day as well. 7 elevated d-dimer: With negative PE workup CTA was negative for pulmonary embolism. 8 Hyperlipidemia: Continue patient on atorvastatin 20 mg daily. 9 chronic pain management: Still on hydrocodone along with gabapentin. 10 mild memory loss/dementia: Still on Aricept 5 mg a day will be titrated higher if needed. 11 iron deficiency anemia: Continue watch for any GI bleed supportive care iron and multivitamin will be done repeat CBC. 12 hypertension: Continue patient on amlodipine 2.5 mg a day along with lisinopril 10 mg daily and metoprolol 25 mg twice a day. 13 GI prophylaxis: Patient be on pantoprazole 40 mg daily. 14 DVT prophylaxis: Patient be on Lovenox 40 mg subcutaneous daily. CODE STATUS: Full code. COVID-19 testing were negative, patient was admitted to the hospital during pandemic time. Patient will be admitted to the hospital for a minimum of 2 night stay. Past Medical History Past Medical History: COPD, Diabetes Mellitus, Hyperlipidemia, Hypertension, Osteoarthritis (OA), Sleep Apnea/CPAP/BIPAP Additional Past Medical History / Comment(s): PACEMAKER. Uses CPAP. 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 Taking Aricept on a trial basis for slight memory loss. History of anterior cervical decompression and fusion in September 2020 with our service. History of lumbar decompression at outside institution History of Any Multi-Drug Resistant Organisms: None Reported Past Surgical History: Appendectomy, Back Surgery, Heart Catheterization With Stent, Pacemaker Additional Past Surgical History / Comment(s): Oral surg. COLONOSCOPY. GENERATOR CHANGE 2016, lumbar myelogram, neck fusion; heart caths with stents x 2 (at least). Laminectomy August 2021 Past Anesthesia/Blood Transfusion Reactions: No Reported Reaction Date of Last Stent Placement:: 2006 Type of Cardiac Device: Permanent Pacemaker Device Placement Date:: 2008 Past Psychological History: No Psychological Hx Reported Smoking Status: Former smoker Past Alcohol Use History: Occasional Additional Past Alcohol Use History / Comment(s): Smoked since teens, 1 10/05, has not smoked since May Past Drug Use History: None Reported - Past Family History Mother Family Medical History: Cancer Brother(s) Family Medical History: Cancer Medications and Allergies Home Medications Medication Instructions Recorded Confirmed Type Metoprolol Tartrate [Lopressor] 25 mg PO BID@0800,1700 12/02/16 09/18/21 History Umeclidinium [place] [Incruse 1 puff INHALATION RT-DAILY@0800 09/22/18 09/18/21 History Ellipta] Albuterol Sulfate [Proair Hfa] 1 - 2 puff INHALATION RT-Q4H PRN 06/07/20 09/18/21 History Aspirin [Adult Low Dose Aspirin EC] 81 mg PO DAILY@0800 06/07/20 09/18/21 Hi story Fluticasone/Salmeterol [Advair Hfa 1 puff INHALATION RT-BID@0800,1700 06/07/20 09/18/21 History 45-21 Mcg Inhaler] Omeprazole 20 mg PO DAILY@0600 06/07/20 09/18/21 History Albuterol Nebulized [Ventolin 2.5 mg INHALATION RT-Q2H PRN 09/16/20 09/18/21 History Nebulized] Atorvastatin Calcium [Lipitor] 20 mg PO HS@2100 10/12/20 09/18/21 History Donepezil HCl [Aricept] 5 mg PO DAILY@0800 12/19/20 09/18/21 History Acetaminophen Tab [Tylenol] 650 mg PO Q6HR PRN tab 07/01/21 09/18/21 Rx bisacodyL [Dulcolax] 10 mg RECTAL DAILY PRN 07/02/21 09/18/21 History Acetaminophen-Codeine 300-30mg 1 tab PO Q6H PRN 09/18/21 09/18/21 History [Tylenol w/codeine #3] Dicyclomine [Bentyl] 20 mg PO TID@0800,1200,1700 09/18/21 09/18/21 History Docusate Sodium [Dok] 100 mg PO DAILY PRN 09/18/21 09/18/21 History Ferrous Sulfate [Feosol] 325 mg PO DAILY@0800 09/18/21 09/18/21 History Furosemide [Lasix] 40 mg PO ONCE 09/18/21 09/18/21 History Gabapentin [Neurontin] 100 mg PO TID@0600,1400,2200 09/18/21 09/18/21 History Glucerna Shake 1 can PO TID@0800,1200,1700 09/18/21 09/18/21 History Insulin NPH/Reg Insulin 70/30 15 unit SQ BID@0700,2100 09/18/21 09/18/21 History [humuLIN 70/30 VIAL] Ipratropium-Albuterol Nebulize 3 ml INHALATION RT-Q6H 09/18/21 09/18/21 History [Duoneb 0.5 mg-3 mg/3 ml Soln] Magnesium Hydroxide [Milk of 2,400 mg PO DAILY PRN 09/18/21 09/18/21 History Magnesia] Melatonin 5 mg PO HS@209909/18/21 09/18/21 History Meloxicam [Mobic] 7.5 mg PO DAILY@0800 09/18/21 09/18/21 History Na Phos,M-B/Na Phos,Di-Ba [Fleet 133 ml RECTAL DAILY PRN 09/18/21 09/18/21 History Adult] Polyethylene Glycol 3350 [Clearlax] 1 packet PO DAILY PRN 09/18/21 09/18/21 History Sennosides [Senna] 8.6 mg PO HS@2100 09/18/21 09/18/21 History Vancomycin HCl 2 gm IV DAILY@0800 09/18/21 09/18/21 History Venlafaxine HCl [Effexor XR] 225 mg PO DAILY@0800 09/18/21 09/18/21 History amLODIPine BESYLATE/BENAZEPRIL 1 cap PO DAILY@0800 09/18/21 09/18/21 History [Lotrel 2.5-10 MG] bisacodyL [Dulcolax] 10 mg RECTAL DAILY PRN 09/18/21 09/18/21 History glipiZIDE [Glucotrol] 5 mg PO AC-BRKFST 09/18/21 09/18/21 History metFORMIN HCL 500 mg PO BID@0800,1700 09/18/21 09/18/21 History methocarbamoL [Robaxin] 500 mg PO TID@0600,1400,2200 09/18/21 09/18/21 History Allergies Allergy/AdvReac Type Severity Reaction Status Date / Time No Known Allergies Allergy Verified 09/18/21 12:53 Physical Exam Vitals: Vital Signs Temp Pulse Pulse Resp BP BP Pulse Ox 09/18/21 21:45 98.4 F 80 18 140/75 94 L 09/18/21 21:00 79 10 L 132/75 93 L 09/18/21 20:04 80 09/18/21 20:00 72 24 132/75 09/18/21 19:54 76 09/18/21 19:00 76 18 132/75 93 L 09/18/21 18:00 72 20 132/75 09/18/21 17:00 71 19 132/75 09/18/21 16:00 64 24 09/18/21 15:00 113/85 09/18/21 14:00 61 15 113/62 09/18/21 13:00 70 20 106/69 95 09/18/21 12:24 62 18 110/70 95 09/18/21 12:00 68 18 113/60 95 09/18/21 11:49 62 103/69 94 L 09/18/21 11:30 20 09/18/21 11:21 97.1 F L 68 20 103/69 89 L Intake and Output 12/16/21 12/16/21 12/16/21 06:59 14:59 22:59 Intake Total 250 Balance 250 Intake: Oral 250 Other: Weight 81.647 kg 81.647 kg Results CBC & Chem 7: 09/19/21 05:34 09/19/21 05:34 Labs: Abnormal Lab Results - Last 24 Hours (Table) 09/18/21 09/18/21 09/18/21 Range/Units 12: 12: 12: WBC 12.9 H (3.8-10.6) k/uL RBC 2.59 L (4.30-5.90) m/uL Hgb 7.8 L (13.0-17.5) gm/dL Hct 23.9 L (39.0-53.0) % RDW 16.2 H (11.5-15.5) % Plt Count 476 H (150-450) k/uL Neutrophils # 9.4 H (1.3-7.7) k/uL D-Dimer 3.38 H (<0.60) mg/L FEU POC Glucose (mg/dL) (75-99) mg/dL Alkaline Phosphatase (38-126) U/L Albumin (3.5-5.0) g/dL Ur Specific [place] >1.050 H (1.001-1.035) Vancomycin Trough ug/mL 09/18/21 09/18/21 09/18/21 Range/Units 12: 12:27 22:05 WBC (3.8-10.6) k/uL RBC (4.30-5.90) m/uL Hgb (13.0-17.5) gm/dL Hct (39.0-53.0) % RDW (11.5-15.5) % Plt Count (150-450) k/uL Neutrophils # (1.3-7.7) k/uL D-Dimer (<0.60) mg/L FEU POC Glucose (mg/dL) 110 H (75-99) mg/dL Alkaline Phosphatase 145 H (38-126) U/L Albumin 3.1 L (3.5-5.0) g/dL Ur Specific [place] (1.001-1.035) Vancomycin Trough 30.9 H* ug/mL Thrombosis Risk Factor Assmnt - Choose All That Apply Any of the Below Risk Factors Present?: Yes Each Factor Represents 1 point: Abnormal pulmonary function (COPD), Medical pt on bed rest, Obesity (BMI >25) Each Risk Factor Represents 2 Points: Age 61-74 years Other congenital or acquired thrombophilia - If yes, enter type in comment: No Thrombosis Risk Factor Assessment Total Risk Factor Score: 5 Thrombosis Risk Factor Assessment Level: High Risk
--- NOTE | 2021-09-19 15:07 | P.PN ---
Subjective Progress Note Date: 09/19/21 HISTORY OF PRESENT ILLNESS 71-year-old male who seen in [facility] for the last few weeks with past medical history of chronic back pain, post back surgery with discitis had recently s urgery at [facility] for discitis of the lumbar spine and still on IV antibiotic with vancomycin. Patient also has known to have history of COPD, diabetes, hypertension, hyperlipidemia, sleep apnea and arrhythmia post pacemaker. He also had atherosclerotic heart disease post heart catheter and stent placement in the past. Patient had a chronic lower back pain with back surgery a few times between [facility] and in [facility] where he had his last back surgery for discitis management and still on IV antibiotic through a PICC line on the right side. Patient was sent back to [facility] 3 weeks ago and has been doing slightly better with physical therapy, his mobility and overall condition had declined quite bed lately he is not able to ambulate without at least one person assistance, has been having more problem with encephalopathy with worsening mental status lately. Has been having more confusion, his pain is under control his leg weakness still a major problem at this point patient is not able to walk independently. Patient started having worsening dyspnea and shortness of breath last few days with mild low oxygen level high suspicion for pulmonary embolism his d-dimer was elevated patient made it to the emergency department at [facility] on 09/18/2021 where was seen and evaluated his CTA was negative for PE but showed significant sign and symptom of congestive heart failure and venous congestion c onsistent with it. Patient other testing showed normal kidney function tests, d-dimer was elevated. Doesn't mention, BNP was 2820, UA was negative COVID-19 was negative as well. Hemoglobin was down to 7.8 from at least 9 earlier. He was started on IV furosemide at 20 mg twice a day and admitted to the hospital for the above problem he will have an echocardiogram will be seen cardiology continue current management apparently [facility]. 09/19: Patient remains afebrile, heart rate 60, blood pressure 116/64, pulse ox 94% on 3 L nasal cannula. Repeat blood work reveals WBC 10.7, hemoglobin 9.3, platelet count 440. Sodium 136, potassium 4.1, chloride 98, CO2 31, BUN 13 and creatinine 0.64. Blood sugars running between 110 and iron 31. Echocardiogram reveals EF of 50-55% with moderate concentric left ventricular hypertrophy, mild mitral regurgitation, mild tricuspid regurgitation, mild pulmonary hypertension. Patient has been seen by cardiology with plan to continue current antihypertensive regime and plan for IV diuretics for 24 hours and switched to oral. Patient is currently on Lasix 20 mg IV every 12 hours. Discharge plan will be to return to [facility] on Wednesday. REVIEW OF SYSTEMS Constitutional: No fever, no chills, no night sweats. No weight change. Generalized weakness and fatigue, lethargy, daytime sleepiness. HEENT: No headache. No blurred vision or double vision, no loss of vision. No loss of Hearing, no ringing in the ears, no dizziness. No nasal drainage or congestion. No epistaxis. No sore throat. Lungs: Slight shortness of breath, no cough, no sputum production but mild wheezes. Cardiovascular: Positive PND orthopnea palpitation, positive fluid retention, no lightheadedness or dizziness, no syncopal episode at this point. Abdominal: No abdominal pain. No nausea, vomiting. No diarrhea. No constipation. No bloody or tarry stools.. No loss of appetite. Genitourinary: No dysuria, increased frequency, urgency. No urinary retention. Musculoskeletal: No myalgias. No muscle weakness, no gait dysfunction, no frequent falls. No back pain. No neck pain. Integumentary: No wounds, no lesions. No rash or pruritus. No unusual bruising. No change in hair or nails. Neurologic: Slight change mental status with mild confusion, no headache still have significant back pain with mild paresthesia lower extremity weakness of the lower extremity as well. o headache. No paralysis. No paresthesia. Psychiatric: No depression. No anxiety. No mood swings. Endocrine: No abnormal blood sugars. No weight change. No excessive sweating or thirst. No cold intolerance. PHYSICAL EXAMINATION Gen: This is elderly overweight laying in bed does not look in any respiratory distress. HEENT: Head is atraumatic, normocephalic. Pupils equal, round. Sclerae is anicteric. NECK: Supple. No JVD. No lymphadenopathy. No thyromegaly. LUNGS: Decreased breath some RHONCHI HAS MILD EXPIRATORY WHEEZES AND SLIGHT DECREASED BREATH SOUND RIGHT SIDE MORE THAN LEFT SIDE. There is a pacemaker on the left side. HEART: Regular rate S1-S2 positive S3 positive PVCs with mild irregularity. 2/6 ejection systolic murmur. ABDOMEN: Soft. Bowel sounds are present. No masses. No tenderness. EXTREMITIES: 1+ edema especially in the left leg compared to the right side with slight bruising lower extremity. NEUROLOGICAL: Patient is awake, alert slightly confused. Cranial nerves 2 through 12 are grossly intact. Back: There is scar tissue from his back surgery with no sign of infection induration or redness. ASSESSMENT AND PLAN 1. Severe dyspnea and shortness of breath diastolic heart failure. Cardiology consult appreciated, continue Lasix 20 g IV for 24 hours and then changed to oral, echocardiogram as above, monitor I&O, daily weights, electrolytes and renal function. 2 acute diastolic heart failure. Continue as in #1 3 mild COPD: We'll continue O2, continue DuoNeb and Symbicort at this point. 4 metabolic encephalopathy: Significant change compared to before, patient is currently on Donepazil is still have mild effect of medication including gabapentin and his pain management. 5 chronic discitis. Continue vancomycin, PICC line. 6 type 2 diabetes: Add Accu-Chek with sliding scales coverage remain on glip izide 5 mg along with metformin 500 mg twice a day and insulin 70/30 15 units twice a day short acting insulin can be done 4 times a day as well. 7 elevated d-dimer: With negative PE workup CTA was negative for pulmonary embolism. 8 Hyperlipidemia: Continue patient on atorvastatin 20 mg daily. 9 chronic pain management: Still on hydrocodone along with gabapentin. 10 mild memory loss/dementia: Still on Aricept 5 mg a day will be titrated higher if needed. 11 iron deficiency anemia: Continue watch for any GI bleed supportive care iron and multivitamin will be done repeat CBC. 12 hypertension: Continue patient on amlodipine 2.5 mg a day along with lisinopril 10 mg daily and metoprolol 25 mg twice a day. 13 GI prophylaxis: Patient be on pantoprazole 40 mg daily. 14 DVT prophylaxis: Patient be on Lovenox 40 mg subcutaneous daily. CODE STATUS: Full code. COVID-19 testing were negative, patient was admitted to the hospital during pandemic time. DISCHARGE PLAN Return to [facility] on Wednesday Impression and plan of care have been directed as dictated by the signing physician. Gabriella Munoz nurse practitioner acting as scribe for signing physician. Objective - Vital Signs Vital signs: Vital Signs Temp 98 F 09/19/21 08:00 Pulse 82 09/19/21 09:11 Resp 16 09/19/21 09:11 BP 129/68 09/19/21 08:00 Pulse Ox 93 L 09/19/21 08:00 Intake & Output 09/18/21 09/19/21 09/19/21 18:59 06:59 18:59 Intake Total 250 Balance 250 Weight 81.647 kg 91 kg Intake: Oral 250 - Labs CBC & Chem 7: 09/19/21 05:34 09/19/21 05:34 Labs: Abnormal Lab Results - Last 24 Hours (Table) 09/18/21 09/18/21 09/18/21 Range/Units 12:27 12: 12:27 WBC 12.9 H (3.8-10.6) k/uL RBC 2.59 L (4.30-5.90) m/uL Hgb 7.8 L (13.0-17.5) gm/dL Hct 23.9 L (39.0-53.0) % RDW 16.2 H (11.5-15.5) % Plt Count 476 H (150-450) k/uL Neutrophils # 9.4 H (1.3-7.7) k/uL D-Dimer 3.38 H (<0.60) mg/L FEU Sodium (137-145) mmol/L Carbon Dioxide (22-30) mmol/L Creatinine (0.66-1.25) mg/dL Glucose (74-99) mg/dL POC Glucose (mg/dL) (75-99) mg/dL Alkaline Phosphatase (38-126) U/L Albumin (3.5-5.0) g/dL Ur Specific [place] >1.050 H (1.001-1.035) Vancomycin Trough ug/mL 09/18/21 09/18/21 09/18/21 Range/Units 12:27 12:27 22:05 WBC (3.8-10.6) k/uL RBC (4.30-5.90) m/uL Hgb (13.0-17.5) gm/dL Hct (39.0-53.0) % RDW (11.5-15.5) % Plt Count (150-450) k/uL Neutrophils # (1.3-7.7) k/uL D-Dimer (<0.60) mg/L FEU Sodium (137-145) mmol/L Carbon Dioxide (22-30) mmol/L Creatinine (0.66-1.25) mg/dL Glucose (74-99) mg/dL POC Glucose (mg/dL) 110 H (75-99) mg/dL Alkaline Phosphatase 145 H (38-126) U/L Albumin 3.1 L (3.5-5.0) g/dL Ur Specific [place] (1.001-1.035) Vancomycin Trough 30.9 H* ug/mL 09/19/21 09/19/21 09/19/21 Range/Units 05:34 05:34 07:00 WBC 10.7 H (3.8-10.6) k/uL RBC 3.18 L (4.30-5.90) m/uL Hgb 9.3 L D (13.0-17.5) gm/dL Hct 29.6 L (39.0-53.0) % RDW 16.1 H (11.5-15.5) % Plt Count (150-450) k/uL Neutrophils # 8.0 H (1.3-7.7) k/uL D-Dimer (<0.60) mg/L FEU Sodium 136 L (137-145) mmol/L Carbon Dioxide 31 H (22-30) mmol/L Creatinine 0.64 L (0.66-1.25) mg/dL Glucose 106 H (74-99) mg/dL POC Glucose (mg/dL) 130 H (75-99) mg/dL Alkaline Phosphatase (38-126) U/L Albumin (3.5-5.0) g/dL Ur Specific [place] (1.001-1.035) Vancomycin Trough ug/mL
[2021-09-19 16:51] LABS: Glucose,Whole Blood 211 mg/dL (75-99)
[2021-09-19] MEDS: MELATONIN 5 MG TABLET PO SCH (20:17)
[2021-09-19] MEDS: SENNOSIDES 8.6 MG TAB PO SCH (20:17)
[2021-09-19] MEDS: ATORVASTATIN 20 MG TAB PO SCH (20:18)
[2021-09-19 20:57] LABS: Glucose,Whole Blood 177 mg/dL (75-99)
[2021-09-20] MEDS ORDERED: VANCOMYCIN TROUGH DUE 1 EACH MISC MISCELLANE ONE (05:00)
[2021-09-20 05:49] LABS: African American GFR (CKD) >90 (>60 ml/min/1.73 sqM); Anion Gap 5 mmol/L; Blood Urea Nitrogen 13 mg/dL (9-20); Calcium 8.9 mg/dL (8.4-10.2); Carbon Dioxide 31 mmol/L (22-30); Chloride 99 mmol/L (98-107); Glucose 99 mg/dL (74-99); Non-African American GFR(CKD) >90 (>60 ml/min/1.73 sqM); Potassium 3.7 mmol/L (3.5-5.1); Sodium 135 mmol/L (137-145)
[2021-09-20] MEDS: methocarbamoL 500 MG TAB PO SCH ×3 (06:18→20:16)
[2021-09-20] MEDS: GABAPENTIN 100 MG CAP PO SCH ×3 (06:18→20:16)
[2021-09-20] MEDS: glipiZIDE 5 MG TAB PO SCH (06:18)
[2021-09-20] MEDS: PANTOPRAZOLE 40 MG TABLET PO SCH (06:18)
[2021-09-20 06:50] LABS: Glucose,Whole Blood 102 mg/dL (75-99)
[2021-09-20] MEDS: IPRATROPIUM-ALBUTEROL 3 ML NEB INHALATION SCH ×4 (07:51→20:56)
[2021-09-20] MEDS: SYMBICORT 80-4.5 MCG INHALER INHALATION SCH ×2 (07:51→20:56)
[2021-09-20] MEDS: INSULN ASP PRT/INSULIN ASPART 100 UNIT/ML 10 ML VIAL SQ SCH ×2 (08:25→19:59)
[2021-09-20] MEDS: amLODIPine 2.5 MG TAB PO SCH (08:27)
[2021-09-20] MEDS: MELOXICAM 7.5 MG TAB PO SCH (08:27)
[2021-09-20] MEDS: ASPIRIN 81 MG PO SCH (08:27)
[2021-09-20] MEDS: lisinopriL 10 MG TAB PO SCH (08:27)
[2021-09-20] MEDS: FERROUS SULFATE 325 MG TAB PO SCH (08:28)
[2021-09-20] MEDS: DICYCLOMINE 20 MG TAB PO SCH ×3 (08:28→17:34)
[2021-09-20] MEDS: metFORMIN 500 MG TAB PO SCH ×2 (08:28→17:33)
[2021-09-20] MEDS: ENOXAPARIN 40 MG/0.4 ML SYRINGE SQ SCH (08:28)
[2021-09-20] MEDS: FUROSEMIDE 10 MG/ML 2 ML VIAL IV SCH (08:28)
[2021-09-20] MEDS: VENLAFAXINE HCL ER 75 MG CAP PO SCH (08:29)
[2021-09-20] MEDS: METOPROLOL TARTRATE 25 MG TAB PO SCH ×2 (08:29→17:34)
[2021-09-20] MEDS: DONEPEZIL 5 MG TAB PO SCH (08:31)
--- NOTE | 2021-09-20 11:55 | PN ---
PROGRESS NOTE Mr. Cotton is a 71-year-old male with known history of coronary artery disease, permanent pacemaker implantation, history of diabetes, hypertension and hyperlipidemia who presented with dyspnea and change in mental status. He is feeling better today. He still has some dyspnea but no chest pain. He does not have the confusion yesterday he had yesterday. He denies any palpitations or syncope. He is in sinus mechanism. He continues to be on amlodipine 2.5 mg daily, aspirin once a day, Lasix 20 mg IV q.12 hours, lisinopril 10 mg daily, metformin, metoprolol tartrate 25 mg twice a day. PHYSICAL EXAMINATION: Blood pressure running in the 130s with a heart rate in the 70s. Lungs clear. Heart: Regular rate and rhythm. S1, S2. No S3. No rub. Abdomen soft, non-tender. Extremities no edema. LAB DATA: Lab data revealed BUN and creatinine of 13 and 0.67. IMPRESSION: 1. Symptoms of dyspnea and congestive heart failure with preserved systolic function. 2. History of coronary artery disease, stable. 3. Hypertension. 4. Hyperlipidemia. 5. Status post back surgery and diskitis, on chronic antibiotics at this point. RECOMMENDATIONS: I will stop his IV Lasix, switch him to oral. Increase his activity. If he remains stable, I would expect he should be able to be transferred back to rehab soon. Cardiac- jensen he appears to be stable. MMODL / IJN: [id number] /
[2021-09-20 12:06] LABS: Glucose,Whole Blood 101 mg/dL (75-99)
[2021-09-20] MEDS: VANCOMYCIN 1,500 MG in SODIUM CHLORIDE 0.9% 250 ML IVPB SCH (12:27)
[2021-09-20 16:37] LABS: Glucose,Whole Blood 98 mg/dL (75-99)
--- NOTE | 2021-09-20 16:59 | P.PN ---
Subjective Progress Note Date: 09/20/21 HISTORY OF PRESENT ILLNESS 71-year-old male who seen in [facility] for the last few weeks with past medical history of chronic back pain, post back surgery with discitis had recently surgery at [facility] for discitis of the lumbar spine and still on IV antibiotic with vancomycin. Patient also has known to have history of COPD, diabetes, hypertension, hyperlipidemia, sleep apnea and arrhythmia post pacemaker. He also had atherosclerotic heart disease post heart catheter and stent placement in the past. Patient had a chronic lower back pain with back surgery a few times between [facility] and in [facility] where he had his last back surgery for discitis management and still on IV antibiotic through a PICC line on the right side. Patient was sent back to [facility] 3 weeks ago and has been doing slightly better with physical therapy, his mobility and overall condition had declined quite bed lately he is not able to ambulate without at least one person assistance, has been having more problem with encephalopathy with worsening mental status lately. Has been having more confusion, his pain is under control his leg weakness still a major problem at this point patient is not able to walk independently. Patient started having worsening dyspnea and shortness of breath last few days with mild low oxygen level high suspicion for pulmonary embolism his d-dimer was elevated patient made it to the emergency department at [facility] on 09/18/2021 where was seen and evaluated his CTA was negative for PE but showed significant sign and symptom of congestive heart failure and venous congestion consistent with it. Patient other testing showed normal kidney function tests, d-dimer was elevated. Doesn't mention, BNP was 2820, UA was negative COVID-19 was negative as well. Hemoglobin was down to 7.8 from at least 9 earlier. He was started on IV furosemide at 20 mg twice a day and admitted to the hospital for the above problem he will have an echocardiogram will be seen cardiology continue current management apparently patient has [facility]. 09/19: Patient remains afebrile, heart rate 60, blood pressure 116/64, pulse ox 94% on 3 L nasal cannula. Repeat blood work reveals WBC 10.7, hemoglobin 9.3, platelet count 440. Sodium 136, potassium 4.1, chloride 98, CO2 31, BUN 13 and creatinine 0.64. Blood sugars running between 110 and iron 31. Echocardiogram reveals EF of 50-55% with moderate concentric left ventricular hypertrophy, mild mitral regurgitation, mild tricuspid regurgitation, mild pulmonary hypertension. Patient has been seen by cardiology with plan to continue current antihypertensive regime and plan for IV diuretics for 24 hours and switched to oral. Patient is currently on Lasix 20 mg IV every 12 hours. Discharge plan will be to return to [facility] on Wednesday. 09/20 patient's doing okay, has no shortness of breath no edema, no chest pain, on oral diuretics, plan for Wednesday, if he OT while here, patient is to continue on diabetes medication as prescribed, creatinine is normal, potassium was 3.7. Not on anY antibiotic at this time, vitals are stable on O2 2 L nasal cannula, which is new one the hospital. We will address pulse oximetry, on room air prior to discharge REVIEW OF SYSTEMS Constitutional: No fever, no chills, no night sweats. No weight change. Generalized weakness and fatigue, lethargy, daytime sleepiness. HEENT: No headache. No blurred vision or double vision, no loss of vision. No loss of Hearing, no ringing in the ears, no dizziness. No nasal drainage or congestion. No epistaxis. No sore throat. Lungs: Slight shortness of breath, no cough, no sputum production but mild wheezes. Cardiovascular: Positive PND orthopnea palpitation, positive fluid retention, no lightheadedness or dizziness, no syncopal episode at this point. Abdominal: No abdominal pain. No nausea, vomiting. No diarrhea. No constipation. No bloody or tarry stools.. No loss of appetite. Genitourinary: No dysuria, increased frequency, urgency. No urinary retention. Musculoskeletal: No myalgias. No muscle weakness, no gait dysfunction, no frequent falls. No back pain. No neck pain. Integumentary: No wounds, no lesions. No rash or pruritus. No unusual bruisin g. No change in hair or nails. Neurologic: Slight change mental status with mild confusion, no headache still have significant back pain with mild paresthesia lower extremity weakness of the lower extremity as well. o headache. No paralysis. No paresthesia. Psychiatric: No depression. No anxiety. No mood swings. Endocrine: No abnormal blood sugars. No weight change. No excessive sweating or thirst. No cold intolerance. PHYSICAL EXAMINATION Gen: This is elderly overweight laying in bed does not look in any respiratory distress. HEENT: Head is atraumatic, normocephalic. Pupils equal, round. Sclerae is anicteric. NECK: Supple. No JVD. No lymphadenopathy. No thyromegaly. LUNGS: Decreased breath some RHONCHI HAS MILD EXPIRATORY WHEEZES AND SLIGHT DECREASED BREATH SOUND RIGHT SIDE MORE THAN LEFT SIDE. There is a pacemaker on the left side. HEART: Regular rate S1-S2 positive S3 positive PVCs with mild irregularity. 2/6 ejection systolic murmur. ABDOMEN: Soft. Bowel sounds are present. No masses. No tenderness. EXTREMITIES: 1+ edema especially in the left leg compared to the right side with slight bruising lower extremity. NEUROLOGICAL: Patient is awake, alert slightly confused. Cranial nerves 2 through 12 are grossly intact. Back: There is scar tissue from his back surgery with no sign of infection induration or redness. ASSESSMENT AND PLAN 1. Severe dyspnea and shortness of breath diastolic heart failure. Cardiology consult appreciated, continue Lasix 20 g IV for 24 hours and then changed to oral, echocardiogram as above, monitor I&O, daily weights, electrolytes and renal function. 2 acute diastolic heart failure. Continue as in #1 3 mild COPD: We'll continue O2, continue DuoNeb and Symbicort at this point. 4 metabolic encephalopathy: Significant change compared to before, patient is currently on Donepazil is still have mild effect of medication including gabapentin and his pain management. 5 chronic discitis. Continue vancomycin, PICC line. 6 type 2 diabetes: Add Accu-Chek with sliding scales coverage remain on glipizide 5 mg along with metformin 500 mg twice a day and insulin 70/30 15 unit s twice a day short acting insulin can be done 4 times a day as well. 7 elevated d-dimer: With negative PE workup CTA was negative for pulmonary embolism. 8 Hyperlipidemia: Continue patient on atorvastatin 20 mg daily. 9 chronic pain management: Still on hydrocodone along with gabapentin. 10 mild memory loss/dementia: Still on Aricept 5 mg a day will be titrated higher if needed. 11 iron deficiency anemia: Continue watch for any GI bleed supportive care iron and multivitamin will be done repeat CBC. 12 hypertension: Continue patient on amlodipine 2.5 mg a day along with lisinopril 10 mg daily and metoprolol 25 mg twice a day. 13 GI prophylaxis: Patient be on pantoprazole 40 mg daily. 14 DVT prophylaxis: Patient be on Lovenox 40 mg subcutaneous daily. CODE STATUS: Full code. COVID-19 testing were negative, patient was admitted to the hospital during pandemic time. DISCHARGE PLAN Return to [facility] on Wednesday Laboratory Results WBC 10.7 k/uL (3.8-10.6) H 09/19/21 05:34 RBC 3.18 m/uL (4.30-5.90) L 09/19/21 05:34 Hgb 9.3 gm/dL (13.0-17.5) L D 09/19/21 05:34 Hct 29.6 % (39.0-53.0) L 09/19/21 05:34 MCV 93.3 fL (80.0-100.0) 09/19/21 05:34 MCH 29.2 pg (25.0-35.0) 09/19/21 05:34 MCHC 31.3 g/dL (31.0-37.0) 09/19/21 05:34 RDW 16.1 % (11.5-15.5) H 09/19/21 05:34 Plt Count 440 k/uL (150-450) 09/19/21 05:34 MPV 7.3 09/19/21 05:34 Neutrophils % 75 % 09/19/21 05:34 Lymphocytes % 12 % 09/19/21 05:34 Monocytes % 7 % 09/19/21 05:34 Eosinophils % 4 % 09/19/21 05:34 Basophils % 0 % 09/19/21 05:34 Neutrophils # 8.0 k/uL (1.3-7.7) H 09/19/21 05:34 Lymphocytes # 1.3 k/uL (1.0-4.8) 09/19/21 05:34 Monocytes # 0.7 k/uL (0-1.0) 09/19/21 05:34 Eosinophils # 0.4 k/uL (0-0.7) 09/19/21 05:34 Basophils # 0.0 k/uL (0-0.2) 09/19/21 05:34 Hypochromasia Moderate 09/19/21 05:34 Anisocytosis Slight 09/19/21 05:34 PT 10.8 sec (9.0-12.0) 09/18/21 12:27 INR 1.0 (<1.2) 09/18/21 12:27 APTT 27.8 sec (22.0-30.0) 09/18/21 12:27 D-Dimer 3.38 mg/L FEU (<0.60) H 09/18/21 12:27 Sodium 135 mmol/L (137-145) L 09/20/21 05:20 Potassium 3.7 mmol/L (3.5-5.1) 09/20/21 05:20 Chloride 99 mmol/L (98-107) 09/20/21 05:20 Carbon Dioxide 31 mmol/L (22-30) H 09/20/21 05:20 Anion Gap 5 mmol/L 09/20/21 05:20 BUN 13 mg/dL (9-20) 09/20/21 05:20 Creatinine 0.67 mg/dL (0.66-1.25) 09/20/21 05:20 Est GFR (CKD-EPI)AfAm >90 (>60 ml/min/1.73 sqM) 09/20/21 05:20 Est GFR (CKD-EPI)NonAf >90 (>60 ml/min/1.73 sqM) 09/20/21 05:20 Glucose 99 mg/dL (74-99) 09/20/21 05:20 POC Glucose (mg/dL) 98 mg/dL (75-99) 09/20/21 16:36 POC Glu [employer] SHASHI Kelly Leggett 09/20/21 16:36 Calcium 8.9 mg/dL (8.4-10.2) 09/20/21 05:20 Total Bilirubin 0.2 mg/dL (0.2-1.3) 09/18/21 12:27 AST 20 U/L (17-59) 09/18/21 12:27 ALT 14 U/L (4-49) 09/18/21 12:27 Alkaline Phosphatase 145 U/L (38-126) H 09/18/21 12:27 Troponin I 0.014 ng/mL (0.000-0.034) 09/18/21 12:27 NT-Pro-B Natriuret Pep 2820 pg/mL 09/18/21 12:27 Total Protein 6.7 g/dL (6.3-8.2) 09/18/21 12: Albumin 3.1 g/dL (3.5-5.0) L 09/18/21 12: Urine Color Yellow 09/18/21 12: Urine Appearance Clear (Clear) 09/18/21 12: Urine pH 6.0 (5.0-8.0) 09/18/21 12: Ur Specific [place] >1.050 (1.001-1.035) H 09/18/21 12: Urine Protein Negative (Negative) 09/18/21 12: Urine Glucose (UA) Negative (Negative) 09/18/21 12: Urine Ketones Negative (Negative) 09/18/21 12: Urine Blood Negative (Negative) 09/18/21 12: Urine Nitrite Negative (Negative) 09/18/21 12: Urine Bilirubin Negative (Negative) 09/18/21 12: Urine Urobilinogen <2.0 mg/dL (<2.0) 09/18/21 12: Ur Leukocyte Esterase Negative (Negative) 09/18/21 12: Vancomycin Trough 22.2 ug/mL 09/20/21 05:20 Coronavirus (PCR) Not Detected (Not Detectd) 09/18/21 20:10 Vital Signs - 24 hr 09/19/21 09/19/21 09/19/21 19:32 19:50 20:00 Temperature 98.4 F Pulse Rate 71 74 Pulse Rate [ 61 Pulse Oximetery ] Respiratory 18 18 Rate Blood Pressure 124/71 [Left Arm Supine] O2 Sat by Pulse 98 Oximetry 09/19/21 09/20/21 09/20/21 22:57 02:00 04:00 Temperature 97.6 F 98.3 F Pulse Rate Pulse Rate [ 68 74 Pulse Oximetery ] Respiratory 18 18 18 Rate Blood Pressure 135/62 133/75 [Left Arm Supine] O2 Sat by Pulse 99 97 Oximetry 09/20/21 09/20/21 09/20/21 07:51 08:01 11:31 Temperature 97.5 F L 98.2 F Pulse Rate 74 78 Pulse Rate [ 69 63 Pulse Oximetery ] Respiratory 18 16 20 Rate Blood Pressure 132/81 99/58 [Left Arm Supine] O2 Sat by Pulse 99 96 Oximetry 09/20/21 09/20/21 09/20/21 15:27 15:37 16:00 Temperature 97.7 F Pulse Rate 74 77 Pulse Rate [ 72 Pulse Oximetery ] Respiratory 16 16 20 Rate Blood Pressure 106/51 [Left Arm Supine] O2 Sat by Pulse 94 L Oximetry Objective - Vital Signs Vital signs: Vital Signs Temp 97.7 F 09/20/21 16:00 Pulse 72 09/20/21 16:00 Resp 20 09/20/21 16:00 BP 106/51 09/20/21 16:00 Pulse Ox 94 L 09/20/21 16:00 Intake & Output 09/19/21 09/20/21 09/20/21 18:59 06:59 18:59 Intake Total 240 180 Balance 240 180 Weight 94 kg Intake: Oral 240 180 Other: Voiding Method Incontinent # Voids 2 # Bowel Movements 1 - Labs CBC & Chem 7: 09/19/21 05:34 09/20/21 05:20 Labs: Abnormal Lab Results - Last 24 Hours (Table) 09/19/21 09/20/21 09/20/21 Range/Units 20:37 05:20 06:41 Sodium 135 L (137-145) mmol/L Carbon Dioxide 31 H (22-30) mmol/L POC Glucose (mg/dL) 177 H 102 H (75-99) mg/dL 09/20/21 Range/Units 12:04 Sodium (137-145) mmol/L Carbon Dioxide (22-30) mmol/L POC Glucose (mg/dL) 101 H (75-99) mg/dL Microbiology - Last 24 Hours (Table) 09/18/21 12:35 Blood Culture - Preliminary Blood No Growth after 48 hours 09/18/21 12:15 Blood Culture - Preliminary Blood No Growth after 48 hours
[2021-09-20] MEDS: FUROSEMIDE 20 MG TAB PO SCH (20:16)
[2021-09-20] MEDS: ATORVASTATIN 20 MG TAB PO SCH (20:16)
[2021-09-20] MEDS: SENNOSIDES 8.6 MG TAB PO SCH (20:16)
[2021-09-20] MEDS: MELATONIN 5 MG TABLET PO SCH (20:16)
[2021-09-20 20:22] LABS: Glucose,Whole Blood 116 mg/dL (75-99)
[2021-09-21] MEDS: VANCOMYCIN 1,500 MG in SODIUM CHLORIDE 0.9% 250 ML IVPB SCH (05:58)
[2021-09-21] MEDS: glipiZIDE 5 MG TAB PO SCH (05:59)
[2021-09-21] MEDS: PANTOPRAZOLE 40 MG TABLET PO SCH (05:59)
[2021-09-21] MEDS: GABAPENTIN 100 MG CAP PO SCH ×3 (05:59→20:31)
[2021-09-21] MEDS: methocarbamoL 500 MG TAB PO SCH ×3 (06:00→20:31)
[2021-09-21 07:34] LABS: Glucose,Whole Blood 88 mg/dL (75-99)
[2021-09-21] MEDS: SYMBICORT 80-4.5 MCG INHALER INHALATION SCH ×2 (08:11→20:06)
[2021-09-21] MEDS: IPRATROPIUM-ALBUTEROL 3 ML NEB INHALATION SCH ×4 (08:11→20:06)
[2021-09-21 08:27] LABS: African American GFR (CKD) >90 (>60 ml/min/1.73 sqM); Anion Gap 6 mmol/L; Blood Urea Nitrogen 13 mg/dL (9-20); Calcium 9.2 mg/dL (8.4-10.2); Carbon Dioxide 33 mmol/L (22-30); Chloride 98 mmol/L (98-107); Glucose 90 mg/dL (74-99); Non-African American GFR(CKD) >90 (>60 ml/min/1.73 sqM); Sodium 137 mmol/L (137-145)
[2021-09-21] MEDS: ASPIRIN 81 MG PO SCH (08:34)
[2021-09-21] MEDS: DICYCLOMINE 20 MG TAB PO SCH ×3 (08:34→17:23)
[2021-09-21] MEDS: FUROSEMIDE 20 MG TAB PO SCH ×2 (08:34→20:31)
[2021-09-21] MEDS: INSULN ASP PRT/INSULIN ASPART 100 UNIT/ML 10 ML VIAL SQ SCH ×2 (08:34→20:30)
[2021-09-21] MEDS: MELOXICAM 7.5 MG TAB PO SCH (08:34)
[2021-09-21] MEDS: metFORMIN 500 MG TAB PO SCH ×2 (08:35→17:23)
[2021-09-21] MEDS: FERROUS SULFATE 325 MG TAB PO SCH (08:35)
[2021-09-21] MEDS: lisinopriL 10 MG TAB PO SCH (08:35)
[2021-09-21] MEDS: DONEPEZIL 5 MG TAB PO SCH (08:36)
[2021-09-21] MEDS: VENLAFAXINE HCL ER 75 MG CAP PO SCH (08:36)
[2021-09-21] MEDS: ENOXAPARIN 40 MG/0.4 ML SYRINGE SQ SCH (08:36)
[2021-09-21] MEDS: METOPROLOL TARTRATE 25 MG TAB PO SCH ×2 (08:37→17:23)
[2021-09-21 12:03] LABS: Glucose,Whole Blood 74 mg/dL (75-99)
--- NOTE | 2021-09-21 12:21 | PN ---
PROGRESS NOTE Mr. Cotton is a 71-year-old male who presented with symptoms of progressive dyspnea. He has a known history of coronary artery disease. He had back discomfort and had an infection and subsequently was on IV antibiotics. He was having peripheral edema and episodes of confusion. He is much better at this time. His breathing is stable. He is complaining of the back discomfort. He denies any dizziness or palpitations. He denies any nausea. He continues to be at this time on amlodipine 2.5 mg daily, aspirin once a day, Lipitor 20 mg daily, donepezil, Lovenox subcutaneously, Lasix 20 mg twice a day, Glucotrol, lisinopril 10 mg daily, metformin, metoprolol 25 mg twice a day in addition to the vancomycin. PHYSICAL EXAMINATION: Blood pressure running in the 120s to 130s with a heart rate in the 70s. LUNGS: Clear. HEART: Regular rate and rhythm. S1, S2. No S3. No rub, with a systolic murmur. ABDOMEN: Soft, nontender. EXTREMITIES: No edema. LAB DATA: BUN 18, creatinine 13.7, potassium 4.0. IMPRESSION: 1. Episodes of congestive heart failure with preserved systolic function, improved. 2. History of coronary artery disease, stable. 3. Hypertension. 4. Hyperlipidemia. 5. Status post back surgery and diskitis. RECOMMENDATIONS: From the cardiac standpoint, he is stable. I would expect he should be transferred back to rehab tomorrow and continue present therapy. Down the road we may be able to cut down on his diuretics. Patient should follow low-salt intake. MMODL / IJN: [id number] /
--- NOTE | 2021-09-21 15:12 | P.PN ---
Subjective Progress Note Date: 09/21/21 HISTORY OF PRESENT ILLNESS 71-year-old male who seen in [facility] for the last few weeks with past medical history of chronic back pain, post back surgery with discitis had recently surgery at [facility] for discitis of the lumbar spine and still on IV antibiotic with vancomycin. Patient also has known to have history of COPD, diabetes, hypertension, hyperlipidemia, sleep apnea and arrhythmia post pacemaker. He also had atherosclerotic heart disease post heart catheter and stent placement in the past. Patient had a chronic lower back pain with back surgery a few times between [facility] and [facility] and in [facility] where he had his last back surgery for discitis management and still on IV antibiotic through a PICC line on the right side. Patient was sent back to [facility] 3 weeks ago and has been doing slightly better with physical therapy, his mobility and overall condition had declined quite bed lately he is not able to ambulate without at least one person assistance, has been having more problem with encephalopathy with worsening mental status lately. Has been having more confusion, his pain is under control his leg weakness still a major problem at this point patient is not able to walk independently. Patient started having worsening dyspnea and shortness of breath last few days with mild low oxygen level high suspicion for pulmonary embolism his d-dimer was elevated patient made it to the emergency department at [facility] on 09/18/2021 where was seen and evaluated his CTA was negative for PE but showed significant sign and symptom of congestive heart failure and venous congestion consistent with it. Patient other testing showed normal kidney function tests, d-dimer was elevated. Doesn't mention, BNP was 2820, UA was negative COVID-19 was negative as well. Hemoglobin was down to 7.8 from at least 9 earlier. He was started on IV furosemide at 20 mg twice a day and admitted to the hospital for the above problem he will have an echocardiogram will be seen cardiology continue current management apparently patient has [facility]. 09/19: Patient remains afebrile, heart rate 60, blood pressure 116/64, pulse ox 94% on 3 L nasal cannula. Repeat blood work reveals WBC 10.7, hemoglobin 9.3, platelet count 440. Sodium 136, potassium 4.1, chloride 98, CO2 31, BUN 13 and creatinine 0.64. Blood sugars running between 110 and iron 31. Echocardiogram reveals EF of 50-55% with moderate concentric left ventricular hypertrophy, mild mitral regurgitation, mild tricuspid regurgitation, mild pulmonary hypertension. Patient has been seen by cardiology with plan to continue current antihypertensive regime and plan for IV diuretics for 24 hours and switched to oral. Patient is currently on Lasix 20 mg IV every 12 hours. Discharge plan will be to return to [facility] on Wednesday. 09/20 patient's doing okay, has no shortness of breath no edema, no chest pain, on oral diuretics, plan for [facility] Wednesday, if he OT while here, patient is to continue on diabetes medication as prescribed, creatinine is normal, potassium was 3.7. Not on anY antibiotic at this time, vitals are stable on O2 2 L nasal cannula, which is new one the hospital. We will address pulse oximetry, on room air prior to discharge : Patient is doing much better, is at bedside, patient has short-term memory loss, per therapy, he requires maximum 2 person assist, were awaiting transfer to [facility] tomorrow, cold with repeat PCR requested, patient stable, wi th no temperature, and no new symptoms related to cardiac. Plan on O2 on discharge, [facility] in the morning REVIEW OF SYSTEMS Constitutional: No fever, no chills, no night sweats. No weight change. Generalized weakness and fatigue, lethargy, daytime sleepiness. HEENT: No headache. No blurred vision or double vision, no loss of vision. No loss of Hearing, no ringing in the ears, no dizziness. No nasal drainage or congestion. No epistaxis. No sore throat. Lungs: Slight shortness of breath, no cough, no sputum production but mild wheezes. Cardiovascular: Positive PND orthopnea palpitation, positive fluid retention, no lightheadedness or dizziness, no syncopal episode at this point. Abdominal: No abdominal pain. No nausea, vomiting. No diarrhea. No c onstipation. No bloody or tarry stools.. No loss of appetite. Genitourinary: No dysuria, increased frequency, urgency. No urinary retention. Musculoskeletal: No myalgias. No muscle weakness, no gait dysfunction, no frequent falls. No back pain. No neck pain. Integumentary: No wounds, no lesions. No rash or pruritus. No unusual bruising. No change in hair or nails. Neurologic: Slight change mental status with mild confusion, no headache still have significant back pain with mild paresthesia lower extremity weakness of the lower extremity as well. o headache. No paralysis. No paresthesia. Psychiatric: No depression. No anxiety. No mood swings. Endocrine: No abnormal blood sugars. No weight change. No excessive sweating or thirst. No cold intolerance. PHYSICAL EXAMINATION Gen: This is elderly overweight laying in bed does not look in any respiratory distress. HEENT: Head is atraumatic, normocephalic. Pupils equal, round. Sclerae is anicteric. NECK: Supple. No JVD. No lymphadenopathy. No thyromegaly. LUNGS: Decreased breath some RHONCHI HAS MILD EXPIRATORY WHEEZES AND SLIGHT DECREASED BREATH SOUND RIGHT SIDE MORE THAN LEFT SIDE. There is a pacemaker on the left side. HEART: Regular rate S1-S2 positive S3 positive PVCs with mild irregularity. 2/6 ejection systolic murmur. ABDOMEN: Soft. Bowel sounds are present. No masses. No tenderness. EXTREMITIES: 1+ edema especially in the left leg compared to the right side with slight bruising lower extremity. NEUROLOGICAL: Patient is awake, alert slightly confused. Cranial nerves 2 through 12 are grossly intact. Back: There is scar tissue from his back surgery with no sign of infection i nduration or redness. ASSESSMENT AND PLAN 1. Severe dyspnea and shortness of breath diastolic heart failure. Cardiology consult appreciated, continue Lasix 20 g IV for 24 hours and then changed to oral, echocardiogram as above, monitor I&O, daily weights, electrolytes and renal function. 2 acute diastolic heart failure. Continue as in #1 3 mild COPD: We'll continue O2, continue DuoNeb and Symbicort at this point. 4 metabolic encephalopathy: Significant change compared to before, patient is currently on Donepazil is still have mild effect of medication including gabapentin and his pain management. 5 chronic discitis. Continue vancomycin, PICC line. 6 type 2 diabetes: Add Accu-Chek with sliding scales coverage remain on glipizide 5 mg along with metformin 500 mg twice a day and insulin 70/30 15 units twice a day short acting insulin can be done 4 times a day as well. 7 elevated d-dimer: With negative PE workup CTA was negative for pulmonary embolism. 8 Hyperlipidemia: Continue patient on atorvastatin 20 mg daily. 9 chronic pain management: Still on hydrocodone along with gabapentin. 10 mild memory loss/dementia: Still on Aricept 5 mg a day will be titrated higher if needed. 11 iron deficiency anemia: Continue watch for any GI bleed supportive care iron and multivitamin will be done repeat CBC. 12 hypertension: Continue patient on amlodipine 2.5 mg a day along with lisinopril 10 mg daily and metoprolol 25 mg twice a day. 13 GI prophylaxis: Patient be on pantoprazole 40 mg daily. 14 DVT prophylaxis: Patient be on Lovenox 40 mg subcutaneous daily. CODE STATUS: Full code. COVID-19 testing were negative, patient was admitted to the hospital during pandemic time. DISCHARGE PLAN Return to [facility] on Wednesday Laboratory Results WBC 10.7 k/uL (3.8-10.6) H 09/19/21 05:34 RBC 3.18 m/uL (4.30-5.90) L 09/19/21 05:34 Hgb 9.3 gm/dL (13.0-17.5) L D 09/19/21 05:34 Hct 29.6 % (39.0-53.0) L 09/19/21 05:34 MCV 93.3 fL (80.0-100.0) 09/19/21 05:34 MCH 29.2 pg (25.0-35.0) 09/19/21 05:34 MCHC 31.3 g/dL (31.0-37.0) 09/19/21 05:34 RDW 16.1 % (11.5-15.5) H 09/19/21 05:34 Plt Count 440 k/uL (150-450) 09/19/21 05:34 MPV 7.3 09/19/21 05:34 Neutrophils % 75 % 09/19/21 05:34 Lymphocytes % 12 % 09/19/21 05:34 Monocytes % 7 % 09/19/21 05:34 Eosinophils % 4 % 09/19/21 05:34 Basophils % 0 % 09/19/21 05:34 Neutrophils # 8.0 k/uL (1.3-7.7) H 09/19/21 05:34 Lymphocytes # 1.3 k/uL (1.0-4.8) 09/19/21 05:34 Monocytes # 0.7 k/uL (0-1.0) 09/19/21 05:34 Eosinophils # 0.4 k/uL (0-0.7) 09/19/21 05:34 Basophils # 0.0 k/uL (0-0.2) 09/19/21 05:34 Hypochromasia Moderate 09/19/21 05:34 Anisocytosis Slight 09/19/21 05:34 PT 10.8 sec (9.0-12.0) 09/18/21 12:27 INR 1.0 (<1.2) 09/18/21 12:27 APTT 27.8 sec (22.0-30.0) 09/18/21 12:27 D-Dimer 3.38 mg/L FEU (<0.60) H 09/18/21 12:27 Sodium 135 mmol/L (137-145) L 09/20/21 05:20 Potassium 3.7 mmol/L (3.5-5.1) 09/20/21 05:20 Chloride 99 mmol/L (98-107) 09/20/21 05:20 Carbon Dioxide 31 mmol/L (22-30) H 09/20/21 05:20 Anion Gap 5 mmol/L 09/20/21 05:20 BUN 13 mg/dL (9-20) 09/20/21 05:20 Creatinine 0.67 mg/dL (0.66-1.25) 09/20/21 05:20 Est GFR (CKD-EPI)AfAm >90 (>60 ml/min/1.73 sqM) 09/20/21 05:20 Est GFR (CKD-EPI)NonAf >90 (>60 ml/min/1.73 sqM) 09/20/21 05:20 Glucose 99 mg/dL (74-99) 09/20/21 05:20 POC Glucose (mg/dL) 98 mg/dL (75-99) 09/20/21 16:36 POC Glu [employer] Kelly Bloom 09/20/21 16:36 Calcium 8.9 mg/dL (8.4-10.2) 09/20/21 05:20 Total Bilirubin 0.2 mg/dL (0.2-1.3) 09/18/21 12:27 AST 20 U/L (17-59) 09/18/21 12:27 ALT 14 U/L (4-49) 09/18/21 12:27 Alkaline Phosphatase 145 U/L (38-126) H 09/18/21 12:27 Troponin I 0.014 ng/mL (0.000-0.034) 09/18/21 12: NT-Pro-B Natriuret Pep 2820 pg/mL 09/18/21 12:27 Total Protein 6.7 g/dL (6.3-8.2) 09/18/21 12: Albumin 3.1 g/dL (3.5-5.0) L 09/18/21 12:27 Urine Color Yellow 09/18/21 12:27 Urine Appearance Clear (Clear) 09/18/21 12: Urine pH 6.0 (5.0-8.0) 09/18/21 12: Ur Specific Eugene >1.050 (1.001-1.035) H 09/18/21 12:27 Urine Protein Negative (Negative) 09/18/21 12: Urine Glucose (UA) Negative (Negative) 09/18/21 12: Urine Ketones Negative (Negative) 09/18/21 12: Urine Blood Negative (Negative) 09/18/21 12: Urine Nitrite Negative (Negative) 09/18/21 12: Urine Bilirubin Negative (Negative) 09/18/21 12: Urine Urobilinogen <2.0 mg/dL (<2.0) 09/18/21 12:27 Ur Leukocyte Esterase Negative (Negative) 09/18/21 12: Vancomycin Trough 22.2 ug/mL 09/20/21 05:20 Coronavirus (PCR) Not Detected (Not Detectd) 09/18/21 20:10 Vital Signs - 24 hr Current Medications Acetaminophen (Acetaminophen Tab 325 Mg Tab) 650 mg PO Q6HR PRN PRN Reason: Mild Pain or Fever > 100.5 Acetaminophen/Codeine Phosphate (Acetaminophen-Codeine 300-30mg Tab) 1 each PO Q6H PRN PRN Reason: Pain Albuterol Sulfate (Albuterol Nebulized 2.5 Mg/3 Ml) 2.5 mg INHALATION RT-Q2H PRN PRN Reason: Shortness Of Breath Last Admin: 09/18/21 19:51 Dose: 2.5 mg Documented by: Albuterol/Ipratropium (Ipratropium-Albuterol 3 Ml Neb) 3 ml INHALATION RT-QID [facility] Last Admin: 09/21/21 11:43 Dose: Not Given Documented by: Amlodipine Besylate (Amlodipine 2.5 Mg Tab) 2.5 mg PO DAILY@0800 [facility] Last Admin: 09/20/21 08:27 Dose: 2.5 mg Documented by: Aspirin (Aspirin 81 Mg) 81 mg PO DAILY@0800 [facility] Last Admin: 09/21/21 08:34 Dose: 81 mg Documented by: Atorvastatin Calcium (Atorvastatin 20 Mg Tab) 20 mg PO HS@2100 [facility] Last Admin: 09/20/21 20:16 Dose: 20 mg Documented by: Bisacodyl (Bisacodyl 10 Mg Supp) 10 mg RECTAL DAILY PRN PRN Reason: Constipation Budesonide/Formoterol Fumarate (Symbicort 80-4.5 Mcg Inhaler) 2 puff INHALATION RT-BID [facility] Last Admin: 09/21/21 08:11 Dose: 2 puff Documented by: Cyanocobalamin (Cyanocobalamin 500 Mcg Tab) 500 mcg PO DAILY [facility] Dicyclomine HCl (Dicyclomine 20 Mg Tab) 20 mg PO TID@0800,1200,1700 [facility] Last Admin: 09/21/21 12:51 Dose: 20 mg Documented by: Docusate Sodium (Docusate 100 Mg Cap) 100 mg PO DAILY PRN PRN Reason: Constipation Donepezil HCl (Donepezil 5 Mg Tab) 5 mg PO DAILY@0800 [facility] Last Admin: 09/21/21 08:36 Dose: 5 mg Documented by: Enoxaparin Sodium (Enoxaparin 40 Mg/0.4 Ml Syringe) 40 mg SQ DAILY [facility] Last Admin: 09/21/21 08:36 Dose: 40 mg Documented by: Ferrous Sulfate (Ferrous Sulfate 325 Mg Tab) 325 mg PO DAILY@0800 [facility] Last Admin: 09/21/21 08:35 Dose: 325 mg Documented by: Furosemide (Furosemide 20 Mg Tab) 20 mg PO BID [facility] Last Admin: 09/21/21 08:34 Dose: 20 mg Documented by: Gabapentin (Gabapentin 100 Mg Cap) 100 mg PO TID@0600,1400,2200 [facility] Last Admin: 09/21/21 12:51 Dose: 100 mg Documented by: Glipizide (Glipizide 5 Mg Tab) [facility] Admin: 09/21/21 05:59 Dose: 5 mg Documented by: Insulin Aspart (Insuln Asp Prt/Insulin Aspart 100 Unit/Ml 10 Ml Vial) 15 unit SQ BID@0700,2100 [facility] Last Admin: 09/21/21 08:34 Dose: Not Given Documented by: Lisinopril (Lisinopril 10 Mg Tab) 10 mg PO DAILY@0800 [facility] Last Admin: 09/21/21 08:35 Dose: 10 mg Documented by: Magnesium Hydroxide (Magnesium Hydroxide 2,400 Mg/10 Ml Cup) 2,400 mg PO DAILY PRN PRN Reason: Constipation Melatonin (Melatonin 5 Mg Tablet) 5 mg PO HS@2100 [facility] Last Admin: 09/20/21 20:16 Dose: 5 mg Documented by: Meloxicam (Meloxicam 7.5 Mg Tab) 7.5 mg PO DAILY@0800 [facility] Last Admin: 09/21/21 08:34 Dose: 7.5 mg Documented by: Metformin HCl (Metformin 500 Mg Tab) 500 mg PO BID@0800,1700 [facility] Last Admin: 09/21/21 08:35 Dose: 500 mg Documented by: Methocarbamol (Methocarbamol 500 Mg Tab) 500 mg PO TID@0600,1400,2200 [facility] Last Admin: 09/21/21 12:51 Dose: 500 mg Documented by: Metoprolol Tartrate (Metoprolol Tartrate 25 Mg Tab) 25 mg PO BID@0800,1700 [facility] Last Admin: 09/21/21 08:37 Dose: 25 mg Documented by: Miscellaneous Information (Vancomycin Trough Due 1 Each Misc) 0 each MISCELLANE DIRECTED ONE Stop: 09/22/21 11:01 Naloxone HCl (Naloxone 0.4 Mg/Ml 1 Ml Vial) 0.2 mg IV Q2M PRN PRN Reason: Opioid Reversal Pantoprazole Sodium (Pantoprazole 40 Mg Tablet) 20 mg PO [facility] Last Admin: 09/21/21 05:59 Dose: 20 mg Documented by: Polyethylene Glycol (Polyethylene Glycol 3350 17 Gm Powd.Pack) 17 gm PO DAILY PRN PRN Reason: Constipation Senna (Sennosides 8.6 Mg Tab) 8.6 mg PO HS@2100 [facility] Last Admin: 09/20/21 20:16 Dose: 8.6 mg Documented by: Sodium Biphosphate/Sodium Phosphate (Na Phos,M-B/Na Phos,Di-Ba 133 Ml Enema) 133 ml RECTAL DAILY PRN PRN Reason: Constipation Venlafaxine HCl (Venlafaxine Hcl Er 75 Mg Cap) 225 mg PO DAILY@0800 [facility] Last Admin: 09/21/21 08:36 Dose: 225 mg Documented by: Vital Signs Temp 98.8 F 09/21/21 11:20 Pulse 61 09/21/21 11:20 Resp 20 09/21/21 11:20 BP 94/57 09/21/21 11:20 Pulse Ox 91 L 09/21/21 11:20 Intake & Output 09/20/21 09/21/21 09/21/21 18:59 06:59 18:59 Intake Total 180 480 Balance 180 480 Intake: Oral 180 480 Other: Voiding Method Incontinent Incontinent Incontinent # Voids 2 1 2 # Bowel Movements 1 2 Objective - Vital Signs Vital signs: Vital Signs Temp 98.8 F 09/21/21 11:20 Pulse 61 09/21/21 11:20 Resp 20 09/21/21 11:20 BP 94/57 09/21/21 11:20 Pulse Ox 91 L 09/21/21 11:20 Intake & Output 09/20/21 09/21/21 09/21/21 18:59 06:59 18:59 Intake Total 180 480 Balance 180 480 Intake: Oral 180 480 Other: Voiding Method Incontinent Incontinent Incontinent # Voids 2 1 2 # Bowel Movements 1 2 - Labs CBC & Chem 7: 09/19/21 05:34 09/21/21 07:00 Labs: Abnormal Lab Results - Last 24 Hours (Table) 09/20/21 09/21/21 09/21/21 Range/Units 19:41 07:00 12:01 Carbon Dioxide 33 H (22-30) mmol/L POC Glucose (mg/dL) 116 H 74 L (75-99) mg/dL Microbiology - Last 24 Hours (Table) 09/18/21 12:35 Blood Culture - Preliminary Blood No Growth after 72 hours 09/18/21 12:15 Blood Culture - Preliminary Blood No Growth after 72 hours
[2021-09-21 17:06] LABS: Glucose,Whole Blood 92 mg/dL (75-99)
[2021-09-21] MEDS: amLODIPine 2.5 MG TAB PO SCH (17:12)
[2021-09-21] MEDS: CYANOCOBALAMIN 500 MCG TAB PO SCH (17:23)
[2021-09-21 19:11] LABS: Glucose,Whole Blood 145 mg/dL (75-99)
[2021-09-21] MEDS: MELATONIN 5 MG TABLET PO SCH (20:31)
[2021-09-21] MEDS: SENNOSIDES 8.6 MG TAB PO SCH (20:31)
[2021-09-21] MEDS: ATORVASTATIN 20 MG TAB PO SCH (20:31)
[2021-09-22 06:25] LABS: Glucose,Whole Blood 103 mg/dL (75-99)
[2021-09-22] MEDS: PANTOPRAZOLE 40 MG TABLET PO SCH (06:26)
[2021-09-22] MEDS: INSULN ASP PRT/INSULIN ASPART 100 UNIT/ML 10 ML VIAL SQ SCH (06:26)
[2021-09-22] MEDS: methocarbamoL 500 MG TAB PO SCH ×2 (06:26→12:16)
[2021-09-22] MEDS: GABAPENTIN 100 MG CAP PO SCH ×2 (06:26→12:15)
[2021-09-22] MEDS: glipiZIDE 5 MG TAB PO SCH (06:26)
[2021-09-22] MEDS: VENLAFAXINE HCL ER 75 MG CAP PO SCH (07:48)
[2021-09-22] MEDS: DICYCLOMINE 20 MG TAB PO SCH ×2 (07:49→12:15)
[2021-09-22] MEDS: amLODIPine 2.5 MG TAB PO SCH (07:49)
[2021-09-22] MEDS: ENOXAPARIN 40 MG/0.4 ML SYRINGE SQ SCH (07:49)
[2021-09-22] MEDS: FERROUS SULFATE 325 MG TAB PO SCH (07:49)
[2021-09-22] MEDS: lisinopriL 10 MG TAB PO SCH (07:49)
[2021-09-22] MEDS: metFORMIN 500 MG TAB PO SCH (07:49)
[2021-09-22] MEDS: ASPIRIN 81 MG PO SCH (07:49)
[2021-09-22] MEDS: METOPROLOL TARTRATE 25 MG TAB PO SCH (07:49)
[2021-09-22] MEDS: FUROSEMIDE 20 MG TAB PO SCH (07:49)
[2021-09-22] MEDS: CYANOCOBALAMIN 500 MCG TAB PO SCH (07:49)
[2021-09-22] MEDS: DONEPEZIL 5 MG TAB PO SCH (07:49)
[2021-09-22] MEDS: MELOXICAM 7.5 MG TAB PO SCH (07:50)
[2021-09-22 07:51] VITALS: BP 124/71; RESP 18; TEMP 97.8
[2021-09-22] MEDS: SYMBICORT 80-4.5 MCG INHALER INHALATION SCH (08:15)
[2021-09-22] MEDS: IPRATROPIUM-ALBUTEROL 3 ML NEB INHALATION SCH ×2 (08:15→12:59)
[2021-09-22] MEDS ORDERED: VANCOMYCIN TROUGH DUE 1 EACH MISC MISCELLANE ONE (11:00)
--- NOTE | 2021-09-22 11:05 | P.DS ---
Providers Date of admission: 09/18/21 16:35 Expected date of discharge: 09/22/21 Attending physician: Addison Wong Consults: 09/18/21 17:07 Consult Physician Urgent Consulting Provider: Cardiology Jessica Consult Reason/Comments: new onset CHF Do you want consulting provider notified?: Yes Primary care physician: [facility] Course: HISTORY OF PRESENT ILLNESS 71-year-old male who seen in [facility] for the last few weeks with past medical history of chronic back pain, post back surgery with discitis had recently surgery at [facility] for discitis of the lumbar spine and still on IV antibiotic with vancomycin. Patient also has known to have history of COPD, diabetes, hypertension, hyperlipidemia, sleep apnea and arrhythmia post pacemaker. He also had atherosclerotic heart disease post heart catheter and stent placement in the past. Patient had a chronic lower back pain with back surgery a few times between [facility] and in [facility] where he had his last back surgery for discitis management and still on IV antibiotic through a PICC line on the right side. Patient was sent back to [facility] 3 weeks ago and has been doing slightly better with physical therapy, his mobility and overall condition had declined quite bed lately he is not able to ambulate without at least one person assistance, has been having more problem with encephalopathy with worsening mental status lately. Has been having more confusion, his pain is under control his leg weakness still a major problem at this point patient is not able to walk independently. Patient started having worsening dyspnea and shortness of breath last few days with mild low oxygen level high suspicion for pulmonary embolism his d-dimer was elevated patient made it to the emergency department at [facility] on 09/18/2021 where was seen and evaluated his CTA was negative for PE but showed significant sign and symptom of congestive heart failure and venous congestion consistent with it. Patient other testing showed normal kidney function tests, d-dimer was elevated. Doesn't mention, BNP was 2820, UA was negative COVID-19 was negative as well. Hemoglobin was down to 7.8 from at least 9 earlier. He was started on IV furosemide at 20 mg twice a day and admitted to the hospital for the above problem he will have an echocardiogram will be seen cardiology continue current management apparently patient [facility]. 09/19: Patient remains afebrile, heart rate 60, blood pressure 116/64, pulse ox 94% on 3 L nasal cannula. Repeat blood work reveals WBC 10.7, hemoglobin 9.3, platelet count 440. Sodium 136, potassium 4.1, chloride 98, CO2 31, BUN 13 and creatinine 0.64. Blood sugars running between 110 and iron 31. Echocardiogram reveals EF of 50-55% with moderate concentric left ventricular hypertrophy, mild mitral regurgitation, mild tricuspid regurgitation, mild pulmonary hypertension. Patient has been seen by cardiology with plan to continue current antihypertensive regime and plan for IV diuretics for 24 hours and switched to oral. Patient is currently on Lasix 20 mg IV every 12 hours. Discharge plan will be to return to [facility] on Wednesday. 09/20 patient's doing okay, has no shortness of breath no edema, no chest pain, on oral diuretics, plan for [place] Wednesday, if he OT while here, patient is to continue on diabetes medication as prescribed, creatinine is normal, potassium was 3.7. Not on anY antibiotic at this time, vitals are stable on O2 2 L nasal cannula, which is new one the hospital. We will address pulse oximetry, on room air prior to discharge 09/21: Patient is doing much better, is at bedside, patient has short-term memory loss, per therapy, he requires maximum 2 person assist, were awaiting transfer to [facility] tomorrow, cold with repeat PCR requested, patient stable, with no temperature, and no new symptoms related to cardiac. Plan on O2 on discharge, [facility] in the morning 09/22: Patient has been seen and followed by cardiology. Recommendation today would be to continue current medication and he's been cleared for discharge. Patient has been afebrile, heart rate in the 60s, blood pressure 10/27/1971, pulse ox 96% on room air. Discharge plan is to return to [facility]. Patient will be discharged today in stable condition. DISCHARGE DIAGNOSES 1. Severe dyspnea and shortness of breath diastolic heart failure. 2 acute diastolic heart failure. 3 mild COPD 4 metabolic encephalopathy 5 chronic discitis. 6 type 2 diabetes 7 elevated d-dimer: With negative PE workup 8 Hyperlipidemia 9 chronic pain management 10 mild memory loss/dementia 11 iron deficiency anemia 12 hypertension 13 COVID-19 testing were negative, patient was admitted to the hospital during pandemic time. DISCHARGE PLAN Return to [facility] on Wednesday Greater than 35 minutes was utilized and coordinating patient's discharge. Impression and plan of care have been directed as dictated by the signing physician. Gabriella Munoz nurse practitioner acting as scribe for signing physician. Patient Condition at Discharge: Stable Plan - Discharge Summary Discharge Rx Participant: No New Discharge Prescriptions: New Acetaminophen-Codeine 300-30mg [Tylenol w/codeine #3] 1 each PO Q6H PRN #12 tab PRN Reason: Pain Furosemide [Lasix] 20 mg PO BID tab Cyanocobalamin [Vitamin B-12] 500 mcg PO DAILY tab Continue Metoprolol Tartrate [Lopressor] 25 mg PO BID@0800,1700 Umeclidinium [place] [Incruse Ellipta] 1 puff INHALATION RT-DAILY@0800 Fluticasone/Salmeterol [Advair Hfa 45-21 Mcg Inhaler] 1 puff INHALATION RT- BID@0800,1700 Albuterol Sulfate [Proair Hfa] 1 - 2 puff INHALATION RT-Q4H PRN PRN Reason: Shortness Of Breath Or Wheezing Omeprazole 20 mg PO DAILY@0600 Aspirin [Adult Low Dose Aspirin EC] 81 mg PO DAILY@0800 Albuterol Nebulized [Ventolin Nebulized] 2.5 mg INHALATION RT-Q2H PRN PRN Reason: Shortness Of Breath Atorvastatin Calcium [Lipitor] 20 mg PO HS@2100 Donepezil HCl [Aricept] 5 mg PO DAILY@0800 Polyethylene Glycol 3350 [Clearlax] 1 packet PO DAILY PRN PRN Reason: Constipation bisacodyL [Dulcolax] 10 mg RECTAL DAILY PRN PRN Reason: Constipation Docusate Sodium [Dok] 100 mg PO DAILY PRN PRN Reason: Constipation Acetaminophen-Codeine 300-30mg [Tylenol w/codeine #3] 1 tab PO Q6H PRN PRN Reason: Pain Glucerna Shake 1 can PO TID@0800,1200,1700 Dicyclomine [Bentyl] 20 mg PO TID@0800,1200,1700 Insulin NPH/Reg Insulin 70/30 [humuLIN 70/30 VIAL] 15 unit SQ BID@0700,2100 Venlafaxine HCl [Effexor XR] 225 mg PO DAILY@0800 Vancomycin HCl 2 gm IV DAILY@0800 Melatonin 5 mg PO HS@2100 Acetaminophen Tab [Tylenol] 650 mg PO Q6HR PRN tab PRN Reason: Mild Pain Or Fever > 100.5 bisacodyL [Dulcolax] 10 mg RECTAL DAILY PRN PRN Reason: Constipation Magnesium Hydroxide [Milk of Magnesia] 2,400 mg PO DAILY PRN PRN Reason: Constipation Na Phos,M-B/Na Phos,Di-Ba [Fleet Adult] 133 ml RECTAL DAILY PRN PRN Reason: Constipation methocarbamoL [Robaxin] 500 mg PO TID@0600,1400,2200 Ipratropium-Albuterol Nebulize [Duoneb 0.5 mg-3 mg/3 ml Soln] 3 ml INHALATION RT-Q6H metFORMIN HCL 500 mg PO BID@0800,1700 Sennosides [Senna] 8.6 mg PO HS@2100 glipiZIDE [Glucotrol] 5 mg PO AC-BRKFST Ferrous Sulfate [Iron (65 MG Elemental)] 325 mg PO DAILY@0800 amLODIPine BESYLATE/BENAZEPRIL [Lotrel 2.5-10 MG] 1 cap PO DAILY@0800 Meloxicam [Mobic] 7.5 mg PO DAILY@0800 Gabapentin [Neurontin] 100 mg PO TID@0600,1400,2200 #9 cap Discontinued Furosemide [Lasix] 40 mg PO ONCE Discharge Medication List Metoprolol Tartrate [Lopressor] 25 mg PO BID@0800,1700 12/02/16 [History] Umeclidinium [place] [Incruse Ellipta] 1 puff INHALATION RT-DAILY@0800 09/22/18 [History] Albuterol Sulfate [Proair Hfa] 1 - 2 puff INHALATION RT-Q4H PRN 06/07/20 [Hist ory] Aspirin [Adult Low Dose Aspirin EC] 81 mg PO DAILY@0800 06/07/20 [History] Fluticasone/Salmeterol [Advair Hfa 45-21 Mcg Inhaler] 1 puff INHALATION RT- BID@0800,1700 06/07/20 [History] Omeprazole 20 mg PO DAILY@0600 06/07/20 [History] Albuterol Nebulized [Ventolin Nebulized] 2.5 mg INHALATION RT-Q2H PRN 09/16/20 [History] Atorvastatin Calcium [Lipitor] 20 mg PO HS@209910/12/20 [History] Donepezil HCl [Aricept] 5 mg PO DAILY@0800 12/19/20 [History] Acetaminophen Tab [Tylenol] 650 mg PO Q6HR PRN tab 07/01/21 [Rx] bisacodyL [Dulcolax] 10 mg RECTAL DAILY PRN 07/02/21 [History] Acetaminophen-Codeine 300-30mg [Tylenol w/codeine #3] 1 tab PO Q6H PRN 09/18/21 [History] Dicyclomine [Bentyl] 20 mg PO TID@0800,1200,1700 09/18/21 [History] Docusate Sodium [Dok] 100 mg PO DAILY PRN 09/18/21 [History] Ferrous Sulfate [Iron (65 MG Elemental)] 325 mg PO DAILY@0809/18/21 [History] Glucerna Shake 1 can PO TID@0800,1200,1700 09/18/21 [History] Insulin NPH/Reg Insulin 70/30 [humuLIN 70/30 VIAL] 15 unit SQ BID@0700,209909/18/21 [History] Ipratropium-Albuterol Nebulize [Duoneb 0.5 mg-3 mg/3 ml Soln] 3 ml INHALATION RT-Q6H 09/18/21 [History] Magnesium Hydroxide [Milk of Magnesia] 2,400 mg PO DAILY PRN 09/18/21 [History] Melatonin 5 mg PO HS@209909/18/21 [History] Meloxicam [Mobic] 7.5 mg PO DAILY@79909/18/21 [History] Na Phos,M-B/Na Phos,Di-Ba [Fleet Adult] 133 ml RECTAL DAILY PRN 09/18/21 [History] Polyethylene Glycol 3350 [Clearlax] 1 packet PO DAILY PRN 09/18/21 [History] Sennosides [Senna] 8.6 mg PO HS@209909/18/21 [History] Vancomycin HCl 2 gm IV DAILY@0809/18/21 [History] Venlafaxine HCl [Effexor XR] 225 mg PO DAILY@0809/18/21 [History] amLODIPine BESYLATE/BENAZEPRIL [Lotrel 2.5-10 MG] 1 cap PO DAILY@0800 09/18/21 [History] bisacodyL [Dulcolax] 10 mg RECTAL DAILY PRN 09/18/21 [History] glipiZIDE [Glucotrol] 5 mg PO AC-BRKFST 09/18/21 [History] metFORMIN HCL 500 mg PO BID@0800,1700 09/18/21 [History] methocarbamoL [Robaxin] 500 mg PO TID@0600,1400,2200 09/18/21 [History] Acetaminophen-Codeine 300-30mg [Tylenol w/codeine #3] 1 each PO Q6H PRN #12 tab 09/22/21 [Rx] Cyanocobalamin [Vitamin B-12] 500 mcg PO DAILY tab 09/22/21 [Rx] Furosemide [Lasix] 20 mg PO BID tab 09/22/21 [Rx] Gabapentin [Neurontin] 100 mg PO TID@0600,1400,2200 #9 cap 09/22/21 [Rx] Follow up Appointment(s)/Referral(s): Addison Wong MD [Primary Care Provider] - 1 Week Chely Ramirez MD [STAFF PHYSICIAN] - 2 Weeks Discharge Disposition: TRANSFER TO SNF/ECF
--- NOTE | 2021-09-22 11:19 | PN ---
PROGRESS NOTE FOLLOW-UP NOTE: Gato is a 71-year-old gentleman who is admitted to hospital with worsening shortness of breath. At the time of my evaluation this morning, he appears comfortable at rest. Denies any chest pain or difficulty in breathing. He is receiving a breathing treatment. He has known CAD and his symptoms have improved since admission. On exam, comfortable at rest. Afebrile. Vital signs are stable. Chest exam reveals good air entry bilaterally. Heart exam reveals first and second heart sounds. No gallop. No murmur. Abdomen is soft. Examination of extremities did not reveal any edema. Peripheral pulses are felt. Labs show that his potassium is 4, creatinine is , hemoglobin is 9.3. An echocardiogram on this admission revealed normal ejection fraction of 50% to 55%, dilated right ventricle and mild pulmonary hypertension. ASSESSMENT: 1. Acute-onset diastolic heart failure. 2. Coronary artery disease. 3. Hypertension. 4. Dyslipidemia. PLAN: Patient will continue current medications, including Norvasc, aspirin, Lipitor, Lasix 20 b.i.d., Zestril 10 mg daily, and his inhalers and nebulizers along with Lopressor 25 b.i.d. He is stable for discharge. MMODL / IJN: [id number] /
[2021-09-22 11:47] LABS: Glucose,Whole Blood 76 mg/dL (75-99)
[2021-09-22 13:09] VITALS: PULSE 68
== END 2021-09-22 15:55 | DRG 291 ==
LOC: EC 11:19 → 3SCARD 16:35
PROVIDERS: ADMIT Internal Medicine Geriatric Medicine; ATTEND Internal Medicine Geriatric Medicine
DX: I11.0 Hypertensive heart disease with heart failure (principal); G93.41 Metabolic encephalopathy; I50.33 Acute on chronic diastolic (congestive) heart failure; M86.9 Osteomyelitis, unspecified; D50.9 Iron deficiency anemia, unspecified; E11.51 Type 2 diabetes mellitus with diabetic peripheral angiopathy without gangrene; E78.5 Hyperlipidemia, unspecified; F03.90 Unspecified dementia, unspecified severity, without behavioral disturbance, psychotic disturbance, mood disturbance, and anxiety; F17.210 Nicotine dependence, cigarettes, uncomplicated; G89.29 Other chronic pain; I25.10 Atherosclerotic heart disease of native coronary artery without angina pectoris; I27.20 Pulmonary hypertension, unspecified; J44.9 Chronic obstructive pulmonary disease, unspecified; M46.40 Discitis, unspecified, site unspecified; E11.69 Type 2 diabetes mellitus with other specified complication; R09.02 Hypoxemia; Z20.822 Contact with and (suspected) exposure to COVID-19; Z79.1 Long term (current) use of non-steroidal anti-inflammatories (NSAID); Z79.4 Long term (current) use of insulin; Z79.82 Long term (current) use of aspirin; Z79.899 Other long term (current) drug therapy; Z82.49 Family history of ischemic heart disease and other diseases of the circulatory system; Z95.0 Presence of cardiac pacemaker; Z98.1 Arthrodesis status
CPT/HCPCS: 36415; 71046; 71275; 72131; 80048; 80053; 80202; 81003; 83880; 84484; 85025; 85379; 85610; 85730; 87040; 87635; 93005; 93306; 94640; 94760; 99285

== ENCOUNTER 2021-11-29 20:27 | Inpatient (IN) | payer MEDICARE ==
[2021-11-29] MEDS ORDERED: ACETAMINOPHEN TAB 500 MG TAB PO STA (21:21)
[2021-11-29] MEDS ORDERED: IBUPROFEN 800 MG TAB PO STA (21:21)
[2021-11-29] MEDS ORDERED: SODIUM CHLORIDE 0.9% 1,000 ML IV STA ×3 (21:21→22:35)
[2021-11-29 22:17] LABS: Anisocytosis Slight; Basophils # (A) 0.1 k/uL (0-0.2); Basophils % (A) 0 %; Eosinophils # (A) 0.3 k/uL (0-0.7); Eosinophils % (A) 2 %; HCT 33.4 % (39.0-53.0); HGB 10.7 gm/dL (13.0-17.5); Lymphocytes # (A) 2.1 k/uL (1.0-4.8); Lymphocytes % (A) 11 %; MCH 30.9 pg (25.0-35.0); MCV 96.8 fL (80.0-100.0); Mean Platelet Volume 7.6; Monocytes % (A) 5 %; Neutrophils # (A) 14.2 k/uL (1.3-7.7); Neutrophils % (A) 79 %; Platelet Count 254 k/uL (150-450); RBC 3.45 m/uL (4.30-5.90); RDW 16.3 % (11.5-15.5)
--- NOTE | 2021-11-29 22:19 | XR ---
EXAMINATION TYPE: XR chest 1V portable DATE OF EXAM: 11/29/2021 COMPARISON: 09/18/2021 HISTORY: Fever TECHNIQUE: FINDINGS: There is some elevation of the left diaphragm with linear density left lung base. There is left axillary pacemaker. There are small areas of linear density right midlung field. There is no hea rt failure. There is no pleural effusion. IMPRESSION: There is atelectasis left lung base which is slightly worse than last exam with increased elevation of the left diaphragm. No heart failure. Mild subsegmental atelectasis right mid lung fernanda aguilera
[2021-11-29 22:28] LABS: Partial Thromboplastin Time 23.9 sec (22.0-30.0); Prothrombin Time 10.5 sec (9.0-12.0)
[2021-11-29 22:29] LABS: Albumin 3.9 g/dL (3.5-5.0); C Reactive Protein 4.5 mg/dL (<1.0); Calcium 9.4 mg/dL (8.4-10.2); Magnesium 1.6 mg/dL (1.6-2.3); Total Bilirubin 0.6 mg/dL (0.2-1.3); Total Protein 7.3 g/dL (6.3-8.2)
[2021-11-29] MEDS ORDERED: methylPREDNISolone SOD SUCCI 125 MG/2 ML VIAL IV STA (22:35)
[2021-11-29] MEDS ORDERED: IPRATROPIUM-ALBUTEROL 3 ML NEB INHALATION STA (22:35)
--- NOTE | 2021-11-29 22:40 | ED ---
Fever HPI - General Chief Complaint: Recheck/Abnormal Lab/Rx Stated Complaint: Sepsis Time Seen by Provider: 11/29/21 21:20 Source: patient, EMS, RN notes reviewed, old records reviewed, Caregiver Mode of arrival: EMS Limitations: no limitations - History of Present Illness Initial Comments: This is a 71-year-old male DF for evaluation patient presents today for evaluation of fever not acting himself and low blood pressure at extended care facility. noted patient to be shaking during dinner tonight. Likely with fever started. Patient himself has no complaints is awake and alert currently here in the emergency department. No abdominal pain has no recent nausea vomiting or diarrhea. Patient has been vaccinated against covert and believes that he has Kovic. Patient denies any dysuria, no cough or congestion again. Outside of his normal COPD MD Complaint: fever, weakness, other (low blood pressure) -: hour(s) Temperature Source: subjective Context: sick contacts, multiple patients with similar symptoms Associated Symptoms: chills, rigors Treatments Prior to Arrival: none - Related Data Home Medications Medication Instructions Recorded Confirmed Metoprolol Tartrate [Lopressor] 25 mg PO BID@0800,1700 12/02/16 11/29/21 Umeclidinium [place] [Incruse 1 puff INHALATION RT-DAILY@0800 09/22/18 11/29/21 Ellipta] Albuterol Sulfate [Proair Hfa] 1 puff INHALATION RT-Q4H PRN 06/07/20 11/29/21 Aspirin [Adult Low Dose Aspirin EC] 81 mg PO DAILY@0800 06/07/20 11/29/21 Fluticasone/Salmeterol [Advair Hfa 1 puff INHALATION RT-BID@0800,1700 06/07/20 11/29/21 45-21 Mcg Inhaler] Omeprazole 20 mg PO DAILY@0700 06/07/20 11/29/21 Albuterol Nebulized [Ventolin 2.5 mg INHALATION RT-Q2H PRN 09/16/20 11/29/21 Nebulized] Atorvastatin Calcium [Lipitor] 20 mg PO HS@2100 10/12/20 11/29/21 Donepezil HCl [Aricept] 5 mg PO DAILY@0800 12/19/20 11/29/21 Dicyclomine [Bentyl] 20 mg PO TID@0800,1200,1700 09/18/21 11/29/21 Docusate Sodium [Dok] 100 mg PO DAILY PRN 09/18/21 11/29/21 Ferrous Sulfate [Iron (65 MG 325 mg PO DAILY@0800 09/18/21 11/29/21 Elemental)] Ipratropium-Albuterol Nebulize 3 ml INHALATION RT-Q6H 09/18/21 11/29/21 [Duoneb 0.5 mg-3 mg/3 ml Soln] Magnesium Hydroxide [Milk of 2,400 mg PO DAILY PRN 09/18/21 11/29/21 Magnesia] Melatonin 5 mg PO HS@209909/18/21 11/29/21 Meloxicam [Mobic] 7.5 mg PO DAILY@0800 09/18/21 11/29/21 Na Phos,M-B/Na Phos,Di-Ba [Fleet 133 ml RECTAL DAILY PRN 09/18/21 11/29/21 Adult] Polyethylene Glycol 3350 [Clearlax] 1 packet PO DAILY PRN 09/18/21 11/29/21 Sennosides [Senna] 17.2 mg PO HS@209909/18/21 11/29/21 bisacodyL [Dulcolax] 10 mg RECTAL DAILY PRN 09/18/21 11/29/21 glipiZIDE [Glucotrol] 2.5 mg PO DAILY@0800 09/18/21 11/29/21 metFORMIN HCL 500 mg PO BID@0800,1700 09/18/21 11/29/21 Acetaminophen-Codeine 300-30mg 1 tab PO Q6H PRN 11/29/21 11/29/21 [Tylenol w/codeine #3] Bacitracin Zinc Oint 1 applic TOPICAL BID 11/29/21 11/29/21 Baclofen [Lioresal] 5 mg PO BID@0800,17011/29/21 11/29/21 Cyanocobalamin [Vitamin B-12] 500 mcg PO DAILY@0800 11/29/21 11/29/21 Furosemide [Lasix] 20 mg PO DAILY@0800 11/29/21 11/29/21 Gabapentin [Neurontin] 100 mg PO TID@0800,1200,1700 11/29/21 11/29/21 Insulin NPH Hum/Reg Insulin Hm 15 unit SQ BID@0800,1700 11/29/21 11/29/21 [NovoLIN 70-30 100 UNIT/ML VIAL] Ondansetron Odt [Zofran Odt] 4 mg PO Q8H PRN 11/29/21 11/29/21 Venlafaxine HCl [Effexor XR] 75 mg PO DAILY@0800 11/29/21 11/29/21 Venlafaxine HCl [Effexor XR] 150 mg PO DAILY@0800 11/29/21 11/29/21 Previous Rx's Medication Instructions Recorded Acetaminophen Tab [Tylenol] 650 mg PO Q6HR PRN tab 07/01/21 Allergies Allergy/AdvReac Type Severity Reaction Status Date / Time No Known Allergies Allergy Verified 11/29/21 23:00 Review of Systems ROS Statement: Those systems with pertinent positive or pertinent negative responses have been documented in the HPI. ROS Other: All systems not noted in ROS Statement are negative. Past Medical History Past Medical History: COPD, Diabetes Mellitus, Hyperlipidemia, Hypertension, Osteoarthritis (OA), Sleep Apnea/CPAP/BIPAP Additional Past Medical History / Comment(s): PACEMAKER. Uses CPAP. 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 Taking Aricept on a trial basis for slight memory loss. History of anterior cervical decompression and fusion in September 2020 with our service. History of lumbar decompression at outside institution History of Any Multi-Drug Resistant Organisms: None Reported Past Surgical History: Appendectomy, Back Surgery, Heart Catheterization With Stent, Pacemaker Additional Past Surgical History / Comment(s): Oral surg. COLONOSCOPY. GENERATOR CHANGE 2016, lumbar myelogram, neck fusion; heart caths with stents x 2 (at least). Laminectomy August 2021 Past Anesthesia/Blood Transfusion Reactions: No Reported Reaction Date of Last Stent Placement:: 2006 Type of Cardiac Device: Permanent Pacemaker Device Placement Date:: 2008 Past Psychological History: No Psychological Hx Reported Smoking Status: Former smoker Past Alcohol Use History: Occasional Past Drug Use History: None Reported - Past Family History Mother Family Medical History: Cancer Brother(s) Family Medical History: Cancer General Exam Limitations: no limitations General appearance: alert, in no apparent distress Head exam: Present: atraumatic, normocephalic, normal inspection Eye exam: Present: normal appearance, PERRL, EOMI. Absent: scleral icterus, conjunctival injection, periorbital swelling ENT exam: Present: normal exam, mucous membranes moist Neck exam: Present: normal inspection. Absent: tenderness, meningismus, lymphadenopathy Respiratory exam: Present: wheezes. Absent: respiratory distress, rales, rhonchi, stridor Cardiovascular Exam: Present: regular rate, normal rhythm, normal heart sounds. Absent: systolic murmur, diastolic murmur, rubs, gallop, clicks GI/Abdominal exam: Present: soft, normal bowel sounds. Absent: distended, tenderness, guarding, rebound, rigid Extremities exam: Present: normal inspection, full ROM, normal capillary refill. Absent: tenderness, pedal edema, joint swelling, calf tenderness Back exam: Present: normal inspection Neurological exam: Present: alert, oriented X3, CN II-XII intact Psychiatric exam: Present: normal affect, normal mood Skin exam: Present: warm, dry, intact, normal color. Absent: rash Course Vital Signs 11/29/21 11/29/21 11/29/21 20:36 22:02 23:37 Temperature 100.4 F H Pulse Rate 62 60 60 Respiratory 18 16 Rate Blood Pressure 86/62 99/51 O2 Sat by Pulse 91 L 94 L Oximetry 11/29/21 23:43 Temperature Pulse Rate 60 Respiratory Rate Blood Pressure O2 Sat by Pulse Oximetry - Reevaluation(s) Reevaluation #1: 11/30/21 00:04 medical record is reviewed Reevaluation #2: 11/30/21 00:05 patient symptoms or signs are improving here in the ER Reevaluation #3: 11/30/21 00:05 patient family informed of results, questions answered - Consultations Consultation #1: spoke with Dr. Topete regarding admission she is agreeable Medical Decision Making - Medical Decision Making 71 male to the emergency department for evaluation of weakness. Patient has fever here in the ER labile blood pressure little improving some dehydration. Patient given significant resuscitation control and will place on antibiotics for possible underlying infection. - Lab Data Result diagrams: 11/29/21 21:38 11/29/21 21:38 Lab Results 11/29/21 11/29/21 11/29/21 Range/Units 21:38 21:38 21:38 WBC 18.0 H (3.8-10.6) k/uL RBC 3.45 L (4.30-5.90) m/uL Hgb 10.7 L (13.0-17.5) gm/dL Hct 33.4 L (39.0-53.0) % MCV 96.8 (80.0-100.0) fL MCH 30.9 (25.0-35.0) pg MCHC 32.0 (31.0-37.0) g/dL RDW 16.3 H (11.5-15.5) % Plt Count 254 (150-450) k/uL MPV 7.6 Neutrophils % 79 % Lymphocytes % 11 % Monocytes % 5 % Eosinophils % 2 % Basophils % 0 % Neutrophils # 14.2 H (1.3-7.7) k/uL Lymphocytes # 2.1 (1.0-4.8) k/uL Monocytes # 1.0 (0-1.0) k/uL Eosinophils # 0.3 (0-0.7) k/uL Basophils # 0.1 (0-0.2) k/uL Anisocytosis Slight PT 10.5 (9.0-12.0) sec INR 1.0 (<1.2) APTT 23.9 (22.0-30.0) sec Sodium 136 L (137-145) mmol/L Potassium 5.0 (3.5-5.1) mmol/L Chloride 100 (98-107) mmol/L Carbon Dioxide 28 (22-30) mmol/L Anion Gap 8 mmol/L BUN 28 H (9-20) mg/dL Creatinine 1.18 (0.66-1.25) mg/dL Est GFR (CKD-EPI)AfAm 71 (>60 ml/min/1.73 sqM) Est GFR (CKD-EPI)NonAf 61 (>60 ml/min/1.73 sqM) Glucose 102 H (74-99) mg/dL Plasma Lactic Acid Alber (0.7-2.0) mmol/L Calcium 9.4 (8.4-10.2) mg/dL Phosphorus 4.0 (2.5-4.5) mg/dL Magnesium 1.6 (1.6-2.3) mg/dL Total Bilirubin 0.6 (0.2-1.3) mg/dL AST 27 (17-59) U/L ALT 17 (4-49) U/L Alkaline Phosphatase 98 (38-126) U/L Lactate Dehydrogenase 670 H (313-618) U/L Troponin I (0.000-0.034) ng/mL C-Reactive Protein 4.5 H (<1.0) mg/dL Total Protein 7.3 (6.3-8.2) g/dL Albumin 3.9 (3.5-5.0) g/dL 11/29/21 11/29/21 Range/Units 21:38 21:38 WBC (3.8-10.6) k/uL RBC (4.30-5.90) m/uL Hgb (13.0-17.5) gm/dL Hct (39.0-53.0) % MCV (80.0-100.0) fL MCH (25.0-35.0) pg MCHC (31.0-37.0) g/dL RDW (11.5-15.5) % Plt Count (150-450) k/uL MPV Neutrophils % % Lymphocytes % % Monocytes % % Eosinophils % % Basophils % % Neutrophils # (1.3-7.7) k/uL Lymphocytes # (1.0-4.8) k/uL Monocytes # (0-1.0) k/uL Eosinophils # (0-0.7) k/uL Basophils # (0-0.2) k/uL Anisocytosis PT (9.0-12.0) sec INR (<1.2) APTT (22.0-30.0) sec Sodium (137-145) mmol/L Potassium (3.5-5.1) mmol/L Chloride (98-107) mmol/L Carbon Dioxide (22-30) mmol/L Anion Gap mmol/L BUN (9-20) mg/dL Creatinine (0.66-1.25) mg/dL Est GFR (CKD-EPI)AfAm (>60 ml/min/1.73 sqM) Est GFR (CKD-EPI)NonAf (>60 ml/min/1.73 sqM) Glucose (74-99) mg/dL Plasma Lactic Acid Alber 1.6 (0.7-2.0) mmol/L Calcium (8.4-10.2) mg/dL Phosphorus (2.5-4.5) mg/dL Magnesium (1.6-2.3) mg/dL Total Bilirubin (0.2-1.3) mg/dL AST (17-59) U/L ALT (4-49) U/L Alkaline Phosphatase (38-126) U/L Lactate Dehydrogenase (313-618) U/L Troponin I <0.012 (0.000-0.034) ng/mL C-Reactive Protein (<1.0) mg/dL Total Protein (6.3-8.2) g/dL Albumin (3.5-5.0) g/dL - EKG Data -: EKG Interpreted by Me (EKG is paced 68 MA 204 QRS 147 QTc 402) - Radiology Data Radiology results: report reviewed (chest x-rays negative for acute disease), image reviewed Disposition Clinical Impression: Hypoxia, Dehydration, Acute bronchitis with COPD, Fever, Weakness Disposition: ADMITTED IP TO THIS [facility] Condition: Good Is patient prescribed a controlled substance at d/c from ED?: No Referrals: Addison Wong MD [Primary Care Provider] - 1-2 days
[2021-11-30] MEDS ORDERED: NALOXONE 0.4 MG/ML 1 ML VIAL IV PRN (00:01)
[2021-11-30] MEDS ORDERED: MORPHINE SULFATE 4 MG/ML SYRINGE IV PRN (00:01)
[2021-11-30] MEDS ORDERED: ONDANSETRON 4 MG/2 ML VIAL IVP PRN (00:01)
[2021-11-30] MEDS ORDERED: ACETAMINOPHEN TAB 325 MG TAB PO PRN ×2 (00:01→12:13)
[2021-11-30] MEDS: SODIUM CHLORIDE 0.9% 1,000 ML IV SCH ×3 (01:54→17:15)
[2021-11-30] MEDS ORDERED: IPRATROPIUM-ALBUTEROL 3 ML NEB INHALATION PRN (02:36)
[2021-11-30] MEDS: INSULIN ASPART (NovoLOG) 100 UNIT/ML VIAL SQ SCH ×4 (05:56→20:05)
[2021-11-30 06:31] LABS: Glucose,Whole Blood 149 mg/dL (75-99)
[2021-11-30] MEDS: IPRATROPIUM-ALBUTEROL 3 ML NEB INHALATION SCH ×4 (08:29→19:37)
[2021-11-30 11:20] LABS: Appearance,Urine Cloudy (Clear); Bacteria,Urine Moderate /hpf; Bilirubin,Urine Negative (Negative); Blood,Urine Moderate (Negative); Color,Urine Light Yellow; Glucose,Urine (UA) 1+ (Negative); Hyaline Casts,Urine 1 /lpf (0-2); Ketones,Urine Negative (Negative); Leukocyte Esterase,Urine Large (Negative); Mucus,Urine Rare /hpf; Nitrite,Urine Negative (Negative); PH, Urine 5.5 (5.0-8.0); Protein,Urine Trace (Negative); RBC,Urine 7 /hpf (0-5); Specific Gravity,Urine 1.013 (1.001-1.035); Squamous Epithelial Cell,Urine <1 /hpf (0-4); Urobilinogen,Urine <2.0 mg/dL (<2.0); WBC,Urine 166 /hpf (0-5)
[2021-11-30 11:43] LABS: Glucose,Whole Blood 259 mg/dL (75-99)
[2021-11-30] MEDS ORDERED: ALBUTEROL HFA INHALER INHALATION PRN (12:13)
[2021-11-30] MEDS ORDERED: bisacodyL 10 MG SUPP RECTAL PRN (12:13)
[2021-11-30] MEDS ORDERED: MAGNESIUM HYDROXIDE 2,400 MG/10 ML CUP PO PRN (12:23)
--- NOTE | 2021-11-30 12:23 | P.HPIM ---
History of Present Illness H&P Date: 11/30/21 Chief Complaint: fever low bp and shaking chills HISTORY OF PRESENT ILLNESS 71-year-old male who comes from [facility] with past medical history of chronic back pain, post back surgery with discitis had recently surgery at [facility] for discitis of the lumbar spine for which during his last admission consisted of treatment was provided 09/18/2021, with IV antibiotics. . Patient also has known to have history of COPD, diabetes, hypertension, hyperlipidemia, sleep apnea and arrhythmia post pacemaker. He also had atherosclerotic heart disease post heart catheter and stent placement in the past. Patient had a chronic lower back pain with back surgery a few times between [facility] and [facility] and in [facility] where he had his last back surgery for discitis management. Patient thinks is been there only for about 1 week, however his memory cannot be relied on, cannot relate to any other symptoms except the fever, and shaking chills, no cough no no vomiting no diarrhea, no back pain no abdominal pain, no headache, no neck rigidity, was notified of his temperature of over 100.5, and shaking chills. His blood pressures start started to drop, we systolic of 95 prior to his transfer to the hospital. And his old bit more confused, covered test are the skilled nursing was negative, and has previously been vaccinated against coronavirus In the emergency room, he was hypotensive, systolic of 70, fluids for hydration was provided, labs include double basic count 18.0, hemoglobin 10.7, INR 1.0, creatinine 1.18 BUN of 28, sodium low at 136, potassium 5 urinalysis, shows large leukocyte, nitrite negative wbc of 166. Patient does not have an indwelling Hollingsworth catheter or oxygen prior to admission. Coronavirus on ER admission 227 was negative. Patient's admitted for sepsis, with UTI as primary renal ultrasound requested, to evaluate for pyelonephritis abscess S and kidney stones. Chest x-ray shows atelectasis on admission, echocardiogram reviewed from 09/19/2021 EF 50-55%, mild pulmonary hypertension, no pleural effusion valve shows mild MR and mild TR and mild pulmonary hypertension RVSP 38 REVIEW OF SYSTEMS Constitutional: No fever, no chills, no night sweats. No weight change. Generalized weakness, fatigue, lethargy, daytime sleepiness. HEENT: No headache. No blurred vision or double vision, no loss of vision. No loss of Hearing, no ringing in the ears, no dizziness. No nasal drainage or congestion. No epistaxis. No sore throat. Lungs: Slight shortness of breath, no cough, no sputum production but mild wheezes. Cardiovascular: Positive PND orthopnea palpitation, positive fluid retention, no lightheadedness or dizziness, no syncopal episode at this point. Abdominal: No abdominal pain. No nausea, vomiting. No diarrhea. No constipation. No bloody or tarry stools.. No loss of appetite. Genitourinary: No dysuria, increased frequency, urgency. No urinary retention. Musculoskeletal: No myalgias. No muscle weakness, no gait dysfunction, no frequent falls. No back pain. No neck pain. Integumentary: No wounds, no lesions. No rash or pruritus. No unusual bruising. No change in hair or nails. Neurologic: Slight change mental status with mild confusion, no headache still have significant back pain with mild paresthesia lower extremity weakness of the lower extremity as well. o headache. No paralysis. No paresthesia. Psychiatric: No depression. No anxiety. No mood swings. Endocrine: No abnormal blood sugars. No weight change. No excessive sweating or thirst. No cold intolerance. ASSESSMENT AND PLAN 1. Sepsis with SIRS, shaking chills, chest shock acute UTI with early Payelonephritis prior history of discitis 09/2021, no current complaints of back pain, however pain patient is on pain medications, suspected pyelonephritis, monitor for bacteremia, cultures blood urine were performed, IV Rocephin, and antipyretics. Negative for coronavirus chest x-ray shows atelectasis and evidence of aspiration. Monitor for urinary retention, per patient he did not have any Hollingsworth catheter prior to admission. We will discontinue the Hollingsworth catheter in the next 24 hours, check for CPK, monitor for abdominal 2 congestive heart failure preserved EF Mostly diastolic dysfunction, continue current management hold Lasix, secondary to hypotension, with need to resume him, in the next 2448 hrs. depending on hydration 3 mild COPD: We'll continue O2, continue DuoNeb and Symbicort at this point. 4 encephalopathy: Significant change compared to before, patient is currently on Donepazil is still have mild effect of medication including gabapentin and his pain management. 5 chronic discitis 09/2021: Patient had surgery and completed vancomycin previous CT of the lumbar spine was done does not show any sign of dissection in the bone or discitis 6 type 2 diabetes: Add Accu-Chek with sliding scales coverage remain on glipizide 5 mg along with metformin 500 mg twice a day and insulin 70/30 15 units twice a day short acting insulin can be done 4 times a day as well. 7 Hyperlipidemia: Continue patient on atorvastatin 20 mg daily. 8 chronic pain management: Still on hydrocodone along with gabapentin. 8 mild memory loss/dementia with short-term memory losses presenting with mild delirium: Still on Aricept 5 mg a day will be titrated higher if needed. 9 iron deficiency anemia: Continue watch for any GI bleed supportive care iron and multivitamin will be done repeat CBC. 10 hypertension: Continue patient on amlodipine 2.5 mg a day along with lis inopril 10 mg daily and metoprolol 25 mg twice a day. GI prophylaxis: Patient be on pantoprazole 40 mg daily. DVT prophylaxis: Patient be on Lovenox 40 mg subcutaneous daily. CODE STATUS: Full code. COVID-19 testing were negative, patient was admitted to the hospital during pandemic time. Patient will be admitted to the hospital for a minimum of 2 night stay. Past Medical History Past Medical History: COPD, Diabetes Mellitus, Hyperlipidemia, Hypertension, Osteoarthritis (OA), Sleep Apnea/CPAP/BIPAP Additional Past Medical History / Comment(s): PACEMAKER. Uses CPAP. 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 Taking Aricept on a trial basis for slight memory loss. History of anterior cervical decompression and fusion in September 2020 with our service. History of lumbar decompression at outside institution History of Any Multi-Drug Resistant Organisms: None Reported Past Surgical History: Appendectomy, Back Surgery, Heart Catheterization With Stent, Pacemaker Additional Past Surgical History / Comment(s): Oral surg. COLONOSCOPY. GENERATOR CHANGE 2016, lumbar myelogram, neck fusion; heart caths with stents x 2 (at least). Laminectomy August 2021 Past Anesthesia/Blood Transfusion Reactions: No Reported Reaction Date of Last Stent Placement:: 2006 Type of Cardiac Device: Permanent Pacemaker Device Placement Date:: 2008 Past Psychological History: No Psychological Hx Reported Smoking Status: Former smoker Past Alcohol Use History: Occasional Additional Past Alcohol Use History / Comment(s): Smoked since teens, 1 1/2 PPD, has not smoked since May Past Drug Use History: None Reported - Past Family History Mother Family Medical History: Cancer Brother(s) Family Medical History: Cancer Medications and Allergies Home Medications Medication Instructions Recorded Confirmed Type Metoprolol Tartrate [Lopressor] 25 mg PO BID@0800,1700 12/02/16 11/29/21 History Umeclidinium [place] [Incruse 1 puff INHALATION RT-DAILY@0800 09/22/18 11/29/21 History Ellipta] Albuterol Sulfate [Proair Hfa] 1 puff INHALATION RT-Q4H PRN 06/07/20 11/29/21 History Aspirin [Adult Low Dose Aspirin EC] 81 mg PO DAILY@0800 06/07/20 11/29/21 History Fluticasone/Salmeterol [Advair Hfa 1 puff INHALATION RT-BID@0800,1700 06/07/20 11/29/21 History 45-21 Mcg Inhaler] Omeprazole 20 mg PO DAILY@0700 06/07/20 11/29/21 History Albuterol Nebulized [Ventolin 2.5 mg INHALATION RT-Q2H PRN 09/16/20 11/29/21 History Nebulized] Atorvastatin Calcium [Lipitor] 20 mg PO HS@2100 10/12/20 11/29/21 History Donepezil HCl [Aricept] 5 mg PO DAILY@0800 12/19/20 11/29/21 History Acetaminophen Tab [Tylenol] 650 mg PO Q6HR PRN tab 07/01/21 11/29/21 Rx Dicyclomine [Bentyl] 20 mg PO TID@0800,1200,1700 09/18/21 11/29/21 History Docusate Sodium [Dok] 100 mg PO DAILY PRN 09/18/21 11/29/21 History Ferrous Sulfate [Iron (65 MG 325 mg PO DAILY@0800 09/18/21 11/29/21 History Elemental)] Ipratropium-Albuterol Nebulize 3 ml INHALATION RT-Q6H 09/18/21 11/29/21 History [Duoneb 0.5 mg-3 mg/3 ml Soln] Magnesium Hydroxide [Milk of 2,400 mg PO DAILY PRN 09/18/21 11/29/21 History Magnesia] Melatonin 5 mg PO HS@2100 09/18/21 11/29/21 History Meloxicam [Mobic] 7.5 mg PO DAILY@0800 09/18/21 11/29/21 History Na Phos,M-B/Na Phos,Di-Ba [Fleet 133 ml RECTAL DAILY PRN 09/18/21 11/29/21 History Adult] Polyethylene Glycol 3350 [Clearlax] 1 packet PO DAILY PRN 09/18/21 11/29/21 History Sennosides [Senna] 17.2 mg PO HS@2100 09/18/21 11/29/21 History bisacodyL [Dulcolax] 10 mg RECTAL DAILY PRN 09/18/21 11/29/21 History glipiZIDE [Glucotrol] 2.5 mg PO DAILY@0800 09/18/21 11/29/21 History metFORMIN HCL 500 mg PO BID@0800,1700 09/18/21 11/29/21 History Acetaminophen-Codeine 300-30mg 1 tab PO Q6H PRN 11/29/21 11/29/21 History [Tylenol w/codeine #3] Bacitracin Zinc Oint 1 applic TOPICAL BID 11/29/21 11/29/21 History Baclofen [Lioresal] 5 mg PO BID@0800,1700 11/29/21 11/29/21 History Cyanocobalamin [Vitamin B-12] 500 mcg PO DAILY@0800 11/29/21 11/29/21 History Furosemide [Lasix] 20 mg PO DAILY@0800 11/29/21 11/29/21 History Gabapentin [Neurontin] 100 mg PO TID@0800,1200,1700 11/29/21 11/29/21 History Insulin NPH Hum/Reg Insulin Hm 15 unit SQ BID@0800,1700 11/29/21 11/29/21 Histor y [NovoLIN 70-30 100 UNIT/ML VIAL] Ondansetron Odt [Zofran Odt] 4 mg PO Q8H PRN 11/29/21 11/29/21 History Venlafaxine HCl [Effexor XR] 75 mg PO DAILY@0800 11/29/21 11/29/21 History Venlafaxine HCl [Effexor XR] 150 mg PO DAILY@0800 11/29/21 11/29/21 History Allergies Allergy/AdvReac Type Severity Reaction Status Date / Time No Known Allergies Allergy Verified 11/29/21 23:00 Physical Exam Vitals: Vital Signs Temp Pulse Pulse Resp BP BP Pulse Ox 11/30/21 08:39 84 16 11/30/21 08:29 84 16 98 11/30/21 08:06 97.9 F 80 16 123/67 98 11/30/21 03:00 97.8 F 88 18 136/67 96 11/30/21 01:37 97.6 F 60 16 93/71 97 11/30/21 01:00 61 16 84/61 97 11/30/21 00:11 60 16 68/48 97 11/29/21 23:43 60 11/29/21 23:37 60 11/29/21 23:30 60 16 82/65 97 11/29/21 22:02 60 16 99/51 94 L 11/29/21 20:36 100.4 F H 62 18 86/62 91 L Intake and Output 11/29/21 11/30/21 11/30/21 22:59 06:59 14:59 Other: Voiding Method Incontinent Incontinent External Catheter Weight 104.326 kg 104.326 kg Results CBC & Chem 7: 11/29/21 21:38 11/29/21 21:38 Labs: Abnormal Lab Results - Last 24 Hours (Table) 11/29/21 11/29/21 11/30/21 Range/Units 21:38 21:38 05:55 WBC 18.0 H (3.8-10.6) k/uL RBC 3.45 L (4.30-5.90) m/uL Hgb 10.7 L (13.0-17.5) gm/dL Hct 33.4 L (39.0-53.0) % RDW 16.3 H (11.5-15.5) % Neutrophils # 14.2 H (1.3-7.7) k/uL Sodium 136 L (137-145) mmol/L BUN 28 H (9-20) mg/dL Glucose 102 H (74-99) mg/dL POC Glucose (mg/dL) 149 H (75-99) mg/dL Lactate Dehydrogenase 670 H (313-618) U/L C-Reactive Protein 4.5 H (<1.0) mg/dL Thrombosis Risk Factor Assmnt - Choose All That Apply Each Factor Represents 1 point: Abnormal pulmonary function (COPD), Medical pt on bed rest, Obesity (BMI >25), Sepsis (< 1month) Each Risk Factor Represents 2 Points: Age 61-74 years Other congenital or acquired thrombophilia - If yes, enter type in comment: No Thrombosis Risk Factor Assessment Total Risk Factor Score: 6 Thrombosis Risk Factor Assessment Level: High Risk
--- NOTE | 2021-11-30 14:08 | US ---
EXAMINATION TYPE: US kidneys/renal and bladder DATE OF EXAM: 11/30/2021 COMPARISON: NONE CLINICAL HISTORY: pyelonephritis mann. mann EXAM MEASUREMENTS: Right Kidney: 9.2 x 4.5 x 4.1 cm Left Kidney: 9.6 x 5.5 x 4.5 cm Right Kidney: No hydronephrosis or masses seen Left Kidney: No hydronephrosis or masses seen Bladder: Anechoic Bilateral Jets seen: No There is no evidence for hydronephrosis at this point in time. No nephrolithiasis is seen. No alva s are identified. IMPRESSION: Normal kidneys. No evidence of renal mass or obstruction. Ureteral jets in the bladder were not evide nt during the exam.
[2021-11-30 16:50] LABS: Glucose,Whole Blood 226 mg/dL (75-99)
[2021-11-30] MEDS: GABAPENTIN 100 MG CAP PO SCH (17:14)
[2021-11-30] MEDS: BACLOFEN 10 MG TAB PO SCH (17:14)
[2021-11-30] MEDS: INSULN ASP PRT/INSULIN ASPART 100 UNIT/ML 10 ML VIAL SQ SCH (17:14)
[2021-11-30] MEDS: metFORMIN 500 MG TAB PO SCH (17:14)
[2021-11-30] MEDS: METOPROLOL TARTRATE 25 MG TAB PO SCH (17:14)
[2021-11-30] MEDS: SYMBICORT 80-4.5 MCG INHALER INHALATION SCH (19:37)
[2021-11-30 20:04] LABS: Glucose,Whole Blood 158 mg/dL (75-99)
[2021-11-30] MEDS: ATORVASTATIN 20 MG TAB PO SCH (20:04)
[2021-11-30] MEDS: MELATONIN 5 MG TABLET PO SCH (20:05)
[2021-12-01] MEDS: SODIUM CHLORIDE 0.9% 1,000 ML IV SCH ×3 (02:00→15:54)
[2021-12-01 05:19] LABS: Glucose,Whole Blood 110 mg/dL (75-99)
[2021-12-01] MEDS: INSULIN ASPART (NovoLOG) 100 UNIT/ML VIAL SQ SCH ×4 (06:00→20:57)
[2021-12-01] MEDS: IPRATROPIUM-ALBUTEROL 3 ML NEB INHALATION SCH ×4 (07:39→19:04)
[2021-12-01] MEDS: SYMBICORT 80-4.5 MCG INHALER INHALATION SCH ×2 (07:39→19:04)
[2021-12-01 07:48] LABS: Basophils % (A) 0 %; Eosinophils # (A) 0.1 k/uL (0-0.7); Eosinophils % (A) 1 %; HCT 33.4 % (39.0-53.0); HGB 10.2 gm/dL (13.0-17.5); Hypochromasia Moderate; Lymphocytes # (A) 2.2 k/uL (1.0-4.8); Lymphocytes % (A) 15 %; MCH 30.5 pg (25.0-35.0); MCHC 30.6 g/dL (31.0-37.0); MCV 99.6 fL (80.0-100.0); Macrocytosis Slight; Mean Platelet Volume 7.8; Monocytes # (A) 0.8 k/uL (0-1.0); Monocytes % (A) 5 %; Neutrophils # (A) 11.2 k/uL (1.3-7.7); Neutrophils % (A) 77 %; Platelet Count 232 k/uL (150-450); RBC 3.35 m/uL (4.30-5.90); RDW 15.6 % (11.5-15.5); WBC 14.6 k/uL (3.8-10.6)
[2021-12-01 08:00] LABS: ALT 14 U/L (4-49); AST 19 U/L (17-59); African American GFR (CKD) >90 (>60 ml/min/1.73 sqM); Albumin 3.4 g/dL (3.5-5.0); Alkaline Phosphatase 94 U/L (38-126); Anion Gap 7 mmol/L; Blood Urea Nitrogen 21 mg/dL (9-20); Calcium 9.1 mg/dL (8.4-10.2); Carbon Dioxide 26 mmol/L (22-30); Chloride 106 mmol/L (98-107); Creatine Kinase 54 U/L (55-170); Glucose 94 mg/dL (74-99); Magnesium 1.6 mg/dL (1.6-2.3); Non-African American GFR(CKD) >90 (>60 ml/min/1.73 sqM); Phosphorus 3.2 mg/dL (2.5-4.5); Potassium 3.9 mmol/L (3.5-5.1); Sodium 139 mmol/L (137-145); Total Bilirubin 0.3 mg/dL (0.2-1.3); Total Protein 6.8 g/dL (6.3-8.2)
[2021-12-01] MEDS ORDERED: VENLAFAXINE HCL ER 150 MG CAP PO SCH (08:00)
[2021-12-01] MEDS ORDERED: NON FORMULARY DRUG (Umeclidinium Bromide [Incruse Ellipta] 62.5 MCG Blst.W.Dev) INHALATION SCH (08:00)
[2021-12-01] MEDS: ASPIRIN 81 MG PO SCH (08:35)
[2021-12-01] MEDS: METOPROLOL TARTRATE 25 MG TAB PO SCH ×2 (08:35→16:46)
[2021-12-01] MEDS: metFORMIN 500 MG TAB PO SCH ×2 (08:35→16:46)
[2021-12-01] MEDS: GABAPENTIN 100 MG CAP PO SCH ×3 (08:35→16:46)
[2021-12-01] MEDS: CYANOCOBALAMIN 500 MCG TAB PO SCH (08:35)
[2021-12-01] MEDS: INSULN ASP PRT/INSULIN ASPART 100 UNIT/ML 10 ML VIAL SQ SCH ×2 (08:36→16:44)
[2021-12-01] MEDS: BACLOFEN 10 MG TAB PO SCH ×2 (08:36→16:46)
[2021-12-01] MEDS: DONEPEZIL 5 MG TAB PO SCH (08:36)
[2021-12-01] MEDS: VENLAFAXINE HCL ER 75 MG CAP PO SCH (08:36)
[2021-12-01 11:45] LABS: Glucose,Whole Blood 102 mg/dL (75-99)
--- NOTE | 2021-12-01 14:45 | P.PN ---
Subjective Progress Note Date: 12/01/21 HISTORY OF PRESENT ILLNESS 71-year-old male who comes from [facility] with past medical history of chronic back pain, post back surgery with discitis had recently surgery at [facility] for discitis of the lumbar spine for which during his last admission consisted of treatment was provided 09/18/2021, with IV antibiotics. . Patient also has known to have history of COPD, diabetes, hypertension, hyperlipidemia, sleep apnea and arrhythmia post pacemaker. He also had atherosclerotic heart disease post heart catheter and stent placement in the past. Patient had a chronic lower back pain with back surgery a few times between [facility] and [facility] and in [facility] where he had his last back surgery for discitis management. Patient thinks is been there only for about 1 week, however his memory cannot be relied on, cannot relate to any other symptoms except the fever, and shaking chills, no cough no no vomiting no diarrhea, no back pain no abdominal pain, no headache, no neck rigidity, was notified of his temperature of over 100.5, and shaking chills. His blood pressures start started to drop, we systolic of 95 prior to his transfer to the hospital. And his old bit more confused, covered test are the intermediate was negative, and has previously been vaccinated against coronavirus In the emergency room, he was hypotensive, systolic of 70, fluids for hydration was provided, labs include double basic count 18.0, hemoglobin 10.7, INR 1.0, creatinine 1.18 BUN of 28, sodium low at 136, potassium 5 urinalysis, shows large leukocyte, nitrite negative wbc of 166. Patient does not have an indwelling Hollingsworth catheter or oxygen prior to admission. Coronavirus on ER admission 227 was negative. Patient's admitted for sepsis, with UTI as primary renal ultrasound requested, to evaluate for pyelonephritis a bscess S and kidney stones. Chest x-ray shows atelectasis on admission, echocardiogram reviewed from 09/19/2021 EF 50-55%, mild pulmonary hypertension, no pleural effusion valve shows mild MR and mild TR and mild pulmonary hypertension RVSP 38 12/01: Patient denies any new complaints today. He is pleasantly confused, apparently normally bedbound and long-term resident at [facility]. Ultrasound of the kidneys revealed normal kidneys, no evidence of renal mass or obstruction. Ureteral jets and the bladder were not evident. Patient has an external catheter in place. Patient has been afebrile, heart rate in the 60s, blood pressure 118/66, pulse ox 97% on room air. Capillary blood glucose running between 102 158. Leukocytosis improving 14.6, hemoglobin 10.2, platelet count 232. Electrolytes are normal. BUN 21 creatinine 0.79. Urine culture is in progress. Anticipate possible discharge back to [facility] on Wednesday. REVIEW OF SYSTEMS Constitutional: No fever, no chills, no night sweats. No weight change. Generalized weakness, fatigue, lethargy, daytime sleepiness. HEENT: No headache. No blurred vision or double vision, no loss of vision. No loss of Hearing, no ringing in the ears, no dizziness. No nasal drainage or congestion. No epistaxis. No sore throat. Lungs: Slight shortness of breath, no cough, no sputum production but mild wheezes. Cardiovascular: Positive PND orthopnea palpitation, positive fluid retention, no lightheadedness or dizziness, no syncopal episode at this point. Abdominal: No abdominal pain. No nausea, vomiting. No diarrhea. No constipation. No bloody or tarry stools.. No loss of appetite. Genitourinary: No dysuria, increased frequency, urgency. No urinary retention. Musculoskeletal: No myalgias. No muscle weakness, no gait dysfunction, no frequent falls. No back pain. No neck pain. Integumentary: No wounds, no lesions. No rash or pruritus. No unusual bruising. No change in hair or nails. Neurologic: Slight change mental status with mild confusion at baseline, no headache still have significant back pain with mild paresthesia lower extremity weakness of the lower extremity as well. o headache. No paralysis. No paresthesia. Psychiatric: No depression. No anxiety. No mood swings. Endocrine: No abnormal blood sugars. No weight change. No excessive sweating or thirst. No cold intolerance. PHYSICAL EXAMINATION Gen: This is 71-year-old laying in bed does not look in any respiratory distress. HEENT: Head is atraumatic, normocephalic. Pupils equal, round. Sclerae is anicteric. NECK: Supple. No JVD. No lymphadenopathy. No thyromegaly. LUNGS: Decreased breath sounds bilaterally. There is a pacemaker on the left side. HEART: Regular rate S1-S2 positive S3 positive PVCs with mild irregularity. 2/6 ejection systolic murmur. ABDOMEN: Soft. Bowel sounds are present. No masses. No tenderness. EXTREMITIES: no edema with slight bruising lower extremity. NEUROLOGICAL: Patient is awake, alert slightly confused. Cranial nerves 2 through 12 are grossly intact. ASSESSMENT AND PLAN 1. Sepsis secondary to acute UTI with early Pyelonephritis. Continue IV Rocephin, and antipyretics, Await urine culture report, blood culture report, external catheter in place. . 2. Chronic diastolic heart failure. Hold Lasix 3. COPD without exacerbation. Continue DuoNeb treatments 4 times daily and as needed, Symbicort 2 puffs twice daily. 4. Metabolic encephalopathy secondary to UTI. Continue treatment as in #1. 5. History of discitis 09/2021, stable. 6. Diabetes mellitus type 2. Continue NovoLog 70/30 15 units twice daily and NovoLog scale, metformin 500 mg twice daily. 7. Hyperlipidemia. Continue atorvastatin 20 mg at bedtime. 8. Chronic pain management. Continue baclofen 5 mg twice daily, gabapentin 100 mg 3 times daily. 9. Dementia with short-term memory loss. Continue Aricept 5 mg daily. 10. Anemia of chronic disease. 11. Hypertension. Continue Lopressor 25 mg twice daily. 12. Recurrent depression. Continue Effexor 125 mg daily. 13. GI prophylaxis. Omeprazole. 14. DVT prophylaxis. Lovenox CODE STATUS: NO code. DISCHARGE PLAN Return to [facility] Impression and plan of care have been directed as dictated by the signing physician. Gabriella Munoz nurse practitioner acting as scribe for signing physician. Objective - Vital Signs Vital signs: Vital Signs Temp 98.2 F 12/01/21 12:10 Pulse 63 12/01/21 12:10 Resp 15 12/01/21 12:10 BP 118/66 12/01/21 12:10 Pulse Ox 97 12/01/21 12:10 Intake & Output 11/30/21 12/01/21 12/01/21 18:59 06:59 18:59 Intake Total 118 Output Total 675 400 400 Balance -547 -400 400 Intake: Oral 118 Output: Urine 675 400 400 Other: Voiding Method Incontinent Incontinent Incontinent External Catheter External Catheter External Catheter # Bowel Movements 0 - Labs CBC & Chem 7: 12/01/21 06:30 12/01/21 06:30 Labs: Abnormal Lab Results - Last 24 Hours (Table) 11/30/21 11/30/21 12/01/21 Range/Units 16:49 20:02 05:14 WBC (3.8-10.6) k/uL RBC (4.30-5.90) m/uL Hgb (13.0-17.5) gm/dL Hct (39.0-53.0) % MCHC (31.0-37.0) g/dL RDW (11.5-15.5) % Neutrophils # (1.3-7.7) k/uL BUN (9-20) mg/dL POC Glucose (mg/dL) 226 H 158 H 110 H (75-99) mg/dL Creatine Kinase (55-170) U/L Albumin (3.5-5.0) g/dL 12/01/21 12/01/21 12/01/21 Range/Units 06:30 06:30 11:43 WBC 14.6 H (3.8-10.6) k/uL RBC 3.35 L (4.30-5.90) m/uL Hgb 10.2 L (13.0-17.5) gm/dL Hct 33.4 L (39.0-53.0) % MCHC 30.6 L (31.0-37.0) g/dL RDW 15.6 H (11.5-15.5) % Neutrophils # 11.2 H (1.3-7.7) k/uL BUN 21 H (9-20) mg/dL POC Glucose (mg/dL) 102 H (75-99) mg/dL Creatine Kinase 54 L (55-170) U/L Albumin 3.4 L (3.5-5.0) g/dL Microbiology - Last 24 Hours (Table) 11/30/21 10:50 Urine Culture - Preliminary Urine,Voided
[2021-12-01 16:22] LABS: Glucose,Whole Blood 67 mg/dL (75-99)
[2021-12-01 16:54] LABS: Glucose,Whole Blood 85 mg/dL (75-99)
[2021-12-01 20:09] LABS: Glucose,Whole Blood 90 mg/dL (75-99)
[2021-12-01] MEDS: MELATONIN 5 MG TABLET PO SCH (21:01)
[2021-12-01] MEDS: ATORVASTATIN 20 MG TAB PO SCH (21:01)
[2021-12-02] MEDS: SODIUM CHLORIDE 0.9% 1,000 ML IV SCH (02:38)
[2021-12-02] MEDS: INSULIN ASPART (NovoLOG) 100 UNIT/ML VIAL SQ SCH ×2 (06:21→11:52)
[2021-12-02 06:23] LABS: Glucose,Whole Blood 119 mg/dL (75-99)
[2021-12-02] MEDS: SYMBICORT 80-4.5 MCG INHALER INHALATION SCH (08:20)
[2021-12-02] MEDS: IPRATROPIUM-ALBUTEROL 3 ML NEB INHALATION SCH ×3 (08:20→15:33)
[2021-12-02] MEDS: metFORMIN 500 MG TAB PO SCH (09:53)
[2021-12-02] MEDS: ASPIRIN 81 MG PO SCH (09:53)
[2021-12-02] MEDS: INSULN ASP PRT/INSULIN ASPART 100 UNIT/ML 10 ML VIAL SQ SCH (09:53)
[2021-12-02] MEDS: CYANOCOBALAMIN 500 MCG TAB PO SCH (09:54)
[2021-12-02] MEDS: DONEPEZIL 5 MG TAB PO SCH (09:54)
[2021-12-02] MEDS: GABAPENTIN 100 MG CAP PO SCH ×2 (09:54→12:15)
[2021-12-02] MEDS: METOPROLOL TARTRATE 25 MG TAB PO SCH (09:54)
[2021-12-02] MEDS: VENLAFAXINE HCL ER 75 MG CAP PO SCH (09:54)
[2021-12-02] MEDS: BACLOFEN 10 MG TAB PO SCH (09:54)
[2021-12-02 10:27] VITALS: RESP 18; TEMP 98.7
[2021-12-02 11:45] LABS: Glucose,Whole Blood 132 mg/dL (75-99)
--- NOTE | 2021-12-02 13:15 | P.DS ---
Providers Date of admission: 11/30/21 00:01 Expected date of discharge: 12/02/21 Attending physician: Lucille Topete Primary care physician: [facility] Course: HISTORY OF PRESENT ILLNESS 71-year-old male who comes from [facility] with past medical history of chronic back pain, post back surgery with discitis had recently surgery at [facility] for discitis of the lumbar spine for which during his last admission consisted of treatment was provided 09/18/2021, with IV antibiotics. . Patient also has known to have history of COPD, diabetes, hypertension, hyperlipidemia, sleep apnea and arrhythmia post pacemaker. He also had atherosclerotic heart disease post heart catheter and stent placement in the past. Patient had a chronic lower back pain with back surgery a few times between [facility] and [facility] and in [facility] where he had his last back surgery for discitis management. Patient thinks is been there only for about 1 week, however his memory cannot be relied on, cannot relate to any other symptoms except the fever, and shaking chills, no cough no no vomiting no diarrhea, no back pain no abdominal pain, no headache, no neck rigidity, was notified of his temperature of over 100.5, and shaking chills. His blood pressures start started to drop, we systolic of 95 prior to his transfer to the hospital. And his old bit more confused, covered test are the care home was negative, and has previously been vaccinated against coronavirus In the emergency room, he was hypotensive, systolic of 70, fluids for hydration was provided, labs include double basic count 18.0, hemoglobin 10.7, INR 1.0, creatinine 1.18 BUN of 28, sodium low at 136, potassium 5 urinalysis, shows large leukocyte, nitrite negative wbc of 166. Patient does not have an indwelling [place] catheter or oxygen prior to admission. Coronavirus on ER admission 227 was negative. Patient's admitted for sepsis, with UTI as primary renal ultrasound requested, to evaluate for pyelonephritis abscess S and kidney stones. Chest x-ray shows atelectasis on admission, echocardiogram reviewed from 09/19/2021 EF 50-55%, mild pulmonary hypertension, no pleural effusion valve shows mild MR and mild TR and mild pulmonary hypertension RVSP 38 12/01: Patient denies any new complaints today. He is pleasantly confused, apparently normally bedbound and long-term resident at [facility]. Ultrasound of the kidneys revealed normal kidneys, no evidence of renal mass or obstruction. Ureteral jets and the bladder were not evident. Patient has an external catheter in place. Patient has been afebrile, heart rate in the 60s, blood pressure 118/66, pulse ox 97% on room air. Capillary blood glucose running between 102 158. Leukocytosis improving 14.6, hemoglobin 10.2, platelet count 232. Electrolytes are normal. BUN 21 creatinine 0.79. Urine culture is in progress. Anticipate possible discharge back to [facility] on Wednesday. 12/02: Urine culture has been finalized with no growth at 18 hours. Patient has been afebrile, heart rate in the 60s and 70s, blood pressure 153/80, pulse ox 95% on room air. Patient's is at bedside and discussed discharge plan with the patient. Patient may have small amount of a pneumonia which would be causing his initial fever that resolved. Antibiotics will be discontinued at this point. Patient will be discharged back to [facility] today in stable condition. DISCHARGE DIAGNOSES 1. Sirs of unclear etiology, acute UTI not completely ruled out, possible early pneumonia. 2. Chronic diastolic heart failure. 3. COPD without exacerbation. 4. Metabolic encephalopathy secondary to UTI. 5. History of discitis 09/2021, stable. 6. Diabetes mellitus type 2. 7. Hyperlipidemia. 8. Chronic pain management. 9. Dementia with short-term memory loss. 10. Anemia of chronic disease. 11. Hypertension. 12. Recurrent depression. DISCHARGE PLAN Return to [facility] Greater than 35 minutes was utilized and coordinating patient's discharge. Impression and plan of care have been directed as dictated by the signing physician. Gabriella Munoz nurse practitioner acting as scribe for signing physician. Patient Condition at Discharge: Good Plan - Discharge Summary Discharge Rx Participant: No New Discharge Prescriptions: Continue Metoprolol Tartrate [Lopressor] 25 mg PO BID@0800,1700 Umeclidinium [place] [Incruse Ellipta] 1 puff INHALATION RT-DAILY@0800 Fluticasone/Salmeterol [Advair Hfa 45-21 Mcg Inhaler] 1 puff INHALATION RT- BID@0800,1700 Albuterol Sulfate [Proair Hfa] 1 puff INHALATION RT-Q4H PRN PRN Reason: Shortness Of Breath Or Wheezing Omeprazole 20 mg PO DAILY@0700 Aspirin [Adult Low Dose Aspirin EC] 81 mg PO DAILY@0800 Albuterol Nebulized [Ventolin Nebulized] 2.5 mg INHALATION RT-Q2H PRN PRN Reason: Shortness Of Breath Atorvastatin Calcium [Lipitor] 20 mg PO HS@2100 Donepezil HCl [Aricept] 5 mg PO DAILY@0800 Polyethylene Glycol 3350 [Clearlax] 1 packet PO DAILY PRN PRN Reason: Constipation bisacodyL [Dulcolax] 10 mg RECTAL DAILY PRN PRN Reason: Constipation Docusate Sodium [Dok] 100 mg PO DAILY PRN PRN Reason: Constipation Dicyclomine [Bentyl] 20 mg PO TID@0800,1200,1700 Melatonin 5 mg PO HS@2100 Ondansetron Odt [Zofran ODT] 4 mg PO Q8H PRN PRN Reason: Nausea Venlafaxine HCl [Effexor XR] 150 mg PO DAILY@0800 Furosemide [Lasix] 20 mg PO DAILY@0800 Acetaminophen Tab [Tylenol] 650 mg PO Q6HR PRN tab PRN Reason: Mild Pain Or Fever > 100.5 Magnesium Hydroxide [Milk of Magnesia] 2,400 mg PO DAILY PRN PRN Reason: Constipation Na Phos,M-B/Na Phos,Di-Ba [Fleet Adult] 133 ml RECTAL DAILY PRN PRN Reason: Constipation Ipratropium-Albuterol Nebulize [Duoneb 0.5 mg-3 mg/3 ml Soln] 3 ml INHALATION RT-Q6H metFORMIN HCL 500 mg PO BID@0800,1700 Sennosides [Senna] 17.2 mg PO HS@2100 glipiZIDE [Glucotrol] 2.5 mg PO DAILY@0800 Ferrous Sulfate [Iron (65 MG Elemental)] 325 mg PO DAILY@0800 Meloxicam [Mobic] 7.5 mg PO DAILY@0800 Insulin NPH Hum/Reg Insulin Hm [NovoLIN 70-30 100 UNIT/ML VIAL] 15 unit SQ BID@0800,1700 Baclofen [Lioresal] 5 mg PO BID@0800,1700 Bacitracin Zinc Oint 1 applic TOPICAL BID Venlafaxine HCl [Effexor XR] 75 mg PO DAILY@0800 Cyanocobalamin [Vitamin B-12] 500 mcg PO DAILY@0800 Changed Gabapentin [Neurontin] 100 mg PO TID@0800,1200,1700 #9 cap Acetaminophen-Codeine 300-30mg [Tylenol w/codeine #3] 1 tab PO Q6H PRN #12 tab PRN Reason: Pain Discharge Medication List Metoprolol Tartrate [Lopressor] 25 mg PO BID@0800,1700 12/02/16 [History] Umeclidinium [place] [Incruse Ellipta] 1 puff INHALATION RT-DAILY@0800 09/22/18 [History] Albuterol Sulfate [Proair Hfa] 1 puff INHALATION RT-Q4H PRN 06/07/20 [History] Aspirin [Adult Low Dose Aspirin EC] 81 mg PO DAILY@0806/07/20 [History] Fluticasone/Salmeterol [Advair Hfa 45-21 Mcg Inhaler] 1 puff INHALATION RT- BID@0800,1700 06/07/20 [History] Omeprazole 20 mg PO DAILY@0700 06/07/20 [History] Albuterol Nebulized [Ventolin Nebulized] 2.5 mg INHALATION RT-Q2H PRN 09/16/20 [History] Atorvastatin Calcium [Lipitor] 20 mg PO HS@209910/12/20 [History] Donepezil HCl [Aricept] 5 mg PO DAILY@0812/19/20 [History] Acetaminophen Tab [Tylenol] 650 mg PO Q6HR PRN tab 07/01/21 [Rx] Dicyclomine [Bentyl] 20 mg PO TID@0800,1200,1700 09/18/21 [History] Docusate Sodium [Dok] 100 mg PO DAILY PRN 09/18/21 [History] Ferrous Sulfate [Iron (65 MG Elemental)] 325 mg PO DAILY@0809/18/21 [History] Ipratropium-Albuterol Nebulize [Duoneb 0.5 mg-3 mg/3 ml Soln] 3 ml INHALATION RT-Q6H 09/18/21 [History] Magnesium Hydroxide [Milk of Magnesia] 2,400 mg PO DAILY PRN 09/18/21 [History] Melatonin 5 mg PO HS@209909/18/21 [History] Meloxicam [Mobic] 7.5 mg PO DAILY@0800 09/18/21 [History] Na Phos,M-B/Na Phos,Di-Ba [Fleet Adult] 133 ml RECTAL DAILY PRN 09/18/21 [History] Polyethylene Glycol 3350 [Clearlax] 1 packet PO DAILY PRN 09/18/21 [History] Sennosides [Senna] 17.2 mg PO HS@2100 09/18/21 [History] bisacodyL [Dulcolax] 10 mg RECTAL DAILY PRN 09/18/21 [History] glipiZIDE [Glucotrol] 2.5 mg PO DAILY@0800 09/18/21 [History] metFORMIN HCL 500 mg PO BID@0800,1700 09/18/21 [History] Bacitracin Zinc Oint 1 applic TOPICAL BID 11/29/21 [History] Baclofen [Lioresal] 5 mg PO BID@0800,1700 11/29/21 [History] Cyanocobalamin [Vitamin B-12] 500 mcg PO DAILY@0800 11/29/21 [History] Furosemide [Lasix] 20 mg PO DAILY@0800 11/29/21 [History] Insulin NPH Hum/Reg Insulin Hm [NovoLIN 70-30 100 UNIT/ML VIAL] 15 unit SQ BID@0800,1700 11/29/21 [History] Ondansetron Odt [Zofran ODT] 4 mg PO Q8H PRN 11/29/21 [History] Venlafaxine HCl [Effexor XR] 75 mg PO DAILY@0800 11/29/21 [History] Venlafaxine HCl [Effexor XR] 150 mg PO DAILY@0800 11/29/21 [History] Acetaminophen-Codeine 300-30mg [Tylenol w/codeine #3] 1 tab PO Q6H PRN #12 tab 12/02/21 [Rx] Gabapentin [Neurontin] 100 mg PO TID@0800,1200,1700 #9 cap 12/02/21 [Rx] Follow up Appointment(s)/Referral(s): Addison Wong MD [Primary Care Provider] - 1 Week (AT [facility]) Discharge Disposition: TRANSFER TO SNF/ECF
[2021-12-02 13:21] VITALS: BP 153/80
[2021-12-02 16:10] VITALS: PULSE 60
== END 2021-12-02 16:17 | DRG 871 ==
LOC: EC 20:27 → 3SCARD 11-30 00:01
PROVIDERS: ADMIT Family Medicine; ATTEND Family Medicine
DX: A41.9 Sepsis, unspecified organism (principal); G93.41 Metabolic encephalopathy; J18.9 Pneumonia, unspecified organism; R65.21 Severe sepsis with septic shock; F33.9 Major depressive disorder, recurrent, unspecified; I50.32 Chronic diastolic (congestive) heart failure; J98.11 Atelectasis; N39.0 Urinary tract infection, site not specified; N12 Tubulo-interstitial nephritis, not specified as acute or chronic; D50.9 Iron deficiency anemia, unspecified; D63.8 Anemia in other chronic diseases classified elsewhere; E11.9 Type 2 diabetes mellitus without complications; E78.5 Hyperlipidemia, unspecified; E86.0 Dehydration; F03.90 Unspecified dementia, unspecified severity, without behavioral disturbance, psychotic disturbance, mood disturbance, and anxiety; Z20.822 Contact with and (suspected) exposure to COVID-19; Z87.891 Personal history of nicotine dependence; G89.29 Other chronic pain; I25.10 Atherosclerotic heart disease of native coronary artery without angina pectoris; I11.0 Hypertensive heart disease with heart failure; I27.20 Pulmonary hypertension, unspecified; J20.9 Acute bronchitis, unspecified; M46.40 Discitis, unspecified, site unspecified; R09.02 Hypoxemia; J44.9 Chronic obstructive pulmonary disease, unspecified; Z74.01 Bed confinement status; Z79.1 Long term (current) use of non-steroidal anti-inflammatories (NSAID); Z79.4 Long term (current) use of insulin; Z79.51 Long term (current) use of inhaled steroids; Z79.82 Long term (current) use of aspirin; Z79.899 Other long term (current) drug therapy; Z95.0 Presence of cardiac pacemaker; Z98.1 Arthrodesis status
CPT/HCPCS: 36415; 71045; 76770; 80053; 81001; 82550; 83605; 83615; 83735; 84100; 84484; 85025; 85610; 85730; 86140; 87040; 87086; 87635; 93005; 94640; 94760; 96360; 96361; 99285

== ENCOUNTER → 2021-12-12 | Outpatient (CLI) | payer MEDICARE ==
--- NOTE | 2021-12-12 10:10 | CT ---
EXAMINATION TYPE: CT lumbar spine wo con DATE OF EXAM: 12/12/2021 7:32 AM COMPARISON: CT dated 09/18/2021 HISTORY: Low back pain CT DLP: 1553.1 mGycm Automated exposure control for dose reduction was used. TECHNIQUE: Unenhanced CT of the lumbar spine was performed. Bone and soft tissue window settings are submitted as well as coronal and sagittal reconstructions. FINDINGS: 12 thoracic vertebrae with 12 pairs of ribs appreciated in September 2021 CT chest. 6 lumbar vertebrae without ribs with the most inferior one is a lumbarized S1. Consequently, there is fixation from L3 down to the lumbarized S1 using 2 rods and 5 screws, appreciated previously. Persistent significant erosive changes at L4-5 opposing endplates with reduced height of the posterio r aspect of L4 and anterior aspect of L5. Intervertebral disc space between L4 and L5 has decreased i n the interim. It is not possible to exclude underlying spondylodiscitis. Posterior decompression is still appreciated at that level. No definite new vertebral body collapse or acute displaced fracture. Persistent left T11-12 neurofora gisele stenosis. No significant neuroforaminal stenosis or spinal canal stenosis at L1-2 and L2-3 leve ls. Suspected mild bilateral L3-4 neural foraminal stenosis. Severe bilateral L4-5 neural foraminal s tenosis compressing the corresponding L4 nerve root. Moderate right and mild left L5-S1 neuroforamina l stenosis. Markedly degenerated L5-S1 disc with vacuum phenomenon. Moderate stenosis of the left S1-2 neural for amen. Spinal canal is suboptimally assessed at the operative levels. Scattered arterial atherosclerot ic calcifications. No paraspinal hematoma or collection. Persistent elevation of the left hemidiaphra gm. IMPRESSION: Lumbarized S1 as detailed above. Progressive narrowing at L4-5 disc space with severe stenosis at L4- 5 neuroforamina compressing the corresponding L4 nerve roots. Other postsurgical changes and multilev el degenerative changes as detailed above.
== END | disposition home or self-care (01) ==
LOC: RADCTMAIN 06:54
PROVIDERS: ATTEND Neurological Surgery
DX: M48.061 Spinal stenosis, lumbar region without neurogenic claudication (principal); M51.26 Other intervertebral disc displacement, lumbar region; M47.816 Spondylosis without myelopathy or radiculopathy, lumbar region; Z98.890 Other specified postprocedural states
CPT/HCPCS: 72131

== ENCOUNTER 2022-02-06 01:15 | Inpatient (IN) | payer MEDICARE ==
[2022-02-06] MEDS ORDERED: SODIUM CHLORIDE 0.9% 500 ML 500 ML IV STA (01:31)
[2022-02-06] MEDS ORDERED: SODIUM CHLORIDE 0.9% 1,000 ML IV STA (01:31)
[2022-02-06] MEDS ORDERED: IPRATROPIUM-ALBUTEROL 3 ML NEB INHALATION STA ×2 (01:31→03:04)
--- NOTE | 2022-02-06 01:32 | ED ---
SOB HPI - General Stated Complaint: JUSTIN Time Seen by Provider: 02/06/22 01:21 Source: RN notes reviewed, old records reviewed, Caregiver Mode of arrival: EMS Limitations: altered mental status, physical limitation - History of Present Illness Initial Comments: This is a 72-year-old male to the emergency department for evaluation. Patient states today for evaluation in regards to shortness of breath which is multifactorial. Patient is unable to provide history history of prior from EMS and patient's chart patient is history of COPD CHF recurrent pneumonia but afebrile. Again at this time patient cannot provide history and has no complaints MD Complaint: shortness of breath, cough -: hour(s) Severity: moderate Severity scale (1-10): 7 Quality: dull Consistency: constant Improves With: nothing Worsens With: nothing Known History Of: COPD, congestive heart failure Context: recent URI, anxiety, recent illness Associated Symptoms: cough, sputum production, nausea/vomiting Treatments Prior to Arrival: oxygen - Related Data Home Medications Medication Instructions Recorded Confirmed Metoprolol Tartrate [Lopressor] 25 mg PO BID@0800,1700 12/02/16 11/29/21 Umeclidinium [place] [Incruse 1 puff INHALATION RT-DAILY@0800 09/22/18 11/29/21 Ellipta] Albuterol Sulfate [Proair Hfa] 1 puff INHALATION RT-Q4H PRN 06/07/20 11/29/21 Aspirin [Adult Low Dose Aspirin EC] 81 mg PO DAILY@0800 06/07/20 11/29/21 Fluticasone/Salmeterol [Advair Hfa 1 puff INHALATION RT-BID@0800,1700 06/07/20 11/29/21 45-21 Mcg Inhaler] Omeprazole 20 mg PO DAILY@0700 06/07/20 11/29/21 Albuterol Nebulized [Ventolin 2.5 mg INHALATION RT-Q2H PRN 09/16/20 11/29/21 Nebulized] Atorvastatin Calcium [Lipitor] 20 mg PO HS@2100 10/12/20 11/29/21 Donepezil HCl [Aricept] 5 mg PO DAILY@0800 12/19/20 11/29/21 Dicyclomine [Bentyl] 20 mg PO TID@0800,1200,1700 09/18/21 11/29/21 Docusate Sodium [Dok] 100 mg PO DAILY PRN 09/18/21 11/29/21 Ferrous Sulfate [Iron (65 MG 325 mg PO DAILY@0800 09/18/21 11/29/21 Elemental)] Ipratropium-Albuterol Nebulize 3 ml INHALATION RT-Q6H 09/18/21 11/29/21 [Duoneb 0.5 mg-3 mg/3 ml Soln] Magnesium Hydroxide [Milk of 2,400 mg PO DAILY PRN 09/18/21 11/29/21 Magnesia] Melatonin 5 mg PO HS@209909/18/21 11/29/21 Meloxicam [Mobic] 7.5 mg PO DAILY@0800 09/18/21 11/29/21 Na Phos,M-B/Na Phos,Di-Ba [Fleet 133 ml RECTAL DAILY PRN 09/18/21 11/29/21 Adult] Polyethylene Glycol 3350 [Clearlax] 1 packet PO DAILY PRN 09/18/21 11/29/21 Sennosides [Senna] 17.2 mg PO HS@209909/18/21 11/29/21 bisacodyL [Dulcolax] 10 mg RECTAL DAILY PRN 09/18/21 11/29/21 glipiZIDE [Glucotrol] 2.5 mg PO DAILY@0800 09/18/21 11/29/21 metFORMIN HCL 500 mg PO BID@0800,1700 09/18/21 11/29/21 Bacitracin Zinc Oint 1 applic TOPICAL BID 11/29/21 11/29/21 Baclofen [Lioresal] 5 mg PO BID@0800,1700 11/29/21 11/29/21 Cyanocobalamin [Vitamin B-12] 500 mcg PO DAILY@0800 11/29/21 11/29/21 Furosemide [Lasix] 20 mg PO DAILY@0800 11/29/21 11/29/21 Insulin NPH Hum/Reg Insulin Hm 15 unit SQ BID@0800,1700 11/29/21 11/29/21 [NovoLIN 70-30 100 UNIT/ML VIAL] Ondansetron Odt [Zofran ODT] 4 mg PO Q8H PRN 11/29/21 11/29/21 Venlafaxine HCl [Effexor XR] 75 mg PO DAILY@0800 11/29/21 11/29/21 Venlafaxine HCl [Effexor XR] 150 mg PO DAILY@0800 11/29/21 11/29/21 Previous Rx's Medication Instructions Recorded Acetaminophen Tab [Tylenol] 650 mg PO Q6HR PRN tab 07/01/21 Acetaminophen-Codeine 300-30mg 1 tab PO Q6H PRN #12 tab 12/02/21 [Tylenol w/codeine #3] Gabapentin [Neurontin] 100 mg PO TID@0800,1200,1700 #9 cap 12/02/21 Allergies Allergy/AdvReac Type Severity Reaction Status Date / Time No Known Allergies Allergy Verified 02/06/22 01:34 Review of Systems ROS Statement: Those systems with pertinent positive or pertinent negative responses have been documented in the HPI. ROS Other: All systems not noted in ROS Statement are negative. Past Medical History Past Medical History: COPD, Diabetes Mellitus, Hyperlipidemia, Hypertension, Osteoarthritis (OA), Sleep Apnea/CPAP/BIPAP Additional Past Medical History / Comment(s): PACEMAKER. Uses CPAP. 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 Taking Aricept on a trial basis for slight memory loss. History of anterior cervical decompression and fusion in September 2020 with our service. History of lumbar decompression at outside institution History of Any Multi-Drug Resistant Organisms: None Reported Past Surgical History: Appendectomy, Back Surgery, Heart Catheterization With Stent, Pacemaker Additional Past Surgical History / Comment(s): Oral surg. COLONOSCOPY. GENERATOR CHANGE 2016, lumbar myelogram, neck fusion; heart caths with stents x 2 (at least). Laminectomy August 2021 Past Anesthesia/Blood Transfusion Reactions: No Reported Reaction Date of Last Stent Placement:: 2006 Type of Cardiac Device: Permanent Pacemaker Device Placement Date:: 2008 Past Psychological History: No Psychological Hx Reported Smoking Status: Former smoker Past Alcohol Use History: Occasional Additional Past Alcohol Use History / Comment(s): Smoked since teens, 1 2 , has not smoked since May Past Drug Use History: None Reported - Past Family History Mother Family Medical History: Cancer Brother(s) Family Medical History: Cancer General Exam Limitations: altered mental status, physical limitation General appearance: alert, anxious, lethargic, in distress Head exam: Present: atraumatic, normocephalic, normal inspection Eye exam: Present: normal appearance, PERRL, EOMI. Absent: scleral icterus, conjunctival injection, periorbital swelling ENT exam: Present: normal exam, mucous membranes moist Neck exam: Present: normal inspection. Absent: tenderness, meningismus, lymphadenopathy Respiratory exam: Present: normal lung sounds bilaterally, respiratory distress, wheezes, accessory muscle use, decreased breath sounds, prolonged expiratory. Absent: rales, rhonchi, stridor Cardiovascular Exam: Present: regular rate, normal rhythm, normal heart sounds. Absent: systolic murmur, diastolic murmur, rubs, gallop, clicks GI/Abdominal exam: Present: soft, normal bowel sounds. Absent: distended, tenderness, guarding, rebound, rigid Extremities exam: Present: normal inspection, full ROM, normal capillary refill. Absent: tenderness, pedal edema, joint swelling, calf tenderness Back exam: Present: normal inspection Neurological exam: Present: alert, oriented X3, CN II-XII intact Psychiatric exam: Present: normal affect, normal mood Skin exam: Present: warm, dry, intact, normal color. Absent: rash Course Vital Signs 02/06/22 02/06/22 02/06/22 01:21 02:16 02:22 Temperature 99.7 F H Pulse Rate 79 66 60 Respiratory 24 Rate Blood Pressure 99/70 O2 Sat by Pulse 92 L Oximetry - Reevaluation(s) Reevaluation #1: 02/06/22 03:02 Medical record is reviewed Reevaluation #2: 02/06/22 03:02 Patient is improving after breathing treatment given IV hydration blood pressure improved Reevaluation #3: 02/06/22 03:02 Patient remains poor historian secondary dementia and delirium secondary to significant illness - Consultations Consultation #1: Spoke with Dr. Wong who agrees to admit this patient Medical Decision Making - Medical Decision Making 72 male to the emergency department for evaluation poor historian here for pneumonia shortness of breath with COPD and CHF. Patient at this time will be admitted for IV antibiotics supportive care. - Lab Data Result diagrams: 02/06/22 01:48 02/06/22 01:48 Lab Results 02/06/22 02/06/22 02/06/22 Range/Units 01:48 01:48 01:48 WBC 17.0 H (3.8-10.6) k/uL RBC 4.08 L (4.30-5.90) m/uL Hgb 12.4 L (13.0-17.5) gm/dL Hct 39.3 (39.0-53.0) % MCV 96.3 (80.0-100.0) fL MCH 30.5 (25.0-35.0) pg MCHC 31.7 (31.0-37.0) g/dL RDW 13.2 (11.5-15.5) % Plt Count 213 (150-450) k/uL MPV 7.9 Neutrophils % 87 % Lymphocytes % 6 % Monocytes % 5 % Eosinophils % 0 % Basophils % 0 % Neutrophils # 14.8 H (1.3-7.7) k/uL Lymphocytes # 1.0 (1.0-4.8) k/uL Monocytes # 0.9 (0-1.0) k/uL Eosinophils # 0.1 (0-0.7) k/uL Basophils # 0.1 (0-0.2) k/uL PT 10.5 (9.0-12.0) sec INR 1.0 (<1.2) APTT 24.4 (22.0-30.0) sec Sodium 135 L (137-145) mmol/L Potassium 4.3 (3.5-5.1) mmol/L Chloride 99 (98-107) mmol/L Carbon Dioxide 24 (22-30) mmol/L Anion Gap 12 mmol/L BUN 25 H (9-20) mg/dL Creatinine 1.03 (0.66-1.25) mg/dL Est GFR (CKD-EPI)AfAm 83 (>60 ml/min/1.73 sqM) Est GFR (CKD-EPI)NonAf 72 (>60 ml/min/1.73 sqM) Glucose 157 H (74-99) mg/dL Calcium 9.6 (8.4-10.2) mg/dL Magnesium 1.6 (1.6-2.3) mg/dL Total Bilirubin 0.4 (0.2-1.3) mg/dL AST 24 (17-59) U/L ALT 20 (4-49) U/L Alkaline Phosphatase 112 (38-126) U/L Troponin I (0.000-0.034) ng/mL NT-Pro-B Natriuret Pep pg/mL Total Protein 7.9 (6.3-8.2) g/dL Albumin 4.3 (3.5-5.0) g/dL 02/06/22 02/06/22 Range/Units 01:48 01:48 WBC (3.8-10.6) k/uL RBC (4.30-5.90) m/uL Hgb (13.0-17.5) gm/dL Hct (39.0-53.0) % MCV (80.0-100.0) fL MCH (25.0-35.0) pg MCHC (31.0-37.0) g/dL RDW (11.5-15.5) % Plt Count (150-450) k/uL MPV Neutrophils % % Lymphocytes % % Monocytes % % Eosinophils % % Basophils % % Neutrophils # (1.3-7.7) k/uL Lymphocytes # (1.0-4.8) k/uL Monocytes # (0-1.0) k/uL Eosinophils # (0-0.7) k/uL Basophils # (0-0.2) k/uL PT (9.0-12.0) sec INR (<1.2) APTT (22.0-30.0) sec Sodium (137-145) mmol/L Potassium (3.5-5.1) mmol/L Chloride (98-107) mmol/L Carbon Dioxide (22-30) mmol/L Anion Gap mmol/L BUN (9-20) mg/dL Creatinine (0.66-1.25) mg/dL Est GFR (CKD-EPI)AfAm (>60 ml/min/1.73 sqM) Est GFR (CKD-EPI)NonAf (>60 ml/min/1.73 sqM) Glucose (74-99) mg/dL Calcium (8.4-10.2) mg/dL Magnesium (1.6-2.3) mg/dL Total Bilirubin (0.2-1.3) mg/dL AST (17-59) U/L ALT (4-49) U/L Alkaline Phosphatase (38-126) U/L Troponin I 0.013 (0.000-0.034) ng/mL NT-Pro-B Natriuret Pep 929 pg/mL Total Protein (6.3-8.2) g/dL Albumin (3.5-5.0) g/dL - EKG Data -: EKG Interpreted by Me (EKG is irregular rhythm 73 QRS 161 QTC 432) - Radiology Data Radiology results: report reviewed (Chest x-rays positive for pneumonia), image reviewed Disposition Clinical Impression: Systolic congestive heart failure, Acute exacerbation of chronic obstructive pulmonary disease, Community acquired pneumonia, Dehydration, Dementia, Failure to thrive in adult, Weakness Disposition: ADMITTED IP TO THIS HOSP Condition: Serious Is patient prescribed a controlled substance at d/c from ED?: No Referrals: Addison Wong MD [Primary Care Provider] - 1-2 days
--- NOTE | 2022-02-06 02:09 | XR ---
EXAMINATION TYPE: XR chest 1V portable DATE OF EXAM: 02/06/2022 COMPARISON: 11/29/2021 HISTORY: Short of breath TECHNIQUE: Single view FINDINGS: There is some atelectasis left lung base. There is coarse interstitial density in the mid a nd lower lung levine. No heart failure seen. There is left axillary pacemaker. IMPRESSION: There are some interstitial infiltrates in the right lung which are mostly new compared t o last exam. There is chronic atelectasis left lung base without change. No heart failure.
[2022-02-06 02:14] LABS: Basophils # (A) 0.1 k/uL (0-0.2); Basophils % (A) 0 %; Eosinophils # (A) 0.1 k/uL (0-0.7); Eosinophils % (A) 0 %; HCT 39.3 % (39.0-53.0); HGB 12.4 gm/dL (13.0-17.5); Lymphocytes % (A) 6 %; MCH 30.5 pg (25.0-35.0); MCHC 31.7 g/dL (31.0-37.0); MCV 96.3 fL (80.0-100.0); Mean Platelet Volume 7.9; Monocytes # (A) 0.9 k/uL (0-1.0); Monocytes % (A) 5 %; Neutrophils # (A) 14.8 k/uL (1.3-7.7); Neutrophils % (A) 87 %; Platelet Count 213 k/uL (150-450); RBC 4.08 m/uL (4.30-5.90); RDW 13.2 % (11.5-15.5)
[2022-02-06] MEDS ORDERED: AZITHROMYCIN 500 MG in SODIUM CHLORIDE 0.9% 250 ML IVPB STA (02:15)
[2022-02-06] MEDS ORDERED: LORazepam 2 MG/ML INJ IV STA (02:20)
[2022-02-06 02:24] LABS: Partial Thromboplastin Time 24.4 sec (22.0-30.0); Prothrombin Time 10.5 sec (9.0-12.0)
[2022-02-06 02:27] LABS: Albumin 4.3 g/dL (3.5-5.0); Calcium 9.6 mg/dL (8.4-10.2); Magnesium 1.6 mg/dL (1.6-2.3); Potassium 4.3 mmol/L (3.5-5.1); Total Bilirubin 0.4 mg/dL (0.2-1.3); Total Protein 7.9 g/dL (6.3-8.2)
[2022-02-06] MEDS ORDERED: ONDANSETRON 4 MG/2 ML VIAL IVP PRN (03:05)
[2022-02-06] MEDS ORDERED: ACETAMINOPHEN TAB 325 MG TAB PO PRN ×2 (03:05→08:32)
[2022-02-06] MEDS ORDERED: LORazepam 2 MG/ML INJ IV PRN (03:05)
[2022-02-06] MEDS ORDERED: MORPHINE SULFATE 4 MG/ML SYRINGE IV PRN (03:05)
[2022-02-06] MEDS ORDERED: NALOXONE 0.4 MG/ML 1 ML VIAL IV PRN (03:05)
[2022-02-06] MEDS ORDERED: methylPREDNISolone SOD SUCCI 125 MG/2 ML VIAL IV STA (03:09)
[2022-02-06] MEDS: SODIUM CHLORIDE 0.9% 1,000 ML IV SCH ×4 (03:36→16:47)
[2022-02-06] MEDS: methylPREDNISolone SOD SUCCI 125 MG/2 ML VIAL IV SCH ×2 (05:40→12:42)
[2022-02-06] MEDS: ENOXAPARIN 40 MG/0.4 ML SYRINGE SQ SCH (06:41)
[2022-02-06 07:00] LABS: Glucose,Whole Blood 166 mg/dL (75-99)
[2022-02-06] MEDS ORDERED: ALBUTEROL NEBULIZED 2.5 MG/3 ML INHALATION SCH (08:00)
[2022-02-06] MEDS: PANTOPRAZOLE 40 MG/10 ML VIAL IV SCH (08:00)
[2022-02-06] MEDS ORDERED: polyethylene glycoL 3350 17 GM POWD.PACK PO PRN (08:32)
[2022-02-06] MEDS ORDERED: ONDANSETRON ODT 4 MG TAB PO PRN (08:32)
[2022-02-06] MEDS ORDERED: bisacodyL 10 MG SUPP RECTAL PRN (08:32)
[2022-02-06] MEDS ORDERED: MAGNESIUM HYDROXIDE 2,400 MG/10 ML CUP PO PRN (08:32)
[2022-02-06] MEDS ORDERED: DOCUSATE 100 MG CAP PO PRN (08:32)
[2022-02-06] MEDS: PIPERACILLIN-TAZOBACTAM 3.375 GM in SODIUM CHLORIDE 0.9% 100 ML IVPB SCH ×3 (09:05→23:16)
--- NOTE | 2022-02-06 10:26 | P.HPIM ---
History of Present Illness H&P Date: 02/06/22 HISTORY OF PRESENT ILLNESS 72-year-old male patient resides long-term at [facility] with past medical history of chronic back pain with severe lower extremity weakness, post back surgery with discitis status post surgery at [facility] for discitis of the lumbar spine. Additional history of COPD, diabetes, hypertension, hyperlipidemia, sleep apnea and arrhythmia post pacemaker, atherosclerotic heart disease post heart catheter and stent placement in the past. Patient was doing fine yesterday morning but later in the day became hypoxic with slight change in mental status. Patient was transferred to [facility] emergency center for evaluation. Temperature 99.7, heart rate 79, respiratory rate 30, blood pressure 99/70, pulse ox 92% on 4 L nasal cannula. WBC 17, hemoglobin 12.4, platelet count 213. INR 1.0. Sodium 135 otherwise el ectrolytes are normal. BUN 25 and creatinine 1.03. Glucose 157. Lactic acid 1.5. Calcium 9.6, magnesium 1.6, liver function tests normal. Troponins negative on 3 draws. ProBNP 929. Coronal virus PCR not detected. Chest x-ray revealed interstitial infiltrates in the right lung most likely new. Chronic atelectasis left lung base without change. No heart failure. REVIEW OF SYSTEMS Constitutional: No fever, no chills, no night sweats. No weight change. Generalized weakness, fatigue, lethargy, daytime sleepiness. HEENT: No headache. No blurred vision or double vision, no loss of vision. No loss of Hearing, no ringing in the ears, no dizziness. No nasal drainage or congestion. No epistaxis. No sore throat. Lungs: Slight shortness of breath, no cough, no sputum production but mild wheezes. Cardiovascular: Positive PND orthopnea palpitation, positive fluid retention, no lightheadedness or dizziness, no syncopal episode at this point. Abdominal: No abdominal pain. No nausea, vomiting. No diarrhea. No constipation. No bloody or tarry stools.. No loss of appetite. Genitourinary: No dysuria, increased frequency, urgency. No urinary retention. Musculoskeletal: No myalgias. No muscle weakness, no gait dysfunction, no frequent falls. No back pain. No neck pain. Integumentary: No wounds, no lesions. No rash or pruritus. No unusual bru ising. No change in hair or nails. Neurologic: Slight change mental status with mild confusion, no headache chronic low back pain with paresthesia and lower extremity weakness. Psychiatric: No depression. No anxiety. No mood swings. Endocrine: No abnormal blood sugars. No weight change. No excessive sweating or thirst. No cold intolerance. SOCIAL HISTORY He smoked pack a day for 25 years he quit 2020, he is and now resides at [facility] as long-term care patient. FAMILY HISTORY His mother dying in her 80s from CHF, mother dying is 91 from [place], patient had 3 children with no major medical problem and 3 siblings are all living and well. PHYSICAL EXAMINATION Gen: This is elderly male laying in bed does not look in any respiratory distress. HEENT: Head is atraumatic, normocephalic. Pupils equal, round. Sclerae is anicteric. NECK: Supple. No JVD. No lymphadenopathy. No thyromegaly. LUNGS: Decreased breath some rhonchi, mild expiratory wheeze, decreased breath sounds on the right. There is a pacemaker on the left side. HEART: Regular rate S1-S2 positive S3 positive PVCs with mild irregularity. 2/6 ejection systolic murmur. ABDOMEN: Soft. Bowel sounds are present. No masses. No tenderness. EXTREMITIES: 1+ edema especially in the left leg compared to the right side with slight bruising lower extremity. NEUROLOGICAL: Patient is awake, alert slightly confused. Cranial nerves 2 through 12 are grossly intact. ASSESSMENT AND PLAN 1. Acute hypoxic respiratory failure secondary to acute aspiration pneumonia and sepsis. Antibiotics changed to Zosyn, pulmonary consult, Symbicort twice daily, DuoNeb treatments every 6 hours, Solu-Medrol 60 mg IV every 6 hours, pulmonary medicine consult. 2 chronic diastolic heart failure. Continue Lasix 20 mg oral daily, Lopressor 25 mg twice daily. 3 mild COPD: We'll continue O2, continue DuoNeb and Symbicort at this point. 4 metabolic encephalopathy. Mild change from baseline, continue treatment as in #1, continue Aricept 5 mg daily. 5 chronic discitis, status post surgical intervention and course of IV antibi otics with vancomycin. 6 type 2 diabetes, continue metformin 500 mg twice daily and NovoLog scale b efore meals and at bedtime. 7 anemia of chronic disease. Continue ferrous sulfate daily. 8 Hyperlipidemia: Continue patient on atorvastatin 20 mg daily. 9 chronic pain management: Still on hydrocodone along with gabapentin. 10 mild memory loss/dementia: Still on Aricept 5 mg a day. 11 hypertension: Continue patient on metoprolol 25 mg twice a day. 12 GI prophylaxis: Patient be on pantoprazole 40 mg daily. 13 DVT prophylaxis: Patient be on Lovenox 40 mg subcutaneous daily. CODE STATUS: Full code. Patient admitted to the hospital for a minimum of 2 night stay. DISCHARGE PLAN Return to [facility] on Wednesday Impression and plan of care have been directed as dictated by the signing physician. Gabriella Munoz nurse practitioner acting as scribe for signing physician. Past Medical History Past Medical History: COPD, Diabetes Mellitus, Hyperlipidemia, Hypertension, Osteoarthritis (OA), Sleep Apnea/CPAP/BIPAP Additional Past Medical History / Comment(s): PACEMAKER. Uses CPAP. 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 Taking Aricept on a trial basis for slight memory loss. History of anterior cervical decompression and fusion in September 2020 with our service. History of lumbar decompression at outside institution History of Any Multi-Drug Resistant Organisms: None Reported Past Surgical History: Appendectomy, Back Surgery, Heart Catheterization With Stent, Pacemaker Additional Past Surgical History / Comment(s): Oral surg. COLONOSCOPY. GENERATOR CHANGE 2016, lumbar myelogram, neck fusion; heart caths with stents x 2 (at least). Laminectomy August 2021 Past Anesthesia/Blood Transfusion Reactions: No Reported Reaction Date of Last Stent Placement:: 2006 Type of Cardiac Device: Permanent Pacemaker Device Placement Date:: 2008 Past Psychological History: No Psychological Hx Reported Smoking Status: Former smoker Past Alcohol Use History: Occasional Additional Past Alcohol Use History / Comment(s): Smoked since teens, 1 /2 PPD, has not smoked since May Past Drug Use History: None Reported - Past Family History Mother Family Medical History: Cancer Brother(s) Family Medical History: Cancer Medications and Allergies Home Medications Medication Instructions Recorded Confirmed Type Metoprolol Tartrate [Lopressor] 25 mg PO BID@0800,1700 12/02/16 02/06/22 History Umeclidinium [place] [Incruse 1 puff INHALATION RT-DAILY@0800 09/22/18 02/06/22 History Ellipta] Fluticasone/Salmeterol [Advair Hfa 1 puff INHALATION RT-BID@0800,1700 06/07/20 02/06/22 History 45-21 Mcg Inhaler] Albuterol Nebulized [Ventolin 2.5 mg INHALATION RT-Q2H PRN 09/16/20 02/06/22 History Nebulized] Atorvastatin Calcium [Lipitor] 20 mg PO HS 10/12/20 02/06/22 History Donepezil HCl [Aricept] 5 mg PO DAILY@0800 12/19/20 02/06/22 History Docusate Sodium [Dok] 100 mg PO DAILY PRN 09/18/21 02/06/22 History Ferrous Sulfate [Iron (65 MG 325 mg PO DAILY@0800 09/18/21 02/06/22 History Elemental)] Ipratropium-Albuterol Nebulize 3 ml INHALATION RT-Q6H 09/18/21 02/06/22 History [Duoneb 0.5 mg-3 mg/3 ml Soln] Melatonin 5 mg PO HS 09/18/21 02/06/22 History Meloxicam [Mobic] 7.5 mg PO DAILY@0800 09/18/21 02/06/22 History Na Phos,M-B/Na Phos,Di-Ba [Fleet 133 ml RECTAL DAILY PRN 09/18/21 02/06/22 History Adult] Polyethylene Glycol 3350 [Clearlax] 17 gm PO DAILY PRN 09/18/21 02/06/22 History bisacodyL [Dulcolax] 10 mg RECTAL DAILY PRN 09/18/21 02/06/22 History metFORMIN HCL 500 mg PO BID@0800,1700 09/18/21 02/06/22 History Baclofen [Lioresal] 5 mg PO BID@0800,1700 11/29/21 02/06/22 History Cyanocobalamin [Vitamin B-12] 500 mcg PO DAILY@0800 11/29/21 02/06/22 History Furosemide [Lasix] 20 mg PO DAILY@0800 11/29/21 02/06/22 History Insulin NPH Hum/Reg Insulin Hm 15 unit SQ BID@0800,1700 11/29/21 02/06/22 History [NovoLIN 70-30 100 UNIT/ML VIAL] Ondansetron Odt [Zofran ODT] 4 mg PO Q8H PRN 11/29/21 02/06/22 History Venlafaxine HCl [Effexor XR] 75 mg PO DAILY@0800 11/29/21 02/06/22 History Venlafaxine HCl [Effexor XR] 150 mg PO DAILY@0800 11/29/21 02/06/22 History Acetaminophen Tab [Tylenol] 650 mg PO Q6HR PRN 02/06/22 02/06/22 History Aspirin 81 mg PO DAILY@0800 02/06/22 02/06/22 History Gabapentin 300 mg PO TID@0600,1400,2200 02/06/22 02/06/22 History HYDROcodone/APAP 5-325MG [[place] 1 tab PO Q6H PRN 02/06/22 02/06/22 History 5-325] Magnesium Hydroxide [Milk of 7,200 mg PO Q48H PRN 02/06/22 02/06/22 History Magnesia Concentrate] Sennosides/Docusate Sodium 2 tab PO HS 02/06/22 02/06/22 History [Senna-S 8.6-50 mg Tablet] diphenhydrAMINE HCL [Benadryl] 25 mg PO Q6H PRN 02/06/22 02/06/22 History Allergies Allergy/AdvReac Type Severity Reaction Status Date / Time No Known Allergies Allergy Verified 02/06/22 07:48 Physical Exam Vitals: Vital Signs Temp Pulse Pulse Resp BP BP Pulse Ox 02/06/22 05:53 98.9 F 70 18 100/58 94 L 02/06/22 04:45 67 26 H 98/76 94 L 02/06/22 04:00 71 26 H 102/70 94 L 02/06/22 03:34 73 02/06/22 03:26 67 02/06/22 03:01 72 18 102/70 94 L 02/06/22 02:22 60 02/06/22 02:16 66 02/06/22 01:33 30 H 02/06/22 01:21 99.7 F H 79 24 99/70 92 L Intake and Output 02/05/22 02/06/22 02/06/22 22:59 06:59 14:59 Other: Weight 81.647 kg Results CBC & Chem 7: 02/06/22 01:48 02/06/22 01:48 Labs: Abnormal Lab Results - Last 24 Hours (Table) 02/06/22 02/06/22 02/06/22 Range/Units 01:48 01:48 06:58 WBC 17.0 H (3.8-10.6) k/uL RBC 4.08 L (4.30-5.90) m/uL Hgb 12.4 L (13.0-17.5) gm/dL Neutrophils # 14.8 H (1.3-7.7) k/uL Sodium 135 L (137-145) mmol/L BUN 25 H (9-20) mg/dL Glucose 157 H (74-99) mg/dL POC Glucose (mg/dL) 166 H (75-99) mg/dL Thrombosis Risk Factor Assmnt - Choose All That Apply Each Risk Factor Represents 2 Points: Age 61-74 years Thrombosis Risk Factor Assessment Total Risk Factor Score: 2 Thrombosis Risk Factor Assessment Level: Low Risk
[2022-02-06 11:58] LABS: Glucose,Whole Blood 306 mg/dL (75-99)
[2022-02-06] MEDS: INSULIN ASPART (NovoLOG) 100 UNIT/ML VIAL SQ SCH ×3 (12:05→19:50)
[2022-02-06] MEDS: GABAPENTIN 300 MG CAP PO SCH ×2 (13:18→21:07)
[2022-02-06] MEDS ORDERED: IPRATROPIUM-ALBUTEROL 3 ML NEB INHALATION SCH (14:00)
--- NOTE | 2022-02-06 15:33 | P.CNPUL ---
History of Present Illness Consult date: 02/06/22 Requesting physician: Addison Wong Reason for consult: pneumonia Chief complaint: Low oxygen level and change in mental status History of present illness: This is a 72-year-old white male with history of multiple medical problems including chronic back pain, chronic lower extremities weakness, history of back surgery at [facility] on the lumbar spine, patient is also known to have history of obstructive sleep apnea syndrome, dyslipidemia, diabetes, COPD, hypertension, and history of coronary artery disease and previous stent placement. Patient was at [facility], and apparently he developed a sudden episode of shortness of breath, he desaturated based on pulse oximetry, and he was a bit confused. Patient was transferred to [facility], he had a low-grade temp of 99.7. His pulse ox was 92% on 2 L, patient was noted to have abnormal chest x-ray suggestive of right lower lobe infiltrate and left lower lobe atelectasis. Patient was admitted, placed on antibiotics in the form of Zosyn mostly because the patient does have history of dysphagia. Upon my evaluation of the patient, patient stated to me that he has no idea why he was brought here, he denies any shortness of breath denied any cough denied any difficulty swallowing., Patient stated to me that his pulmonary status is fine and he is not symptomatic. Patient is resting in bed, eating, his O2 saturation is 96-100% on 3 L chest x-ray was reviewed and indeed does reflect a minimal infiltrate in the right lower lobe CBC did show leukocytosis with WBC count of 17.0, otherwise his labs were basically unremarkable. Patient does not have any fever his temp is 97.6. And on physical examination he sounded basically clear. Review of Systems Constitutional: Negative, patient denies any specific symptoms today. HEENT: Negative Lungs: Hardly any pulmonary symptoms whatsoever based on the patient Cardiovascular: Negative Abdominal: Negative Genitourinary: Negative Musculoskeletal: Chronic back pain and lower extremities weakness to the point that the patient is bedbound. Integumentary: Negative Neurologic: Negative Psychiatric: Negative Endocrine: Negative Past Medical History Past Medical History: COPD, Diabetes Mellitus, Hyperlipidemia, Hypertension, Osteoarthritis (OA), Sleep Apnea/CPAP/BIPAP Additional Past Medical History / Comment(s): PACEMAKER. Uses CPAP. 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 Taking Aricept on a trial basis for slight memory loss. History of anterior cervical decompression and fusion in September 2020 with our service. History of lumbar decompression at outside institution History of Any Multi-Drug Resistant Organisms: None Reported Past Surgical History: Appendectomy, Back Surgery, Heart Catheterization With Stent, Pacemaker Additional Past Surgical History / Comment(s): Oral surg. COLONOSCOPY. GENERATOR CHANGE 2016, lumbar myelogram, neck fusion; heart caths with stents x 2 (at least). Laminectomy August 2021 Past Anesthesia/Blood Transfusion Reactions: No Reported Reaction Date of Last Stent Placement:: 2006 Type of Cardiac Device: Permanent Pacemaker Device Placement Date:: 2008 Past Psychological History: No Psychological Hx Reported Smoking Status: Former smoker Past Alcohol Use History: Occasional Additional Past Alcohol Use History / Comment(s): Smoked since teens, 10/05, has not smoked since May Past Drug Use History: None Reported - Past Family History Mother Family Medical History: Cancer Brother(s) Family Medical History: Cancer Medications and Allergies Home Medications Medication Instructions Recorded Confirmed Type Metoprolol Tartrate [Lopressor] 25 mg PO BID@0800,1700 12/02/16 02/06/22 History Umeclidinium [place] [Incruse 1 puff INHALATION RT-DAILY@0800 09/22/18 02/06/22 History Ellipta] Fluticasone/Salmeterol [Advair Hfa 1 puff INHALATION RT-BID@0800,1700 06/07/20 02/06/22 History 45-21 Mcg Inhaler] Albuterol Nebulized [Ventolin 2.5 mg INHALATION RT-Q2H PRN 09/16/20 02/06/22 History Nebulized] Atorvastatin Calcium [Lipitor] 20 mg PO HS 10/12/20 02/06/22 History Donepezil HCl [Aricept] 5 mg PO DAILY@0800 12/19/20 02/06/22 History Docusate Sodium [Dok] 100 mg PO DAILY PRN 09/18/21 02/06/22 History Ferrous Sulfate [Iron (65 MG 325 mg PO DAILY@0800 09/18/21 02/06/22 History Elemental)] Ipratropium-Albuterol Nebulize 3 ml INHALATION RT-Q6H 09/18/21 02/06/22 History [Duoneb 0.5 mg-3 mg/3 ml Soln] Melatonin 5 mg PO HS 09/18/21 02/06/22 History Meloxicam [Mobic] 7.5 mg PO DAILY@0800 09/18/21 02/06/22 History Na Phos,M-B/Na Phos,Di-Ba [Fleet 133 ml RECTAL DAILY PRN 09/18/21 02/06/22 History Adult] Polyethylene Glycol 3350 [Clearlax] 17 gm PO DAILY PRN 09/18/21 02/06/22 History bisacodyL [Dulcolax] 10 mg RECTAL DAILY PRN 09/18/21 02/06/22 History metFORMIN HCL 500 mg PO BID@0800,1700 09/18/21 02/06/22 History Baclofen [Lioresal] 5 mg PO BID@0800,1700 11/29/21 02/06/22 History Cyanocobalamin [Vitamin B-12] 500 mcg PO DAILY@0800 11/29/21 02/06/22 History Furosemide [Lasix] 20 mg PO DAILY@0800 11/29/21 02/06/22 History Insulin NPH Hum/Reg Insulin Hm 15 unit SQ BID@0800,1700 11/29/21 02/06/22 History [NovoLIN 70-30 100 UNIT/ML VIAL] Ondansetron Odt [Zofran ODT] 4 mg PO Q8H PRN 11/29/21 02/06/22 History Venlafaxine HCl [Effexor XR] 75 mg PO DAILY@0800 11/29/21 02/06/22 History Venlafaxine HCl [Effexor XR] 150 mg PO DAILY@0800 11/29/21 02/06/22 History Acetaminophen Tab [Tylenol] 650 mg PO Q6HR PRN 02/06/22 02/06/22 History Aspirin 81 mg PO DAILY@0800 02/06/22 02/06/22 History Gabapentin 300 mg PO TID@0600,1400,2200 02/06/22 02/06/22 History HYDROcodone/APAP 5-325MG [[place] 1 tab PO Q6H PRN 02/06/22 02/06/22 History 5-325] Magnesium Hydroxide [Milk of 7,200 mg PO Q48H PRN 02/06/22 02/06/22 History Magnesia Concentrate] Sennosides/Docusate Sodium 2 tab PO HS 02/06/22 02/06/22 History [Senna-S 8.6-50 mg Tablet] diphenhydrAMINE HCL [Benadryl] 25 mg PO Q6H PRN 02/06/22 02/06/22 History Allergies Allergy/AdvReac Type Severity Reaction Status Date / Time No Known Allergies Allergy Verified 02/06/22 07:48 Physical Exam Vitals: Vital Signs Temp Pulse Pulse Resp BP BP Pulse Ox 02/06/22 14:00 97.6 F 56 L 16 123/75 96 02/06/22 12:04 60 02/06/22 11:52 100 02/06/22 11:50 60 02/06/22 07:53 60 02/06/22 07:40 60 97 02/06/22 05:53 98.9 F 70 18 100/58 94 L 02/06/22 04:45 67 26 H 98/76 94 L 02/06/22 04:00 71 26 H 102/70 94 L 02/06/22 03:34 73 02/06/22 03:26 67 02/06/22 03:01 72 18 102/70 94 L 02/06/22 02:22 60 02/06/22 02:16 66 02/06/22 01:33 30 H 02/06/22 01:21 99.7 F H 79 24 99/70 92 L Intake and Output 02/06/22 02/06/22 02/06/22 06:59 14:59 22:59 Other: Voiding Method Diaper Weight 81.647 kg Physical Exam: Revealed a 72-year-old white male, in no form of respiratory distress, on 3 L nasal cannula, and his O2 sats is 96%. Head: Atraumatic, normocephalic. HEENT:[Neck is supple.] [No neck masses.] [No thyromegaly.] [No JVD.] Chest: [Symmetrical chest expansion, clear breath sound bilaterally no crackles nor rhonchi no wheezes. Pacemaker noted on the left side. Cardiac Exam: Distant S1 and S2, no S3 gallop, 2/6 systolic murmur thought the precordium. Abdomen: [Soft, nontender, no megaly, no rebound, no guarding, normal bowel sounds.] Extremities: [No clubbing, trace of bipedal edema, no cyanosis.] Good pulses bilaterally. Neurological Exam: Awake, alert oriented 3, no gross focal deficit. Patient seems to have difficulty with memory, he knew that he had back surgery but he could not tell me when was the back surgery done. And he was not sure whether he had a done at [facility], asked me to ask his . Psychiatric: Normal mood affect normal mental status examination. Results - Laboratory Findings CBC and BMP: 02/06/22 01:48 02/06/22 01:48 PT/INR, D-dimer PT 10.5 sec (9.0-12.0) 02/06/22 01:48 INR 1.0 (<1.2) 02/06/22 01:48 Abnormal lab findings: Abnormal Labs 02/06/22 02/06/22 02/06/22 01:48 01:48 06:58 WBC 17.0 H RBC 4.08 L Hgb 12.4 L Neutrophils # 14.8 H Sodium 135 L BUN 25 H Glucose 157 H POC Glucose (mg/dL) 166 H 02/06/22 11:56 WBC RBC Hgb Neutrophils # Sodium BUN Glucose POC Glucose (mg/dL) 306 H - Diagnostic Findings Chest x-ray: image reviewed (As noted in HPI, suggestive of a limited infiltrate in the right lower lobe and possibly a left lower lobe atelectasis) Assessment and Plan Assessment: Impression: Acute hypoxic respiratory failure, possible aspiration pneumonia Chronic diastolic congestive heart failure Type 2 diabetes. Chronic back pain and discitis. Anemia of chronic disease. Chronic pain syndrome. Mild dementia. Recommendation: Discontinue Solu-Medrol Continue oxygen and titrate accordingly patient may not even need oxygen at this point. Agree with the present treatment plan/Zosyn. Could possibly transition the patient to Augmentin Resume home meds. Continue bronchodilators. Consider discharge planning in the next 24 hours. We'll continue to follow Time with Patient: Less than 30
[2022-02-06] MEDS ORDERED: AZITHROMYCIN 500 MG in SODIUM CHLORIDE 0.9% 250 ML IVPB SCH (16:00)
[2022-02-06 16:38] LABS: Glucose,Whole Blood 300 mg/dL (75-99)
[2022-02-06] MEDS: INSULN ASP PRT/INSULIN ASPART 100 UNIT/ML 10 ML VIAL SQ SCH (16:46)
[2022-02-06] MEDS: BACLOFEN 10 MG TAB PO SCH (16:47)
[2022-02-06] MEDS: metFORMIN 500 MG TAB PO SCH (16:47)
[2022-02-06] MEDS: METOPROLOL TARTRATE 25 MG TAB PO SCH (16:47)
[2022-02-06] MEDS: HYDROcodone/APAP 5-325MG 1 EACH TAB PO PRN (16:54)
[2022-02-06] MEDS ORDERED: IPRATROPIUM-ALBUTEROL 3 ML NEB INHALATION PRN (19:21)
[2022-02-06 19:33] LABS: Glucose,Whole Blood 292 mg/dL (75-99)
[2022-02-06] MEDS: IPRATROPIUM-ALBUTEROL 3 ML NEB INHALATION SCH (19:41)
[2022-02-06] MEDS: SYMBICORT 80-4.5 MCG INHALER INHALATION SCH (19:43)
[2022-02-06] MEDS: MELATONIN 5 MG TABLET PO SCH (19:51)
[2022-02-06] MEDS: ATORVASTATIN 20 MG TAB PO SCH (19:51)
[2022-02-06] MEDS: SENNOSIDES-DOCUSATE SODIUM 1 EACH TAB PO SCH (19:51)
[2022-02-06] MEDS ORDERED: BUDESONIDE 1 MG/2 ML NEBU INHALATION SCH (20:00)
[2022-02-07] MEDS ORDERED: VANCOMYCIN 1,000 MG in SODIUM CHLORIDE 0.9% 250 ML IVPB STA (04:41)
[2022-02-07] MEDS ORDERED: VANCOMYCIN IV PER PHARMACY 1 EACH MISC MISCELLANE PRN (04:46)
[2022-02-07] MEDS: GABAPENTIN 300 MG CAP PO SCH ×3 (05:21→20:49)
[2022-02-07 05:57] LABS: Basophils % (A) 0 %; Eosinophils % (A) 0 %; HCT 36.1 % (39.0-53.0); HGB 11.1 gm/dL (13.0-17.5); Lymphocytes # (A) 1.2 k/uL (1.0-4.8); Lymphocytes % (A) 9 %; MCH 30.4 pg (25.0-35.0); MCHC 30.7 g/dL (31.0-37.0); MCV 99.2 fL (80.0-100.0); Mean Platelet Volume 8.3; Monocytes # (A) 0.7 k/uL (0-1.0); Monocytes % (A) 5 %; Neutrophils # (A) 11.9 k/uL (1.3-7.7); Neutrophils % (A) 85 %; Platelet Count 196 k/uL (150-450); RBC 3.64 m/uL (4.30-5.90); RDW 13.2 % (11.5-15.5)
[2022-02-07 06:11] LABS: ALT 16 U/L (4-49); AST 17 U/L (17-59); African American GFR (CKD) 82 (>60 ml/min/1.73 sqM); Albumin 3.7 g/dL (3.5-5.0); Albumin/Globulin Ratio 1.1; Alkaline Phosphatase 76 U/L (38-126); Anion Gap 9 mmol/L; Blood Urea Nitrogen 28 mg/dL (9-20); Calcium 9.3 mg/dL (8.4-10.2); Carbon Dioxide 27 mmol/L (22-30); Chloride 106 mmol/L (98-107); Globulin 3.3 g/dL; Glucose 155 mg/dL (74-99); Magnesium 1.9 mg/dL (1.6-2.3); Non-African American GFR(CKD) 71 (>60 ml/min/1.73 sqM); Phosphorus 3.7 mg/dL (2.5-4.5); Potassium 4.4 mmol/L (3.5-5.1); Sodium 142 mmol/L (137-145); Total Bilirubin 0.3 mg/dL (0.2-1.3)
[2022-02-07 06:55] LABS: Glucose,Whole Blood 125 mg/dL (75-99)
[2022-02-07] MEDS: INSULIN ASPART (NovoLOG) 100 UNIT/ML VIAL SQ SCH ×4 (07:09→21:43)
[2022-02-07] MEDS: ASPIRIN 81 MG PO SCH (07:29)
[2022-02-07] MEDS: BACLOFEN 10 MG TAB PO SCH ×2 (07:29→16:53)
[2022-02-07] MEDS: DONEPEZIL 5 MG TAB PO SCH (07:30)
[2022-02-07] MEDS: FERROUS SULFATE 325 MG TAB PO SCH (07:30)
[2022-02-07] MEDS: CYANOCOBALAMIN 500 MCG TAB PO SCH (07:30)
[2022-02-07] MEDS: FUROSEMIDE 20 MG TAB PO SCH (07:31)
[2022-02-07] MEDS: MELOXICAM 7.5 MG TAB PO SCH (07:31)
[2022-02-07] MEDS: VENLAFAXINE HCL ER 150 MG CAP PO SCH (07:47)
[2022-02-07] MEDS: ENOXAPARIN 40 MG/0.4 ML SYRINGE SQ SCH (07:47)
[2022-02-07] MEDS: VENLAFAXINE HCL ER 75 MG CAP PO SCH (07:47)
[2022-02-07] MEDS: metFORMIN 500 MG TAB PO SCH (07:47)
[2022-02-07] MEDS: PIPERACILLIN-TAZOBACTAM 3.375 GM in SODIUM CHLORIDE 0.9% 100 ML IVPB SCH ×3 (07:48→23:34)
[2022-02-07] MEDS: METOPROLOL TARTRATE 25 MG TAB PO SCH ×2 (07:48→16:53)
[2022-02-07] MEDS: PANTOPRAZOLE 40 MG/10 ML VIAL IV SCH (08:02)
[2022-02-07] MEDS: IPRATROPIUM-ALBUTEROL 3 ML NEB INHALATION SCH ×4 (08:36→20:00)
[2022-02-07] MEDS: SYMBICORT 80-4.5 MCG INHALER INHALATION SCH ×2 (08:36→20:00)
[2022-02-07] MEDS: INSULN ASP PRT/INSULIN ASPART 100 UNIT/ML 10 ML VIAL SQ SCH ×2 (08:50→16:55)
[2022-02-07 11:34] LABS: Glucose,Whole Blood 129 mg/dL (75-99)
--- NOTE | 2022-02-07 14:07 | P.PN ---
Subjective Progress Note Date: 02/07/22 Principal diagnosis: MRSA bacteremia and right lower lobe pneumonia This is a 72-year-old white male with history of multiple medical problems including chronic back pain, chronic lower extremities weakness, history of back surgery at [facility] on the lumbar spine, patient is also known to have history of obstructive sleep apnea syndrome, dyslipidemia, diabetes, COPD, hypertension, and history of coronary artery disease and previous stent placement. Patient was at [facility], and apparently he developed a sudden episode of shortness of breath, he desaturated based on pulse oximetry, and he was a bit confused. Patient was transferred to [facility], he had a low-grade temp of 99.7. His pulse ox was 92% on 2 L, patient was noted to have abnormal chest x-ray suggestive of right lower lobe infiltrate and left lower lobe atelectasis. Patient was admitted, placed on antibiotics in the form of Zosyn mostly because the patient does have history of dysphagia. Upon my evaluation of the patient, patient stated to me that he has no idea why he was brought here, he denies any shortness of breath denied any cough denied any difficulty swallowing., Patient stated to me that his pulmonary status is fine and he is not symptomatic. Patient is resting in bed, eating, his O2 saturation is 96-100% on 3 L chest x-ray was reviewed and indeed does reflect a minimal infiltrate in the right lower lobe CBC did show leukocytosis with WBC count of 17.0, otherwise his labs were basically unremarkable. Patient does not have any fever his temp is 97.6. And on physical examination he sounded basically clear. Reevaluated today on 02/07/2022, patient continues to do well, relatively asymptomatic, however the patient did have positive blood cultures showing resumption of MRSA. Continues to have no active pulmonary symptoms, chest x-ray on admission showed a right lower lobe infiltrate. We felt that this may have been aspiration related, however now I am strongly suspecting that we may be dealing with MRSA pneumonia patient is already on vancomycin, he is also on Zosyn. Objective - Vital Signs Vital signs: Vital Signs Temp 97.8 F 02/07/22 13:56 Pulse 61 02/07/22 13:56 Resp 18 02/07/22 13:56 BP 128/77 02/07/22 13:56 Pulse Ox 99 02/07/22 13:56 Intake & Output 02/06/22 02/07/22 02/07/22 18:59 06:59 18:59 Intake Total 1080 Balance 1080 Intake: Oral 1080 Other: Voiding Method Diaper Diaper Diaper # Voids 1 2 1 - Exam Physical Exam: Revealed a 72-year-old white male, in no form of respiratory distress, on 2 L nasal cannula and O2 saturations 99%. Head: Atraumatic, normocephalic. HEENT:[Neck is supple.] [No neck masses.] [No thyromegaly.] [No JVD.] Chest: [Symmetrical chest expansion, clear breath sound bilaterally no crackles nor rhonchi no wheezes. Pacemaker noted on the left side. Cardiac Exam: Distant S1 and S2, no S3 gallop, 2/6 systolic murmur thought the precordium. Abdomen: [Soft, nontender, no megaly, no rebound, no guarding, normal bowel s ounds.] Extremities: [No clubbing, trace of bipedal edema, no cyanosis.] Good pulses bilaterally. Neurological Exam: Awake, alert oriented 3, no gross focal deficit. Patient seems to have difficulty with memory, he knew that he had back surgery but he could not tell me when was the back surgery done. And he was not sure whether he had a done at [facility], asked me to ask his . Psychiatric: Normal mood affect normal mental status examination. - Labs CBC & Chem 7: 02/07/22 05:39 02/07/22 05:39 Labs: Abnormal Lab Results - Last 24 Hours (Table) 02/06/22 02/06/22 02/07/22 Range/Units 16:37 19:31 05:39 WBC 14.0 H (3.8-10.6) k/uL RBC 3.64 L (4.30-5.90) m/uL Hgb 11.1 L (13.0-17.5) gm/dL Hct 36.1 L (39.0-53.0) % MCHC 30.7 L (31.0-37.0) g/dL Neutrophils # 11.9 H (1.3-7.7) k/uL BUN (9-20) mg/dL Glucose (74-99) mg/dL POC Glucose (mg/dL) 300 H 292 H (75-99) mg/dL 02/07/22 02/07/22 02/07/22 Range/Units 05:39 06:54 11:33 WBC (3.8-10.6) k/uL RBC (4.30-5.90) m/uL Hgb (13.0-17.5) gm/dL Hct (39.0-53.0) % MCHC (31.0-37.0) g/dL Neutrophils # (1.3-7.7) k/uL BUN 28 H (9-20) mg/dL Glucose 155 H (74-99) mg/dL POC Glucose (mg/dL) 125 H 129 H (75-99) mg/dL Microbiology - Last 24 Hours (Table) 02/06/22 02:20 Blood Culture Gram Stain - Preliminary Blood Blood Culture - Preliminary Presumptive MRSA 02/06/22 02:35 Blood Culture Gram Stain - Preliminary Blood Blood Culture - Preliminary Presumptive MRSA 02/06/22 02:20 Blood Culture - Final Blood 02/06/22 02:35 Blood Culture - Final Blood Assessment and Plan Assessment: Impression: Acute hypoxic respiratory failure, possible aspiration pneumonia MRSA bacteremia, likely source is his pneumonia however other sources have to be considered. Chronic diastolic congestive heart failure Type 2 diabetes. Chronic back pain and discitis. Anemia of chronic disease. Chronic pain syndrome. Mild dementia. Recommendation: Agree with vancomycin and continue Zosyn for now. Continue oxygen and titrate accordingly patient may not even need oxygen at this point. Resume home meds. Continue bronchodilators. Not ready for any discharge planning at this point. We'll continue to follow Time with Patient: Less than 30
--- NOTE | 2022-02-07 14:16 | P.PN ---
Subjective Progress Note Date: 02/07/22 This is a 72-year-old white male with history of multiple medical problems including chronic back pain, chronic lower extremities weakness, history of back surgery at [facility] on the lumbar spine, patient is also known to have history of obstructive sleep apnea syndrome, dyslipidemia, diabetes, COPD, hypertension, and history of coronary artery disease and previous stent placement. Patient was at [facility], and apparently he developed a sudden episode of shortness of breath, he desaturated based on pulse oximetry, and he was a bit confused. Patient was transferred to [facility], he had a low-grade temp of 99.7. His pulse ox was 92% on 2 L, patient was noted to have abnormal chest x-ray suggestive of right lower lobe infiltrate and left lower lobe atelectasis. Patient was admitted, placed on antibiotics in the form of Zosyn mostly because the patient does have history of dysphagia. Upon my evaluation of the patient, patient stated to me that he has no idea why he was brought here, he denies any shortness of breath denied any cough denied any difficulty swallowing., Patient stated to me that his pulmonary status is fine and he is not symptomatic. Patient is resting in bed, eating, his O2 saturation is 96-100% on 3 L chest x-ray was reviewed and indeed does reflect a minimal infiltrate in the right lower lobe CBC did show leukocytosis with WBC count of 17.0, otherwise his labs were basically unremarkable. Patient does not have any fever his temp is 97.6. And on physical examination he sounded basically clear. The patient is seen today 02/07/2022 in follow-up on the regular medical floor. He is currently laying flat in bed. Awake and alert in no acute distress. Maintaining O2 saturations up to 99% on 2 L/m per nasal cannula. He is afebrile. Hemodynamically stable. Blood cultures are revealing presumptive MRSA. White count 14.0. Hemoglobin 11.1. Sodium 142. Potassium 4.4. BUN 28. Creatinine 1.05. He's been initiated on vancomycin and Zosyn. Continue on Symbicort and DuoNeb inhalations. Remains on oral diuretics. Lovenox for DVT prophylaxis. Objective - Vital Signs Vital signs: Vital Signs Temp 97.8 F 02/07/22 13:56 Pulse 61 02/07/22 13:56 Resp 18 02/07/22 13:56 BP 128/77 02/07/22 13:56 Pulse Ox 99 02/07/22 13:56 Intake & Output 02/06/22 02/07/22 02/07/22 18:59 06:59 18:59 Intake Total 1080 Balance 1080 Intake: Oral 1080 Other: Voiding Method Diaper Diaper Diaper # Voids 1 2 1 - Exam GENERAL EXAM: Alert, pleasant 72-year-old gentleman, laying flat in bed, O2 saturation 99% on 2 L/m per nasal cannula, comfortable in no apparent distress. HEAD: Normocephalic. EYES: Normal reaction of pupils, equal size. NOSE: Clear with pink turbinates. THROAT: No erythema or exudates. NECK: No masses, no JVD. CHEST: No chest wall deformity. LUNGS: Equal air entry with no crackles, wheeze, rhonchi or dullness. CVS: S1 and S2 normal with no audible murmur, regular rhythm. ABDOMEN: No hepatosplenomegaly, normal bowel sounds, no guarding or rigidity. SPINE: No scoliosis or deformity SKIN: No rashes CENTRAL NERVOUS SYSTEM: No focal deficits, tone is normal in all 4 extremities. EXTREMITIES: There is no peripheral edema. No clubbing, no cyanosis. Peripheral pulses are intact. - Labs CBC & Chem 7: 02/07/22 05:39 02/07/22 05:39 Labs: Abnormal Lab Results - Last 24 Hours (Table) 02/06/22 02/06/22 02/07/22 Range/Units 16:37 19:31 05:39 WBC 14.0 H (3.8-10.6) k/uL RBC 3.64 L (4.30-5.90) m/uL Hgb 11.1 L (13.0-17.5) gm/dL Hct 36.1 L (39.0-53.0) % MCHC 30.7 L (31.0-37.0) g/dL Neutrophils # 11.9 H (1.3-7.7) k/uL BUN (9-20) mg/dL Glucose (74-99) mg/dL POC Glucose (mg/dL) 300 H 292 H (75-99) mg/dL 02/07/22 02/07/22 02/07/22 Range/Units 05:39 06:54 11:33 WBC (3.8-10.6) k/uL RBC (4.30-5.90) m/uL Hgb (13.0-17.5) gm/dL Hct (39.0-53.0) % MCHC (31.0-37.0) g/dL Neutrophils # (1.3-7.7) k/uL BUN 28 H (9-20) mg/dL Glucose 155 H (74-99) mg/dL POC Glucose (mg/dL) 125 H 129 H (75-99) mg/dL Microbiology - Last 24 Hours (Table) 02/06/22 02:20 Blood Culture Gram Stain - Preliminary Blood Blood Culture - Preliminary Presumptive MRSA 02/06/22 02:35 Blood Culture Gram Stain - Preliminary Blood Blood Culture - Preliminary Presumptive MRSA 02/06/22 02:20 Blood Culture - Final Blood 02/06/22 02:35 Blood Culture - Final Blood Assessment and Plan Assessment: 1 Acute hypoxic respiratory failure, possible aspiration pneumonia 2 Bacteremia with presumptive MRSA, currently on vancomycin and Zosyn 2 Chronic diastolic congestive heart failure 3 Type 2 diabetes. 4 Chronic back pain and discitis. 5 Anemia of chronic disease. 6 Chronic pain syndrome. 7 Mild dementia. Plan: Medications and labs reviewed Continued on vancomycin and Zosyn Awaiting final blood culture results Titrate down the FiO2 as tolerated Continue current treatment plan We will continue to follow I have personally seen and examined the patient, performed the documentation and the assessment and plan as written. Number of minutes spent on the visit: 10.
[2022-02-07] MEDS ORDERED: RX INFO: IV CONTRAST WAS GIVEN 1 EACH MISC MISCELLANE PRN (14:31)
--- NOTE | 2022-02-07 14:32 | P.PN ---
Subjective Progress Note Date: 02/07/22 HISTORY OF PRESENT ILLNESS 72-year-old male patient resides long-term at [facility] with past medical history of chronic back pain with severe lower extremity weakness, post back surgery with discitis status post surgery at [facility] for discitis of the lumbar spine. Additional history of COPD, diabetes, hypertension, hyperlipidemia, sleep apnea and arrhythmia post pacemaker, atherosclerotic heart disease post heart catheter and stent placement in the past. Patient was doing fine yesterday morning but later in the day became hypoxic with slight change in mental status. Patient was transferred to [facility] emergency [facility] for evaluation. Temperature 99.7, heart rate 79, respiratory rate 30, blood pressure 99/70, pulse ox 92% on 4 L nasal cannula. WBC 17, hemoglobin 12.4, platelet count 213. INR 1.0. Sodium 135 otherwise electrolytes are normal. BUN 25 and creatinine 1.03. Glucose 157. Lactic acid 1.5. Calcium 9.6, magnesium 1.6, liver function tests normal. Troponins negative on 3 draws. ProBNP 929. Coronal virus PCR not detected. Chest x-ray revealed interstitial infiltrates in the right lung most likely new. Chronic atelectasis left lung base without change. No heart failure. 02/07: Patient is doing okay today, has left leg weakness, which is not new, patient has a Hollingsworth catheter draining clear urine, patient denies any cough, he is No edema, he has no wheezes on examination, 2 L is a cannula. Blood sugars are in 122-300, WBC is 14, blood cultures presumptive for MRSA, vancomycin is added chest x-ray shows chronic atelectasis, and the left, some interstitial infiltrates right lung which is mainly new compared to previous T-max 97.8 pulse ox 99% on 2 L nasal cannula patient is on IV Zosyn, now on IV vancomycin creatinine 1.05 REVIEW OF SYSTEMS Constitutional: No fever, no chills, no night sweats. No weight change. Generalized weakness, fatigue, lethargy, daytime sleepiness. HEENT: No headache. No blurred vision or double vision, no loss of vision. No loss of Hearing, no ringing in the ears, no dizziness. No nasal drainage or congestion. No epistaxis. No sore throat. Lungs: Slight shortness of breath, no cough, no sputum production but mild wheezes. Cardiovascular: Positive PND orthopnea palpitation, positive fluid retention, no lightheadedness or dizziness, no syncopal episode at this point. Abdominal: No abdominal pain. No nausea, vomiting. No diarrhea. No constipation. No bloody or tarry stools.. No loss of appetite. Genitourinary: No dysuria, increased frequency, urgency. No urinary retention. Musculoskeletal: No myalgias. No muscle weakness, no gait dysfunction, no frequent falls. No back pain. No neck pain. Integumentary: No wounds, no lesions. No rash or pruritus. No unusual bruising. No change in hair or nails. Neurologic: Slight change mental status with mild confusion, no headache chronic low back pain with paresthesia and lower extremity weakness. Psychiatric: No depression. No anxiety. No mood swings. Endocrine: No abnormal blood sugars. No weight change. No excessive sweating or thirst. No cold intolerance. PHYSICAL EXAMINATION Gen: This is elderly male laying in bed does not look in any respiratory distress. HEENT: Head is atraumatic, normocephalic. Pupils equal, round. Sclerae is anicteric. NECK: Supple. No JVD. No lymphadenopathy. No thyromegaly. LUNGS: Decreased breath some rhonchi, mild expiratory wheeze, decreased breath sounds on the right. There is a pacemaker on the left side. HEART: Regular rate S1-S2 positive S3 positive PVCs with mild irregularity. 2/6 ejection systolic murmur. ABDOMEN: Soft. Bowel sounds are present. No masses. No tenderness. EXTREMITIES: 1+ edema especially in the left leg compared to the right side with slight bruising lower extremity. NEUROLOGICAL: Patient is awake, alert slightly confused. Cranial nerves 2 through 12 are grossly intact. ASSESSMENT AND PLAN 1. Acute hypoxic respiratory failure secondary to acute aspiration pneumonia and sepsis. Antibiotics changed to Zosyn, pulmonary consult, Symbicort twice daily, DuoNeb treatments every 6 hours, Solu-Medrol 60 mg IV every 6 hours, pulm onary medicine consult. 2. Sepsis with SIRS, bacteremia, suspected of MRSA patient's IV Zosyn and vancomycin, pharmacy to dose, repeat blood cultures, source probably related to pulmonary source, no urinalysis available for review will check UA will check CT chest, to evaluate for loculated pulmonary abscess. Pulmonary following 2 chronic diastolic heart failure. Continue Lasix 20 mg oral daily, Lopressor 25 mg twice daily. 3 mild COPD: We'll continue O2, continue DuoNeb and Symbicort at this point. 4 metabolic encephalopathy. Mild change from baseline, continue treatment as in #1, continue Aricept 5 mg daily. 5 chronic discitis, status post surgical intervention and course of IV antibiotics with vancomycin. 6 type 2 diabetes, continue metformin 500 mg twice daily and NovoLog scale before meals and at bedtime. 7 anemia of chronic disease. Continue ferrous sulfate daily. 8 Hyperlipidemia: Continue patient on atorvastatin 20 mg daily. 9 chronic pain management: Still on hydrocodone along with gabapentin. 10 mild memory loss/dementia: Still on Aricept 5 mg a day. 11 hypertension: Continue patient on metoprolol 25 mg twice a day. 12 GI prophylaxis: Patient be on pantoprazole 40 mg daily. 13 DVT prophylaxis: Patient be on Lovenox 40 mg subcutaneous daily. CODE STATUS: Full code. Patient admitted to the hospital for a minimum of 2 night stay. DISCHARGE PLAN Return to [facility] Objective - Vital Signs Vital signs: Vital Signs Temp 97.8 F 02/07/22 13:56 Pulse 61 02/07/22 13:56 Resp 18 02/07/22 13:56 BP 128/77 02/07/22 13:56 Pulse Ox 99 02/07/22 13:56 Intake & Output 02/06/22 02/07/22 02/07/22 18:59 06:59 18:59 Intake Total 1080 Balance 1080 Intake: Oral 1080 Other: Voiding Method Diaper Diaper Diaper # Voids 1 2 1 - Labs CBC & Chem 7: 02/07/22 05:39 02/07/22 05:39 Labs: Abnormal Lab Results - Last 24 Hours (Table) 02/06/22 02/06/22 02/07/22 Range/Units 16:37 19:31 05:39 WBC 14.0 H (3.8-10.6) k/uL RBC 3.64 L (4.30-5.90) m/uL Hgb 11.1 L (13.0-17.5) gm/dL Hct 36.1 L (39.0-53.0) % MCHC 30.7 L (31.0-37.0) g/dL Neutrophils # 11.9 H (1.3-7.7) k/uL BUN (9-20) mg/dL Glucose (74-99) mg/dL POC Glucose (mg/dL) 300 H 292 H (75-99) mg/dL 02/07/22 02/07/22 02/07/22 Range/Units 05:39 06:54 11:33 WBC (3.8-10.6) k/uL RBC (4.30-5.90) m/uL Hgb (13.0-17.5) gm/dL Hct (39.0-53.0) % MCHC (31.0-37.0) g/dL Neutrophils # (1.3-7.7) k/uL BUN 28 H (9-20) mg/dL Glucose 155 H (74-99) mg/dL POC Glucose (mg/dL) 125 H 129 H (75-99) mg/dL Microbiology - Last 24 Hours (Table) 02/06/22 02:20 Blood Culture Gram Stain - Preliminary Blood Blood Culture - Preliminary Presumptive MRSA 02/06/22 02:35 Blood Culture Gram Stain - Preliminary Blood Blood Culture - Preliminary Presumptive MRSA 02/06/22 02:20 Blood Culture - Final Blood 02/06/22 02:35 Blood Culture - Final Blood
[2022-02-07] MEDS: VANCOMYCIN 1,500 MG in SODIUM CHLORIDE 0.9% 250 ML IVPB SCH (15:50)
--- NOTE | 2022-02-07 16:20 | CT ---
EXAMINATION TYPE: CT chest w con DATE OF EXAM: 02/07/2022 COMPARISON: 09/18/2021 HISTORY: bacteremia pneumonia eval pulm abscess CT DLP: 537.5 mGycm Automated exposure control for dose reduction was used. CONTRAST: Performed with IV Contrast, patient injected with 100 mL of Isovue 300. Images obtained from the thoracic inlet to the diaphragm with IV contrast. There is small left pleural effusion. There is bilateral basilar pulmonary infiltrate or atelectasis. This is more on the left side. Heart size is normal. No pericardial effusion. There are no hilar masses. There is no mediastinal adenopathy. No evidence of filling defect in the pulmonary arteries. There is some degenerative spurring in the t horacic spine. Sternum is intact. IMPRESSION: Chronic infiltrate and atelectasis at the lung bases mainly on the left side with small left pleural effusion. No significant change compared to the old exam.
[2022-02-07 16:22] LABS: Glucose,Whole Blood 150 mg/dL (75-99)
[2022-02-07 20:18] LABS: Glucose,Whole Blood 87 mg/dL (75-99)
[2022-02-07] MEDS: SENNOSIDES-DOCUSATE SODIUM 1 EACH TAB PO SCH (20:49)
[2022-02-07] MEDS: MELATONIN 5 MG TABLET PO SCH (20:49)
[2022-02-07] MEDS: ATORVASTATIN 20 MG TAB PO SCH (20:49)
[2022-02-08] MEDS: VANCOMYCIN 1,500 MG in SODIUM CHLORIDE 0.9% 250 ML IVPB SCH ×2 (04:12→15:17)
[2022-02-08] MEDS: GABAPENTIN 300 MG CAP PO SCH ×3 (05:08→21:44)
[2022-02-08 06:35] LABS: African American GFR (CKD) 84 (>60 ml/min/1.73 sqM); Anion Gap 9 mmol/L; Blood Urea Nitrogen 20 mg/dL (9-20); Calcium 9.1 mg/dL (8.4-10.2); Carbon Dioxide 27 mmol/L (22-30); Chloride 103 mmol/L (98-107); Glucose 95 mg/dL (74-99); Non-African American GFR(CKD) 73 (>60 ml/min/1.73 sqM); Potassium 3.9 mmol/L (3.5-5.1); Sodium 139 mmol/L (137-145)
[2022-02-08 07:14] LABS: Glucose,Whole Blood 99 mg/dL (75-99)
[2022-02-08] MEDS: CYANOCOBALAMIN 500 MCG TAB PO SCH (07:40)
[2022-02-08] MEDS: FERROUS SULFATE 325 MG TAB PO SCH (07:40)
[2022-02-08] MEDS: ASPIRIN 81 MG PO SCH (07:40)
[2022-02-08] MEDS: PANTOPRAZOLE 40 MG TABLET PO SCH (07:40)
[2022-02-08] MEDS: DONEPEZIL 5 MG TAB PO SCH (07:40)
[2022-02-08] MEDS: MELOXICAM 7.5 MG TAB PO SCH (07:41)
[2022-02-08] MEDS: FUROSEMIDE 20 MG TAB PO SCH (07:41)
[2022-02-08] MEDS: VENLAFAXINE HCL ER 75 MG CAP PO SCH (07:42)
[2022-02-08] MEDS: ENOXAPARIN 40 MG/0.4 ML SYRINGE SQ SCH (07:42)
[2022-02-08] MEDS: METOPROLOL TARTRATE 25 MG TAB PO SCH ×2 (07:42→16:40)
[2022-02-08] MEDS: VENLAFAXINE HCL ER 150 MG CAP PO SCH (07:42)
[2022-02-08] MEDS: PIPERACILLIN-TAZOBACTAM 3.375 GM in SODIUM CHLORIDE 0.9% 100 ML IVPB SCH ×2 (07:42→15:15)
[2022-02-08] MEDS: BACLOFEN 10 MG TAB PO SCH ×2 (07:42→16:40)
[2022-02-08] MEDS: INSULN ASP PRT/INSULIN ASPART 100 UNIT/ML 10 ML VIAL SQ SCH ×2 (07:53→16:41)
[2022-02-08] MEDS: INSULIN ASPART (NovoLOG) 100 UNIT/ML VIAL SQ SCH ×4 (08:33→21:44)
[2022-02-08] MEDS: SYMBICORT 160-4.5 MCG INHALER INHALATION SCH ×2 (08:58→20:33)
[2022-02-08] MEDS: IPRATROPIUM-ALBUTEROL 3 ML NEB INHALATION SCH ×4 (08:58→20:31)
[2022-02-08 10:24] LABS: Basophils % (A) 0 %; Eosinophils # (A) 0.3 k/uL (0-0.7); Eosinophils % (A) 3 %; HCT 35.8 % (39.0-53.0); Lymphocytes % (A) 10 %; MCH 30.4 pg (25.0-35.0); MCHC 30.8 g/dL (31.0-37.0); MCV 98.8 fL (80.0-100.0); Mean Platelet Volume 8.5; Monocytes # (A) 0.7 k/uL (0-1.0); Monocytes % (A) 7 %; Neutrophils # (A) 8.1 k/uL (1.3-7.7); Neutrophils % (A) 79 %; Platelet Count 205 k/uL (150-450); RBC 3.62 m/uL (4.30-5.90); RDW 13.2 % (11.5-15.5); WBC 10.2 k/uL (3.8-10.6)
[2022-02-08 11:19] LABS: Glucose,Whole Blood 111 mg/dL (75-99)
--- NOTE | 2022-02-08 12:39 | P.PN ---
Subjective Progress Note Date: 02/08/22 This is a 72-year-old white male with history of multiple medical problems including chronic back pain, chronic lower extremities weakness, history of back surgery at [facility] on the lumbar spine, patient is also known to have history of obstructive sleep apnea syndrome, dyslipidemia, diabetes, COPD, hypertension, and history of coronary artery disease and previous stent placement. Patient was at [facility], and apparently he developed a sudden episode of shortness of breath, he desaturated based on pulse oximetry, and he was a bit confused. Patient was transferred to [facility], he had a low-grade temp of 99.7. His pulse ox was 92% on 2 L, patient was noted to have abnormal chest x-ray suggestive of right lower lobe infiltrate and left lower lobe atelectasis. Patient was admitted, placed on antibiotics in the form of Zosyn mostly because the patient does have history of dysphagia. Upon my evaluation of the patient, patient stated to me that he has no idea why he was brought here, he denies any shortness of breath denied any cough denied any difficulty swallowing., Patient stated to me that his pulmonary status is fine and he is not symptomatic. Patient is resting in bed, eating, his O2 saturation is 96-100% on 3 L chest x-ray was reviewed and indeed does reflect a minimal infiltrate in the right lower lobe CBC did show leukocytosis with WBC count of 17.0, otherwise his labs were basically unremarkable. Patient does not have any fever his temp is 97.6. And on physical examination he sounded basically clear. The patient is seen today 02/07/2022 in follow-up on the regular medical floor. He is currently laying flat in bed. Awake and alert in no acute distress. Maintaining O2 saturations up to 99% on 2 L/m per nasal cannula. He is afebrile. Hemodynamically stable. Blood cultures are revealing presumptive MRSA. White count 14.0. Hemoglobin 11.1. Sodium 142. Potassium 4.4. BUN 28. Creatinine 1.05. He's been initiated on vancomycin and Zosyn. Continue on Symbicort and DuoNeb inhalations. Remains on oral diuretics. Lovenox for DVT prophylaxis. The patient is seen today 02/08/2022 in follow-up on the regular medical floor. He is currently resting comfortably in bed. Awake and alert in no acute distress. Currently maintaining good O2 saturations in the mid 90s on room air. He's afebrile. Hemodynamically stable. Blood cultures to come back for positive methicillin resistant Staphylococcus aureus. White count 10.2. Hemoglobin 11.0. Platelets 205. Sodium 139. Potassium 3.9. BUN 20. Creatin ine 1.09. Computed tomography scan of the chest revealed chronic infiltrate and atelectasis at the lung bases more so on the left. Small left effusion. No significant change compared to previous in September 2021. He's been initiated on vancomycin and Zosyn. Objective - Vital Signs Vital signs: Vital Signs Temp 98.8 F 02/08/22 09:16 Pulse 60 02/08/22 09:16 Resp 18 02/08/22 09:16 BP 117/71 02/08/22 09:16 Pulse Ox 97 02/08/22 09:16 Intake & Output 02/07/22 02/08/22 02/08/22 18:59 06:59 18:59 Output Total 700 300 Balance -700 -300 Output: Urine 700 300 Other: Voiding Method Diaper Diaper Diaper External Catheter # Voids 1 # Bowel Movements 1 - Exam GENERAL EXAM: Alert, pleasant 72-year-old gentleman, O2 saturation 97% on room air, comfortable in no apparent distress. HEAD: Normocephalic. EYES: Normal reaction of pupils, equal size. NOSE: Clear with pink turbinates. THROAT: No erythema or exudates. NECK: No masses, no JVD. CHEST: No chest wall deformity. LUNGS: Equal air entry with no crackles, wheeze, rhonchi or dullness. CVS: S1 and S2 normal with no audible murmur, regular rhythm. ABDOMEN: No hepatosplenomegaly, normal bowel sounds, no guarding or rigidity. SPINE: No scoliosis or deformity SKIN: No rashes CENTRAL NERVOUS SYSTEM: No focal deficits, tone is normal in all 4 extremities. EXTREMITIES: There is no peripheral edema. No clubbing, no cyanosis. Peripheral pulses are intact. - Labs CBC & Chem 7: 02/08/22 05:32 02/08/22 05:32 Labs: Abnormal Lab Results - Last 24 Hours (Table) 02/07/22 02/08/22 02/08/22 Range/Units 16:21 05:32 11:19 RBC 3.62 L (4.30-5.90) m/uL Hgb 11.0 L (13.0-17.5) gm/dL Hct 35.8 L (39.0-53.0) % MCHC 30.8 L (31.0-37.0) g/dL Neutrophils # 8.1 H (1.3-7.7) k/uL POC Glucose (mg/dL) 150 H 111 H (75-99) mg/dL Microbiology - Last 24 Hours (Table) 02/06/22 02:20 Blood Culture Gram Stain - Final Blood Blood Culture - Final Methicillin resist S. aureus 02/06/22 02:35 Blood Culture Gram Stain - Final Blood Blood Culture - Final Methicillin resist S. aureus Assessment and Plan Assessment: 1 Acute hypoxic respiratory failure, possible aspiration pneumonia. Recovered and on room air. CT scan did not reveal any acute pulmonary process, some chronic infiltrate and atelectasis at the bases more so on the left. Baird virus not detected. 2 Bacteremia with MRSA, currently on vancomycin and Zosyn. Source unclear. 2 Chronic diastolic congestive heart failure. 3 Type 2 diabetes. 4 Chronic back pain and discitis. 5 Anemia of chronic disease. 6 Chronic pain syndrome. 7 Mild dementia. Plan: CAT scan of the chest, medications and labs reviewed Continued on vancomycin and Zosyn Blood cultures positive for MRSA Doubt pulmonary source, on room air Obtain a urinalysis Infectious disease consult Cardiology consult for possible MAJOR We will continue to follow I have personally seen and examined the patient, performed the documentation and the assessment and plan as written. Number of minutes spent on the visit: 10.
--- NOTE | 2022-02-08 14:04 | P.PN ---
Subjective Progress Note Date: 02/08/22 HISTORY OF PRESENT ILLNESS 72-year-old male patient resides long-term at [facility] with past medical history of chronic back pain with severe lower extremity weakness, post back surgery with discitis status post surgery at [facility] for discitis of the lumbar spine. Additional history of COPD, diabetes, hypertension, hyperlipidemia, sleep apnea and arrhythmia post pacemaker, atherosclerotic heart disease post heart catheter and stent placement in the past. Patient was doing fine yesterday morning but later in the day became hypoxic with slight change in mental status. Patient was transferred to [facility] emergency center for evaluation. Temperature 99.7, heart rate 79, respiratory rate 30, blood pressure 99/70, pulse ox 92% on 4 L nasal cannula. WBC 17, hemoglobin 12.4, platelet count 213. INR 1.0. Sodium 135 otherwise electrolytes are normal. BUN 25 and creatinine 1.03. Glucose 157. Lactic acid 1.5. Calcium 9.6, magnesium 1.6, liver function tests normal. Troponins negative on 3 draws. ProBNP 929. Coronal virus PCR not detected. Chest x-ray revealed interstitial infiltrates in the right lung most likely new. Chronic atelectasis left lung base without change. No heart failure. 02/07: Patient is doing okay today, has left leg weakness, which is not new, patient has a Hollingsworth catheter draining clear urine, patient denies any cough, he is No edema, he has no wheezes on examination, 2 L is a cannula. Blood sugars are in 122-300, WBC is 14, blood cultures presumptive for MRSA, vancomycin is added chest x-ray shows chronic atelectasis, and the left, some interstitial infiltrates right lung which is mainly new compared to previous T-max 97.8 pulse ox 99% on 2 L nasal cannula patient is on IV Zosyn, now on IV vancomycin creatinine 1.05 02/07:, Blood culture shows MRSA, urinalysis still needs to be done, echoc ardiogram requested, consult with Dr. Reina, regarding bacteremia, patient does not have any fever no chills, no diarrhea, no abdominal pain, WBC 10.2, creatinine 1.02 T-max 98.8 On IV vancomycin, Zosyn, source of bacteremia MRSA still needs to be investigated. CT, shows small left pleural effusion, chronic infiltrates, without atelectasis, no loculated abscess noted REVIEW OF SYSTEMS Constitutional: No fever, no chills, no night sweats. No weight change. Generalized weakness, fatigue, lethargy, daytime sleepiness. HEENT: No headache. No blurred vision or double vision, no loss of vision. No loss of Hearing, no ringing in the ears, no dizziness. No nasal drainage or congestion. No epistaxis. No sore throat. Lungs: Slight shortness of breath, no cough, no sputum production but mild wheezes. Cardiovascular: Positive PND orthopnea palpitation, positive fluid retention, no lightheadedness or dizziness, no syncopal episode at this point. Abdominal: No abdominal pain. No nausea, vomiting. No diarrhea. No constipation. No bloody or tarry stools.. No loss of appetite. Genitourinary: No dysuria, increased frequency, urgency. No urinary retention. Musculoskeletal: No myalgias. No muscle weakness, no gait dysfunction, no frequent falls. No back pain. No neck pain. Integumentary: No wounds, no lesions. No rash or pruritus. No unusual brui sing. No change in hair or nails. Neurologic: Slight change mental status with mild confusion, no headache chronic low back pain with paresthesia and lower extremity weakness. Psychiatric: No depression. No anxiety. No mood swings. Endocrine: No abnormal blood sugars. No weight change. No excessive sweating or thirst. No cold intolerance. PHYSICAL EXAMINATION Gen: This is elderly male laying in bed does not look in any respiratory distress. HEENT: Head is atraumatic, normocephalic. Pupils equal, round. Sclerae is anicteric. NECK: Supple. No JVD. No lymphadenopathy. No thyromegaly. LUNGS: Decreased breath some rhonchi, mild expiratory wheeze, decreased breath sounds on the right. There is a pacemaker on the left side. HEART: Regular rate S1-S2 positive S3 positive PVCs with mild irregularity. 2/6 ejection systolic murmur. ABDOMEN: Soft. Bowel sounds are present. No masses. No tenderness. EXTREMITIES: 1+ edema especially in the left leg compared to the right side with slight bruising lower extremity. NEUROLOGICAL: Patient is awake, alert slightly confused. Cranial nerves 2 through 12 are grossly intact. ASSESSMENT AND PLAN 1. Acute hypoxic respiratory failure secondary to acute aspiration pneumonia and sepsis. Antibiotics changed to Zosyn, pulmonary consult, Symbicort twice daily, DuoNeb treatments every 6 hours, Solu-Medrol 60 mg IV every 6 hours, pulmonary medicine consult. 2. Sepsis with SIRS, bacteremia, suspected of MRSA patient's IV Zosyn and vancomycin, pharmacy to dose, repeat blood cultures, source probably related to pulmonary source, no urinalysis available for review will check UA will check CT chest, to evaluate for loculated pulmonary abscess negative for loculated abscess, there is left pleural effusion. Check echo Pulmonary following 2 chronic diastolic heart failure. Continue Lasix 20 mg oral daily, Lopressor 25 mg twice daily. 3 mild COPD: We'll continue O2, continue DuoNeb and Symbicort at this point. 4 metabolic encephalopathy. Mild change from baseline, continue treatment as in #1, continue Aricept 5 mg daily. 5 chronic discitis, status post surgical intervention and course of IV antibiotics with vancomycin. 6 type 2 diabetes, continue metformin 500 mg twice daily and NovoLog scale before meals and at bedtime. 7 anemia of chronic disease. Continue ferrous sulfate daily. 8 Hyperlipidemia: Continue patient on atorvastatin 20 mg daily. 9 chronic pain management: Still on hydrocodone along with gabapentin. 10 mild memory loss/dementia: Still on Aricept 5 mg a day. 11 hypertension: Continue patient on metoprolol 25 mg twice a day. 12 GI prophylaxis: Patient be on pantoprazole 40 mg daily. 13 DVT prophylaxis: Patient be on Lovenox 40 mg subcutaneous daily. CODE STATUS: Full code. Patient admitted to the hospital for a minimum of 2 night stay. DISCHARGE PLAN Return to [facility] Objective - Vital Signs Vital signs: Vital Signs Temp 98.8 F 02/08/22 09:16 Pulse 68 02/08/22 12:50 Resp 18 02/08/22 12:50 BP 117/71 02/08/22 09:16 Pulse Ox 97 02/08/22 09:16 Intake & Output 02/07/22 02/08/22 02/08/22 18:59 06:59 18:59 Output Total 700 300 Balance -700 -300 Output: Urine 700 300 Other: Voiding Method Diaper Diaper Diaper External Catheter # Voids 1 # Bowel Movements 1 - Labs CBC & Chem 7: 02/08/22 05:32 02/08/22 05:32 Labs: Abnormal Lab Results - Last 24 Hours (Table) 02/07/22 02/08/22 02/08/22 Range/Units 16:21 05:32 11:19 RBC 3.62 L (4.30-5.90) m/uL Hgb 11.0 L (13.0-17.5) gm/dL Hct 35.8 L (39.0-53.0) % MCHC 30.8 L (31.0-37.0) g/dL Neutrophils # 8.1 H (1.3-7.7) k/uL POC Glucose (mg/dL) 150 H 111 H (75-99) mg/dL Microbiology - Last 24 Hours (Table) 02/06/22 02:20 Blood Culture Gram Stain - Final Blood Blood Culture - Final Methicillin resist S. aureus 02/06/22 02:35 Blood Culture Gram Stain - Final Blood Blood Culture - Final Methicillin resist S. aureus
[2022-02-08 15:32] LABS: Appearance,Urine Clear (Clear); Bacteria,Urine Rare /hpf; Bilirubin,Urine Negative (Negative); Blood,Urine Negative (Negative); Color,Urine Light Yellow; Glucose,Urine (UA) Negative (Negative); Ketones,Urine Negative (Negative); Leukocyte Esterase,Urine Moderate (Negative); Mucus,Urine Rare /hpf; Nitrite,Urine Negative (Negative); Protein,Urine Negative (Negative); RBC,Urine 2 /hpf (0-5); Specific Gravity,Urine 1.013 (1.001-1.035); Urobilinogen,Urine <2.0 mg/dL (<2.0); WBC,Urine 13 /hpf (0-5)
[2022-02-08 16:31] LABS: Glucose,Whole Blood 152 mg/dL (75-99)
[2022-02-08] MEDS: HYDROcodone/APAP 5-325MG 1 EACH TAB PO PRN (16:58)
[2022-02-08 20:16] LABS: Glucose,Whole Blood 133 mg/dL (75-99)
[2022-02-08] MEDS: MELATONIN 5 MG TABLET PO SCH (21:44)
[2022-02-08] MEDS: SENNOSIDES-DOCUSATE SODIUM 1 EACH TAB PO SCH (21:44)
[2022-02-08] MEDS: ATORVASTATIN 20 MG TAB PO SCH (21:44)
[2022-02-09] MEDS: PIPERACILLIN-TAZOBACTAM 3.375 GM in SODIUM CHLORIDE 0.9% 100 ML IVPB SCH (00:14)
[2022-02-09] MEDS ORDERED: VANCOMYCIN TROUGH DUE 1 EACH MISC MISCELLANE ONE (03:00)
[2022-02-09 04:10] LABS: African American GFR (CKD) 81 (>60 ml/min/1.73 sqM); Anion Gap 6 mmol/L; Blood Urea Nitrogen 21 mg/dL (9-20); Calcium 9.3 mg/dL (8.4-10.2); Carbon Dioxide 31 mmol/L (22-30); Chloride 100 mmol/L (98-107); Glucose 93 mg/dL (74-99); Non-African American GFR(CKD) 70 (>60 ml/min/1.73 sqM); Potassium 3.6 mmol/L (3.5-5.1); Sodium 137 mmol/L (137-145)
[2022-02-09] MEDS: VANCOMYCIN 1,500 MG in SODIUM CHLORIDE 0.9% 250 ML IVPB SCH (04:19)
[2022-02-09] MEDS: GABAPENTIN 300 MG CAP PO SCH ×3 (06:08→21:06)
[2022-02-09 07:01] LABS: Glucose,Whole Blood 104 mg/dL (75-99)
[2022-02-09] MEDS: INSULIN ASPART (NovoLOG) 100 UNIT/ML VIAL SQ SCH ×4 (07:01→21:06)
--- NOTE | 2022-02-09 07:09 | P.CONS ---
History of Present Illness - Reason for Consult Consult date: 02/08/22 MRSA bacteremia Requesting physician: Lia Guevara - Chief Complaint weakness x few days - History of Present Illness Patient is a 72-year-old male with a past medical history significant for diabetes mellitus hypertension hyperlipidemia COPD chronic back pain pres enting to the hospital 2 days ago on 02/06/2022 from a local senior care for evaluation of mental status changes and apparently the patient was noticed to be slightly hypoxic at the local senior care patient did have a chest x-ray interstitial infiltrate in the right lung most likely new and chronic atelectasis patient did not recall what brought him to the hospital denies having any headache or URI symptoms the patient denies having any chest pain or shortness of breath minimal cough no nausea no vomiting no abdominal pain or any diarrhea patient did have chronic back pain but did not mention any recent worsening or any radiation down to the leg no bowel or bladder problem on presentation to the hospital the patient did have a low-grade fever of 99.7 F did have O2 sats of 92 to 94% and is currently on room air, patient did have white count of 17,000 with a left shift on admission creatinine has been normal liver exams were normal urine was mildly positive padilla PCR was negative franchesca ent did have a chest x-ray some interstitial infiltrate in the right lung which could be new patient also have a CT of the chest completed yesterday afternoon chronically with atelectasis at the lung bases mainly on the left side with small effusion patient did have blood cultures drawn which came back positive with MRSA that has prompted this infectious disease consultation patient is currently being treated with a vancomycin and Zosyn, patient mention no open wounds and then has been reported by nursing staff Review of Systems Positive point has been mentioned in the HPI rest of the systems are negative Past Medical History Past Medical History: COPD, Diabetes Mellitus, Hyperlipidemia, Hypertension, Osteoarthritis (OA), Sleep Apnea/CPAP/BIPAP Additional Past Medical History / Comment(s): PACEMAKER. Uses CPAP. 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 Taking Aricept on a trial basis for slight memory loss. History of anterior cervical decompression and fusion in September 2020 with our service. History of lumbar decompression at outside institution History of Any Multi-Drug Resistant Organisms: None Reported Past Surgical History: Appendectomy, Back Surgery, Heart Catheterization With Stent, Pacemaker Additional Past Surgical History / Comment(s): Oral surg. COLONOSCOPY. GENERATOR CHANGE 2016, lumbar myelogram, neck fusion; heart caths with stents x 2 (at least). Laminectomy August 2021 Past Anesthesia/Blood Transfusion Reactions: No Reported Reaction Date of Last Stent Placement:: 2006 Type of Cardiac Device: Permanent Pacemaker Device Placement Date:: 2008 Past Psychological History: No Psychological Hx Reported Smoking Status: Former smoker Past Alcohol Use History: Occasional Additional Past Alcohol Use History / Comment(s): Smoked since teens, 1 /, has not smoked since May Past Drug Use History: None Reported - Past Family History Mother Family Medical History: Cancer Brother(s) Family Medical History: Cancer Medications and Allergies Home Medications Medication Instructions Recorded Confirmed Type Metoprolol Tartrate [Lopressor] 25 mg PO BID@0800,1700 12/02/16 02/06/22 History Umeclidinium Hansen [Incruse 1 puff INHALATION RT-DAILY@0800 09/22/18 02/06/22 History Ellipta] Fluticasone/Salmeterol [Advair Hfa 1 puff INHALATION RT-BID@0800,1700 06/07/20 02/06/22 History 45-21 Mcg Inhaler] Albuterol Nebulized [Ventolin 2.5 mg INHALATION RT-Q2H PRN 09/16/20 02/06/22 History Nebulized] Atorvastatin Calcium [Lipitor] 20 mg PO HS 10/12/20 02/06/22 History Donepezil HCl [Aricept] 5 mg PO DAILY@0800 12/19/20 02/06/22 History Docusate Sodium [Dok] 100 mg PO DAILY PRN 09/18/21 02/06/22 History Ferrous Sulfate [Iron (65 MG 325 mg PO DAILY@0800 09/18/21 02/06/22 History Elemental)] Ipratropium-Albuterol Nebulize 3 ml INHALATION RT-Q6H 09/18/21 02/06/22 History [Duoneb 0.5 mg-3 mg/3 ml Soln] Melatonin 5 mg PO HS 09/18/21 02/06/22 History Meloxicam [Mobic] 7.5 mg PO DAILY@0800 09/18/21 02/06/22 History Na Phos,M-B/Na Phos,Di-Ba [Fleet 133 ml RECTAL DAILY PRN 09/18/21 02/06/22 History Adult] Polyethylene Glycol 3350 [Clearlax] 17 gm PO DAILY PRN 09/18/21 02/06/22 History bisacodyL [Dulcolax] 10 mg RECTAL DAILY PRN 09/18/21 02/06/22 History metFORMIN HCL 500 mg PO BID@0800,1700 09/18/21 02/06/22 History Baclofen [Lioresal] 5 mg PO BID@0800,1700 11/29/21 02/06/22 History Cyanocobalamin [Vitamin B-12] 500 mcg PO DAILY@0800 11/29/21 02/06/22 History Furosemide [Lasix] 20 mg PO DAILY@0800 11/29/21 02/06/22 History Insulin NPH Hum/Reg Insulin Hm 15 unit SQ BID@0800,1700 11/29/21 02/06/22 History [NovoLIN 70-30 100 UNIT/ML VIAL] Ondansetron Odt [Zofran ODT] 4 mg PO Q8H PRN 11/29/21 02/06/22 History Venlafaxine HCl [Effexor XR] 75 mg PO DAILY@0800 11/29/21 02/06/22 History Venlafaxine HCl [Effexor XR] 150 mg PO DAILY@0800 11/29/21 02/06/22 History Acetaminophen Tab [Tylenol] 650 mg PO Q6HR PRN 02/06/22 02/06/22 History Aspirin 81 mg PO DAILY@0800 02/06/22 02/06/22 History Gabapentin 300 mg PO TID@0600,1400,2200 02/06/22 02/06/22 History HYDROcodone/APAP 5-325MG [[place] 1 tab PO Q6H PRN 02/06/22 02/06/22 History 5-325] Magnesium Hydroxide [Milk of 7,200 mg PO Q48H PRN 02/06/22 02/06/22 History Magnesia Concentrate] Sennosides/Docusate Sodium 2 tab PO HS 02/06/22 02/06/22 History [Senna-S 8.6-50 mg Tablet] diphenhydrAMINE HCL [Benadryl] 25 mg PO Q6H PRN 02/06/22 02/06/22 History Allergies Allergy/AdvReac Type Severity Reaction Status Date / Time No Known Allergies Allergy Verified 02/06/22 07:48 Physical Exam Vitals: Vital Signs Temp Pulse Pulse Resp BP Pulse Ox 02/08/22 12:50 68 18 02/08/22 12:41 67 18 02/08/22 09:16 98.8 F 60 18 117/71 97 02/08/22 09:08 64 02/08/22 08:58 62 18 95 02/08/22 02:03 98.4 F 61 16 106/70 99 02/07/22 20:10 66 02/07/22 20:01 62 02/07/22 20:00 98.7 F 52 L 19 132/83 93 L 02/07/22 16:05 62 18 02/07/22 15:52 62 18 02/07/22 13:56 97.8 F 61 18 128/77 99 Intake and Output 02/07/22 02/08/22 02/08/22 22:59 06:59 14:59 Output Total 700 300 Balance -700 -300 Output: Urine 700 300 Other: Voiding Method Diaper Diaper External Catheter # Bowel Movements 1 GENERAL DESCRIPTION: Elderly male lying in bed, no distress. No tachypnea or accessory muscle of respiration use. HEENT: Shows Pallor , no scleral icterus. Oral mucous membrane is dry. No pharyngeal erythema or thrush NECK: Trachea central, no thyromegaly. LUNGS: Unlabored breathing. Clear to auscultation anteriorly. No wheeze or crackle. HEART: S1, S2, regular rate and rhythm. No loud murmur ABDOMEN: Soft, no tenderness , guarding or rigidity, no organomegaly EXTREMITIES: No edema of feet. SKIN: No rash, no masses palpable. NEUROLOGICAL: The patient is awake, alert, oriented x3, mood and affect normal. Results CBC & Chem 7: 02/08/22 05:32 02/09/22 03:29 Labs: Abnormal Lab Results - Last 24 Hours (Table) 02/07/22 02/08/22 02/08/22 Range/Units 16:21 05:32 11:19 RBC 3.62 L (4.30-5.90) m/uL Hgb 11.0 L (13.0-17.5) gm/dL Hct 35.8 L (39.0-53.0) % MCHC 30.8 L (31.0-37.0) g/dL Neutrophils # 8.1 H (1.3-7.7) k/uL POC Glucose (mg/dL) 150 H 111 H (75-99) mg/dL Microbiology - Last 24 Hours (Table) 02/06/22 02:20 Blood Culture Gram Stain - Final Blood Blood Culture - Final Methicillin resist S. aureus 02/06/22 02:35 Blood Culture Gram Stain - Final Blood Blood Culture - Final Methicillin resist S. aureus Assessment and Plan (1) Bacteremia due to Gram-positive bacteria Current Visit: Yes Status: Acute Code(s): R78.81 - BACTEREMIA SNOMED Code(s): 910113758781 Plan: 1patient with MRSA bacteremia in this patient presented to hospital with some mental status changes he did have a low-grade fever and evidence of some chronic infiltrate at the lung bases CT did not show significant consolidation patient is currently on room air and did not have significant respiratory symptoms with a question of endovascular source versus possible discitis to the lumbosacral spine area in this patient who did have a history of chronic back pain as currently no other obvious focus for this bacteremia. 2- we will wait for the Echocardiogram and cardiology evaluation which has been consulted if no evidence of any vegetation we will order MRI of the lumbosacral spine 3vancomycin pharmacy to dose target trough of 15 while watching kidney function and vancomycin trough closely, discontinue Zosyn to decrease risk of nephrotoxicity 4blood cultures will be repeated document clearance of bacteremia and check inflammatory markers. We will follow on clinical condition and cultures to further adjust medication if needed Thank you for this consultation will follow this patient along with you
[2022-02-09] MEDS: ASPIRIN 81 MG PO SCH (08:02)
[2022-02-09] MEDS: VENLAFAXINE HCL ER 150 MG CAP PO SCH (08:02)
[2022-02-09] MEDS: DONEPEZIL 5 MG TAB PO SCH (08:02)
[2022-02-09] MEDS: BACLOFEN 10 MG TAB PO SCH ×2 (08:02→17:23)
[2022-02-09] MEDS: FUROSEMIDE 20 MG TAB PO SCH (08:02)
[2022-02-09] MEDS: MELOXICAM 7.5 MG TAB PO SCH (08:02)
[2022-02-09] MEDS: VENLAFAXINE HCL ER 75 MG CAP PO SCH (08:03)
[2022-02-09] MEDS: ENOXAPARIN 40 MG/0.4 ML SYRINGE SQ SCH (08:03)
[2022-02-09] MEDS: CYANOCOBALAMIN 500 MCG TAB PO SCH (08:03)
[2022-02-09] MEDS: PANTOPRAZOLE 40 MG TABLET PO SCH (08:03)
[2022-02-09] MEDS: METOPROLOL TARTRATE 25 MG TAB PO SCH ×2 (08:03→17:23)
[2022-02-09] MEDS: FERROUS SULFATE 325 MG TAB PO SCH (08:03)
[2022-02-09] MEDS: INSULN ASP PRT/INSULIN ASPART 100 UNIT/ML 10 ML VIAL SQ SCH ×2 (08:10→17:25)
[2022-02-09] MEDS: HYDROcodone/APAP 5-325MG 1 EACH TAB PO PRN ×2 (08:14→17:24)
[2022-02-09] MEDS: SYMBICORT 160-4.5 MCG INHALER INHALATION SCH ×2 (08:26→19:17)
[2022-02-09] MEDS: IPRATROPIUM-ALBUTEROL 3 ML NEB INHALATION SCH ×4 (08:26→19:17)
--- NOTE | 2022-02-09 09:53 | P.CRDCN ---
History of Present Illness Consult date: 02/09/22 History of present illness: HISTORY OF PRESENT ILLNESS: This is a 72-year-old male with a past medical history significant for coronary artery disease with previous stenting, hypertension, hyperlipidemia, peripheral vascular disease, and laminectomy with subsequent discitis and instability of his laminectomy and underwent fusion and long-term antibiotic infusion. Patient follows in the office with Dr. Ramirez. We have been asked to see the patient in consultation for MAJOR. Patient examined at the bedside. The patient is unable to provide much history at the time of examination this morning. Patient states he is unsure why he presented to the hospital. He denies any chest pain or pressure. He denies any shortness of breath. Denies any dizziness or lightheadedness. The patient has been diagnosed with MRSA bacteremia. Infectious disease is following and the patient is receiving IV antibiotics. A MAJOR has been requested. It is noted that the patient underwent a MAJOR in August 2021 at [facility] revealing normal ejection fraction, mild MR, and less than 0.5 center mass on the right coronary cusp and vegetation could not be ruled out. * EKG reveals paced rhythm * Chest xray interstitial infiltrates in the right lung which are mostly new compared to old exam. There is chronic atelectasis left lung base without change. No heart failure. * Laboratory data: WBC 10.2. Hemoglobin 11.0. Platelet count 205. Sodium 137. Potassium 3.6. BUN 21. Creatinine 1.06. * Current home cardiac medications include metoprolol tartrate 25 mg twice a day, Lasix 20 mg daily, Lipitor 20 mg daily, aspirin 81 mg daily * Most recent echocardiogram obtained in September 2021 revealed ejection fraction 50-55%, mild MR, mild TR, mild pulmonary hypertension * Cardiac catheterization history: 2011 with stenting of the mid RCA and stenting of the mid left circumflex REVIEW OF SYSTEMS: At the time of my exam: CONSTITUTIONAL: Denies fever or chills. HEENT: Denies blurred vision, vision changes, or eye pain. Denies hemoptysis CARDIOVASCULAR: Denies chest pain. Denies orthopnea. Denies PND. Denies palpit ations RESPIRATORY: Denies shortness of breath. GASTROINTESTINAL: Denies abdominal pain. Denies nausea or vomiting. HEMATOLOGIC: Denies bleeding disorders. GENITOURINARY: Denies any blood in urine. SKIN: Denies pruitis. Denies rash. PHYSICAL EXAM: VITAL SIGNS: Reviewed. GENERAL: Well-developed in no acute distress. HEENT: Head is normocephalic. Pupils are equal, round. Sclerae anicteric. Mucous membranes of the mouth are moist. Neck supple. No JVD or thyromegaly LUNGS: Respirations even and unlabored. Lungs essentially clear to auscultation bilaterally. HEART: Regular rate and rhythm. S1 and S2 heard. ABDOMEN: Soft. Nondistended. Nontender. EXTREMITIES: Normal range of motion. No clubbing or cyanosis. Peripheral pulses intact. No lower extremity edema NEUROLOGIC: Awake and alert. ASSESSMENT: MRSA bacteremia Coronary artery disease with previous stenting Hypertension Hyperlipidemia Peripheral vascular disease History of laminectomy with subsequent discitis Diabetes PLAN: Obtain 2-D echo to assess cardiac structure and function Continue current cardiac medications Continue antibiotics. Infectious disease following Patient to undergo MAJOR tomorrow with Dr. Ramirez Further recommendations pending patient's course Nurse practitioner note has been reviewed by physician. Signing provider agrees with the documented findings, assessment, and plan of care. Past Medical History Past Medical History: COPD, Diabetes Mellitus, Hyperlipidemia, Hypertension, Osteoarthritis (OA), Sleep Apnea/CPAP/BIPAP Additional Past Medical History / Comment(s): PACEMAKER. Uses CPAP. 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 Taking Aricept on a trial basis for slight memory loss. History of anterior cervical decompression and fusion in September 2020 with our service. History of lumbar decompression at outside institution History of Any Multi-Drug Resistant Organisms: None Reported Past Surgical History: Appendectomy, Back Surgery, Heart Catheterization With Stent, Pacemaker Additional Past Surgical History / Comment(s): Oral surg. COLONOSCOPY. GENERATOR CHANGE 2016, lumbar myelogram, neck fusion; heart caths with stents x 2 (at least). Laminectomy August 2021 Past Anesthesia/Blood Transfusion Reactions: No Reported Reaction Date of Last Stent Placement:: 2006 Type of Cardiac Device: Permanent Pacemaker Device Placement Date:: 2008 Past Psychological History: No Psychological Hx Reported Smoking Status: Former smoker Past Alcohol Use History: Occasional Additional Past Alcohol Use History / Comment(s): Smoked since teens, 1 1/2 , has not smoked since May Past Drug Use History: None Reported - Past Family History Mother Family Medical History: Cancer Brother(s) Family Medical History: Cancer Medications and Allergies Home Medications Medication Instructions Recorded Confirmed Type Metoprolol Tartrate [Lopressor] 25 mg PO BID@0800,1700 12/02/16 02/06/22 History Umeclidinium [place] [Incruse 1 puff INHALATION RT-DAILY@0800 09/22/18 02/06/22 History Ellipta] Fluticasone/Salmeterol [Advair Hfa 1 puff INHALATION RT-BID@0800,1700 06/07/20 02/06/22 History 45-21 Mcg Inhaler] Albuterol Nebulized [Ventolin 2.5 mg INHALATION RT-Q2H PRN 09/16/20 02/06/22 History Nebulized] Atorvastatin Calcium [Lipitor] 20 mg PO HS 10/12/20 02/06/22 History Donepezil HCl [Aricept] 5 mg PO DAILY@0800 12/19/20 02/06/22 History Docusate Sodium [Dok] 100 mg PO DAILY PRN 09/18/21 02/06/22 History Ferrous Sulfate [Iron (65 MG 325 mg PO DAILY@0800 09/18/21 02/06/22 History Elemental)] Ipratropium-Albuterol Nebulize 3 ml INHALATION RT-Q6H 09/18/21 02/06/22 History [Duoneb 0.5 mg-3 mg/3 ml Soln] Melatonin 5 mg PO HS 09/18/21 02/06/22 History Meloxicam [Mobic] 7.5 mg PO DAILY@0800 09/18/21 02/06/22 History Na Phos,M-B/Na Phos,Di-Ba [Fleet 133 ml RECTAL DAILY PRN 09/18/21 02/06/22 History Adult] Polyethylene Glycol 3350 [Clearlax] 17 gm PO DAILY PRN 09/18/21 02/06/22 History bisacodyL [Dulcolax] 10 mg RECTAL DAILY PRN 09/18/21 02/06/22 History metFORMIN HCL 500 mg PO BID@0800,1700 09/18/21 02/06/22 History Baclofen [Lioresal] 5 mg PO BID@0800,1700 11/29/21 02/06/22 History Cyanocobalamin [Vitamin B-12] 500 mcg PO DAILY@0800 11/29/21 02/06/22 History Furosemide [Lasix] 20 mg PO DAILY@0800 11/29/21 02/06/22 History Insulin NPH Hum/Reg Insulin Hm 15 unit SQ BID@0800,1700 11/29/21 02/06/22 History [NovoLIN 70-30 100 UNIT/ML VIAL] Ondansetron Odt [Zofran ODT] 4 mg PO Q8H PRN 11/29/21 02/06/22 History Venlafaxine HCl [Effexor XR] 75 mg PO DAILY@0800 11/29/21 02/06/22 History Venlafaxine HCl [Effexor XR] 150 mg PO DAILY@0800 11/29/21 02/06/22 History Acetaminophen Tab [Tylenol] 650 mg PO Q6HR PRN 02/06/22 02/06/22 History Aspirin 81 mg PO DAILY@0800 02/06/22 02/06/22 History Gabapentin 300 mg PO TID@0600,1400,2200 02/06/22 02/06/22 History HYDROcodone/APAP 5-325MG [[place] 1 tab PO Q6H PRN 02/06/22 02/06/22 History 5-325] Magnesium Hydroxide [Milk of 7,200 mg PO Q48H PRN 02/06/22 02/06/22 History Magnesia Concentrate] Sennosides/Docusate Sodium 2 tab PO HS 02/06/22 02/06/22 History [Senna-S 8.6-50 mg Tablet] diphenhydrAMINE HCL [Benadryl] 25 mg PO Q6H PRN 02/06/22 02/06/22 History Allergies Allergy/AdvReac Type Severity Reaction Status Date / Time No Known Allergies Allergy Verified 02/06/22 07:48 Physical Exam Vitals: Vital Signs Temp Pulse Pulse Resp BP Pulse Ox 02/09/22 08:39 62 18 02/09/22 08:26 60 18 93 L 02/09/22 08:00 98.3 F 60 18 122/70 92 L 02/09/22 01:14 98.1 F 64 16 118/73 93 L 02/08/22 20:46 69 02/08/22 20:33 64 02/08/22 18:54 98.9 F 60 16 106/61 94 L 02/08/22 16:17 98.4 F 02/08/22 14:00 99.6 F 60 17 114/67 92 L 02/08/22 12:50 68 18 02/08/22 12:41 67 18 Intake and Output 02/08/22 02/09/22 02/09/22 22:59 06:59 14:59 Output Total 900 1000 Balance -900 -1000 Output: Urine 900 1000 Other: Voiding Method Diaper External Catheter # Bowel Movements 1 Results 02/08/22 05:32 02/09/22 03:29 CBC 02/08/22 Range/Units 05:32 WBC 10.2 (3.8-10.6) k/uL RBC 3.62 L (4.30-5.90) m/uL Hgb 11.0 L (13.0-17.5) gm/dL Hct 35.8 L (39.0-53.0) % Plt Count 205 (150-450) k/uL Comprehensive Metabolic Panel 02/09/22 Range/Units 03:29 Sodium 137 (137-145) mmol/L Potassium 3.6 (3.5-5.1) mmol/L Chloride 100 (98-107) mmol/L Carbon Dioxide 31 H (22-30) mmol/L BUN 21 H (9-20) mg/dL Creatinine 1.06 (0.66-1.25) mg/dL Glucose 93 (74-99) mg/dL Calcium 9.3 (8.4-10.2) mg/dL Current Medications Generic Name Dose Route Start Last Admin Trade Name Freq PRN Reason Stop Dose Admin Acetaminophen 650 mg 02/06/22 03:05 02/08/22 14:22 Acetaminophen Tab 325 Mg Tab PO 650 mg Q6HR PRN Administration Mild Pain or Fever > 100.5 Hydrocodone Bitart/Acetaminophen 1 each 02/06/22 08:32 02/09/22 08:14 Hydrocodone/Apap 5-325mg 1 Each Tab PO 1 each Q6H PRN Administration Pain Albuterol/Ipratropium 3 ml 02/06/22 20:00 02/09/22 08:26 Ipratropium-Albuterol 3 Ml Neb INHALATION 3 ml RT-QID JOEY Administration Albuterol/Ipratropium 3 ml 02/06/22 19:21 Ipratropium-Albuterol 3 Ml Neb INHALATION RT-Q2H PRN Shortness Of Breath Or Wheezing Aspirin 81 mg 02/07/22 08:00 02/09/22 08:02 Aspirin 81 Mg PO 81 mg DAILY@0800 JEOY Administration Atorvastatin Calcium 20 mg 02/06/22 21:00 02/08/22 21:44 Atorvastatin 20 Mg Tab PO 20 mg HS JOEY Administration Baclofen 5 mg 02/06/22 17:00 02/09/22 08:02 Baclofen 10 Mg Tab PO 5 mg BID@0800,1700 JOEY Administration Bisacodyl 10 mg 02/06/22 08:32 Bisacodyl 10 Mg Supp RECTAL DAILY PRN Constipation Budesonide/Formoterol Fumarate 2 puff 02/08/22 08:00 02/09/22 08:26 Symbicort 160-4.5 Mcg Inhaler INHALATION 2 puff RT-BID JOEY Administration Cyanocobalamin 500 mcg 02/07/22 08:00 02/09/22 08:03 Cyanocobalamin 500 Mcg Tab PO 500 mcg DAILY@0800 JOEY Administration Docusate Sodium 100 mg 02/06/22 08:32 Docusate 100 Mg Cap PO DAILY PRN Constipation Donepezil HCl 5 mg 02/07/22 08:00 02/09/22 08:02 Donepezil 5 Mg Tab PO 5 mg DAILY@0800 JOEY Administration Enoxaparin Sodium 40 mg 02/06/22 09:00 02/09/22 08:03 Enoxaparin 40 Mg/0.4 Ml Syringe SQ 40 mg DAILY JOEY Administration Ferrous Sulfate 325 mg 02/07/22 08:00 02/09/22 08:03 Ferrous Sulfate 325 Mg Tab PO 325 mg DAILY@0800 JOEY Administration Furosemide 20 mg 02/07/22 08:00 02/09/22 08:02 Furosemide 20 Mg Tab PO 20 mg DAILY@0800 JOEY Administration Gabapentin 300 mg 02/06/22 14:00 02/09/22 06:08 Gabapentin 300 Mg Cap PO 300 mg TID@0600,1400,2200 [facility] Administration Vancomycin HCl 1,000 mg/ 250 mls @ 125 mls/hr 02/09/22 13:00 Sodium Chloride IVPB Q12H [facility] Insulin Aspart 15 unit 02/06/22 17:00 02/09/22 08:10 Insuln Asp Prt/Insulin Aspart 100 Unit/Ml 10 Ml Vial SQ 15 unit BID@0800,1700 [facility] Administration Insulin Aspart 0 unit 02/06/22 12:30 02/09/22 07:01 Insulin Aspart (Novolog) 100 Unit/Ml Vial SQ Not Given ACHS [facility] Protocol Lorazepam 0.5 mg 02/06/22 03:05 Lorazepam 2 Mg/Ml Inj IV Q6HR PRN Anxiety Magnesium Hydroxide 2,400 mg 02/06/22 08:32 Magnesium Hydroxide 2,400 Mg/10 Ml Cup PO Q48H PRN Constipation Melatonin 5 mg 02/06/22 21:00 02/08/22 21:44 Melatonin 5 Mg Tablet PO 5 mg HS [facility] Administration Meloxicam 7.5 mg 02/07/22 08:00 02/09/22 08:02 Meloxicam 7.5 Mg Tab PO 7.5 mg DAILY@0800 [facility] Administration Metformin HCl 500 mg 02/09/22 17:00 Metformin 500 Mg Tab PO BID@0800,1700 [facility] Metoprolol Tartrate 25 mg 02/06/22 17:00 02/09/22 08:03 Metoprolol Tartrate 25 Mg Tab PO 25 mg BID@0800,1700 [facility] Administration Miscellaneous Information 1 each 02/07/22 14:31 Rx Info: Iv Contrast Was Given 1 Each Misc MISCELLANE 02/09/22 14:31 DAILY PRN Per Protocol Morphine Sulfate 4 mg 02/06/22 03:05 Morphine Sulfate 4 Mg/Ml Syringe IV Q4HR PRN Severe Pain Naloxone HCl 0.2 mg 02/06/22 03:05 Naloxone 0.4 Mg/Ml 1 Ml Vial IV Q2M PRN Opioid Reversal Ondansetron HCl 4 mg 02/06/22 03:05 Ondansetron 4 Mg/2 Ml Vial IVP Q8HR PRN Nausea And Vomiting Ondansetron HCl 4 mg 02/06/22 08:32 Ondansetron Odt 4 Mg Tab PO Q8H PRN Nausea Pantoprazole Sodium 40 mg 02/08/22 07:30 02/09/22 08:03 Pantoprazole 40 Mg Tablet PO 40 mg [id number] [facility] Administration Polyethylene Glycol 17 gm 02/06/22 08:32 Polyethylene Glycol 3350 17 Gm Powd.Pack PO DAILY PRN Constipation Senna/Docusate Sodium 2 each 02/06/22 21:00 02/08/22 21:44 Sennosides-Docusate Sodium 1 Each Tab PO 2 each HS JOEY Administration Venlafaxine HCl 75 mg 02/07/22 08:00 02/09/22 08:03 Venlafaxine Hcl Er 75 Mg Cap PO 75 mg DAILY@0800 JOEY Administration Venlafaxine HCl 150 mg 02/07/22 08:00 02/09/22 08:02 Venlafaxine Hcl Er 150 Mg Cap PO 150 mg DAILY@0800 JOEY Administration Intake and Output 02/08/22 02/09/22 02/09/22 22:59 06:59 14:59 Output Total 900 1000 Balance -900 -1000 Output: Urine 900 1000 Other: Voiding Method Diaper External Catheter # Bowel Movements 1 02/08/22 05:32 02/09/22 03:29
[2022-02-09 11:27] LABS: Glucose,Whole Blood 152 mg/dL (75-99)
--- NOTE | 2022-02-09 12:42 | CA ---
Transthoracic Echo Report Name: Gato Cotton Age: 72 Gender: M : 1950 Exam Date: 02/09/2022 11:02 Exam Location: [facility] Ht (in): 71 Wt (lb): 180 Ordering Physician: Lucille Topete MD Attending/Referring Phys: Leadership Intern Pauline Velásquez RDCS Procedure CPT: Indications: bacteremia Cardiac Hx: Technical Quality: Technically difficult study Contrast 1: Lumason Total Dose (mL): 4 Contrast 2: Total Dose (mL): MEASUREMENTS (Male / Female) Normal Values 2D ECHO LV Diastolic Diameter PLAX 4.2 cm 4.2 - 5.9 / 3.9 - 5.3 cm LV Systolic Diameter PLAX 2.4 cm IVS Diastolic Thickness 1.5 cm 0.6 - 1.0 / 0.6 - 0.9 cm LVPW Diastolic Thickness 1.1 cm 0.6 - 1.0 / 0.6 - 0.9 cm LV Relative Wall Thickness 0.6 LA Volume 57.3 cm??? 18 - 58 / 22 - 52 cm??? M-MODE Aortic Root Diameter MM 3.9 cm AV Cusp Separation MM 1.7 cm DOPPLER AV Peak Velocity 103.1 cm/s AV Peak Gradient 4.3 mmHg LVOT Peak Velocity 81.3 cm/s LVOT Peak Gradient 2.6 mmHg MV Area PHT 2.4 cm??? Mitral E Point Velocity 48.8 cm/s Mitral A Point Velocity 70.8 cm/s Mitral E to A Ratio 0.7 MV Deceleration Time 310.7 ms TR Peak Velocity 218.5 cm/s TR Peak Gradient 19.1 mmHg Right Ventricular Systolic Press 24.1 mmHg FINDINGS Left Ventricle Right Ventricle Right ventricle not well visualized. Right ventricular systolic pressure within normal limits. Right Atrium Right atrium not well visualized. Left Atrium Mildly increased left atrial area. Mitral Valve Mitral valve not well visualized. No mitral stenosis, regurgitation or prolapse. Aortic Valve Aortic valve not well visualized. No aortic stenosis. No aortic regurgitation. Diffuse thickening (sclerosis) of the aortic valve cusps without reduced excursion. Tricuspid Valve Mild tricuspid regurgitation. Pulmonic Valve Pulmonic valve not well visualized. Pericardium No pericardial effusion. Aorta Aortic root and proximal ascending aorta not well visualized. CONCLUSIONS Normal LV systolic function No obvious vegetations suggestive of infective endocarditis Consider transesophageal echo to definitively rule out vegetation Previewed by: Dr. Silvestre Cee MD (Electronically Signed) Final Date: 09 Feb 2022 12:41
[2022-02-09] MEDS: VANCOMYCIN 1,000 MG in SODIUM CHLORIDE 0.9% 250 ML IVPB SCH (13:28)
--- NOTE | 2022-02-09 13:58 | P.PN ---
Subjective Progress Note Date: 02/09/22 Principal diagnosis: Shortness of breath, acute hypoxia, fever This is a 72-year-old white male with history of multiple medical problems including chronic back pain, chronic lower extremities weakness, history of back surgery at [facility] on the lumbar spine, patient is also known to have history of obstructive sleep apnea syndrome, dyslipidemia, diabetes, HOT SEALING MACHINE OPERATOR D, hypertension, and history of coronary artery disease and previous stent placement. Patient was at [facility], and apparently he developed a sudden episode of shortness of breath, he desaturated based on pulse oximetry, and he was a bit confused. Patient was transferred to [facility], he had a low-grade temp of 99.7. His pulse ox was 92% on 2 L, patient was noted to have abnormal chest x-ray suggestive of right lower lobe infiltrate and left lower lobe atelectasis. Patient was admitted, placed on antibiotics in the form of Zosyn mostly because the patient does have history of dysphagia. Upon my evaluation of the patient, patient stated to me that he has no idea why he was brought here, he denies any shortness of breath denied any cough denied any difficulty swallowing., Patient stated to me that his pulmonary status is fine and he is not symptomatic. Patient is resting in bed, eating, his O2 saturation is 96-100% on 3 L chest x-ray was reviewed and indeed does reflect a minimal infiltrate in the right lower lobe CBC did show leukocytosis with WBC c ount of 17.0, otherwise his labs were basically unremarkable. Patient does not have any fever his temp is 97.6. And on physical examination he sounded basically clear. The patient is seen today 02/07/2022 in follow-up on the regular medical floor. He is currently laying flat in bed. Awake and alert in no acute distress. Maintaining O2 saturations up to 99% on 2 L/m per nasal cannula. He is afebrile. Hemodynamically stable. Blood cultures are revealing presumptive MRSA. White count 14.0. Hemoglobin 11.1. Sodium 142. Potassium 4.4. BUN 28. Creatinine 1.05. He's been initiated on vancomycin and Zosyn. Continue on Symbicort and DuoNeb inhalations. Remains on oral diuretics. Lovenox for DVT prophylaxis. The patient is seen today 02/08/2022 in follow-up on the regular medical floor. He is currently resting comfortably in bed. Awake and alert in no acute distress. Currently maintaining good O2 saturations in the mid 90s on room air. He's afebrile. Hemodynamically stable. Blood cultures to come back for positive methicillin resistant Staphylococcus aureus. White count 10.2. Hemoglobin 11.0. Platelets 205. Sodium 139. Potassium 3.9. BUN 20. Creatinine 1.09. Computed tomography scan of the chest revealed chronic infiltrate and atelectasis at the lung bases more so on the left. Small left effusion. No significant change compared to previous in September 2021. He's been initiated on vancomycin and Zosyn. On 02/09/2022 patient seen in follow-up on selective care unit. He is resting comfortably in bed, no altered mentation, afebrile, vital signs have been stable, no chest pain, he is breathing comfortably, does not appear to be in any respiratory distress, no tachypnea, no accessory muscles of breathing use. Patient was found to have positive MRSA on blood cultures, follow blood culture from 02/08/2022 is negative thus far, urine culture has also been sent. CT of the chest with contrast showed chronic infiltrate and atelectasis in the lung bases mainly on the left side with small left pleural effusion. Today's labs have been reviewed, CBC results from yesterday reviewed, electrolytes are unremarkable, CO2 mildly elevated at 31, BUN is 21 creatinine is 1.06, CRP is 6.5. Urinalysis showed moderate amount of leukocyte esterase, and slightly elevated white blood cells. COVID-19 was negative. Objective - Vital Signs Vital signs: Vital Signs Temp 98.3 F 02/09/22 08:00 Pulse 68 02/09/22 12:50 Resp 18 02/09/22 12:50 BP 122/70 02/09/22 08:00 Pulse Ox 96 02/09/22 09:00 Intake & Output 02/08/22 02/09/22 02/09/22 18:59 06:59 18:59 Output Total 1200 1000 Balance -1200 -1000 Output: Urine 1200 1000 Other: Voiding Method Diaper External Catheter External Catheter # Bowel Movements 1 1 - Exam GENERAL EXAM: Alert, very pleasant, 72-year-old white male, on room air, re sting in bed, breathing comfortably comfortable in no apparent distress. HEAD: Normocephalic/atraumatic. EYES: Normal reaction of pupils, equal size. Conjunctiva pink, sclera white. NOSE: Clear with pink turbinates. THROAT: No erythema or exudates. NECK: No masses, no JVD, no thyroid enlargement, no adenopathy. CHEST: No chest wall deformity. Symmetrical expansion. LUNGS: Equal air entry with no crackles, wheeze, rhonchi or dullness. CVS: Regular rate and rhythm, normal S1 and S2, no gallops, no murmurs, no rubs ABDOMEN: Soft, nontender. No hepatosplenomegaly, normal bowel sounds, no guard ing or rigidity. EXTREMITIES: No clubbing, no edema, no cyanosis, 2+ pulses and upper and lower extremities. MUSCULOSKELETAL: Muscle strength and tone normal. SPINE: No scoliosis or deformity SKIN: No rashes CENTRAL NERVOUS SYSTEM: Alert and oriented -3. No focal deficits, tone is normal in all 4 extremities. PSYCHIATRIC: Alert and oriented -3. Appropriate affect. Intact judgment and insight. - Labs CBC & Chem 7: 02/08/22 05:32 02/09/22 03:29 Labs: Abnormal Lab Results - Last 24 Hours (Table) 02/08/22 02/08/22 02/08/22 Range/Units 15:19 16:30 20:14 ESR (0-20) mm/Hr Carbon Dioxide (22-30) mmol/L BUN (9-20) mg/dL POC Glucose (mg/dL) 152 H 133 H (75-99) mg/dL C-Reactive Protein (0.00-0.80) mg/dL Ur Leukocyte Esterase Moderate H (Negative) Urine WBC 13 H (0-5) /hpf Urine Bacteria Rare H (None) /hpf Urine Mucus Rare H (None) /hpf 02/09/22 02/09/22 02/09/22 Range/Units 03:29 03:29 03:29 ESR 29 H (0-20) mm/Hr Carbon Dioxide 31 H (22-30) mmol/L BUN 21 H (9-20) mg/dL POC Glucose (mg/dL) (75-99) mg/dL C-Reactive Protein 6.50 H (0.00-0.80) mg/dL Ur Leukocyte Esterase (Negative) Urine WBC (0-5) /hpf Urine Bacteria (None) /hpf Urine Mucus (None) /hpf 02/09/22 02/09/22 Range/Units 06:59 11:21 ESR (0-20) mm/Hr Carbon Dioxide (22-30) mmol/L BUN (9-20) mg/dL POC Glucose (mg/dL) 104 H 152 H (75-99) mg/dL C-Reactive Protein (0.00-0.80) mg/dL Ur Leukocyte Esterase (Negative) Urine WBC (0-5) /hpf Urine Bacteria (None) /hpf Urine Mucus (None) /hpf Microbiology - Last 24 Hours (Table) 02/08/22 15:19 Urine Culture - Preliminary Urine,Voided 02/08/22 05:33 Blood Culture - Preliminary Blood No Growth after 24 hours Assessment and Plan Plan: Assessment: #1. Acute hypoxic respiratory failure, likely related to sepsis. CT tomography scan showed chronic changes and atelectasis at the bases with small left-sided pleural effusion. Possibility of pneumonia was considered, but seems to be less likely #2. MRSA bacteremia, possibly related to pneumonia or discitis with history of previous laminectomy #3. Coronary artery disease with previous history of stenting #4. Chronic back pain with severe lower extremity weakness #5. COPD #6. Diabetes mellitus #7. Hypertension #8. Hyperlipidemia #9. Sleep apnea #10. History of permanent pacemaker #11. Chronic diastolic CHF Plan: Continue antibiotics per ID service recommendations From pulmonary perspective patient has no significant pulmonary symptoms Vital signs are stable Follow blood cultures Echocardiogram and possible MAJOR to rule out possibility of endocarditis Continue to follow his clinical course I have personally seen and examined the patient, performed the documentation and the assessment and plan as written. Number of minutes spent on the visit: [10] Time with Patient: Less than 30
--- NOTE | 2022-02-09 14:29 | P.PN ---
Subjective Progress Note Date: 02/09/22 HISTORY OF PRESENT ILLNESS 72-year-old male patient resides long-term at [facility] with past medical history of chronic back pain with severe lower extremity weakness, post back surgery with discitis status post surgery at [facility] for discitis of the lumbar spine. Additional history of COPD, diabetes, hypertension, hyperlipidemia, sleep apnea and arrhythmia post pacemaker, atherosclerotic heart disease post heart catheter and stent placement in the past. Patient was doing fine yesterday morning but later in the day became hypoxic with slight change in mental status. Patient was transferred to [facility] emergency center for evaluation. Temperature 99.7, heart rate 79, respiratory rate 30, blood pressure 99/70, pulse ox 92% on 4 L nasal cannula. WBC 17, hemoglobin 12.4, platelet count 213. INR 1.0. Sodium 135 otherwise electrolytes are normal. BUN 25 and creatinine 1.03. Glucose 157. Lactic acid 1.5. Calcium 9.6, magnesium 1.6, liver function tests normal. Troponins negative on 3 draws. ProBNP 929. Coronal virus PCR not detected. Chest x-ray revealed interstitial infiltrates in the right lung most likely new. Chronic atelectasis left lung base without change. No heart failure. 02/07: Patient is doing okay today, has left leg weakness, which is not new, patient has a Hollingsworth catheter draining clear urine, patient denies any cough, he is No edema, he has no wheezes on examination, 2 L is a cannula. Blood sugars are in 122-300, WBC is 14, blood cultures presumptive for MRSA, vancomycin is added chest x-ray shows chronic atelectasis, and the left, some interstitial infiltrates right lung which is mainly new compared to previous T-max 97.8 pulse ox 99% on 2 L nasal cannula patient is on IV Zosyn, now on IV vancomycin creatinine 1.05 02/08:, Blood culture shows MRSA, urinalysis still needs to be done, echoca rdiogram requested, consult with Dr. Reina, regarding bacteremia, patient does not have any fever no chills, no diarrhea, no abdominal pain, WBC 10.2, creatinine 1.02 T-max 98.8 On IV vancomycin, Zosyn, source of bacteremia MRSA still needs to be investigated. CT, shows small left pleural effusion, chronic infiltrates, without atelectasis, no loculated abscess noted 02/09: Patient has been seen by cardiology with plan for MAJOR tomorrow. Patient is unable to have MRI of the back due to pacemaker. His pulse ox is 93% on room air. No cough. Patient's will be updated by Dr. Estevan GOLDBERG and call later today. Echocardiogram reveals normal LV systolic function. No obvious vegetations. Consider MAJOR. REVIEW OF SYSTEMS Constitutional: No fever, no chills, no night sweats. No weight change. Generalized weakness, fatigue, lethargy, daytime sleepiness. HEENT: No headache. No blurred vision or double vision, no loss of vision. No loss of Hearing, no ringing in the ears, no dizziness. No nasal drainage or congestion. No epistaxis. No sore throat. Lungs: Slight shortness of breath, no cough, no sputum production but mild wheezes. Cardiovascular: Positive PND orthopnea palpitation, positive fluid retention, no lightheadedness or dizziness, no syncopal episode at this point. Abdominal: No abdominal pain. No nausea, vomiting. No diarrhea. No co nstipation. No bloody or tarry stools.. No loss of appetite. Genitourinary: No dysuria, increased frequency, urgency. No urinary retention. Musculoskeletal: No myalgias. No muscle weakness, no gait dysfunction, no frequent falls. No back pain. No neck pain. Integumentary: No wounds, no lesions. No rash or pruritus. No unusual bruising. No change in hair or nails. Neurologic: Slight change mental status with mild confusion, no headache chronic low back pain with paresthesia and lower extremity weakness. Psychiatric: No depression. No anxiety. No mood swings. Endocrine: No abnormal blood sugars. No weight change. No excessive sweating or thirst. No cold intolerance. PHYSICAL EXAMINATION Gen: This is elderly male laying in bed does not look in any respiratory distress. HEENT: Head is atraumatic, normocephalic. Pupils equal, round. Sclerae is anict declan. NECK: Supple. No JVD. No lymphadenopathy. No thyromegaly. LUNGS: Decreased breath some rhonchi, mild expiratory wheeze, decreased breath sounds on the right. There is a pacemaker on the left side. HEART: Regular rate S1-S2 positive S3 positive PVCs with mild irregularity. 2/6 ejection systolic murmur. ABDOMEN: Soft. Bowel sounds are present. No masses. No tenderness. EXTREMITIES: 1+ edema especially in the left leg compared to the right side with slight bruising lower extremity. NEUROLOGICAL: Patient is awake, alert slightly confused. Cranial nerves 2 through 12 are grossly intact. ASSESSMENT AND PLAN 1. Acute hypoxic respiratory failure secondary to sepsis. Pneumonia has been ruled out by pulmonary medicine. Zosyn discontinued. 2. Sepsis with SIRS, MRSA bacteremia, suspected from chronic osteomyelitis/discitis. Patient currently on vancomycin. Unable to undergo MRI due to pacemaker. Patient is scheduled for MAJOR tomorrow with cardiology. 2 chronic diastolic heart failure. Continue Lasix 20 mg oral daily, Lopressor 25 mg twice daily. 3 mild COPD: We'll continue O2, continue DuoNeb and Symbicort at this point. 4 metabolic encephalopathy. Mild change from baseline, continue treatment as in #1, continue Aricept 5 mg daily. 5 chronic discitis, status post surgical intervention and course of IV antibiotics with vancomycin. 6 type 2 diabetes, continue metformin 500 mg twice daily and NovoLog scale before meals and at bedtime. 7 anemia of chronic disease. Continue ferrous sulfate daily. 8 Hyperlipidemia: Continue patient on atorvastatin 20 mg daily. 9 chronic pain management: Still on hydrocodone along with gabapentin. 10 mild memory loss/dementia: Still on Aricept 5 mg a day. 11 hypertension: Continue patient on metoprolol 25 mg twice a day. 12 GI prophylaxis: Patient be on pantoprazole 40 mg daily. 13 DVT prophylaxis: Patient be on Lovenox 40 mg subcutaneous daily. CODE STATUS: NO code. DISCHARGE PLAN Return to [facility] Impression and plan of care have been directed as dictated by the signing physician. Gabriella Munoz nurse practitioner acting as scribe for signing physician. Objective - Vital Signs Vital signs: Vital Signs Temp 98.1 F 02/09/22 01:14 Pulse 60 02/09/22 08:26 Resp 18 02/09/22 08:26 BP 118/73 02/09/22 01:14 Pulse Ox 93 L 02/09/22 08:26 Intake & Output 02/08/22 02/09/22 02/09/22 18:59 06:59 18:59 Output Total 1200 1000 Balance -1200 -1000 Output: Urine 1200 1000 Other: Voiding Method Diaper External Catheter # Bowel Movements 1 1 - Labs CBC & Chem 7: 02/08/22 05:32 02/09/22 03:29 Labs: Abnormal Lab Results - Last 24 Hours (Table) 02/08/22 02/08/22 02/08/22 Range/Units 05:32 11:19 15:19 RBC 3.62 L (4.30-5.90) m/uL Hgb 11.0 L (13.0-17.5) gm/dL Hct 35.8 L (39.0-53.0) % MCHC 30.8 L (31.0-37.0) g/dL Neutrophils # 8.1 H (1.3-7.7) k/uL Carbon Dioxide (22-30) mmol/L BUN (9-20) mg/dL POC Glucose (mg/dL) 111 H (75-99) mg/dL Ur Leukocyte Esterase Moderate H (Negative) Urine WBC 13 H (0-5) /hpf Urine Bacteria Rare H (None) /hpf Urine Mucus Rare H (None) /hpf 02/08/22 02/08/22 02/09/22 Range/Units 16:30 20:14 03:29 RBC (4.30-5.90) m/uL Hgb (13.0-17.5) gm/dL Hct (39.0-53.0) % MCHC (31.0-37.0) g/dL Neutrophils # (1.3-7.7) k/uL Carbon Dioxide 31 H (22-30) mmol/L BUN 21 H (9-20) mg/dL POC Glucose (mg/dL) 152 H 133 H (75-99) mg/dL Ur Leukocyte Esterase (Negative) Urine WBC (0-5) /hpf Urine Bacteria (None) /hpf Urine Mucus (None) /hpf 02/09/22 Range/Units 06:59 RBC (4.30-5.90) m/uL Hgb (13.0-17.5) gm/dL Hct (39.0-53.0) % MCHC (31.0-37.0) g/dL Neutrophils # (1.3-7.7) k/uL Carbon Dioxide (22-30) mmol/L BUN (9-20) mg/dL POC Glucose (mg/dL) 104 H (75-99) mg/dL Ur Leukocyte Esterase (Negative) Urine WBC (0-5) /hpf Urine Bacteria (None) /hpf Urine Mucus (None) /hpf Microbiology - Last 24 Hours (Table) 02/08/22 05:33 Blood Culture - Preliminary Blood No Growth after 24 hours 02/06/22 02:20 Blood Culture Gram Stain - Final Blood Blood Culture - Final Methicillin resist S. aureus 02/06/22 02:35 Blood Culture Gram Stain - Final Blood Blood Culture - Final Methicillin resist S. aureus
[2022-02-09 16:30] LABS: Glucose,Whole Blood 113 mg/dL (75-99)
[2022-02-09] MEDS: metFORMIN 500 MG TAB PO SCH (17:23)
[2022-02-09 20:11] LABS: Glucose,Whole Blood 138 mg/dL (75-99)
[2022-02-09] MEDS: MELATONIN 5 MG TABLET PO SCH (21:06)
[2022-02-09] MEDS: ATORVASTATIN 20 MG TAB PO SCH (21:06)
[2022-02-09] MEDS: SENNOSIDES-DOCUSATE SODIUM 1 EACH TAB PO SCH (21:06)
--- NOTE | 2022-02-09 21:41 | P.PN ---
Subjective Progress Note Date: 02/09/22 Principal diagnosis: MRSA bacteremia Patient is a 72-year-old male presenting to the hospital with mental status changes weakness and this patient did have evidence of MRSA bacteremia. On today's evaluation that is 02/09/2022, the patient denies having any fever or any chills, the patient is breathing comfortably on nasal cannula Oxygen, Denies Having Any Chest Pain or shortness of breath occasional cough no abdominal pain did have some lower back pain and some radiation to the leg but no bowel or bladder problem Objective - Vital Signs Vital signs: Vital Signs Temp 98.3 F 02/09/22 08:00 Pulse 62 02/09/22 08:39 Resp 18 02/09/22 08:39 BP 122/70 02/09/22 08:00 Pulse Ox 93 L 02/09/22 08:26 Intake & Output 02/08/22 02/09/22 02/09/22 18:59 06:59 18:59 Output Total 1200 1000 Balance -1200 -1000 Output: Urine 1200 1000 Other: Voiding Method Diaper External Catheter # Bowel Movements 1 1 - Exam GENERAL DESCRIPTION: An elderly male lying in bed in no distress RESPIRATORY SYSTEM: Unlabored breathing , decreased breath sounds at bases HEART: S1 S2 regular rate and rhythm , ABDOMEN: Soft , no tenderness EXTREMITIES: No edema feet - Labs CBC & Chem 7: 02/08/22 05:32 02/09/22 03:29 Labs: Abnormal Lab Results - Last 24 Hours (Table) 02/08/22 02/08/22 02/08/22 Range/Units 05:32 11:19 15:19 RBC 3.62 L (4.30-5.90) m/uL Hgb 11.0 L (13.0-17.5) gm/dL Hct 35.8 L (39.0-53.0) % MCHC 30.8 L (31.0-37.0) g/dL Neutrophils # 8.1 H (1.3-7.7) k/uL Carbon Dioxide (22-30) mmol/L BUN (9-20) mg/dL POC Glucose (mg/dL) 111 H (75-99) mg/dL Ur Leukocyte Esterase Moderate H (Negative) Urine WBC 13 H (0-5) /hpf Urine Bacteria Rare H (None) /hpf Urine Mucus Rare H (None) /hpf 02/08/22 02/08/22 02/09/22 Range/Units 16:30 20:14 03:29 RBC (4.30-5.90) m/uL Hgb (13.0-17.5) gm/dL Hct (39.0-53.0) % MCHC (31.0-37.0) g/dL Neutrophils # (1.3-7.7) k/uL Carbon Dioxide 31 H (22-30) mmol/L BUN 21 H (9-20) mg/dL POC Glucose (mg/dL) 152 H 133 H (75-99) mg/dL Ur Leukocyte Esterase (Negative) Urine WBC (0-5) /hpf Urine Bacteria (None) /hpf Urine Mucus (None) /hpf 02/09/22 Range/Units 06:59 RBC (4.30-5.90) m/uL Hgb (13.0-17.5) gm/dL Hct (39.0-53.0) % MCHC (31.0-37.0) g/dL Neutrophils # (1.3-7.7) k/uL Carbon Dioxide (22-30) mmol/L BUN (9-20) mg/dL POC Glucose (mg/dL) 104 H (75-99) mg/dL Ur Leukocyte Esterase (Negative) Urine WBC (0-5) /hpf Urine Bacteria (None) /hpf Urine Mucus (None) /hpf Microbiology - Last 24 Hours (Table) 02/08/22 05:33 Blood Culture - Preliminary Blood No Growth after 24 hours 02/06/22 02:20 Blood Culture Gram Stain - Final Blood Blood Culture - Final Methicillin resist S. aureus 02/06/22 02:35 Blood Culture Gram Stain - Final Blood Blood Culture - Final Methicillin resist S. aureus Assessment and Plan (1) Bacteremia due to Gram-positive bacteria Current Visit: Yes Status: Acute Code(s): R78.81 - BACTEREMIA SNOMED Code(s): 379388471534 Plan: 1patient with MRSA bacteremia in this patient presented to hospital with some mental status changes he did have a low-grade fever and evidence of some chronic infiltrate at the lung bases CT did not show significant consolidation patient is currently on room air and did not have significant respiratory symptoms with a question of endovascular source versus possible discitis to the lumbosacral spine area in this patient who did have a history of chronic back pain as currently no other obvious focus for this bacteremia. 2- we will wait for the Echocardiogram and cardiology evaluation , if no evidence of any vegetation we will order MRI of the lumbosacral spine 3patient to continue with vancomycin pharmacy to dose target trough of 15 while watching kidney function and vancomycin trough closely 4blood cultures has been repeated document and so far negative Time with Patient: Less than 30
[2022-02-10] MEDS: VANCOMYCIN 1,000 MG in SODIUM CHLORIDE 0.9% 250 ML IVPB SCH ×2 (01:24→13:51)
[2022-02-10] MEDS: GABAPENTIN 300 MG CAP PO SCH ×3 (06:47→21:57)
[2022-02-10] MEDS: ENOXAPARIN 40 MG/0.4 ML SYRINGE SQ SCH (07:18)
[2022-02-10] MEDS: ASPIRIN 81 MG PO SCH (07:18)
[2022-02-10] MEDS: INSULN ASP PRT/INSULIN ASPART 100 UNIT/ML 10 ML VIAL SQ SCH ×2 (07:18→16:31)
[2022-02-10 07:19] LABS: Glucose,Whole Blood 88 mg/dL (75-99)
[2022-02-10] MEDS: CYANOCOBALAMIN 500 MCG TAB PO SCH (07:39)
[2022-02-10] MEDS: INSULIN ASPART (NovoLOG) 100 UNIT/ML VIAL SQ SCH ×4 (07:39→21:57)
[2022-02-10] MEDS: METOPROLOL TARTRATE 25 MG TAB PO SCH ×2 (07:40→16:35)
[2022-02-10] MEDS: metFORMIN 500 MG TAB PO SCH ×2 (07:40→16:35)
[2022-02-10] MEDS: FERROUS SULFATE 325 MG TAB PO SCH (08:07)
[2022-02-10] MEDS: VENLAFAXINE HCL ER 75 MG CAP PO SCH (08:08)
[2022-02-10] MEDS: HYDROcodone/APAP 5-325MG 1 EACH TAB PO PRN (08:08)
[2022-02-10] MEDS: DONEPEZIL 5 MG TAB PO SCH (08:09)
[2022-02-10] MEDS: PANTOPRAZOLE 40 MG TABLET PO SCH (08:09)
[2022-02-10] MEDS: BACLOFEN 10 MG TAB PO SCH ×2 (08:09→16:35)
[2022-02-10] MEDS: MELOXICAM 7.5 MG TAB PO SCH (08:09)
[2022-02-10] MEDS: FUROSEMIDE 20 MG TAB PO SCH (08:09)
[2022-02-10] MEDS: VENLAFAXINE HCL ER 150 MG CAP PO SCH (08:09)
[2022-02-10] MEDS: IPRATROPIUM-ALBUTEROL 3 ML NEB INHALATION SCH ×4 (09:24→20:39)
[2022-02-10] MEDS: SYMBICORT 160-4.5 MCG INHALER INHALATION SCH ×2 (09:24→20:40)
[2022-02-10] MEDS ORDERED: fentaNYL (PF) 50 MCG/ML 2 ML AMP ONE (10:35)
--- NOTE | 2022-02-10 10:41 | P.PN ---
Subjective Progress Note Date: 02/10/22 HISTORY OF PRESENT ILLNESS 72-year-old male patient resides long-term at [facility] with past medical history of chronic back pain with severe lower extremity weakness, post back surgery with discitis status post surgery at [facility] for discitis of the lumbar spine. Additional history of COPD, diabetes, hypertension, hyperlipidemia, sleep apnea and arrhythmia post pacemaker, atherosclerotic heart disease post heart catheter and stent placement in the past. Patient was doing fine yesterday morning but later in the day became hypoxic with slight change in mental status. Patient was transferred to [facility] emergency center for evaluation. Temperature 99.7, heart rate 79, respiratory rate 30, blood pressure 99/70, pulse ox 92% on 4 L nasal cannula. WBC 17, hemoglobin 12.4, platelet count 213. INR 1.0. Sodium 135 otherwise electrolytes are normal. BUN 25 and creatinine 1.03. Glucose 157. Lactic acid 1.5. Calcium 9.6, magnesium 1.6, liver function tests normal. Troponins negative on 3 draws. ProBNP 929. Coronal virus PCR not detected. Chest x-ray revealed interstitial infiltrates in the right lung most likely new. Chronic atelectasis left lung base without change. No heart failure. 02/07: Patient is doing okay today, has left leg weakness, which is not new, patient has a Hollingsworth catheter draining clear urine, patient denies any cough, he is No edema, he has no wheezes on examination, 2 L is a cannula. Blood sugars are in 122-300, WBC is 14, blood cultures presumptive for MRSA, vancomycin is added chest x-ray shows chronic atelectasis, and the left, some interstitial infiltrates right lung which is mainly new compared to previous T-max 97.8 pulse ox 99% on 2 L nasal cannula patient is on IV Zosyn, now on IV vancomycin creatinine 1.05 02/08:, Blood culture shows MRSA, urinalysis still needs to be done, echoca rdiogram requested, consult with Dr. Reina, regarding bacteremia, patient does not have any fever no chills, no diarrhea, no abdominal pain, WBC 10.2, creatinine 1.02 T-max 98.8 On IV vancomycin, Zosyn, source of bacteremia MRSA still needs to be investigated. CT, shows small left pleural effusion, chronic infiltrates, without atelectasis, no loculated abscess noted 02/09: Patient has been seen by cardiology with plan for MAJOR tomorrow. Patient is unable to have MRI of the back due to pacemaker. His pulse ox is 93% on room air. No cough. Patient's will be updated by Dr. Estevan GOLDBERG and call later today. Echocardiogram reveals normal LV systolic function. No obvious vegetations. Consider MAJOR. 02/10: Patient is scheduled for MAJOR today. Patient denies any new complaints. Mental status is back to baseline. We will order CAT scan of the lumbar spine as patient is unable to undergo MRI. Patient's been afebrile, heart rate 61, blood pressure 93/61, pulse ox 95% on room air. Capillary blood glucose running between 88 and 138. Repeat blood work ordered for tomorrow. Blood work from yesterday revealed sed rate of 29, C reactive protein 6.5. REVIEW OF SYSTEMS Constitutional: No fever, no chills, no night sweats. No weight change. Generalized weakness, fatigue, lethargy, daytime sleepiness. HEENT: No headache. No blurred vision or double vision, no loss of vision. No loss of Hearing, no ringing in the ears, no dizziness. No nasal drainage or congestion. No epistaxis. No sore throat. Lungs: no shortness of breath, no cough, no sputum production but mild wheezes. Cardiovascular: Positive PND orthopnea palpitation, positive fluid retention, no lightheadedness or dizziness, no syncopal episode at this point. Abdominal: No abdominal pain. No nausea, vomiting. No diarrhea. No constipation. No bloody or tarry stools.. No loss of appetite. Genitourinary: No dysuria, increased frequency, urgency. No urinary retention. Musculoskeletal: No myalgias. No muscle weakness, no gait dysfunction, no frequent falls. No back pain. No neck pain. Integumentary: No wounds, no lesions. No rash or pruritus. No unusual bruising. No change in hair or nails. Neurologic: No mental status -back to baseline, no headache chronic low back pain with paresthesia and lower extremity weakness. Psychiatric: No depression. No anxiety. No mood swings. Endocrine: No abnormal blood sugars. No weight change. No excessive sweating or thirst. No cold intolerance. PHYSICAL EXAMINATION Gen: This is elderly male laying in bed does not look in any respiratory distress. HEENT: Head is atraumatic, normocephalic. Pupils equal, round. Sclerae is anicteric. NECK: Supple. No JVD. No lymphadenopathy. No thyromegaly. LUNGS: Decreased breath some rhonchi, mild expiratory wheeze, decreased breath sounds on the right. There is a pacemaker on the left side. HEART: Regular rate S1-S2 positive S3 positive PVCs with mild irregularity. 2/6 ejection systolic murmur. ABDOMEN: Soft. Bowel sounds are present. No masses. No tenderness. EXTREMITIES: 1+ edema especially in the left leg compared to the right side with slight bruising lower extremity. NEUROLOGICAL: Patient is awake, alert slightly confused. Cranial nerves 2 through 12 are grossly intact. ASSESSMENT AND PLAN 1. Acute hypoxic respiratory failure secondary to sepsis. Pneumonia has been ruled out by pulmonary medicine. Zosyn discontinued. 2. Sepsis with SIRS, MRSA bacteremia, suspected from chronic osteomyelitis /discitis. Patient currently on vancomycin. CT of the lumbar spine Patient is scheduled for MAJOR today with cardiology. 2 chronic diastolic heart failure. Continue Lasix 20 mg oral daily, Lopressor 25 mg twice daily. 3 mild COPD: We'll continue O2, continue DuoNeb and Symbicort at this point. 4 metabolic encephalopathy. Mild change from baseline, continue treatment as in #1, continue Aricept 5 mg daily. 5 chronic discitis, status post surgical intervention and course of IV antibiotics with vancomycin. 6 type 2 diabetes, continue metformin 500 mg twice daily and NovoLog scale before meals and at bedtime. 7 anemia of chronic disease. Continue ferrous sulfate daily. 8 Hyperlipidemia: Continue patient on atorvastatin 20 mg daily. 9 chronic pain management: Still on hydrocodone along with gabapentin. 10 mild memory loss/dementia: Still on Aricept 5 mg a day. 11 hypertension: Continue patient on metoprolol 25 mg twice a day. 12 GI prophylaxis: Patient be on pantoprazole 40 mg daily. 13 DVT prophylaxis: Patient be on Lovenox 40 mg subcutaneous daily. CODE STATUS: NO code. DISCHARGE PLAN Return to [facility] Impression and plan of care have been directed as dictated by the signing physician. Gabriella Munoz nurse practitioner acting as scribe for signing physician. Objective - Vital Signs Vital signs: Vital Signs Temp 97.8 F 02/10/22 01:11 Pulse 61 02/10/22 01:11 Resp 16 02/10/22 01:11 BP 93/61 02/10/22 01:11 Pulse Ox 95 02/10/22 01:11 Intake & Output 02/09/22 02/10/22 02/10/22 18:59 06:59 18:59 Intake Total 480 Output Total 500 500 Balance -20 -500 Intake: Oral 480 Output: Urine 500 500 Other: Voiding Method External Catheter External Catheter - Labs CBC & Chem 7: 02/08/22 05:32 02/09/22 03:29 Labs: Abnormal Lab Results - Last 24 Hours (Table) 02/09/22 02/09/22 02/09/22 Range/Units 03:29 03:29 11:21 ESR 29 H (0-20) mm/Hr POC Glucose (mg/dL) 152 H (75-99) mg/dL C-Reactive Protein 6.50 H (0.00-0.80) mg/dL 02/09/22 02/09/22 Range/Units 16:28 20:08 ESR (0-20) mm/Hr POC Glucose (mg/dL) 113 H 138 H (75-99) mg/dL C-Reactive Protein (0.00-0.80) mg/dL Microbiology - Last 24 Hours (Table) 02/08/22 05:33 Blood Culture - Preliminary Blood No Growth after 48 hours 02/09/22 03:29 Blood Culture - Preliminary Blood No Growth after 24 hours 02/08/22 15:19 Urine Culture - Preliminary Urine,Voided
--- NOTE | 2022-02-10 11:03 | P.PN ---
Subjective Progress Note Date: 02/10/22 Principal diagnosis: MRSA bacteremia Patient is a 72-year-old male presenting to the hospital with mental status changes weakness and this patient did have evidence of MRSA bacteremia. On today's evaluation that is 02/10/2022, the patient remains to be afebrile, the patient is breathing comfortably on nasal cannula Oxygen, the patient denies Having Any Chest Pain or shortness of breath occasional cough no abdominal pain did have some lower back pain and some radiation to the leg but no bowel or bladder problem Objective - Vital Signs Vital signs: Vital Signs Temp 98.0 F 02/10/22 08:00 Pulse 72 02/10/22 09:36 Resp 16 02/10/22 08:00 BP 105/69 02/10/22 08:00 Pulse Ox 94 L 02/10/22 08:00 Intake & Output 02/09/22 02/10/22 02/10/22 18:59 06:59 18:59 Intake Total 480 Output Total 500 500 Balance -20 -500 Intake: Oral 480 Output: Urine 500 500 Other: Voiding Method External Catheter External Catheter - Exam GENERAL DESCRIPTION: An elderly male lying in bed in no distress RESPIRATORY SYSTEM: Unlabored breathing , decreased breath sounds at bases HEART: S1 S2 regular rate and rhythm , ABDOMEN: Soft , no tenderness EXTREMITIES: No edema feet - Labs CBC & Chem 7: 02/08/22 05:32 02/09/22 03:29 Labs: Abnormal Lab Results - Last 24 Hours (Table) 02/09/22 02/09/22 02/09/22 Range/Units 11:21 16:28 20:08 POC Glucose (mg/dL) 152 H 113 H 138 H (75-99) mg/dL Microbiology - Last 24 Hours (Table) 02/08/22 05:33 Blood Culture - Preliminary Blood No Growth after 48 hours 02/09/22 03:29 Blood Culture - Preliminary Blood No Growth after 24 hours 02/08/22 15:19 Urine Culture - Preliminary Urine,Voided Assessment and Plan (1) Bacteremia due to Gram-positive bacteria Current Visit: Yes Status: Acute Code(s): R78.81 - BACTEREMIA SNOMED Code(s): 386701611673 Plan: 1patient with MRSA bacteremia in this patient presented to hospital with some mental status changes he did have a low-grade fever and evidence of some chronic infiltrate at the lung bases CT did not show significant consolidation patient is currently on room air and did not have significant respiratory symptoms with a question of endovascular source versus possible discitis to the lumbosacral spine area in this patient who did have a history of chronic back pain as currently no other obvious focus for this bacteremia. 2- Echocardiogram was completed yesterday no vegetation MAJOR has been recommended and is scheduled for today 3patient to continue with vancomycin pharmacy to dose target trough of 15 while watching kidney function and vancomycin trough closely 4blood cultures has been repeated document and so far negative Time with Patient: Less than 30
[2022-02-10] MEDS ORDERED: SODIUM CHLORIDE 0.9% 500 ML 500 ML IV ONE (11:10)
[2022-02-10] MEDS ORDERED: MIDAZOLAM 2 MG/2 ML VIAL IV ONE (11:25)
[2022-02-10] MEDS ORDERED: BENZOCAINE SPRAY 1 CAN TOPICAL ONE (11:25)
[2022-02-10] MEDS ORDERED: fentaNYL (PF) 50 MCG/ML 2 ML AMP IV ONE (11:28)
--- NOTE | 2022-02-10 11:40 | P.PCN ---
Date of Procedure: 02/10/22 Description of Procedure: Indication: Rule out vegetations Procedure Description: After explaining the procedure to the patient, it's risk and complications, blood pressure, heart rate and O2 saturation were monitored. The throat was sprayed with Cetacaine. Patient received 2 mg intravenous Versed, 50 mcg intravenous fentanyl. The probe was introduced into the esophagus without difficulty. Images were obtained. Following that, the probe was removed. There was no immediate complication. Findings: Left atrial size is dilated, left atrial appendage is normal. Left ventricle size and systolic function are normal. The aortic valve is tricuspid valve with mild fibrocalcific changes and preserved opening. Mitral valve revealed mild mitral annulus calcification, tricuspid valve is normal. A wire is noted in the right ventricle. Descending thoracic aorta revealed mild atherosclerotic changes. Contrast bubble study revealed no shunting across the intra-atrial septum with Valsalva maneuver. No pericardial effusion was noted. Doppler: Pulse wave and color Doppler were obtained and revealed mild mitral, tricuspid and aortic regurgitation. There is no shunting by color Doppler study. Conclusion: 1. Mildly dilated left atrium with normal appearance of the left atrial appendage 2. Normal in size and systolic function 3. No evidence of vegetations 4. Mild mitral, aortic and tricuspid regurgitation 5. No shunting across the intra-atrial septum.
--- NOTE | 2022-02-10 12:26 | CT ---
EXAMINATION TYPE: CT lumbar spine wo con DATE OF EXAM: 02/10/2022 12:12 PM COMPARISON: CT dated 12/12/2021 HISTORY: back pain and weakness CT DLP: 943.1 mGycm Automated exposure control for dose reduction was used. Technique: Unenhanced CT of the lumbar spine was performed. Bone and soft tissue window settings are submitted as well as coronal and sagittal reconstructions. Findings: Lumbarized S1 with postsurgical changes as detailed in the previous report, stable. Osteopenia. Persi stent chronic changes at L4-5 level, grossly stable. No progressive vertebral body height reduction o r bone destruction. No definite acute vertebral body collapse or acute displaced fracture. Suboptimal assessment of the spinal canal at the operative level. Persistent severe bilateral L4-5 ne uroforaminal stenosis. Persistent elevation of the left hemidiaphragm. Small left pleural effusion. S cattered arterial atherosclerotic calcifications. No gross paraspinal lesion. Fecal loading of the co cat. No other significant change from the previous CT scan, kindly refer to its detailed report. IMPRESSION: No significant interval lumbar spinal changes as compared to the previous CT scan as detailed above. Please note that spondylodiscitis or other acute inflammatory/infectious process cannot be excluded b y this CT scan. Further MRI assessment can be considered if clinically required.
[2022-02-10 12:29] LABS: Glucose,Whole Blood 97 mg/dL (75-99)
[2022-02-10] MEDS: SODIUM CHLORIDE 0.9% 1,000 ML IV SCH (13:49)
--- NOTE | 2022-02-10 13:56 | P.PN ---
Subjective Progress Note Date: 02/10/22 Principal diagnosis: Shortness of breath, acute hypoxia, fever This is a 72-year-old white male with history of multiple medical problems including chronic back pain, chronic lower extremities weakness, history of back surgery at [facility] on the lumbar spine, patient is also known to have history of obstructive sleep apnea syndrome, dyslipidemia, diabetes, [employer], hypertension, and history of coronary artery disease and previous stent placement. Patient was at [facility], and apparently he developed a sudden episode of shortness of breath, he desaturated based on pulse oximetry, and he was a bit confused. Patient was transferred to [facility], he had a low-grade temp of 99.7. His pulse ox was 92% on 2 L, patient was noted to have abnormal chest x-ray suggestive of right lower lobe infiltrate and left lower lobe atelectasis. Patient was admitted, placed on antibiotics in the form of Zosyn mostly because the patient does have history of dysphagia. Upon my evaluation of the patient, patient stated to me that he has no idea why he was brought here, he denies any shortness of breath denied any cough denied any difficulty swallowing., Patient stated to me that his pulmonary status is fine and he is not symptomatic. Patient is resting in bed, eating, his O2 saturation is 96-100% on 3 L chest x-ray was reviewed and indeed does reflect a minimal infiltrate in the right lower lobe CBC did show leukocytosis with WBC c ount of 17.0, otherwise his labs were basically unremarkable. Patient does not have any fever his temp is 97.6. And on physical examination he sounded basically clear. The patient is seen today 02/07/2022 in follow-up on the regular medical floor. He is currently laying flat in bed. Awake and alert in no acute distress. Maintaining O2 saturations up to 99% on 2 L/m per nasal cannula. He is afebrile. Hemodynamically stable. Blood cultures are revealing presumptive MRSA. White count 14.0. Hemoglobin 11.1. Sodium 142. Potassium 4.4. BUN 28. Creatinine 1.05. He's been initiated on vancomycin and Zosyn. Continue on Symbicort and DuoNeb inhalations. Remains on oral diuretics. Lovenox for DVT prophylaxis. The patient is seen today 02/08/2022 in follow-up on the regular medical floor. He is currently resting comfortably in bed. Awake and alert in no acute distress. Currently maintaining good O2 saturations in the mid 90s on room air. He's afebrile. Hemodynamically stable. Blood cultures to come back for positive methicillin resistant Staphylococcus aureus. White count 10.2. Hemoglobin 11.0. Platelets 205. Sodium 139. Potassium 3.9. BUN 20. Creatinine 1.09. Computed tomography scan of the chest revealed chronic infiltrate and atelectasis at the lung bases more so on the left. Small left effusion. No significant change compared to previous in September 2021. He's been initiated on vancomycin and Zosyn. On 02/09/2022 patient seen in follow-up on selective care unit. He is resting comfortably in bed, no altered mentation, afebrile, vital signs have been stable, no chest pain, he is breathing comfortably, does not appear to be in any respiratory distress, no tachypnea, no accessory muscles of breathing use. Patient was found to have positive MRSA on blood cultures, follow blood culture from 02/08/2022 is negative thus far, urine culture has also been sent. CT of the chest with contrast showed chronic infiltrate and atelectasis in the lung bases mainly on the left side with small left pleural effusion. Today's labs have been reviewed, CBC results from yesterday reviewed, electrolytes are unremarkable, CO2 mildly elevated at 31, BUN is 21 creatinine is 1.06, CRP is 6.5. Urinalysis showed moderate amount of leukocyte esterase, and slightly elevated white blood cells. COVID-19 was negative. On 02/10/2022 patient seen in follow-up on medical surgical floor. He is awake and alert, in no acute distress, is resting comfortably in bed, no respiratory difficulty, no cough, no chest discomfort, room air pulse ox is 94%, he remains on vancomycin for MRSA bacteremia, follow blood cultures were obtained and sent, showing no growth at the 24 and 48 hour bola. Urine culture was negative. CT of the lumbar spine without contrast was completed showing no significant interval lumbar spinal changes, spondylo-discitis or other acute inflammatory infectious process cannot be excluded by this computed tomography scan, and MRI of the spine was recommended if clinically required. Patient currently remains on IV vancomycin. Vital signs have been stable. Objective - Vital Signs Vital signs: Vital Signs Temp 98.0 F 02/10/22 08:00 Pulse 72 02/10/22 13:02 Resp 14 02/10/22 11:45 BP 114/66 02/10/22 11:45 Pulse Ox 96 02/10/22 11:45 Intake & Output 02/09/22 02/10/22 02/10/22 18:59 06:59 18:59 Intake Total 480 100 Output Total 500 500 Balance -20 -500 100 Intake: IV 100 Oral 480 Output: Urine 500 500 Other: Voiding Method External Catheter External Catheter - Exam GENERAL EXAM: Alert, very pleasant, 72-year-old white male, on room air, resting in bed, breathing comfortably comfortable in no apparent distress. HEAD: Normocephalic/atraumatic. EYES: Normal reaction of pupils, equal size. Conjunctiva pink, sclera white. NOSE: Clear with pink turbinates. THROAT: No erythema or exudates. NECK: No masses, no JVD, no thyroid enlargement, no adenopathy. CHEST: No chest wall deformity. Symmetrical expansion. LUNGS: Equal air entry with no crackles, wheeze, rhonchi or dullness. CVS: Regular rate and rhythm, normal S1 and S2, no gallops, no murmurs, no rubs ABDOMEN: Soft, nontender. No hepatosplenomegaly, normal bowel sounds, no guarding or rigidity. EXTREMITIES: No clubbing, no edema, no cyanosis, 2+ pulses and upper and lower extremities. MUSCULOSKELETAL: Muscle strength and tone normal. SPINE: No scoliosis or deformity SKIN: No rashes CENTRAL NERVOUS SYSTEM: Alert and oriented -3. No focal deficits, tone is normal in all 4 extremities. PSYCHIATRIC: Alert and oriented -3. Appropriate affect. Intact judgment and insight. - Labs CBC & Chem 7: 02/08/22 05:32 02/09/22 03:29 Labs: Abnormal Lab Results - Last 24 Hours (Table) 02/09/22 02/09/22 Range/Units 16:28 20:08 POC Glucose (mg/dL) 113 H 138 H (75-99) mg/dL Microbiology - Last 24 Hours (Table) 02/08/22 15:19 Urine Culture - Final Urine,Voided 02/08/22 05:33 Blood Culture - Preliminary Blood No Growth after 48 hours 02/09/22 03:29 Blood Culture - Preliminary Blood No Growth after 24 hours Assessment and Plan Plan: Assessment: #1. Acute hypoxic respiratory failure, likely related to sepsis. CT tomography scan showed chronic changes and atelectasis at the bases with small left-sided pleural effusion. Possibility of pneumonia was considered, but seems to be less likely #2. MRSA bacteremia, possibly related to pneumonia or discitis with history of previous laminectomy #3. Coronary artery disease with previous history of stenting #4. Chronic back pain with severe lower extremity weakness #5. COPD #6. Diabetes mellitus #7. Hypertension #8. Hyperlipidemia #9. Sleep apnea #10. History of permanent pacemaker #11. Chronic diastolic CHF Plan: Patient is breathing comfortably, no significant pulmonary symptoms Follow blood cultures have shown no growth thus far, patient remains on IV vancomycin for MRSA bacteremia CT of the lumbar spine was noted Await further input from cardiology in terms of possibility of transesophageal echocardiogram I have personally seen and examined the patient, performed the documentation and the assessment and plan as written. Number of minutes spent on the visit: [10] Time with Patient: Less than 30
[2022-02-10 15:58] LABS: Glucose,Whole Blood 113 mg/dL (75-99)
[2022-02-10 20:57] LABS: Glucose,Whole Blood 102 mg/dL (75-99)
[2022-02-10] MEDS: SENNOSIDES-DOCUSATE SODIUM 1 EACH TAB PO SCH (21:57)
[2022-02-10] MEDS: MELATONIN 5 MG TABLET PO SCH (21:57)
[2022-02-10] MEDS: ATORVASTATIN 20 MG TAB PO SCH (21:57)
[2022-02-11] MEDS: VANCOMYCIN 1,000 MG in SODIUM CHLORIDE 0.9% 250 ML IVPB SCH ×2 (01:05→17:11)
[2022-02-11] MEDS: GABAPENTIN 300 MG CAP PO SCH ×3 (05:31→19:59)
[2022-02-11 07:04] LABS: Glucose,Whole Blood 98 mg/dL (75-99)
[2022-02-11] MEDS: SYMBICORT 160-4.5 MCG INHALER INHALATION SCH ×2 (07:10→19:22)
[2022-02-11] MEDS: IPRATROPIUM-ALBUTEROL 3 ML NEB INHALATION SCH ×4 (07:10→19:21)
[2022-02-11] MEDS: INSULIN ASPART (NovoLOG) 100 UNIT/ML VIAL SQ SCH ×4 (07:22→19:59)
[2022-02-11] MEDS: BACLOFEN 10 MG TAB PO SCH ×2 (07:29→17:08)
[2022-02-11] MEDS: VENLAFAXINE HCL ER 75 MG CAP PO SCH (07:29)
[2022-02-11] MEDS: ASPIRIN 81 MG PO SCH (07:29)
[2022-02-11] MEDS: METOPROLOL TARTRATE 25 MG TAB PO SCH ×2 (07:29→17:09)
[2022-02-11] MEDS: CYANOCOBALAMIN 500 MCG TAB PO SCH (07:29)
[2022-02-11] MEDS: MELOXICAM 7.5 MG TAB PO SCH (07:29)
[2022-02-11] MEDS: ENOXAPARIN 40 MG/0.4 ML SYRINGE SQ SCH (07:29)
[2022-02-11] MEDS: PANTOPRAZOLE 40 MG TABLET PO SCH (07:30)
[2022-02-11] MEDS: metFORMIN 500 MG TAB PO SCH ×2 (07:30→17:08)
[2022-02-11] MEDS: INSULN ASP PRT/INSULIN ASPART 100 UNIT/ML 10 ML VIAL SQ SCH ×2 (07:30→17:09)
[2022-02-11] MEDS: DONEPEZIL 5 MG TAB PO SCH (07:30)
[2022-02-11] MEDS: FERROUS SULFATE 325 MG TAB PO SCH (07:30)
[2022-02-11] MEDS: VENLAFAXINE HCL ER 150 MG CAP PO SCH (07:30)
[2022-02-11] MEDS: FUROSEMIDE 20 MG TAB PO SCH (07:30)
[2022-02-11 08:59] LABS: HCT 33.1 % (39.6-50.0); HGB 10.6 g/dL (13.0-17.0); MCH 30.4 pg (27.0-32.0); MCV 94.8 fL (80.0-97.0); Mean Platelet Volume 10.5 fL (9.5-12.2); NRBC Per 100 WBC 0 /100 WBCS (0.0-0.0); Platelet Count 231 X 10*3/uL (140-440); RBC 3.49 X 10*6/uL (4.40-5.60); RDW 13.5 % (11.5-14.5); WBC 11.11 X 10*3/uL (4.50-10.00)
[2022-02-11 09:14] LABS: African American GFR (CKD) 97.9 (60.0-200.0); Anion Gap 12.2 mmol/L (10.00-18.00); BUN/Creat Ratio 15.89 Ratio (12.00-20.00); Blood Urea Nitrogen 14.3 mg/dL (9.0-27.0); Calcium 9.2 mg/dL (8.7-10.3); Carbon Dioxide 25.8 mmol/L (20.0-27.5); Non-African American GFR(CKD) 84.4 (60.0-200.0); Potassium 3.5 mmol/L (3.5-5.5)
--- NOTE | 2022-02-11 10:43 | P.PN ---
Subjective Progress Note Date: 02/11/22 HISTORY OF PRESENT ILLNESS 72-year-old male patient resides long-term at [facility] with past medical history of chronic back pain with severe lower extremity weakness, post back surgery with discitis status post surgery at [facility] for discitis of the lumbar spine. Additional history of COPD, diabetes, hypertension, hyperlipidemia, sleep apnea and arrhythmia post pacemaker, atherosclerotic heart disease post heart catheter and stent placement in the past. Patient was doing fine yesterday morning but later in the day became hypoxic with slight change in mental status. Patient was transferred to [facility] emergency center for evaluation. Temperature 99.7, heart rate 79, respiratory rate 30, blood pressure 99/70, pulse ox 92% on 4 L nasal cannula. WBC 17, hemoglobin 12.4, platelet count 213. INR 1.0. Sodium 135 otherwise electrolytes are normal. BUN 25 and creatinine 1.03. Glucose 157. Lactic acid 1.5. Calcium 9.6, magnesium 1.6, liver function tests normal. Troponins negative on 3 draws. ProBNP 929. Coronal virus PCR not detected. Chest x-ray revealed interstitial infiltrates in the right lung most likely new. Chronic atelectasis left lung base without change. No heart failure. 02/07: Patient is doing okay today, has left leg weakness, which is not new, patient has a Hollingsworth catheter draining clear urine, patient denies any cough, he is No edema, he has no wheezes on examination, 2 L is a cannula. Blood sugars are in 122-300, WBC is 14, blood cultures presumptive for MRSA, vancomycin is added chest x-ray shows chronic atelectasis, and the left, some interstitial infiltrates right lung which is mainly new compared to previous T-max 97.8 pulse ox 99% on 2 L nasal cannula patient is on IV Zosyn, now on IV vancomycin creatinine 1.05 02/08:, Blood culture shows MRSA, urinalysis still needs to be done, echoca rdiogram requested, consult with Dr. Reina, regarding bacteremia, patient does not have any fever no chills, no diarrhea, no abdominal pain, WBC 10.2, creatinine 1.02 T-max 98.8 On IV vancomycin, Zosyn, source of bacteremia MRSA still needs to be investigated. CT, shows small left pleural effusion, chronic infiltrates, without atelectasis, no loculated abscess noted 02/09: Patient has been seen by cardiology with plan for MAJOR tomorrow. Patient is unable to have MRI of the back due to pacemaker. His pulse ox is 93% on room air. No cough. Patient's will be updated by Dr. Estevan GOLDBERG and call later today. Echocardiogram reveals normal LV systolic function. No obvious vegetations. Consider MAJOR. 02/10: Patient is scheduled for MAJOR today. Patient denies any new complaints. Mental status is back to baseline. We will order CAT scan of the lumbar spine as patient is unable to undergo MRI. Patient's been afebrile, heart rate 61, blood pressure 93/61, pulse ox 95% on room air. Capillary blood glucose running between 88 and 138. Repeat blood work ordered for tomorrow. Blood work from yesterday revealed sed rate of 29, C reactive protein 6.5. 02/11: CAT scan of the lumbar spine have revealed no significant interval lumbar spinal changes. Please note that spinal discitis or other acute inflammatory infectious process cannot be excluded by this CAT scan. Patient is unable to undergo MRI at our facility due to pacemaker. MAJOR revealed mildly dilated left atrium with normal appearance of the left atrial appendage. Normal systolic size and function, no evidence of vegetation. Mild mitral, aortic and tricuspid regurgitation. No shunting across intra-atrial septum. Patient is continued on vancomycin. Repeat blood cultures at 48 and 72 hours showed no growth and PICC line will be ordered for today. Await further recommendations from infectious disease. REVIEW OF SYSTEMS Constitutional: No fever, no chills, no night sweats. No weight change. Generalized weakness, fatigue, lethargy, daytime sleepiness. HEENT: No headache. No blurred vision or double vision, no loss of vision. No loss of Hearing, no ringing in the ears, no dizziness. No nasal drainage or congestion. No epistaxis. No sore throat. Lungs: no shortness of breath, no cough, no sputum production but mild wheezes. Cardiovascular: Positive PND orthopnea palpitation, positive fluid retention, no lightheadedness or dizziness, no syncopal episode at this point. Abdominal: No abdominal pain. No nausea, vomiting. No diarrhea. No constipation. No bloody or tarry stools.. No loss of appetite. Genitourinary: No dysuria, increased frequency, urgency. No urinary retention. Musculoskeletal: No myalgias. No muscle weakness, no gait dysfunction, no frequent falls. No back pain. No neck pain. Integumentary: No wounds, no lesions. No rash or pruritus. No unusual bruising. No change in hair or nails. Neurologic: No mental status -back to baseline, no headache chronic low back pain with paresthesia and lower extremity weakness. Psychiatric: No depression. No anxiety. No mood swings. Endocrine: No abnormal blood sugars. No weight change. No excessive sweating or thirst. No cold intolerance. PHYSICAL EXAMINATION Gen: This linda 72-year-old male. He is resting in bed and appears to be in no acute respiratory distress. HEENT: Head is atraumatic, normocephalic. Pupils equal, round. Sclerae is anicteric. NECK: Supple. No JVD. No lymphadenopathy. No thyromegaly. LUNGS: Decreased breath some rhonchi, mild expiratory wheeze, decreased breath sounds on the right. There is a pacemaker on the left side. HEART: Regular rate S1-S2 positive S3 positive PVCs with mild irregularity. 2/6 ejection systolic murmur. ABDOMEN: Soft. Bowel sounds are present. No masses. No tenderness. EXTREMITIES: 1+ edema especially in the left leg compared to the right side with slight bruising lower extremity. NEUROLOGICAL: Patient is awake, alert slightly confused. Cranial nerves 2 through 12 are grossly intact. ASSESSMENT AND PLAN 1. Acute hypoxic respiratory failure secondary to sepsis. Pneumonia has been ruled out by pulmonary medicine. 2. Sepsis with SIRS, MRSA bacteremia, suspected from chronic osteomyelitis/discitis. Patient currently on vancomycin. CT of the lumbar s pineas above. No vegetation on MAJOR. 2 chronic diastolic heart failure. Continue Lasix 20 mg oral daily, Lopressor 25 mg twice daily. 3 mild COPD: We'll continue O2, continue DuoNeb and Symbicort at this point. 4 metabolic encephalopathy. Mild change from baseline, continue treatment as in #1, continue Aricept 5 mg daily. 5 chronic discitis, status post surgical intervention and course of IV antibiotics with vancomycin. 6 type 2 diabetes, continue metformin 500 mg twice daily and NovoLog scale before meals and at bedtime. 7 anemia of chronic disease. Continue ferrous sulfate daily. 8 Hyperlipidemia: Continue patient on atorvastatin 20 mg daily. 9 chronic pain management: Still on hydrocodone along with gabapentin. 10 mild memory loss/dementia: Still on Aricept 5 mg a day. 11 hypertension: Continue patient on metoprolol 25 mg twice a day. 12 GI prophylaxis: Patient be on pantoprazole 40 mg daily. 13 DVT prophylaxis: Patient be on Lovenox 40 mg subcutaneous daily. CODE STATUS: NO code. DISCHARGE PLAN Return to [facility] in 24 hours. Impression and plan of care have been directed as dictated by the signing physician. Gabriella Munoz nurse practitioner acting as scribe for signing physician. Objective - Vital Signs Vital signs: Vital Signs Temp 97.4 F L 02/11/22 08:28 Pulse 62 02/11/22 08:28 Resp 19 02/11/22 08:28 BP 97/63 02/11/22 08:28 Pulse Ox 96 02/11/22 08:28 Intake & Output 02/10/22 02/11/22 02/11/22 18:59 06:59 18:59 Intake Total 1180 180 Balance 1180 180 Intake: IV 100 Oral 1080 180 Other: Voiding Method Diaper Incontinent # Voids 4 2 # Bowel Movements 2 1 - Labs CBC & Chem 7: 02/11/22 03:16 02/11/22 03:16 Labs: Abnormal Lab Results - Last 24 Hours (Table) 02/10/22 02/10/22 02/11/22 Range/Units 15:56 20:53 03:16 WBC 11.11 H (4.50-10.00) X 10*3/uL RBC 3.49 L (4.40-5.60) X 10*6/uL Hgb 10.6 L (13.0-17.0) g/dL Hct 33.1 L (39.6-50.0) % POC Glucose (mg/dL) 113 H 102 H (75-99) mg/dL Microbiology - Last 24 Hours (Table) 02/08/22 05:33 Blood Culture - Preliminary Blood No Growth after 72 hours 02/09/22 03:29 Blood Culture - Preliminary Blood No Growth after 48 hours 02/08/22 15:19 Urine Culture - Final Urine,Voided
[2022-02-11 11:12] LABS: Glucose,Whole Blood 148 mg/dL (75-99)
[2022-02-11] MEDS ORDERED: VANCOMYCIN TROUGH DUE 1 EACH MISC MISCELLANE ONE (12:00)
--- NOTE | 2022-02-11 12:06 | P.PN ---
Subjective Progress Note Date: 02/11/22 HISTORY OF PRESENT ILLNESS: This is a 72-year-old male with a past medical history significant for coronary artery disease with previous stenting, hypertension, hyperlipidemia, peripheral vascular disease, and laminectomy with subsequent discitis and instability of his laminectomy and underwent fusion and long-term antibiotic infusion. Patient follows in the office with Dr. Ramirez. We have been asked to see the patient in consultation for MAJOR. Patient examined at the bedside. The patient is unable to provide much history at the time of examination this morning. Patient states he is unsure why he presented to the hospital. He denies any chest pain or pressure. He denies any shortness of breath. Denies any dizziness or lightheadedness. The patient has been diagnosed with MRSA bacteremia. Infectious disease is following and the patient is receiving IV antibiotics. A MAJOR has been requested. It is noted that the patient underwent a MAJOR in August 2021 at [facility] revealing normal ejection fraction, mild MR, and less than 0.5 center mass on the right coronary cusp and vegetation could not be ruled out. * EKG reveals paced rhythm * Chest xray interstitial infiltrates in the right lung which are mostly new compared to old exam. There is chronic atelectasis left lung base without change. No heart failure. * Laboratory data: WBC 10.2. Hemoglobin 11.0. Platelet count 205. Sodium 137. Potassium 3.6. BUN 21. Creatinine 1.06. * Current home cardiac medications include metoprolol tartrate 25 mg twice a day, Lasix 20 mg daily, Lipitor 20 mg daily, aspirin 81 mg daily * Most recent echocardiogram obtained in September 2021 revealed ejection fractio n 50-55%, mild MR, mild TR, mild pulmonary hypertension * Cardiac catheterization history: 2011 with stenting of the mid RCA and stenting of the mid left circumflex 02/11/2022 Patient is status post MAJOR revealing mildly dilated left atrium with normal appearance of the left atrial appendage, normal in size and systolic function, no evidence of vegetation, mild mitral aortic and tricuspid regurgitation, no shunting across the interatrial atrial septum. Patient remains on IV a ntibiotics. WBC today 11.11. Patient denies any chest pain or pressure. Denies shortness of breath. Blood pressure 97/63. PHYSICAL EXAM: VITAL SIGNS: Reviewed. GENERAL: Well-developed in no acute distress. HEENT: Head is normocephalic. Pupils are equal, round. Sclerae anicteric. Mucous membranes of the mouth are moist. Neck supple. No JVD or thyromegaly LUNGS: Respirations even and unlabored. Lungs essentially clear to auscultation bilaterally. HEART: Regular rate and rhythm. S1 and S2 heard. ABDOMEN: Soft. Nondistended. Nontender. EXTREMITIES: Normal range of motion. No clubbing or cyanosis. Peripheral pulses intact. No lower extremity edema NEUROLOGIC: Awake and alert. ASSESSMENT: MRSA bacteremia Coronary artery disease with previous stenting Hypertension Hyperlipidemia Peripheral vascular disease History of laminectomy with subsequent discitis Diabetes PLAN: Continue current cardiac medications Continue antibiotics. Infectious disease following Stable from a cardiac standpoint. We will sign off. Nurse practitioner note has been reviewed by physician. Signing provider agrees with the documented findings, assessment, and plan of care. Objective - Vital Signs Vital signs: Vital Signs Temp 97.4 F L 02/11/22 08:28 Pulse 62 02/11/22 08:28 Resp 19 02/11/22 08:28 BP 97/63 02/11/22 08:28 Pulse Ox 96 02/11/22 08:28 Intake & Output 02/10/22 02/11/22 02/11/22 18:59 06:59 18:59 Intake Total 1180 180 Balance 1180 180 Intake: IV 100 Oral 1080 180 Other: Voiding Method Diaper Incontinent # Voids 4 2 # Bowel Movements 2 1 - Labs CBC & Chem 7: 02/11/22 03:16 02/11/22 03:16 Labs: Abnormal Lab Results - Last 24 Hours (Table) 02/10/22 02/10/22 02/11/22 Range/Units 15:56 20:53 03:16 WBC 11.11 H (4.50-10.00) X 10*3/uL RBC 3.49 L (4.40-5.60) X 10*6/uL Hgb 10.6 L (13.0-17.0) g/dL Hct 33.1 L (39.6-50.0) % POC Glucose (mg/dL) 113 H 102 H (75-99) mg/dL Microbiology - Last 24 Hours (Table) 02/08/22 05:33 Blood Culture - Preliminary Blood No Growth after 72 hours 02/09/22 03:29 Blood Culture - Preliminary Blood No Growth after 48 hours 02/08/22 15:19 Urine Culture - Final Urine,Voided
[2022-02-11 13:03] VITALS: BMI 25.1
[2022-02-11] MEDS: HYDROcodone/APAP 5-325MG 1 EACH TAB PO PRN ×2 (13:09→20:04)
[2022-02-11] MEDS: SODIUM CHLORIDE 0.9% 1,000 ML IV SCH (13:24)
[2022-02-11] MEDS ORDERED: LIDOCAINE 1% INJ 10MG/ML (20 ML MDV) SQ ONE (14:04)
--- NOTE | 2022-02-11 14:54 | P.PN ---
Subjective Progress Note Date: 02/11/22 Principal diagnosis: Shortness of breath, acute hypoxia, fever This is a 72-year-old white male with history of multiple medical problems including chronic back pain, chronic lower extremities weakness, history of back surgery at [facility] on the lumbar spine, patient is also known to have history of obstructive sleep apnea syndrome, dyslipidemia, diabetes, [employer] D, hypertension, and history of coronary artery disease and previous stent placement. Patient was at [facility], and apparently he developed a sudden episode of shortness of breath, he desaturated based on pulse oximetry, and he was a bit confused. Patient was transferred to [facility], he had a low-grade temp of 99.7. His pulse ox was 92% on 2 L, patient was noted to have abnormal chest x-ray suggestive of right lower lobe infiltrate and left lower lobe atelectasis. Patient was admitted, placed on antibiotics in the form of Zosyn mostly because the patient does have history of dysphagia. Upon my evaluation of the patient, patient stated to me that he has no idea why he was brought here, he denies any shortness of breath denied any cough denied any difficulty swallowing., Patient stated to me that his pulmonary status is fine and he is not symptomatic. Patient is resting in bed, eating, his O2 saturation is 96-100% on 3 L chest x-ray was reviewed and indeed does reflect a minimal infiltrate in the right lower lobe CBC did show leukocytosis with WBC c ount of 17.0, otherwise his labs were basically unremarkable. Patient does not have any fever his temp is 97.6. And on physical examination he sounded basically clear. The patient is seen today 02/07/2022 in follow-up on the regular medical floor. He is currently laying flat in bed. Awake and alert in no acute distress. Maintaining O2 saturations up to 99% on 2 L/m per nasal cannula. He is afebrile. Hemodynamically stable. Blood cultures are revealing presumptive MRSA. White count 14.0. Hemoglobin 11.1. Sodium 142. Potassium 4.4. BUN 28. Creatinine 1.05. He's been initiated on vancomycin and Zosyn. Continue on Symbicort and DuoNeb inhalations. Remains on oral diuretics. Lovenox for DVT prophylaxis. The patient is seen today 02/08/2022 in follow-up on the regular medical floor. He is currently resting comfortably in bed. Awake and alert in no acute distress. Currently maintaining good O2 saturations in the mid 90s on room air. He's afebrile. Hemodynamically stable. Blood cultures to come back for positive methicillin resistant Staphylococcus aureus. White count 10.2. Hemoglobin 11.0. Platelets 205. Sodium 139. Potassium 3.9. BUN 20. Creatinine 1.09. Computed tomography scan of the chest revealed chronic infiltrate and atelectasis at the lung bases more so on the left. Small left effusion. No significant change compared to previous in September 2021. He's been initiated on vancomycin and Zosyn. On 02/09/2022 patient seen in follow-up on selective care unit. He is resting comfortably in bed, no altered mentation, afebrile, vital signs have been stable, no chest pain, he is breathing comfortably, does not appear to be in any respiratory distress, no tachypnea, no accessory muscles of breathing use. Patient was found to have positive MRSA on blood cultures, follow blood culture from 02/08/2022 is negative thus far, urine culture has also been sent. CT of the chest with contrast showed chronic infiltrate and atelectasis in the lung bases mainly on the left side with small left pleural effusion. Today's labs have been reviewed, CBC results from yesterday reviewed, electrolytes are unremarkable, CO2 mildly elevated at 31, BUN is 21 creatinine is 1.06, CRP is 6.5. Urinalysis showed moderate amount of leukocyte esterase, and slightly elevated white blood cells. COVID-19 was negative. On 02/10/2022 patient seen in follow-up on medical surgical floor. He is awake and alert, in no acute distress, is resting comfortably in bed, no respiratory difficulty, no cough, no chest discomfort, room air pulse ox is 94%, he remains on vancomycin for MRSA bacteremia, follow blood cultures were obtained and sent, showing no growth at the 24 and 48 hour bola. Urine culture was negative. CT of the lumbar spine without contrast was completed showing no significant interval lumbar spinal changes, spondylo-discitis or other acute inflammatory infectious process cannot be excluded by this computed tomography scan, and MRI of the spine was recommended if clinically required. Patient currently remains on IV vancomycin. Vital signs have been stable. On 02/11/2022 patient seen in follow-up on medical surgical floor. Patient is s itting comfortably in bed, appears to be no acute distress, on 2 L of oxygen pulse ox of 96%, no tachypnea, no dyspnea, no complaints of worsening dyspnea or cough. he's had no fever or chills. Patient underwent transesophageal echocardiogram yesterday on 02/10/2022 which showed normal systolic function, no evidence of vegetation, mild mitral aortic and tricuspid regurgitation, there was no shunting across the intra-atrial septum. Patient remains on for evidence of MRSA bacteremia, CT of the lumbar spine showed no significant interval lumbar spinal changes, spondylo-discitis or other inflammatory infectious process could not be completely excluded by this computed tomography scan. An MRI of the spine was recommended. Objective - Vital Signs Vital signs: Vital Signs Temp 97.8 F 02/11/22 13:12 Pulse 69 02/11/22 13:12 Resp 16 02/11/22 13:12 BP 98/63 02/11/22 13:12 Pulse Ox 96 02/11/22 13:12 Intake & Output 02/10/22 02/11/22 02/11/22 18:59 06:59 18:59 Intake Total 1180 180 Output Total 950 Balance 1180 -770 Weight 81.647 kg Intake: IV 100 Oral 1080 180 Output: Urine 950 Other: Voiding Method Diaper Incontinent # Voids 4 2 # Bowel Movements 2 1 - Exam GENERAL EXAM: Alert, very pleasant, 72-year-old white male, on room air, resting in bed, breathing comfortably comfortable in no apparent distress. HEAD: Normocephalic/atraumatic. EYES: Normal reaction of pupils, equal size. Conjunctiva pink, sclera white. NOSE: Clear with pink turbinates. THROAT: No erythema or exudates. NECK: No masses, no JVD, no thyroid enlargement, no adenopathy. CHEST: No chest wall deformity. Symmetrical expansion. LUNGS: Equal air entry with no crackles, wheeze, rhonchi or dullness. CVS: Regular rate and rhythm, normal S1 and S2, no gallops, no murmurs, no rubs ABDOMEN: Soft, nontender. No hepatosplenomegaly, normal bowel sounds, no guarding or rigidity. EXTREMITIES: No clubbing, no edema, no cyanosis, 2+ pulses and upper and lower extremities. MUSCULOSKELETAL: Muscle strength and tone normal. SPINE: No scoliosis or deformity SKIN: No rashes CENTRAL NERVOUS SYSTEM: Alert and oriented -3. No focal deficits, tone is normal in all 4 extremities. PSYCHIATRIC: Alert and oriented -3. Appropriate affect. Intact judgment and insight. - Labs CBC & Chem 7: 02/11/22 03:16 02/11/22 03:16 Labs: Abnormal Lab Results - Last 24 Hours (Table) 02/10/22 02/10/22 02/11/22 Range/Units 15:56 20:53 03:16 WBC 11.11 H (4.50-10.00) X 10*3/uL RBC 3.49 L (4.40-5.60) X 10*6/uL Hgb 10.6 L (13.0-17.0) g/dL Hct 33.1 L (39.6-50.0) % POC Glucose (mg/dL) 113 H 102 H (75-99) mg/dL 02/11/22 Range/Units 11:11 WBC (4.50-10.00) X 10*3/uL RBC (4.40-5.60) X 10*6/uL Hgb (13.0-17.0) g/dL Hct (39.6-50.0) % POC Glucose (mg/dL) 148 H (75-99) mg/dL Microbiology - Last 24 Hours (Table) 02/08/22 05:33 Blood Culture - Preliminary Blood No Growth after 72 hours 02/09/22 03:29 Blood Culture - Preliminary Blood No Growth after 48 hours 02/08/22 15:19 Urine Culture - Final Urine,Voided Assessment and Plan Plan: Assessment: #1. Acute hypoxic respiratory failure, likely related to sepsis. CT tomography scan showed chronic changes and atelectasis at the bases with small left-sided pleural effusion. Possibility of pneumonia was considered, but seems to be less likely #2. MRSA bacteremia, possibly related to pneumonia or discitis with history of previous laminectomy #3. Coronary artery disease with previous history of stenting #4. Chronic back pain with severe lower extremity weakness #5. COPD #6. Diabetes mellitus #7. Hypertension #8. Hyperlipidemia #9. Sleep apnea #10. History of permanent pacemaker #11. Chronic diastolic CHF Plan: Continue current medical treatment MAJOR results have been noted CT lumbar spine has been reviewed Patient is breathing comfortably, Maintaining stable to saturations Continue with antibiotics per ID service recommendations We'll continue to follow I have personally seen and examined the patient, performed the documentation and the assessment and plan as written. Number of minutes spent on the visit: [10] Time with Patient: Less than 30
--- NOTE | 2022-02-11 15:59 | IR ---
PICC LINE PLACEMENT: HISTORY: Infection requiring long-term antibiotic therapy PROCEDURE: Ultrasound and fluoroscopic guidance of PICC line placement. COMPLICATIONS: None ANESTHESIA: 1. 1% Lidocaine locally. FINDINGS/TECHNIQUE: The procedure was explained to the patient. The risks, complications, benefits and alternatives were discussed and any questions were answered. Informed consent was obtained. The patient was placed supine on the fluoroscopic table and prepped and draped in the usual sterile fash ion. Utilizing a 21 gauge needle and sonographic and fluoroscopic guidance, access in the right cep halic vein was achieved and there is placement of a 0.018 guidewire. The vein is patent. A 4-F jhonson th was placed over the guidewire. The guidewire and dilator were removed and a 4-F. PICC line was pl aced through the sheath with the tip at the level of the SVC. The sheath was removed, the catheter w as flushed and sutured into position. The patient was stable throughout the procedure and remained s table upon discharge from the Department of Radiology. The vein puncture was patent under ultrasound. A smith scale image was obtained to document patency of the vein punctured. All elements of the maximal barrier technique were utilized. FLUOROSCOPY TIME: 0.2 minutes of fluoroscopy and one image submitted IMPRESSION: Successful PICC line placement under ultrasound and fluoroscopic guidance.
[2022-02-11 16:32] LABS: Glucose,Whole Blood 150 mg/dL (75-99)
[2022-02-11] MEDS: MELATONIN 5 MG TABLET PO SCH (19:59)
[2022-02-11] MEDS: SENNOSIDES-DOCUSATE SODIUM 1 EACH TAB PO SCH (19:59)
[2022-02-11] MEDS: ATORVASTATIN 20 MG TAB PO SCH (19:59)
[2022-02-11 21:25] LABS: Glucose,Whole Blood 125 mg/dL (75-99)
[2022-02-12] MEDS: GABAPENTIN 300 MG CAP PO SCH ×2 (04:59→15:21)
[2022-02-12 07:11] LABS: Glucose,Whole Blood 128 mg/dL (75-99)
[2022-02-12] MEDS: INSULIN ASPART (NovoLOG) 100 UNIT/ML VIAL SQ SCH ×2 (07:16→11:42)
--- NOTE | 2022-02-12 07:22 | P.PN ---
Subjective Progress Note Date: 02/11/22 Principal diagnosis: MRSA bacteremia Patient is a 72-year-old male presenting to the hospital with mental status changes weakness and this patient did have evidence of MRSA bacteremia. On today's evaluation that is 02/11/2022, the patient is afebrile, the patient is breathing comfortably on nasal cannula Oxygen, the patient denies Chest Pain or shortness of breath occasional cough no abdominal pain denies worsening lower back pain and no bowel or bladder problem Objective - Vital Signs Vital signs: Vital Signs Temp 97.4 F L 02/11/22 08:28 Pulse 76 02/11/22 11:00 Resp 19 02/11/22 08:28 BP 97/63 02/11/22 08:28 Pulse Ox 96 02/11/22 08:28 Intake & Output 02/10/22 02/11/22 02/11/22 18:59 06:59 18:59 Intake Total 1180 180 Output Total 950 Balance 1180 -770 Weight 81.647 kg Intake: IV 100 Oral 1080 180 Output: Urine 950 Other: Voiding Method Diaper Incontinent # Voids 4 2 # Bowel Movements 2 1 - Exam GENERAL DESCRIPTION: An elderly male lying in bed in no distress RESPIRATORY SYSTEM: Unlabored breathing , decreased breath sounds at bases HEART: S1 S2 regular rate and rhythm , ABDOMEN: Soft , no tenderness EXTREMITIES: No edema feet - Labs CBC & Chem 7: 02/11/22 03:16 02/11/22 03:16 Labs: Abnormal Lab Results - Last 24 Hours (Table) 02/10/22 02/10/22 02/11/22 Range/Units 15:56 20:53 03:16 WBC 11.11 H (4.50-10.00) X 10*3/uL RBC 3.49 L (4.40-5.60) X 10*6/uL Hgb 10.6 L (13.0-17.0) g/dL Hct 33.1 L (39.6-50.0) % POC Glucose (mg/dL) 113 H 102 H (75-99) mg/dL 02/11/22 Range/Units 11:11 WBC (4.50-10.00) X 10*3/uL RBC (4.40-5.60) X 10*6/uL Hgb (13.0-17.0) g/dL Hct (39.6-50.0) % POC Glucose (mg/dL) 148 H (75-99) mg/dL Microbiology - Last 24 Hours (Table) 02/08/22 05:33 Blood Culture - Preliminary Blood No Growth after 72 hours 02/09/22 03:29 Blood Culture - Preliminary Blood No Growth after 48 hours 02/08/22 15:19 Urine Culture - Final Urine,Voided Assessment and Plan (1) Bacteremia due to Gram-positive bacteria Current Visit: Yes Status: Acute Code(s): R78.81 - BACTEREMIA SNOMED Code(s): 530263403208 Plan: 1patient with MRSA bacteremia in this patient presented to hospital with some mental status changes he did have a low-grade fever and evidence of some chronic infiltrate at the lung bases CT did not show significant consolidation patient is currently on room air and did not have significant respiratory symptoms with a question of endovascular source versus possible discitis to the lumbosacral spine area in this patient who did have a history of chronic back pain as cur rently no other obvious focus for this bacteremia. 2- Echocardiogram was completed yesterday no vegetation MAJOR did not show any vegetation, MRI could not be done as the patient did have a pacemaker CT of the lumbar spine did not show any destructive changes, repeat blood culture has been negative 3- patient did get a PICC line and we'll treat as possible discitis to the lumbosacral spine with a 6 week course of IV vancomycin Time with Patient: Less than 30
[2022-02-12] MEDS: INSULN ASP PRT/INSULIN ASPART 100 UNIT/ML 10 ML VIAL SQ SCH (07:52)
[2022-02-12] MEDS: IPRATROPIUM-ALBUTEROL 3 ML NEB INHALATION SCH ×3 (09:00→15:23)
[2022-02-12] MEDS: SYMBICORT 160-4.5 MCG INHALER INHALATION SCH (09:00)
--- NOTE | 2022-02-12 09:02 | P.DS ---
Providers Date of admission: 02/06/22 03:01 Expected date of discharge: 02/12/22 Attending physician: Addison Wong Consults: 02/06/22 03:06 Consult Physician Routine Consulting Provider: Ratna Valle Consult Reason/Comments: copd Do you want consulting provider notified?: Yes 02/08/22 09:44 Consult Physician Routine Consulting Provider: Chery Reina Consult Reason/Comments: MRSA bacteremia Do you want consulting provider notified?: Yes Primary care physician: [facility] Course: HISTORY OF PRESENT ILLNESS 72-year-old male patient resides long-term at [facility] with past medical history of chronic back pain with severe lower extremity weakness, post back surgery with discitis status post surgery at [facility] for discitis of the lumbar spine. Additional history of COPD, diabetes, hypertension, hyperlipidemia, sleep apnea and arrhythmia post pacemaker, atherosclerotic heart disease post heart catheter and stent placement in the past. Patient was doing fine yesterday morning but later in the day became hypoxic with slight change in mental status. Patient was transferred to [facility] emergency center for evaluation. Temperature 99.7, heart rate 79, respiratory rate 30, blood pressure 99/70, pulse ox 92% on 4 L nasal cannula. WBC 17, hemoglobin 12.4, platelet count 213. INR 1.0. Sodium 135 otherwise electrolytes are normal. BUN 25 and creatinine 1.03. Glucose 157. Lactic acid 1.5. Calcium 9.6, magnesium 1.6, liver function tests normal. Troponins negative on 3 draws. ProBNP 929. Coronal virus PCR not detected. Chest x-ray revealed interstitial infiltrates in the right lung most likely new. Chronic atelectasis left lung base without change. No heart failure. 02/07: Patient is doing okay today, has left leg weakness, which is not new, patient has a Hollingsworth catheter draining clear urine, patient denies any cough, he is No edema, he has no wheezes on examination, 2 L is a cannula. Blood sugars are in 122-300, WBC is 14, blood cultures presumptive for MRSA, vancomycin is added chest x-ray shows chronic atelectasis, and the left, some interstitial infiltrates right lung which is mainly new compared to previous T-max 97.8 pulse ox 99% on 2 L nasal cannula patient is on IV Zosyn, now on IV vancomycin creatinine 1.05 02/08:, Blood culture shows MRSA, urinalysis still needs to be done, echocardiogram requested, consult with Dr. Reina, regarding bacteremia, patient does not have any fever no chills, no diarrhea, no abdominal pain, WBC 10.2, creatinine 1.02 T-max 98.8 On IV vancomycin, Zosyn, source of bacteremia MRSA still needs to be investigated. CT, shows small left pleural effusion, chronic infiltrates, without atelectasis, no loculated abscess noted 02/09: Patient has been seen by cardiology with plan for MAJOR tomorrow. Patient is unable to have MRI of the back due to pacemaker. His pulse ox is 93% on room air. No cough. Patient's will be updated by Dr. Estevan GOLDBERG and call later today. Echocardiogram reveals normal LV systolic function. No obvious vegetations. Consider MAJOR. 02/10: Patient is scheduled for MAJOR today. Patient denies any new complaints. Mental status is back to baseline. We will order CAT scan of the lumbar spine as patient is unable to undergo MRI. Patient's been afebrile, heart rate 61, blood pressure 93/61, pulse ox 95% on room air. Capillary blood glucose running between 88 and 138. Repeat blood work ordered for tomorrow. Blood work from yesterday revealed sed rate of 29, C reactive protein 6.5. 02/11: CAT scan of the lumbar spine have revealed no significant interval lumbar spinal changes. Please note that spinal discitis or other acute inflammatory infectious process cannot be excluded by this CAT scan. Patient is unable to undergo MRI at our facility due to pacemaker. MAJOR revealed mildly dilated left atrium with normal appearance of the left atrial appendage. Normal systolic size and function, no evidence of vegetation. Mild mitral, aortic and tricuspid regurgitation. No shunting across intra-atrial septum. Patient is continued on vancomycin. Repeat blood cultures at 48 and 72 hours showed no growth and PICC line will be ordered for today. Await further recommendations from infectious disease. 02/12: PICC line was inserted yesterday. Dr. Reina recommends 6 week course of IV vancomycin. Patient has an appointment with his surgeon next week which plan will be to keep this appointment and most likely will require MRI to be done of the lumbar spine. Patient will be discharged back to [facility] today in stable condition. DISCHARGE DIAGNOSES 1. Acute hypoxic respiratory failure secondary to sepsis. 2. Sepsis with SIRS, MRSA bacteremia, suspected from chronic osteomyelitis/discitis. 2 chronic diastolic heart failure 3 mild COPD 4 metabolic encephalopathy 5 chronic discitis, status post surgical intervention and course of IV antibiotics with vancomycin. 6 type 2 diabetes 7 anemia of chronic disease 8 Hyperlipidemia 9 chronic pain management 10 mild memory loss/dementia 11 hypertension DISCHARGE PLAN Return to [facility] Greater than 35 minutes was utilized and coordinating patient's discharge. Impression and plan of care have been directed as dictated by the signing physician. Gabriella Munoz nurse practitioner acting as scribe for signing physician. Patient Condition at Discharge: Stable Plan - Discharge Summary New Discharge Prescriptions: New Vancomycin 1,000 mg IVPB Q16H 42 Days each Ferrous Sulfate [Iron (65 MG Elemental)] 325 mg PO DAILY@0800 tab Continue Metoprolol Tartrate [Lopressor] 25 mg PO BID@0800,1700 Umeclidinium [place] [Incruse Ellipta] 1 puff INHALATION RT-DAILY@0800 Fluticasone/Salmeterol [Advair Hfa 45-21 Mcg Inhaler] 1 puff INHALATION RT- BID@0800,1700 Albuterol Nebulized [Ventolin Nebulized] 2.5 mg INHALATION RT-Q2H PRN PRN Reason: Shortness Of Breath Atorvastatin Calcium [Lipitor] 20 mg PO HS Donepezil HCl [Aricept] 5 mg PO DAILY@0800 Polyethylene Glycol 3350 [Clearlax] 17 gm PO DAILY PRN PRN Reason: Constipation bisacodyL [Dulcolax] 10 mg RECTAL DAILY PRN PRN Reason: Constipation Docusate Sodium [Dok] 100 mg PO DAILY PRN PRN Reason: Constipation Melatonin 5 mg PO HS Ondansetron Odt [Zofran ODT] 4 mg PO Q8H PRN PRN Reason: Nausea Venlafaxine HCl [Effexor XR] 150 mg PO DAILY@0800 Furosemide [Lasix] 20 mg PO DAILY@0800 Sennosides/Docusate Sodium [Senna-S 8.6-50 mg Tablet] 2 tab PO HS Magnesium Hydroxide [Milk of Magnesia Concentrate] 7,200 mg PO Q48H PRN PRN Reason: Constipation Acetaminophen Tab [Tylenol] 650 mg PO Q6HR PRN PRN Reason: Fever And/ Or Pain HYDROcodone/APAP 5-325MG [[place]branch 5-325] 1 tab PO Q6H PRN #12 tab PRN Reason: Pain Na Phos,M-B/Na Phos,Di-Ba [Fleet Adult] 133 ml RECTAL DAILY PRN PRN Reason: Constipation Ipratropium-Albuterol Nebulize [Duoneb 0.5 mg-3 mg/3 ml Soln] 3 ml INHALATION RT-Q6H metFORMIN HCL 500 mg PO BID@0800,1700 Ferrous Sulfate [Iron (65 MG Elemental)] 325 mg PO DAILY@0800 Meloxicam [Mobic] 7.5 mg PO DAILY@0800 Insulin NPH Hum/Reg Insulin Hm [NovoLIN 70-30 100 UNIT/ML VIAL] 15 unit SQ BID@0800,1700 Baclofen [Lioresal] 5 mg PO BID@0800,1700 Venlafaxine HCl [Effexor XR] 75 mg PO DAILY@0800 Cyanocobalamin [Vitamin B-12] 500 mcg PO DAILY@0800 diphenhydrAMINE HCL [Benadryl] 25 mg PO Q6H PRN PRN Reason: Itching Aspirin 81 mg PO DAILY@0800 Gabapentin 300 mg PO TID@0600,1400,2200 #9 cap Discharge Medication List Metoprolol Tartrate [Lopressor] 25 mg PO BID@0800,1700 12/02/16 [History] Umeclidinium [place] [Incruse Ellipta] 1 puff INHALATION RT-DAILY@0800 09/22/18 [History] Fluticasone/Salmeterol [Advair Hfa 45-21 Mcg Inhaler] 1 puff INHALATION RT-BID@0800,1700 06/07/20 [History] Albuterol Nebulized [Ventolin Nebulized] 2.5 mg INHALATION RT-Q2H PRN 09/16/20 [History] Atorvastatin Calcium [Lipitor] 20 mg PO HS 10/12/20 [History] Donepezil HCl [Aricept] 5 mg PO DAILY@0800 12/19/20 [History] Docusate Sodium [Dok] 100 mg PO DAILY PRN 09/18/21 [History] Ferrous Sulfate [Iron (65 MG Elemental)] 325 mg PO DAILY@0800 09/18/21 [History] Ipratropium-Albuterol Nebulize [Duoneb 0.5 mg-3 mg/3 ml Soln] 3 ml INHALATION RT-Q6H 09/18/21 [History] Melatonin 5 mg PO HS 09/18/21 [History] Meloxicam [Mobic] 7.5 mg PO DAILY@0800 09/18/21 [History] Na Phos,M-B/Na Phos,Di-Ba [Fleet Adult] 133 ml RECTAL DAILY PRN 09/18/21 [History] Polyethylene Glycol 3350 [Clearlax] 17 gm PO DAILY PRN 09/18/21 [History] bisacodyL [Dulcolax] 10 mg RECTAL DAILY PRN 09/18/21 [History] metFORMIN HCL 500 mg PO BID@0800,1700 09/18/21 [History] Baclofen [Lioresal] 5 mg PO BID@0800,1700 11/29/21 [History] Cyanocobalamin [Vitamin B-12] 500 mcg PO DAILY@0800 11/29/21 [History] Furosemide [Lasix] 20 mg PO DAILY@0800 11/29/21 [History] Insulin NPH Hum/Reg Insulin Hm [NovoLIN 70-30 100 UNIT/ML VIAL] 15 unit SQ BID@0800,1700 11/29/21 [History] Ondansetron Odt [Zofran ODT] 4 mg PO Q8H PRN 11/29/21 [History] Venlafaxine HCl [Effexor XR] 75 mg PO DAILY@0800 11/29/21 [History] Venlafaxine HCl [Effexor XR] 150 mg PO DAILY@0800 11/29/21 [History] Acetaminophen Tab [Tylenol] 650 mg PO Q6HR PRN 02/06/22 [History] Aspirin 81 mg PO DAILY@0800 02/06/22 [History] Magnesium Hydroxide [Milk of Magnesia Concentrate] 7,200 mg PO Q48H PRN 02/06/22 [History] Sennosides/Docusate Sodium [Senna-S 8.6-50 mg Tablet] 2 tab PO HS 02/06/22 [History] diphenhydrAMINE HCL [Benadryl] 25 mg PO Q6H PRN 02/06/22 [History] Ferrous Sulfate [Iron (65 MG Elemental)] 325 mg PO DAILY@0800 tab 02/12/22 [Rx] Gabapentin 300 mg PO TID@0600,1400,2200 #9 cap 02/12/22 [Rx] HYDROcodone/APAP 5-325MG [[place] 5-325] 1 tab PO Q6H PRN #12 tab 02/12/22 [Rx] Vancomycin 1,000 mg IVPB Q16H 42 Days each 02/12/22 [Rx] Follow up Appointment(s)/Referral(s): Ratna Valle MD [STAFF PHYSICIAN] - 10 Days Addison Wong MD [Primary Care Provider] - 1 Week (AT [facility]) Discharge Disposition: TRANSFER TO SNF/ECF
[2022-02-12] MEDS: METOPROLOL TARTRATE 25 MG TAB PO SCH (09:57)
[2022-02-12] MEDS: metFORMIN 500 MG TAB PO SCH (09:57)
[2022-02-12] MEDS: VENLAFAXINE HCL ER 75 MG CAP PO SCH (09:57)
[2022-02-12] MEDS: BACLOFEN 10 MG TAB PO SCH (09:57)
[2022-02-12] MEDS: FUROSEMIDE 20 MG TAB PO SCH (09:57)
[2022-02-12] MEDS: VENLAFAXINE HCL ER 150 MG CAP PO SCH (09:57)
[2022-02-12] MEDS: PANTOPRAZOLE 40 MG TABLET PO SCH (09:57)
[2022-02-12] MEDS: ASPIRIN 81 MG PO SCH (09:57)
[2022-02-12] MEDS: DONEPEZIL 5 MG TAB PO SCH (09:58)
[2022-02-12] MEDS: FERROUS SULFATE 325 MG TAB PO SCH (09:58)
[2022-02-12] MEDS: CYANOCOBALAMIN 500 MCG TAB PO SCH (09:58)
[2022-02-12] MEDS: ENOXAPARIN 40 MG/0.4 ML SYRINGE SQ SCH (09:58)
[2022-02-12] MEDS: MELOXICAM 7.5 MG TAB PO SCH (09:58)
[2022-02-12] MEDS: VANCOMYCIN 1,000 MG in SODIUM CHLORIDE 0.9% 250 ML IVPB SCH (10:02)
[2022-02-12 11:38] LABS: Glucose,Whole Blood 125 mg/dL (75-99)
--- NOTE | 2022-02-12 12:39 | P.PN ---
Subjective Progress Note Date: 02/12/22 Principal diagnosis: Shortness of breath, acute hypoxia, fever This is a 72-year-old white male with history of multiple medical problems including chronic back pain, chronic lower extremities weakness, history of back surgery at [facility] on the lumbar spine, patient is also known to have history of obstructive sleep apnea syndrome, dyslipidemia, diabetes, TOOL [employer] D, hypertension, and history of coronary artery disease and previous stent placement. Patient was at [facility], and apparently he developed a sudden episode of shortness of breath, he desaturated based on pulse oximetry, and he was a bit confused. Patient was transferred to [facility], he had a low-grade temp of 99.7. His pulse ox was 92% on 2 L, patient was noted to have abnormal chest x-ray suggestive of right lower lobe infiltrate and left lower lobe atelectasis. Patient was admitted, placed on antibiotics in the form of Zosyn mostly because the patient does have history of dysphagia. Upon my evaluation of the patient, patient stated to me that he has no idea why he was brought here, he denies any shortness of breath denied any cough denied any difficulty swallowing., Patient stated to me that his pulmonary status is fine and he is not symptomatic. Patient is resting in bed, eating, his O2 saturation is 96-100% on 3 L chest x-ray was reviewed and indeed does reflect a minimal infiltrate in the right lower lobe CBC did show leukocytosis with WBC c ount of 17.0, otherwise his labs were basically unremarkable. Patient does not have any fever his temp is 97.6. And on physical examination he sounded basically clear. The patient is seen today 02/07/2022 in follow-up on the regular medical floor. He is currently laying flat in bed. Awake and alert in no acute distress. Maintaining O2 saturations up to 99% on 2 L/m per nasal cannula. He is afebrile. Hemodynamically stable. Blood cultures are revealing presumptive MRSA. White count 14.0. Hemoglobin 11.1. Sodium 142. Potassium 4.4. BUN 28. Creatinine 1.05. He's been initiated on vancomycin and Zosyn. Continue on Symbicort and DuoNeb inhalations. Remains on oral diuretics. Lovenox for DVT prophylaxis. The patient is seen today 02/08/2022 in follow-up on the regular medical floor. He is currently resting comfortably in bed. Awake and alert in no acute distress. Currently maintaining good O2 saturations in the mid 90s on room air. He's afebrile. Hemodynamically stable. Blood cultures to come back for positive methicillin resistant Staphylococcus aureus. White count 10.2. Hemoglobin 11.0. Platelets 205. Sodium 139. Potassium 3.9. BUN 20. Creatinine 1.09. Computed tomography scan of the chest revealed chronic infiltrate and atelectasis at the lung bases more so on the left. Small left effusion. No significant change compared to previous in September 2021. He's been initiated on vancomycin and Zosyn. On 02/09/2022 patient seen in follow-up on selective care unit. He is resting comfortably in bed, no altered mentation, afebrile, vital signs have been stable, no chest pain, he is breathing comfortably, does not appear to be in any respiratory distress, no tachypnea, no accessory muscles of breathing use. Patient was found to have positive MRSA on blood cultures, follow blood culture from 02/08/2022 is negative thus far, urine culture has also been sent. CT of the chest with contrast showed chronic infiltrate and atelectasis in the lung bases mainly on the left side with small left pleural effusion. Today's labs have been reviewed, CBC results from yesterday reviewed, electrolytes are unremarkable, CO2 mildly elevated at 31, BUN is 21 creatinine is 1.06, CRP is 6.5. Urinalysis showed moderate amount of leukocyte esterase, and slightly elevated white blood cells. COVID-19 was negative. On 02/10/2022 patient seen in follow-up on medical surgical floor. He is awake and alert, in no acute distress, is resting comfortably in bed, no respiratory difficulty, no cough, no chest discomfort, room air pulse ox is 94%, he remains on vancomycin for MRSA bacteremia, follow blood cultures were obtained and sent, showing no growth at the 24 and 48 hour bola. Urine culture was negative. CT of the lumbar spine without contrast was completed showing no significant interval lumbar spinal changes, spondylo-discitis or other acute inflammatory infectious process cannot be excluded by this computed tomography scan, and MRI of the spine was recommended if clinically required. Patient currently remains on IV vancomycin. Vital signs have been stable. On 02/11/2022 patient seen in follow-up on medical surgical floor. Patient is s itting comfortably in bed, appears to be no acute distress, on 2 L of oxygen pulse ox of 96%, no tachypnea, no dyspnea, no complaints of worsening dyspnea or cough. he's had no fever or chills. Patient underwent transesophageal echocardiogram yesterday on 02/10/2022 which showed normal systolic function, no evidence of vegetation, mild mitral aortic and tricuspid regurgitation, there was no shunting across the intra-atrial septum. Patient remains on for evidence of MRSA bacteremia, CT of the lumbar spine showed no significant interval lumbar spinal changes, spondylo-discitis or other inflammatory infectious process could not be completely excluded by this computed tomography scan. An MRI of the spine was recommended. On 02/12/2022 patient seen in follow-up on medical surgical floor. He is awake and alert, in no acute distress, denies any dyspnea or cough, he is currently on 2 L of oxygen pulse ox is 97%. Lung sounds are clear to auscultation, vital signs have been stable, no fever or chills. He had a PICC line inserted, he remains on Vancomycin for MRSA bacteremia. MRI of the lumbar spine could not be completed related to presence of a permanent pacemaker. Transesophageal echocardiogram showed no evidence of vegetation. Follow-up blood cultures have been negative at 96 hours, urine culture show no growth. Patient denies Pulmonary symptoms. Denies back pain, no lower extremity weakness. Patient will follow-up with his neurosurgeon. He is being discharged to [facility] rehab today Objective - Vital Signs Vital signs: Vital Signs Temp 97.9 F 02/12/22 08:15 Pulse 72 02/12/22 12:00 Resp 18 02/12/22 08:15 BP 103/64 02/12/22 08:15 Pulse Ox 97 02/12/22 08:15 Intake & Output 02/11/22 02/12/22 02/12/22 18:59 06:59 18:59 Intake Total 360 200 180 Output Total 950 800 Balance -590 -600 180 Weight 81.647 kg Intake: Oral 360 200 180 Output: Urine 950 800 Other: Voiding Method Diaper Diaper Incontinent Incontinent # Voids 1 # Bowel Movements 1 - Exam GENERAL EXAM: Alert, very pleasant, 72-year-old white male, on 2 l/min resting in bed, breathing comfortably comfortable in no apparent distress. HEAD: Normocephalic/atraumatic. EYES: Normal reaction of pupils, equal size. Conjunctiva pink, sclera white. NOSE: Clear with pink turbinates. THROAT: No erythema or exudates. NECK: No masses, no JVD, no thyroid enlargement, no adenopathy. CHEST: No chest wall deformity. Symmetrical expansion. LUNGS: Equal air entry with no crackles, wheeze, rhonchi or dullness. CVS: Regular rate and rhythm, normal S1 and S2, no gallops, no murmurs, no rubs ABDOMEN: Soft, nontender. No hepatosplenomegaly, normal bowel sounds, no guarding or rigidity. EXTREMITIES: No clubbing, no edema, no cyanosis, 2+ pulses and upper and lower extremities. MUSCULOSKELETAL: Muscle strength and tone normal. SPINE: No scoliosis or deformity SKIN: No rashes CENTRAL NERVOUS SYSTEM: Alert and oriented -3. No focal deficits, tone is normal in all 4 extremities. PSYCHIATRIC: Alert and oriented -3. Appropriate affect. Intact judgment and insight. - Labs CBC & Chem 7: 02/11/22 03:16 02/11/22 03:16 Labs: Abnormal Lab Results - Last 24 Hours (Table) 02/11/22 02/11/22 02/12/22 Range/Units 16:25 21:24 07:06 POC Glucose (mg/dL) 150 H 125 H 128 H (75-99) mg/dL 02/12/22 Range/Units 11:36 POC Glucose (mg/dL) 125 H (75-99) mg/dL Microbiology - Last 24 Hours (Table) 02/08/22 05:33 Blood Culture - Preliminary Blood No Growth after 96 hours 02/09/22 03:29 Blood Culture - Preliminary Blood No Growth after 72 hours Assessment and Plan Plan: Assessment: #1. Acute hypoxic respiratory failure, likely related to sepsis. CT tomography scan showed chronic changes and atelectasis at the bases with small left-sided pleural effusion. Possibility of pneumonia was considered, but seems to be less likely #2. MRSA bacteremia, possibly related to pneumonia or discitis with history of previous laminectomy #3. Coronary artery disease with previous history of stenting #4. Chronic back pain with severe lower extremity weakness #5. COPD #6. Diabetes mellitus #7. Hypertension #8. Hyperlipidemia #9. Sleep apnea #10. History of permanent pacemaker #11. Chronic diastolic CHF Plan: Clinical patient has remained stable No pulmonary complaints No fever or chills Continues on vancomycin for MRSA bacteremia No acute events overnight, He received a PICC line and he will be going to [facility] and will complete 6 weeks of IV vancomycin Stable for discharge to [facility] from pulmonary perspective I have personally seen and examined the patient, performed the documentation and the assessment and plan as written. Number of minutes spent on the visit: [10] Time with Patient: Less than 30
[2022-02-12 15:38] VITALS: BP 112/72; PULSE 53; RESP 19; TEMP 98.2
[2022-02-12 16:18] LABS: Glucose,Whole Blood 107 mg/dL (75-99)
== END 2022-02-12 16:21 | DRG 871 ==
LOC: EC 01:15 → 4SSUR 03:01
PROVIDERS: ADMIT Internal Medicine Geriatric Medicine; ATTEND Internal Medicine Geriatric Medicine
PROC: B24BZZ4 Ultrasonography of Heart with Aorta, Transesophageal (ICD-10-PCS; 2022-02-10)
PROC: 02HV33Z Insertion of Infusion Device into Superior Vena Cava, Percutaneous Approach (ICD-10-PCS; principal; 2022-02-11 08:25)
PROC: B518YZA Fluoroscopy of Superior Vena Cava using Other Contrast, Guidance (ICD-10-PCS; principal; 2022-02-11 08:25)
PROC: B548ZZA Ultrasonography of Superior Vena Cava, Guidance (ICD-10-PCS; principal; 2022-02-11 08:25)
DX: A41.02 Sepsis due to Methicillin resistant Staphylococcus aureus (principal); G93.41 Metabolic encephalopathy; J18.9 Pneumonia, unspecified organism; J96.01 Acute respiratory failure with hypoxia; J69.0 Pneumonitis due to inhalation of food and vomit; I50.32 Chronic diastolic (congestive) heart failure; J44.0 Chronic obstructive pulmonary disease with (acute) lower respiratory infection; M46.20 Osteomyelitis of vertebra, site unspecified; E78.5 Hyperlipidemia, unspecified; E86.0 Dehydration; D63.8 Anemia in other chronic diseases classified elsewhere; E11.51 Type 2 diabetes mellitus with diabetic peripheral angiopathy without gangrene; F03.90 Unspecified dementia, unspecified severity, without behavioral disturbance, psychotic disturbance, mood disturbance, and anxiety; G47.30 Sleep apnea, unspecified; G89.4 Chronic pain syndrome; I11.0 Hypertensive heart disease with heart failure; I25.10 Atherosclerotic heart disease of native coronary artery without angina pectoris; Z20.822 Contact with and (suspected) exposure to COVID-19; M46.40 Discitis, unspecified, site unspecified; I08.3 Combined rheumatic disorders of mitral, aortic and tricuspid valves; R62.7 Adult failure to thrive; Z87.891 Personal history of nicotine dependence; Z79.1 Long term (current) use of non-steroidal anti-inflammatories (NSAID); Z79.4 Long term (current) use of insulin; Z79.51 Long term (current) use of inhaled steroids; Z79.82 Long term (current) use of aspirin; Z79.84 Long term (current) use of oral hypoglycemic drugs; Z79.899 Other long term (current) drug therapy; Z95.0 Presence of cardiac pacemaker; Z87.01 Personal history of pneumonia (recurrent); Z95.5 Presence of coronary angioplasty implant and graft; Z98.1 Arthrodesis status; Z82.49 Family history of ischemic heart disease and other diseases of the circulatory system
CPT/HCPCS: 36415; 36573; 71045; 71260; 72131; 80048; 80053; 80202; 81001; 82607; 82728; 83605; 83735; 83880; 84100; 84484; 85025; 85027; 85610; 85652; 85730; 86140; 87040; 87077; 87086; 87186; 87635; 93005; 93306; 93312; 93320; 93325; 94640; 94760; 96365; 96366; 96368; 96375; 99285